=== PATIENT | female | born 1935 | race Caucasian/White ===

== ENCOUNTER → 2018-07-21 | Day surgery (SDC) | payer MEDICARE ==
[2018-07-17 15:18] LABS: BASOPHILS % 0.4 % (0.0-1.0); EOSINOPHILS # (AUTO) 0.1 (0.0-0.4); EOSINOPHILS % 1.6 % (0.0-6.0); HEMATOCRIT 30.3 % (34.2-44.1); HEMOGLOBIN 9.1 g/dL (12.0-16.0); LYMPHOCYTES # (AUTO) 2.5 (1.0-3.2); LYMPHOCYTES % 30.9 % (18.0-39.1); MEAN CORPUSCULAR HEMOGLOBIN 26.8 pg (28-32); MEAN CORPUSCULAR VOLUME 89.1 fL (81-99); MONOCYTES # (AUTO) 0.8 (0.2-0.8); MONOCYTES % 9.3 % (4.4-11.3); NEUTROPHILS # (AUTO) 4.6 (2.1-6.9); NEUTROPHILS % 57.3 % (38.7-80.0); PLATELET COUNT 260 x10e3/uL (140-360); RED CELL DISTRIBUTION WIDTH 16.9 % (11.7-14.4)
[~2018-07-21] MED LIST: ADVAIR 250-501 EACH INH; ADVAIR 500/501 EA INH; ASPIR 8181 MG PO; ATORVASTATIN CA20 MG PO; AVAPRO150 MG PO; BUMETANIDE1 MG PO; CO Q-10200 MG PO; DILTIAZEM ER360 MG PO; EVISTA60 MG PO; FENTANYL CITRATE/PF 100MCG/2 ML INJ ONE; FUROSEMIDE40 MG PO; GABAPENTIN300 MG PO; HYDRALAZINE HCL25 MG PO; KETAMINE HCL INJ 50 MG/ML 10 ML VIAL ONE; METFORMIN HCL500 MG PO; MIDAZOLAM HCL 2 MG/2 ML VIAL ONE; MONTELUKAST SOD10 MG PO; MUCINEX PO; MULTIVITAMINS1 EAC8 PO; NOVOLOG100 UNIT/1 SQ; OMEPRAZOLE PO; OMEPRAZOLE40 MG PO; ONDANSETRON HCL INJ 2 MG/ML VIAL ONE; PRAVASTATIN SOD20 MG PO; PROPOFOL IV EMULSION 10 MG/ML 20 ML VIAL ONE; PROVENTIL HFA6.7 GM INH; SPIRIVA18 MCG PO; SPIRONOLACTONE25 MG PO; VITAMIN C500 M1 PO; VITAMIN D1000 UNI1 PO; ZYRTEC10 MG PO
[2018-07-21 08:50] VITALS: BP 157/77
--- NOTE | 2018-07-21 09:20 | Operative Report ---
DATE OF PROCEDURE: July 21, 2018 NAME OF PROCEDURES 1. Esophagogastroduodenoscopy. 2. Colonoscopy. PREPROCEDURE DIAGNOSIS: Patient with history of abdominal pain, iron deficiency anemia, rule out peptic ulcer disease, gastroesophagitis, upper GI neoplasm, lower GI neoplasm. DESCRIPTION OF PROCEDURE: After informed written consent and premedication with monitored anesthesia care, a standard video gastroscope was introduced into the mouth, esophagus, stomach, and to the 2nd portion of the duodenum. The 1st and 2nd portions of the duodenum appeared to be normal. Biopsies were done to rule out any possibility of malabsorption. The antrum and body were unremarkable. The fundus showed diminutive polyps and biopsies were done to rule out any adenoma changes. Retroflexion revealed a moderately-sized sliding hiatal hernia. Rest of the esophagus was normal. The standard video Olympus colonoscope was introduced into the rectum and all the way into the terminal ileum with some difficulty especially in the distal colon due to looping. The cecum and appendiceal orifice appeared to be normal. The ascending colon showed mild diverticulosis. The descending sigmoid showed extensive diverticulosis. There was a diminutive polyp in the hepatic flexure, removed by cold biopsy forceps. In the distal descending colon around 40 cm from the anal verge, there appeared to be 3 to 3.5 cm sessile polyp going across the fold. This polyp was fairly large. Biopsies were done to rule out any possibility of malignancy and Josseline ink marking for tattooing purposes was done. The polyp was not removed. IMPRESSION 1. Large colon polyp, biopsied and marked in the distal descending colon around 40 cm from the anal verge. 2. Diverticulosis. 3. Polyp in splenic flexure. 4. Hiatal hernia. 5. Gastric polyp. RECOMMENDATIONS: Will keep the patient on PPI. Take the biopsy of the large polyp. If it shows malignancy or high-grade dysplasia, she will need surgery. If not, surgery versus endoscopic mucosal resection can be offered, although high risk. This will be explained to the patient on an outpatient basis and then we will accordingly follow. Further recommendations will be based on the patient's clinical course. Job#: [id number]
--- OUTSIDE RECORDS SUMMARY | 2018-07-28 12:13 | XMS REPORT | Summary of Care ---
Author Author [facility] Organization [facility] Address Unknown Phone Unavailable Encounter ADRIAN Lerner(LINDSAY) [id number] Date(s): 02/12/16 - 02/12/16 [facility] [address] [place] [address]- Discharge Diagnosis: Acute pain of left knee Discharge Diagnosis: COPD exacerbation Discharge Diagnosis: Accidental fall Discharge Disposition: Home Attending Physician: Terence Hopper MD Vital Signs 1 2 3 Most recent to oldest [Reference Range]: 172.72 cm (02/12/16 5:33 PM) Height 98 DegF (02/12/16 9:51 PM) 98.2 DegF (02/12/16 5:33 PM) Temperature Oral [96.4-99.1 DegF] 145/80 mmHg *HI* (02/12/16 9:51 PM) 149/56 mmHg *HI* (02/12/16 7:45 PM) 170/61 mmHg *HI* (02/12/16 6:06 PM) Blood Pressure [90-140/60-90 mmHg] 18 BRMIN (02/12/16 9:51 PM) 16 BRMIN (02/12/16 7:45 PM) 16 BRMIN (02/12/16 6:29 PM) Respiratory Rate [14-20 BRMIN] 88 bpm (02/12/16 9:51 PM) 83 bpm (02/12/16 6:06 PM) 90 bpm (02/12/16 5:33 PM) Peripheral Pulse Rate [60-100 bpm] 86.364 kg (02/12/16 5:33 PM) Weight 28.95 m2 (02/12/16 5:33 PM) Body Mass Index Problem List Condition Effective Dates Status Health Status Informant Asthma1 Active COPD(Confirmed) Resolved Diabetes(Confirmed) Resolved Hypercholesterolemia Active 2 Hypertension(Confirm Active ed) Infection of skin3 01/08/12 Active Migraine4 Active Neuropathy(Confirmed Active ) 1Data migrated from [employer] on 03/11/15. 2Data migrated from [employer] on 03/11/15. 3Data migrated from [employer] on 03/11/15. 4Data migrated from [employer] on 03/11/15. Allergies, Adverse Reactions, Alerts Substance Reaction Severity Status nka Active Medications azithromycin 250 mg oral tablet See Instructions, Take 2 tablets by mouth the first day then 1 tablet by mouth d aily on days 2-5., X 5 day, # 6 tab, 0 Refill(s) Start Date: 02/12/16 Stop Date: 02/17/16 Status: Ordered DuoNeb inhalation solution 3 ml, Route: NEB, Drug Form: SOLN, Dosing Weight 86.364, kg, PRN, PRN Respirator y Protocol, Start date: 02/12/16 18:20:00 CDT, Duration: 30 day, Stop date: 10/28 18:19:00 CDT Notes: (Same as: Duoneb) Start Date: 02/12/16 Stop Date: 02/13/16 Status: Discontinued morphine Sulfate 2 mg, 1 mL, Route: IVP, Drug form: INJ, ONCE, Dosing Weight 86.364, kg, Priority : STAT, Start date: 02/12/16 18:16:00 CDT, Stop date: 02/12/16 18:16:00 CDT Notes: (Same as:MORPhine Sulfate) Start Date: 02/12/16 Stop Date: 02/12/16 Status: Completed Firestone 5/325 oral tablet 1 tab, Route: PO, Drug Form: TAB, Dosing Weight 86.364, kg, ONCE, STAT, Start da te: 02/12/16 20:49:00 CDT, Stop date: 02/12/16 20:49:00 CDT Notes: (Same as: Firestone 325/5) Do not exceed 4gm/day of acetaminophen. Start Date: 02/12/16 Stop Date: 02/12/16 Status: Completed ondansetron 4 mg, 2 mL, Route: IVP, Drug form: INJ, ONCE, Dosing Weight 86.364, kg, Priority : STAT, Start date: 02/12/16 18:16:00 CDT, Stop date: 02/12/16 18:16:00 CDT Notes: (Same as: Zoan) MEDICATION WASTE Product Size: 4 mgProduct Was zulema: ___ mg Start Date: 02/12/16 Stop Date: 02/12/16 Status: Completed predniSONE 50 mg oral tablet 50 mg=1 tab, PO, Daily, X 5 day, # 5 tab, 0 Refill(s) Start Date: 02/12/16 Stop Date: 02/17/16 Status: Ordered Saline Flush 0.9% 10 mL, Route: IVP, Drug Form: INJ, Dosing Weight 86.364, kg, PRN, PRN Line Flush , Start date: 02/12/16 18:19:00 CDT, Duration: 30 day, Stop date: 03/13/16 18:18 :00 CDT Notes: (Same as: BD Posiflush) Start Date: 02/12/16 Stop Date: 02/13/16 Status: Discontinued Ultram 50 mg oral tablet 50 mg=1 tab, PO, Q6H, PRN pain, X 3 day, # 12 tab, 0 Refill(s) Start Date: 02/12/16 Stop Date: 02/15/16 Status: Ordered Results No data available for this section Immunizations No data available for this section Procedures Procedure Date Related Diagnosis Body Site Cholecystectomy Social History Social History Type Response Smoking Status Former smoker; Type: Cigarettes; Exposure to Tobacco Smoke None; Cigarette Smoking Last 365 Days No; Reg Smoking Cessation Counseling No Assessment and Plan No data available for this section
--- OUTSIDE RECORDS SUMMARY | 2018-07-28 12:13 | XMS REPORT | Summary of Care ---
Author Author [facility] Organization [facility] Address Unknown Phone Unavailable Encounter ADRIAN Lerner(LINDSAY) [id number] Date(s): 02/12/17 - 02/12/17 [facility] [address] [address]- [phone] Discharge Disposition: Home or Self Care Attending Physician: Maximino Malhotra MD Referring Physician: Maximino Malhotra MD Vital Signs 1 2 3 Most recent to oldest [Reference Range]: 172.72 cm (02/07/17 6:05 PM) Height 169/70 mmHg *HI* (02/12/17 11:00 AM) 169/77 mmHg *HI* (02/12/17 10:45 AM) 151/67 mmHg *HI* (02/12/17 10:30 AM) Blood Pressure [90-140/60-90 mmHg] 30 BRMIN *HI* (02/12/17 11:00 AM) 17 BRMIN (02/12/17 10:45 AM) 18 BRMIN (02/12/17 10:30 AM) Respiratory Rate [14-20 BRMIN] 87.273 kg (02/07/17 6:05 PM) Weight 29.25 m2 (02/07/17 6:05 PM) Body Mass Index Problem List Condition Effective Dates Status Health Status Informant Asthma1 Active COPD(Confirmed) Resolved Diabetes(Confirmed) Resolved Hx of Resolved osteoporosis(Confirm ed) Hypercholesterolemia Active 2 Hypertension(Confirm Active ed) Infection of skin3 01/08/12 Active Migraine4 Active Neuropathy(Confirmed Active ) Trigeminal Resolved neuralgia(Confirmed) 1Data migrated from [employer] on 03/11/15. 2Data migrated from [employer] on 03/11/15. 3Data migrated from [employer] on 03/11/15. 4Data migrated from [employer] on 03/11/15. Allergies, Adverse Reactions, Alerts Substance Reaction Severity Status nka Active Medications acetaminophen 325 mg, Route: PO, Drug form: TAB, Q4H, Dosing Weight 87.273, kg, PRN Pain Score 1-3, Start date: 02/12/17 10:51:00 CDT, Duration: 30 day, Stop date: 03/14/17 1 0:50:00 CDT Start Date: 02/12/17 Stop Date: 02/12/17 Status: Discontinued acetaminophen-hydrocodone 325 mg-5 mg oral tablet 1 tab, Route: PO, Drug Form: TAB, Dosing Weight 87.273, kg, Q4H, PRN Pain Score 4-6, Start date: 02/12/17 10:51:00 CDT, Duration: 30 day, Stop date: 03/14/17 10 :50:00 CDT Start Date: 02/12/17 Stop Date: 02/12/17 Status: Discontinued acetaminophen-hydrocodone 325 mg-5 mg oral tablet 2 tab, Route: PO, Drug Form: TAB, Dosing Weight 87.273, kg, Q4H, PRN Pain Score 7-10, Start date: 02/12/17 10:51:00 CDT, Duration: 30 day, Stop date: 03/14/17 1 0:50:00 CDT Start Date: 02/12/17 Stop Date: 02/12/17 Status: Discontinued bupivacaine 0.25%-epinephrine 1:200,000 injectable solution 30 mL, Route: MISC, Dosing Weight 87.273, kg, ONCALL, Start date: 02/12/17 6:00: 00 CDT, Duration: 30 day, Stop date: 03/14/17 5:59:00 CDT Start Date: 02/12/17 Stop Date: 02/12/17 Status: Completed dexamethasone 6 mg, Route: IVP, Drug form: INJ, ONCE, Dosing Weight 87.273, kg, Start date: 5:53:00 CDT, Stop date: 02/12/17 5:53:00 CDT Start Date: 02/12/17 Stop Date: 02/12/17 Status: Completed famotidine 20 mg, Route: IVP, Drug form: INJ, ONCE, Dosing Weight 87.273, kg, Start date: 0 02/12/17 5:53:00 CDT, Stop date: 02/12/17 5:53:00 CDT Start Date: 02/12/17 Stop Date: 02/12/17 Status: Completed fentaNYL 50 microgram, Route: IVP, ONCALL, Dosing Weight 87.273, kg, Priority: Routine, S tart date: 02/12/17 6:00:00 CDT, Duration: 1 doses or times Start Date: 02/12/17 Stop Date: 02/12/17 Status: Completed fentaNYL 25 microgram, Route: IVP, Q1H, Dosing Weight 87.273, kg, PRN Pain Score 6-10, Pr iority: Routine, Start date: 02/12/17 5:53:00 CDT, Duration: 1 doses or times, S top date: Limited # of times Start Date: 02/12/17 Stop Date: 02/12/17 Status: Discontinued ondansetron 4 mg, Route: IVP, Drug form: INJ, Q6H, Dosing Weight 87.273, kg, PRN Nausea & Vomiting, Start date: 02/12/17 5:53:00 CDT, Duration: 30 day, Stop date: 5:52:00 CDT Start Date: 02/12/17 Stop Date: 02/12/17 Status: Discontinued Polysporin topical ointment 1 appl, Route: TOP, ONCALL, Drug form: OINT, Priority: Routine, Start date: 12/27 6:00:00 CDT, Duration: 1 doses or times Start Date: 02/12/17 Stop Date: 02/12/17 Status: Completed promethazine 25 mg, Route: IVPB, Q6H, Dosing Weight 87.273, kg, PRN Nausea & Vomiting, Start date: 02/12/17 5:53:00 CDT, Duration: 30 day, Stop date: 03/14/17 5:52:00 CDT Start Date: 02/12/17 Stop Date: 02/12/17 Status: Discontinued Sodium Chloride 0.9% IV 1000 mL 1,000 mL, Rate: 50 ml/hr, Infuse over: 20 hr, Route: IV, Dosing Weight 87.273 kg , Total Volume: 1,000, Priority: Routine, Start date: 02/12/17 10:51:00 CDT, Dur ation: 30 day, Stop date: 03/14/17 10:50:00 CDT Start Date: 02/12/17 Stop Date: 02/12/17 Status: Discontinued Sodium Chloride 0.9% IV 1000 mL 1,000 mL, Rate: 50 ml/hr, Infuse over: 20 hr, Route: IV, Dosing Weight 87.273 kg , Total Volume: 1,000, Priority: Routine, Start date: 02/12/17 5:53:00 CDT, Dura tion: 30 day, Stop date: 03/14/17 5:52:00 CDT Start Date: 02/12/17 Stop Date: 02/12/17 Status: Discontinued Results CHEM PANEL Most recent to 1 oldest [Reference Range]: eGFR 39 mL/min/1.73m2 1 *NA* (02/12/17 5:52 AM) POC Creatinine 1.3 mg/dL [0.5-1.4 mg/dL] (02/12/17 5:52 AM) 1Result Comment: The eGFR is calculated using the CKD-EPI formula. In most young, healthy individuals the eGFR will be >90 mL/min/1.73m2. The eGFR declines with age. An eGFR of 60-89 may be normal in some populations, particularly the elderly, for whom the CKD-EPI formula has not been extensively validated. Use of the eGFR is not recommended in the following populations: Individuals with unstable creatinine concentrations, including patients and those with serious co-morbid conditions. Patients with extremes in muscle mass or diet. The data above are obtained from the National Kidney Disease Education Program ( NKDEP) which additionally recommends that when the eGFR is used in patients with extremes of body mass index for purposes of drug dosing, the eGFR should be mul tiplied by the estimated BMI. Immunizations No data available for this section Procedures Procedure Date Related Diagnosis Body Site Appendectomy Cholecystectomy Social History Social History Type Response Substance Abuse Use: None. Alcohol Never Smoking Status Former smoker; Type: Cigarettes; Previous treatment: None; Ready to change: No; Concerns about tobacco use in household: No; Exposure to Tobacco Smoke None; Cigarette Smoking Last 365 Days No; Reg Smoking Cessation Counseling No Assessment and Plan No data available for this section
--- OUTSIDE RECORDS SUMMARY | 2018-07-28 12:13 | XMS REPORT | Summary of Care ---
Author Author [facility] Organization [facility] Address Unknown Phone Unavailable Encounter HQ Yann(LINDSAY) [id number] Date(s): 07/17/15 - 07/17/15 [facility] [address] [place] [address]- Discharge Disposition: Home Attending Physician: Reid Clark MD Vital Signs No data available for this section Problem List Condition Effective Dates Status Health Status Informant Asthma1 Active Hypercholesterolemia Active 2 Infection of skin3 01/08/12 Active Migraine4 Active 1Data migrated from [employer] on 03/11/15. 2Data migrated from [employer] on 03/11/15. 3Data migrated from [employer] on 03/11/15. 4Data migrated from [employer] on 03/11/15. Allergies, Adverse Reactions, Alerts Substance Reaction Severity Status nka Active Medications No data available for this section Results No data available for this section Immunizations No data available for this section Procedures No data available for this section Social History No data available for this section Assessment and Plan No data available for this section
--- OUTSIDE RECORDS SUMMARY | 2018-07-28 12:13 | XMS REPORT | Continuity of Care Document ---
Author Author [facility] Interface Address Unknown Phone Unavailable Problems Problem Status Onset Date Classification Date Reported Comments Source Acute kidney failure, unspecified 11/21/2017 02/20/2018 [facility] Bronchiectasis with acute lower respiratory infection 11/09/2017 02/04/2018 [facility] SOB Active 11/07/2017 [facility] COPD WITH ACUTE EXACERBATION, ACUTE ON C Active 11/07/2017 [facility] ACUTE BRONCHITIS WITH COPD, CLOSED FRACT Active 10/23/2017 [facility] WEAKNESS / FALL Active 10/23/2017 [facility] [place] G50.0 Active 10/16/2017 [facility] CHF Active 06/24/2017 [facility] HEART FAILURE Active 06/24/2017 [facility] L TRIGEMINAL NEURALGIA G50.0 Active 01/22/2017 [facility] CHEST PAIN, DR SENT Active 09/17/2016 [facility] CHEST PAIN Active 09/17/2016 [facility] S80.02 / M25.062 /M25.462 Active 02/20/2016 [facility] Discharge Diagnosis: Rib fracture 02/14/2016 02/17/2016 [facility] BACK PAIN Active 02/14/2016 [facility] Discharge Diagnosis: Acute pain of left knee 02/12/2016 02/15/2016 [facility] Discharge Diagnosis: COPD exacerbation 02/12/2016 02/15/2016 [facility] Discharge Diagnosis: Accidental fall 02/12/2016 02/15/2016 [facility] FALL Active 02/12/2016 [facility] ACUTE HEADACHE Active 12/31/2015 [facility] MIGRAINE Active 12/31/2015 [facility] Infection of skin<sup>3</sup> Active 01/08/2012 Problem 02/20/2018 Data migrated from [employer] on 03/11/15. [facility]sup[facility] Active Problem 02/20/2018 Data migrated from [employer] on 03/11/15. [facility] 02/20/2018 [facility] Hx of osteoporosis Resolved Problem 02/20/2018 [facility] Hypercholesterolemia<sup>2</sup> Active Problem 02/20/2018 [facility] migrated from [facility] on 03/11/15. [facility] Hypertension Active Problem 02/20/2018 [facility] Migraine<sup>4</sup> Active Problem 02/20/2018 [facility] on 03/11/15. [facility] Neuropathy Active Problem 02/20/2018 [facility] Simple obesity Active Problem 02/20/2018 [facility] Trigeminal neuralgia Resolved Problem 02/20/2018 [facility] Final: Acute on chronic diastolic heart failure 06/30/2017 [facility] Congestive heart failure Resolved Problem 02/20/2018 [facility] Gamma knife radiosurgery<sup>5</sup> Resolved Problem 02/20/[address] [facility] Chronic kidney disease, stage 4 02/04/2018 [facility] Pneumonia, unspecified organism 02/04/2018 [facility] Type 2 diabetes mellitus with diabetic chronic kidney disease 02/20/2018 [facility] Anemia, unspecified 02/20/2018 [facility] Dehydration 02/20/2018 [facility] Fracture of one rib, unspecified side, initial encounter for closed fracture 02/04/2018 [facility] Hypertensive chronic kidney disease with stage 1 through stage 4 chronic kidney disease, or unspecified chronic kidney disease 02/04/2018 [facility] Hyperlipidemia, unspecified 02/04/2018 [facility] Acute bronchitis, unspecified 02/04/2018 [facility] Encounter for immunization 02/04/2018 [facility] Hypertensive heart and chronic kidney disease with heart failure and stage 1 through stage 4 chronic kidney disease, or unspecified chronic kidney disease 02/20/2018 [facility] Type 2 diabetes mellitus with diabetic polyneuropathy 02/20/2018 [facility] Type 2 diabetes mellitus with foot ulcer 02/20/2018 [facility] Contusion of left foot, initial encounter 02/20/2018 [facility] Hypo-osmolality and hyponatremia 02/20/2018 [facility] Chronic obstructive pulmonary disease with exacerbation 02/20/2018 [facility] Unspecified fall, initial encounter 02/20/2018 [facility] Hyperkalemia 02/20/2018 [facility] Age-related osteoporosis without current pathological fracture 02/20/2018 [facility] Trigeminal neuralgia 02/20/2018 [facility] Heart failure, unspecified 02/20/2018 [facility] Chronic kidney disease, stage 3 02/20/2018 [facility] Elevated white blood cell count, unspecified 02/20/2018 [facility] Non-pressure chronic ulcer of other part of left foot with unspecified severity 02/20/2018 [facility] manager terminal use of oral hypoglycemic drugs 02/20/2018 [facility] Personal history of nicotine dependence 02/20/2018 [facility] J18.8 Active [facility] HEADACHE Active [facility] J06.9 Active [facility] ACUTE UPPER RESPIRATORY INFECTION, UNSPE Active [facility] ACUTE ON CHRONIC DIASTOLIC (CONGESTIVE) Active [facility] CHRONIC OBSTRUCTIVE PULMON DISEASE W ACU Active [facility] CHRONIC OBSTRUCTIVE PULMONARY DISEASE W Active [facility] Medications Medication Details Route Status Patient Instructions Ordering Provider Order Date Source Albuterol 0.83 MG/ML Inhalant Solution NEB, PRN, PRN Respiratory Protocol, 0 Refill(s) Active 11/14/2017 [facility] Acetaminophen 325 MG / Hydrocodone Bitartrate 5 MG Oral Tablet [Clayton 5/325] 1 tab, PO, Q4H, PRN Pain Score 1-3 | Pain Score 3-10, 0 Refill(s) Active 11/14/2017 [facility] Aspirin 81 MG Enteric Coated Tablet 81 mg=1 tab, PO, Bedtime, 0 Refill(s) Active 11/14/2017 [facility] irbesartan 150 MG Oral Tablet [Avapro] 150 mg=1 tab, PO, Daily, # 30 tab, 0 Refill(s) No Longer Active 11/13/2017 [facility] Docusate Sodium 50 MG Oral Capsule [Colace] 50 mg, 5 mL, Route: PO, Drug form: LIQ, BID, Dosing Weight 84.545, kg, PRN as needed for constipation, Start date: 11/13/17 9:40:00 [employer]ER [employer], Duration: 30 day, Stop date: 12/13/17 9:39:00 CSTNotes: (Same as: Colace) No Longer Active 11/13/2017 [facility] Zofran 4 mg, 2 mL, Route: IV, Drug form: INJ, Q4H, Dosing Weight 84.545, kg, PRN as needed for nausea/vomiting, Start date: 11/12/17 9:42:00 TRA[employer]ER SECTIONS [employer]SEM[employer]ER, Duration: 30 day, Stop date: 12/12/17 9:41:00 CSTNotes: (Same as: Zofran) MEDICATION WASTE Product Size: 4 mg Product Wasted: ___ mg No Longer Active 11/12/2017 [facility] Zofran 4 mg, Route: PO, Drug form: TAB, Q8H, Dosing Weight 84.545, kg, PRN Nausea, Start date: 11/12/17 8:31:00 TRAILER SECTIONS ASSEMBLER, Duration: 30 day, Stop date: 12/12/17 8:30:00 TRAILER SECTIONS ASSEMBLER Inactive 11/12/2017 [facility] Acetaminophen 325 MG / Hydrocodone Bitartrate 5 MG Oral Tablet [Clayton 5/325] 1 tab, Route: PO, Drug Form: TAB, Dosing Weight 84.545, kg, Q4H, PRN Pain Score 1-3, Start date: 11/12/17 8:29:00 TRAILER SECTIONS ASSEMBLER, Stop date: 12/12/17 8:28:00 TRAILER SECTIONS ASSEMBLER, Pain Score 3-10Notes: (Same as: Clayton 325/5) Do not exceed 4gm/day of acetaminophen. No Longer Active 11/12/2017 [facility] remove patch 1 patch, Route: TOP, Bedtime, Drug form: ERFILM, Start date: 11/11/17 21:00:00 TRA[employer]ER [employer]SEM[employer]ER, Duration: 30 day, Stop date: 12/10/17 21:00:00 CSTNotes: Remove patch 12 hours after application each day. No Longer Active 11/12/2017 [facility] Acetaminophen 325 MG / Hydrocodone Bitartrate 10 MG Oral Tablet [Clayton 10/325] 1 tab, Route: PO, Drug Form: TAB, Dosing Weight 84.545, kg, Q4H, PRN Pain Score 6-10, Start date: 11/11/17 10:38:00 TRAILER SECTIONS ASSEMBLER, Duration: 30 day, Stop date: 12/11/17 10:37:00 CSTNotes: Do not exceed 4gm/day of acetaminophen. (Same as: Clayton 325/10) No Longer Active 11/11/2017 [facility] Lidocaine Hydrochloride 0.05 MG/MG Transdermal Patch [Lidoderm] 1 patch, Route: TOP, Daily, Drug form: FILM, Start date: 11/11/17 9:00:00 TRA[employer]ER [employer]SEM[employer]ER, Duration: 30 day, Stop date: 12/10/17 9:00:00 TRA[employer]ER SE[employer] ASSEMBLER, Remove after 12 hoursNotes: Apply only once for up to 12 hours in a 24-hour period (12 hours on and 12 hours off). (Same as: Lidoderm) "Remove old patch before application of new patch" No Longer Active 11/11/2017 [facility] gabapentin 300 MG Oral Capsule 200 mg, 2 cap, Route: PO, Drug form: CAP, Q12H, Dosing Weight 84.545, kg, Start date: 11/11/17 9:00:00 TRAILER SECTIONS ASSEMBLER, Stop date: 12/10/17 9:00:00 CSTNotes: (Same as: Neurontin) No Longer Active 11/11/2017 [facility] Zofran 4 mg, 2 mL, Route: IVP, Drug form: INJ, Q8H, Dosing Weight 84.545, kg, PRN Nausea, Start date: 11/11/17 8:27:00 TRA[employer]ER SECTIONS ASSEM[employer]ER, Duration: 30 day, Stop date: 12/11/17 8:26:00 CSTNotes: (Same as: Zofran) MEDICATION WASTE Product Size: 4 mg Product Wasted: ___ mg No Longer Active 11/11/2017 [facility] Azithromycin 500 mg, Route: IVPB, [id number], Dosing Weight 84.545, kg, Start date: 11/10/17 23:00:00 TRA[employer]ER [employer]SEM[employer]ER, Duration: 30 day, Stop date: 12/09/17 23:00:00 TRAILER SECTIONS ASSEMBLER, ABX Indication: Non-PNA Respiratory Tract InfectionNotes: (Same As: Zithromax IV) No Longer Active 11/11/2017 [facility] Ceftriaxone 1 gm, Route: IVPB, [id number], Dosing Weight 84.545, kg, Start date: 11/10/17 23:00:00 TRAILER SECTIONS [employer]SEM[employer]ER, Duration: 30 day, Stop date: 12/09/17 23:00:00 TRAILER SECTIONS ASSEMBLER, ABX Indication: Non-PNA Respiratory Tract InfectionNotes: (Same As: Rocephin). Use with 100 mL NS and infuse over 30 min MEDICATION WASTE Product Size: 1000 mg Product Wasted: ___ mg No Longer Active 11/11/2017 [facility] Acetaminophen 325 MG / Hydrocodone Bitartrate 5 MG Oral Tablet [Clayton 5/325] 1 tab, Route: PO, Drug Form: TAB, Dosing Weight 84.545, kg, Q4H, PRN Pain Score 1-3, Start date: 11/10/17 16:39:00 TRAILER [employer]CTIONS ASSEMBLER, Duration: 30 day, Stop date: 12/10/17 16:38:00 CSTNotes: (Same as: Clayton 325/5) Do not exceed 4gm/day of acetaminophen. No Longer Active 11/10/2017 [facility] Omeprazole 40 mg, Route: PO, Drug form: DRC, Daily, Dosing Weight 84.545, kg, Start date: 11/09/17 9:00:00 TRA[employer]ER [employer]CTIONS [employer]SEM[employer]ER, Duration: 30 day, Stop date: 12/08/17 9:00:00 TRAILER SECTIONS ASSEMBLER No Longer Active 11/09/2017 [facility] insulin glargine 10 unit, 0.1 mL, Route: SUB-Q, Drug form: SOLN, Bedtime, Start date: 11/08/17 21:00:00 TRA[employer]ER [employer] ASSEM[employer]ER, Duration: 30 day, Stop date: 12/07/17 21:00:00 CSTNotes: (Same as: Lantus) Do not hold insulin without cont acting prescriber WASTE: F/P - Black; E - Municipal Trash Bin "single patient use only" No Longer Active 11/09/2017 [facility] Levemir 10 unit, Route: SUB-Q, Bedtime, Dosing Weight 84.545, kg, Start date: 11/08/17 21:00:00 TRA[employer]ER SECTIONS ASSEM[employer]ER, Duration: 30 day, Stop date: 12/07/17 21:00:00 TRA[employer]ER [employer] ASSEMBLER Inactive 11/09/2017 [facility] Diltiazem 360 mg, 1 tab, Route: PO, Drug form: ERTAB, Bedtime, Dosing Weight 84.545, kg, Start date: 11/08/17 21:00:00 TRAILER SECTIONS ASSEMBLER, Duration: 30 day, Stop date: 12/07/17 21:00:00 CSTNotes: Same as Cardizem LA (Do Not Crush) No Longer Active 11/09/2017 [facility] atorvastatin 40 mg, 1 tab, Route: PO, Drug form: TAB, Bedtime, Dosing Weight 84.545, kg, Start date: 11/08/17 21:00:00 TRA[employer]ER SECTIONS ASSEMBLER, Duration: 30 day, Stop date: 12/07/17 21:00:00 CSTNotes: (Same as: Lipitor) No Longer Active 11/09/2017 [facility] Aspirin Enteric Coated 81 mg, 1 tab, Route: PO, Drug form: ECTAB, Bedtime, Dosing Weight 84.545, kg, Start date: 11/08/17 21:00:00 TRAILER SECTIONS ASSEMBLER, Duration: 30 day, Stop date: 12/07/17 21:00:00 CSTNotes: Do not crush or chew. (Same As: Ecotrin) No Longer Active 11/09/2017 [facility] Advair Diskus 250 mcg-50 mcg inhalation powder 1 puff, Route: INHALATION, Drug Form: AERO, Dosing Weight 84.545, kg, BID, Start date: 11/08/17 17:00:00 TRA[employer]ER SECTIONS ASSEMBLER, Duration: 30 day, Stop date: 12/08/17 9:00:00 TRAILER SECTIONS ASSEMBLER Inactive 11/08/2017 [facility] Protonix 40 mg, 1 tab, Route: PO, Drug form: ECTAB, Before Dinner, Start date: 11/08/17 16:30:00 TRAILER SECTIONS ASSEMBLER, Duration: 30 day, Stop date: 12/07/17 16:30:00 CSTNotes: Tablet should not be chewed or crushed. (Same as: Protonix) No Longer Active 11/08/2017 [facility] gabapentin 300 MG Oral Capsule 300 mg, 1 cap, Route: PO, Drug form: CAP, Daily, Dosing Weight 84.545, kg, Start date: 11/08/17 11:00:00 TRAILER SECTIONS ASSEMBLER, Duration: 30 day, Stop date: 12/08/17 9:00:00 CSTNotes: (Same as: Neurontin) No Longer Active 11/08/2017 [facility] Zyrtec 10 mg, 2 tab, Route: PO, Drug form: TAB, Daily, Dosing Weight 84.545, kg, Start date: 11/08/17 11:00:00 TRAILER SECTIONS ASSEMBLER, Duration: 30 day, Stop date: 12/08/17 9:00:00 CSTNotes: (Same As: Zyrtec) No Longer Active 11/08/2017 [facility] budesonide-formoterol 2 puff, Route: INHALER, Drug Form: AERO/A, RBID, Start date: 11/08/17 10:37:00 TRAILER SECTIONS ASSEMBLER, Duration: 30 day, Stop date: 12/08/17 8:00:00 CSTNotes: (Same as: Symbicort) WASTE: Aerosol - Return to Pharmacy No Longer Active 11/08/2017 [facility] Lovenox 30 mg, 0.3 mL, Route: SUB-Q, Drug form: INJ, [id number], Dosing Weight 84.545, kg, For CrCl Notes: (Same as: Lovenox) No Longer Active 11/08/2017 [facility] Guaifenesin 600 mg, 1 tab, Route: PO, Drug form: ERTAB, Q12H, Dosing Weight 84.545, kg, PRN Congestion, Start date: 11/08/17 9:46:00 TRAILER SECTIONS ASSEMBLER, Duration: 30 day, Stop date: 12/08/17 9:45:00 CSTNotes: (Same as: Guaifen esin LA, Humibid LA, Mucinex) "Do Not Crush" Take medication with plenty of water. No Longer Active 11/08/2017 [facility] benzonatate 100 mg, 1 cap, Route: PO, Drug form: CAP, TID, Dosing Weight 84.545, kg, PRN Cough, Start date: 11/08/17 9:46:00 TRAILER SECTIONS ASSEMBLER, Duration: 30 day, Stop date: 12/08/17 9:45:00 CSTNotes: (Same As: Sameer Machado) "Do Not Crush" No Longer Active 11/08/2017 [facility] Insulin Lispro 2 unit, 0.02 mL, Route: SUB-Q, Drug form: SOLN, Bedtime, Dosing Weight 84.545, kg, PRN Blood Glucose Results, Start date: 11/08/17 0:47:00 TRAILER SECTIONS ASSEMBLER, Duration: 30 day, Stop date: 12/08/17 0:46:00 CSTNotes: Ro ll in palms of hands gently; Do not shake `vigorously. (Same as: Humalog ) "Single Patient Use Only " WASTE: F/P - Black; E - Municipal Trash Bin Stable for 28 days at room temperature. Expires in days from Date No Longer Active 11/08/2017 [facility] Dextrose 50% Syringe 25 gm, 50 mL, Route: IVP, Drug Form: INJ, Dosing Weight 84.545, kg, PRN, PRN Blood Glucose Results, Start date: 11/08/17 0:47:00 TRAILER SECTIONS ASSEMBLER, Duration: 30 day, Stop date: 12/08/17 0:46:00 TRAILER SECTIONS ASSEMBLER No Longer Active 11/08/2017 [facility] Glucagon 1 mg, Route: IM, Drug form: PDR/INJ, PRN, Dosing Weight 84.545, kg, PRN Blood Glucose Results, Start date: 11/08/17 0:47:00 TRAILER SECTIONS ASSEMBLER, Duration: 30 day, Stop date: 12/08/17 0:46:00 TRAILER SECTIONS ASSEMBLER No Longer Active 11/08/2017 [facility] Insulin Lispro 4 unit, 0.04 mL, Route: SUB-Q, Drug form: SOLN, TID-Before Meals, Dosing Weight 81.818, kg, PRN Blood Glucose Results, Start date: 11/07/17 22:28:00 TRAILER SECTIONS ASSEMBLER, Duration: 30 day, Stop date: 12/07/17 22:27:0 0 CSTNotes: Roll in palms of hands gently; Do not shake `vigorously. (Same as: Humalog ) "Single Patient Use Only " WASTE: F/P - Black; E - Municipal Trash Bin Stable for 28 days at room temperature. Expires in days from Date No Longer Active 11/08/2017 [facility] Dextrose 50% Syringe 12.5 gm, 25 mL, Route: IVP, Drug Form: INJ, Dosing Weight 81.818, kg, PRN, PRN Blood Glucose Results, Start date: 11/07/17 22:28:00 TRAILER SECTIONS ASSEMBLER, Duration: 30 day, Stop date: 12/07/17 22:27:00 TRAILER SECTIONS ASSEMBLER No Longer Active 11/08/2017 [facility] Glucagon 1 mg, Route: IM, Drug form: PDR/INJ, PRN, Dosing Weight 81.818, kg, PRN Blood Glucose Results, Start date: 11/07/17 22:28:00 TRAILER SECTIONS ASSEMBLER, Duration: 30 day, Stop date: 12/07/17 22:27:00 TRAILER SECTIONS ASSEMBLER No Longer Active 11/08/2017 [facility] Albuterol 0.833 MG/ML / Ipratropium [place] 0.167 MG/ML Inhalant Solution [DuoNeb] 3 ml, Route: NEB, Drug Form: SOLN, Dosing Weight 81.818, kg, RQ4H, PRN Respiratory Protocol, Start date: 11/07/17 22:23:00 TRAILER SECTIONS ASSEMBLER, Duration: 30 day, Stop date: 12/07/17 22:22:00 CSTNotes: (Same as: Duoneb) No Longer Active 11/08/2017 [facility] Albuterol 0.83 MG/ML Inhalant Solution 2.49 mg, 3 mL, Route: NEB, Drug form: SOLN, PRN, Dosing Weight 81.818, kg, PRN Respiratory Protocol, Start date: 11/07/17 19:36:00 TRAILER SECTIONS ASSEMBLER, Duration: 30 day, Stop date: 12/07/17 19:35:00 CSTNotes: SEE RT DOCUMENTATION (Same as: Proventil) No Longer Active 11/08/2017 [facility] Albuterol 0.833 MG/ML / Ipratropium [place] 0.167 MG/ML Inhalant Solution [DuoNeb] 3 ml, Route: NEB, Drug Form: SOLN, Dosing Weight 81.818, kg, PRN, PRN Respiratory Protocol, Start date: 11/07/17 19:35:00 TRAILER SECTIONS ASSEMBLER, Duration: 30 day, Stop date: 12/07/17 19:34:00 TRAILER SECTIONS ASSEMBLER Inactive 11/08/2017 [facility] normal saline 0.9% IV 1,000 mL 1,000 mL, Rate: 50 ml/hr, Infuse over: 20 hr, Route: IV, Dosing Weight 84.545 kg, Total Volume: 1,000, Start date: 11/07/17 19:23:00 TRAILER SECTIONS ASSEMBLER, Stop date: 12/07/17 19:22:00 TRAILER SECTIONS ASSEMBLER, 2.03, m2 No Longer Active 11/08/2017 [facility] Calcium Chloride 1,000 mg, 10 mL, Route: IVPB, Drug form: INJ, ONCE, Dosing Weight 81.818, kg, Priority: STAT, Start date: 11/07/17 18:09:00 TRAILER SECTIONS ASSEMBLER, Stop date: 11/07/17 18:09:00 CSTNotes: WASTE: F/P - Sink; E - Municipal Trash Bin Inactive 11/08/2017 [facility] d50 syringe 25 gm, 50 mL, Route: IVP, Drug Form: INJ, Dosing Weight 81.818, kg, ONCE, STAT, Start date: 11/07/17 18:09:00 TRAILER SECTIONS ASSEMBLER, Stop date: 11/07/17 18:09:00 TRAILER SECTIONS ASSEMBLER, 25 ml=12.5 gm Inactive 11/08/2017 [facility] Insulin regular 4 unit, 0.04 mL, Route: IVP, Drug form: INJ, ONCE, Dosing Weight 81.818, kg, Priority: STAT, Start date: 11/07/17 18:09:00 TRAILER SECTIONS ASSEMBLER, Stop date: 11/07/17 18:09:00 CSTNotes: (Same as: Humulin R and NovoLIN R) WASTE: F/P - Black; E - Municipal Trash Bin (Do not shake) Inactive 11/08/2017 [facility] Kayexalate 60 gm, 240 mL, Route: PO, Drug form: SUSP, ONCE, Dosing Weight 81.818, kg, Priority: STAT, Start date: 11/07/17 18:09:00 TRAILER SECTIONS ASSEMBLER, Stop date: 11/07/17 18:09:00 CSTNotes: (sodium polystyrene sulfonate 15 gm/60 ml STEPHANIE) Shake well before use. (Same as: Kayexalate, SPS) Inactive 11/08/2017 [facility] Sodium Bicarbonate 50 mEq, 50 mL, Route: INJ, Drug form: INJ, ONCE, Dosing Weight 81.818, kg, Priority: STAT, Start date: 11/07/17 18:09:00 TRAILER SECTIONS ASSEMBLER, Stop date: 11/07/17 18:09:00 CSTNotes: (sodium bicarb 8.4% (1 mEq/ml) 50 ml syringe) Inactive 11/08/2017 [facility] Zofran 4 mg, 2 mL, Route: IVP, Drug form: INJ, ONCE, Dosing Weight 81.818, kg, Priority: STAT, Start date: 11/07/17 17:55:00 TRAILER SECTIONS ASSEMBLER, Stop date: 11/07/17 17:55:00 CSTNotes: (Same as: Zofran) MEDICATION WASTE Product Size: 4 mg Product Wasted: ___ mg Inactive 11/07/2017 [facility] methylPREDNISolone SODium SUCCinate 125 mg, 2 mL, Route: IVP, Drug form: INJ, ONCE, Dosing Weight 81.818, kg, Priority: STAT, Start date: 11/07/17 16:28:00 TRAILER SECTIONS ASSEMBLER, Stop date: 11/07/17 16:28:00 CSTNotes: (Same as:Solu-MEDROL, A-Methapred) Inactive 11/07/2017 [facility] Albuterol 0.833 MG/ML / Ipratropium [place] 0.167 MG/ML Inhalant Solution [DuoNeb] 3 ml, Route: NEB, Drug Form: SOLN, Dosing Weight 81.818, kg, PRN, PRN Respiratory Protocol, Start date: 11/07/17 16:28:00 TRAILER SECTIONS ASSEMBLER, Duration: 30 day, Stop date: 12/07/17 16:27:00 CSTNotes: (Same as: Duoneb) Inactive 11/07/2017 [facility] Saline Flush 0.9% 10 mL, Route: IVP, Drug Form: INJ, Dosing Weight 81.818, kg, PRN, PRN Line Flush, Start date: 11/07/17 14:37:00 TRAILER SECTIONS ASSEMBLER, Duration: 30 day, Stop date: 12/07/17 14:36:00 CSTNotes: (Same as: BD Posiflush) No Longer Active 11/07/2017 [facility] gabapentin 600 MG Oral Tablet 600 mg, 2 cap, Route: PO, Drug form: CAP, ONCE, Dosing Weight 89.545, kg, Start date: 10/29/17 13:29:00 TRAILER SECTIONS ASSEMBLER, Stop date: 10/29/17 13:29:00 CSTNotes: (Same as: Neurontin) Inactive 10/29/2017 [facility] benzonatate 100 mg oral capsule 100 mg=1 cap, PO, TID, PRN Cough, # 30 cap, 0 Refill(s) Active 10/29/2017 [facility] guaiFENesin 600 mg oral tablet, extended release 600 mg=1 tab, PO, Q12H, PRN Congestion, # 20 tab, 0 Refill(s), Pharmacy: [id number] Active 10/29/2017 [facility] Levofloxacin 500 MG Oral Tablet [Levaquin] 500 mg=1 tab, PO, Q24H, X 10 day, # 10 tab, 0 Refill(s) No Longer Active 10/29/2017 [facility] predniSONE 10 mg oral tablet See Special Instructions, PO, Daily, 12 day Days 1-4 - 20 mg 2 tab day Days 5-8 - 10 mg 1 tab day Days 9-12 - 5 mg 1/2 tab day, X 12 day, # 14 tab, 0 Refill(s) No Longer Active 10/29/2017 [facility] Lasix 40 mg, 4 mL, Route: IVP, Drug form: INJ, ONCE, Dosing Weight 89.545, kg, Start date: 10/29/17 13:16:00 TRAILER SECTIONS ASSEMBLER, Stop date: 10/29/17 13:16:00 CSTNotes: (Same as: Lasix) MEDICATION WASTE Product Size: 40 mg Product Wasted: ___ mg Inactive 10/29/2017 [facility] Lactulose 667 MG/ML Oral Solution 30 gm, 45 ml, Route: PO, Drug form: SYRP, ONCE, Dosing Weight 89.545, kg, Start date: 10/29/17 13:16:00 TRAILER SECTIONS ASSEMBLER, Stop date: 10/29/17 13:16:00 CSTNotes: (Same as:Chronulac) Inactive 10/29/2017 [facility] gabapentin 300 MG Oral Capsule 300 mg, 1 cap, Route: PO, Drug form: CAP, Daily, Dosing Weight 89.545, kg, (CrCl Notes: (Same as: Neurontin) Inactive 10/29/2017 [facility] Hydralazine Hydrochloride 100 MG Oral Tablet 100 mg, 2 tab, Route: PO, Drug form: TAB, Q12H, Dosing Weight 89.545, kg, Start date: 10/28/17 21:00:00 TRAILER SECTIONS ASSEMBLER, Duration: 30 day, Stop date: 11/27/17 9:00:00 CSTNotes: (Same as: Apresoline) May interfere w/enteral feedings Take With Food No Longer Active 10/29/2017 [facility] [facility] Pneumovax 23 0.5 mL, Route: IM, Drug Form: INJ, Daily, Start date: 10/27/17 11:30:00 TRAILER [employer]CTIONS [employer]SEM[employer]ER, Duration: 1 doses or times, Stop date: 10/27/17 11:30:00 CSTNotes: (Same as: Pneumovax 23) Refrigerate Inactive 10/27/2017 [facility] pneumococcal capsular polysaccharide type 1 vaccine / pneumococcal capsular polysaccharide type 10A vaccine / pneumococcal capsular polysaccharide type 11A vaccine / pneumococcal capsular polysaccharide type 12F vaccine / pneumococcal capsular polysacchar 0.5 mL, Route: IM, Drug Form: INJ, Daily, Start date: 10/27/17 9:00:00 TRAILER SECTIONS ASSEMBLER, Duration: 1 doses or times, Stop date: 10/27/17 9:00:00 CSTNotes: (Same as: Pneumovax 23) Refrigerate Inactive 10/27/2017 [facility] gabapentin 300 MG Oral Capsule 300 mg, 1 cap, Route: PO, Drug form: CAP, BID, Dosing Weight 89.545, kg, Start date: 10/26/17 17:00:00 TRA[employer]ER SECTIONS [employer]SEM[employer]ER, Duration: 30 day, Stop date: 11/25/17 9:00:00 CSTNotes: (Same as: Neurontin) No Longer Active 10/26/2017 [facility] Mucinex DM Max Strength 1 tab, Route: PO, Drug Form: ERTAB, Dosing Weight 89.545, kg, BID, NOW, Start date: 10/26/17 12:21:00 TRAILER SECTIONS ASSEMBLER, Duration: 30 day, Stop date: 11/24/17 21:00:00 CSTNotes: (Same as: Guaifenex DM) "Do Not Crush" No Longer Active 10/26/2017 [facility] Streptococcus pneumoniae serotype 1 capsular antigen diphtheria [id number] protein conjugate vaccine / Streptococcus pneumoniae serotype 14 capsular antigen diphtheria [id number] protein conjugate vaccine / Streptococcus pneumoniae serotype 18C capsular antigen d 0.5 mL, Route: IM, Drug Form: INJ, Daily, Start date: 10/26/17 9:00:00 TRAILER SECTIONS ASSEMBLER, Duration: 1 doses or times, Stop date: 10/26/17 9:00:00 CSTNotes: Shake well prior to use (Same as: Prevnar 13) Inactive 10/26/2017 [facility] Mucinex 600 mg, 1 tab, Route: PO, Drug form: ERTAB, Q12H, Dosing Weight 89.545, kg, PRN Congestion, Start date: 10/25/17 13:30:00 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, Duration: 30 day, Stop date: 11/24/17 13:29:00 CSTNotes: (dextromethorphan-guaifenesin 10-100mg/5ml 10 ml oral SOLN ud) (Same as: Robitussin DM) No Longer Active 10/25/2017 [facility] Solu-Medrol 40 mg, 1 mL, Route: IVP, Drug form: INJ, Q12H, Dosing Weight 89.545, kg, Start date: 10/24/17 21:00:00 TRA[employer]ER SECTIONS ASSEMBLER, Duration: 30 day, Stop date: 11/23/17 9:00:00 CSTNotes: (Same as:Solu-MEDROL, A-Methapred) No Longer Active 10/25/2017 [facility] cefepime 1 gm, Route: IVPB, [id number], Dosing Weight 89.545, kg, (CrCl 30 - 49 ml/min), Start date: 10/24/17 16:00:00 TRAILER SECTIONS ASSEMBLER, Stop date: 11/02/17 16:00:00 TRAILER SECTIONS ASSEMBLER, ABX Indication: PneumoniaNotes: (Same As: Maxipime) MEDICATION WASTE Product Size: 1000 mg Product Wasted: ___ mg No Longer Active 10/24/2017 [facility] Omeprazole 40 mg, Route: PO, Drug form: DRC, Daily, Dosing Weight 89.545, kg, Start date: 10/24/17 9:00:00 TRA[employer]ER [employer] ASSEM[employer]ER, Duration: 30 day, Stop date: 11/22/17 9:00:00 TRAILER SECTIONS ASSEMBLER No Longer Active 10/24/2017 [facility] Avapro 150 mg, 1 tab, Route: PO, Drug form: TAB, Daily, Dosing Weight 89.545, kg, Start date: 10/24/17 9:00:00 TRAILER SECTIONS ASSEMBLER, Duration: 30 day, Stop date: 11/22/17 9:00:00 CSTNotes: (Same as:Avapro) No Longer Active 10/24/2017 [facility] gabapentin 300 MG Oral Capsule 300 mg, 1 cap, Route: PO, Drug form: CAP, Daily, Dosing Weight 89.545, kg, Start date: 10/24/17 9:00:00 TRA[employer]ER SECTIONS ASSEM[employer]ER, Duration: 30 day, Stop date: 11/22/17 9:00:00 CSTNotes: (Same as: Neurontin) No Longer Active 10/24/2017 [facility] Advair Diskus 250 mcg-50 mcg inhalation powder 1 puff, Route: INHALATION, Drug Form: AERO, Dosing Weight 89.545, kg, BID, Start date: 10/24/17 9:00:00 TRAILER SECTIONS ASSEMBLER, Duration: 30 day, Stop date: 11/22/17 17:00:00 TRAILER SECTIONS ASSEMBLER No Longer Active 10/24/2017 [facility] Zyrtec 10 mg, 2 tab, Route: PO, Drug form: TAB, Daily, Dosing Weight 89.545, kg, Start date: 10/24/17 9:00:00 TRA[employer]ER [employer]CTIONS ASSEMBLER, Duration: 30 day, Stop date: 11/22/17 9:00:00 CSTNotes: (Same As: Zyrtec) No Longer Active 10/24/2017 [facility] Protonix 40 mg, 1 tab, Route: PO, Drug form: ECTAB, Before Breakfast, Start date: 10/24/17 7:30:00 TRAILER SECTIONS ASSEM[employer]ER, Duration: 30 day, Stop date: 11/22/17 7:30:00 CSTNotes: Tablet should not be chewed or crushed. (Same as: Protonix) No Longer Active 10/24/2017 [facility] Solu-Medrol 40 mg, 1 mL, Route: IVP, Drug form: INJ, Q8H, Dosing Weight 89.545, kg, Start date: 10/24/17 0:00:00 TRA[employer]ER [employer]CTIONS ASSEM[employer]ER, Duration: 30 day, Stop date: 11/22/17 16:00:00 CSTNotes: (Same as:Solu-MEDROL, A-Methapred) Inactive 10/24/2017 [facility] Insulin Lispro 3 unit, 0.03 mL, Route: SUB-Q, Drug form: SOLN, Bedtime, Dosing Weight 89.545, kg, PRN Blood Glucose Results, Start date: 10/23/17 21:22:00 TRA[employer]ER [employer]CTIONS ASSEMBLER, Duration: 30 day, Stop date: 11/22/17 21:21:00 CSTNotes: Roll in palms of hands gently; Do not shake `vigorously. (Same as: Humalog ) "Single Patient Use Only " WASTE: F/P - Black; E - Municipal Trash Bin Stable for 28 days at room temperature. Expires in days from Date No Longer Active 10/24/2017 [facility] Dextrose 50% Syringe 25 gm, 50 mL, Route: IVP, Drug Form: INJ, Dosing Weight 89.545, kg, PRN, PRN Blood Glucose Results, Start date: 10/23/17 21:22:00 TRAILER SECTIONS ASSEMBLER, Duration: 30 day, Stop date: 11/22/17 21:21:00 TRAILER SECTIONS ASSEMBLER No Longer Active 10/24/2017 [facility] Glucagon 1 mg, Route: IM, Drug form: PDR/INJ, PRN, Dosing Weight 89.545, kg, PRN Blood Glucose Results, Start date: 10/23/17 21:22:00 TRAILER SECTIONS ASSEMBLER, Duration: 30 day, Stop date: 11/22/17 21:21:00 TRAILER SECTIONS ASSEMBLER No Longer Active 10/24/2017 [facility] montelukast 10 mg, 1 tab, Route: PO, Drug form: TAB, Bedtime, Dosing Weight 89.545, kg, Start date: 10/23/17 21:00:00 TRAILER SECTIONS ASSEMBLER, Duration: 30 day, Stop date: 11/21/17 21:00:00 CSTNotes: (Same as:Singulair) No Longer Active 10/24/2017 [facility] Diltiazem 360 mg, 2 cap, Route: PO, Drug form: ERCAP, Bedtime, Dosing Weight 89.545, kg, Start date: 10/23/17 21:00:00 TRA[employer]ER SECTIONS ASSEMBLER, Duration: 30 day, Stop date: 11/21/17 21:00:00 CSTNotes: (Same as:Cardizem CD) Before meals. DO NOT CRUSH. No Longer Active 10/24/2017 [facility] Aspirin Enteric Coated 81 mg, 1 tab, Route: PO, Drug form: ECTAB, Bedtime, Dosing Weight 89.545, kg, Start date: 10/23/17 21:00:00 TRAILER SECTIONS ASSEMBLER, Duration: 30 day, Stop date: 11/21/17 21:00:00 CSTNotes: Do not crush or chew. (Same As: Ecotrin) No Longer Active 10/24/2017 [facility] atorvastatin 40 mg, 1 tab, Route: PO, Drug form: TAB, Bedtime, Dosing Weight 89.545, kg, Start date: 10/23/17 21:00:00 TRAILER SECTIONS ASSEMBLER, Duration: 30 day, Stop date: 11/21/17 21:00:00 CSTNotes: (Same as: Lipitor) No Longer Active 10/24/2017 [facility] Lovenox 40 mg, 0.4 mL, Route: SUB-Q, Drug form: INJ, [id number], Dosing Weight 89.545, kg, Start date: 10/23/17 20:03:00 TRAILER SECTIONS ASSEMBLER, Stop date: 11/22/17 21:00:00 CSTNotes: (Same as: Lovenox) No Longer Active 10/24/2017 [facility] budesonide-formoterol 160 mcg-4.5 mcg/inh inhalation aerosol with adapter 2 inhalation, Route: INHALATION, Drug Form: AERO/A, RBID, Start date: 10/23/17 20:00:00 TRAILER SECTIONS ASSEMBLER, Duration: 30 day, Stop date: 11/22/17 8:00:00 CSTNotes: (Same as: Symbicort) WASTE: Aerosol - Return to Pharmacy No Longer Active 10/24/2017 [facility] Hydralazine 10 mg, 0.5 mL, Route: IVP, Drug form: INJ, Q4H, Dosing Weight 89.545, kg, PRN Hypertension, Start date: 10/23/17 19:31:00 TRA[employer]ER SECTIONS ASSEMBLER, Duration: 30 day, Stop date: 11/22/17 19:30:00 CSTNotes: (Same as: Apres oline) Push over 5 minutes No Longer Active 10/24/2017 [facility] Melatonin 3 mg, 1 tab, Route: PO, Drug form: TAB, Bedtime, Dosing Weight 89.545, kg, PRN Sleep, Start date: 10/23/17 19:27:00 TRAILER SECTIONS ASSEMBLER, Duration: 30 day, Stop date: 11/22/17 19:26:00 CSTNotes: (Same as: Melatonin) No Longer Active 10/24/2017 [facility] Mucinex 600 mg, 1 tab, Route: PO, Drug form: ERTAB, Q12H, Dosing Weight 89.545, kg, PRN Congestion, Start date: 10/23/17 19:27:00 TRAILER SECTIONS ASSEMBLER, Duration: 30 day, Stop date: 11/22/17 19:26:00 CSTNotes: (Same as: Guaifenesin LA, Humibid LA, Mucinex) "Do Not Crush" Take medication with plenty of water. No Longer Active 10/24/2017 [facility] Tessalon Perles 100 mg, 1 cap, Route: PO, Drug form: CAP, TID, Dosing Weight 89.545, kg, PRN Cough, Start date: 10/23/17 19:27:00 TRAILER SECTIONS ASSEMBLER, Duration: 30 day, Stop date: 11/22/17 19:26:00 CSTNotes: (Same As: Tessalon Shaniqua es) "Do Not Crush" No Longer Active 10/24/2017 [facility] Robitussin-AC oral syrup 10 ml, Route: PO, Drug Form: LIQ, Dosing Weight 89.545, kg, Q6H, PRN Cough/Congestion, Start date: 10/23/17 19:27:00 TRAILER SECTIONS ASSEMBLER, Duration: 30 day, Stop date: 11/22/17 19:26:00 CSTNotes: (Same As: Robitussin AC) No Longer Active 10/24/2017 [facility] NS 1,000 mL 1,000 mL, Rate: 75 ml/hr, Infuse over: 13.3 hr, Route: IV, Dosing Weight 89.545 kg, Total Volume: 1,000, Start date: 10/23/17 19:27:00 TRAILER SECTIONS ASSEMBLER, Duration: 30 day, Stop date: 11/22/17 19:26:00 TRAILER SECTIONS ASSEMBLER, 2.09, m2 No Longer Active 10/24/2017 [facility] Albuterol 0.833 MG/ML / Ipratropium [place] 0.167 MG/ML Inhalant Solution [DuoNeb] 3 ml, Route: NEB, Drug Form: SOLN, Dosing Weight 89.545, kg, PRN, PRN Respiratory Protocol, Start date: 10/23/17 19:27:00 TRAILER SECTIONS ASSEMBLER, Duration: 30 day, Stop date: 11/22/17 19:26:00 CSTNotes: (Same as: Duoneb) No Longer Active 10/24/2017 [facility] Acetaminophen 650 mg, 2 tab, Route: PO, Drug form: TAB, Q6H, Dosing Weight 89.545, kg, PRN Pain 1-3/Temp > 100.4 F, Start date: 10/23/17 16:22:00 TRAILER SECTIONS ASSEMBLER, Duration: 30 day, Stop date: 11/22/17 16:21:00 CSTNotes: Do not exceed 4 gm/day. (Same as: Tylenol) No Longer Active 10/23/2017 [facility] Acetaminophen 325 MG / Hydrocodone Bitartrate 5 MG Oral Tablet 1 tab, Route: PO, Drug Form: TAB, Dosing Weight 89.545, kg, Q6H, PRN Pain Score 4-6, Start date: 10/23/17 16:22:00 TRAILER SECTIONS ASSEMBLER, Duration: 30 day, Stop date: 11/22/17 16:21:00 CSTNotes: (Same as: Clayton 325/5) Do not exceed 4gm/day of acetaminophen. No Longer Active 10/23/2017 [facility] Docusate 100 mg, 1 cap, Route: PO, Drug form: CAP, BID, Dosing Weight 89.545, kg, PRN as needed for constipation, Start date: 10/23/17 16:22:00 TRAILER SECTIONS ASSEMBLER, Duration: 30 day, Stop date: 11/22/17 16:21:00 CSTNotes: (Same as: Colace) (Do Not Crush) No Longer Active 10/23/2017 [facility] Morphine 2 mg, 1 mL, Route: IVP, Drug form: SOLN, Q4H, Dosing Weight 89.545, kg, PRN Pain Score 7-10, Start date: 10/23/17 16:22:00 TRAILER SECTIONS ASSEMBLER, Duration: 30 day, Stop date: 11/22/17 16:21:00 TRAILER SECTIONS ASSEMBLER No Longer Active 10/23/2017 [facility] Ondansetron 4 mg, 2 mL, Route: IVP, Drug form: INJ, Q6H, Dosing Weight 89.545, kg, PRN Nausea & Vomiting, Start date: 10/23/17 16:22:00 TRAILER SECTIONS ASSEMBLER, Duration: 30 day, Stop date: 11/22/17 16:21:00 CSTNotes: (Same as: Zofran) MEDICATION WASTE Product Size: 4 mg Product Wasted: ___ mg No Longer Active 10/23/2017 [facility] NS 1,000 mL 1,000 mL, Rate: 75 ml/hr, Infuse over: 13.3 hr, Route: IV, Dosing Weight 89.545 kg, Total Volume: 1,000, Start date: 10/23/17 15:02:00 TRAILER SECTIONS ASSEMBLER, Duration: 30 day, Stop date: 11/22/17 15:01:00 TRAILER SECTIONS ASSEMBLER, 2.09, m2 No Longer Active 10/23/2017 [facility] Zofran 4 mg, 2 mL, Route: IVP, Drug form: INJ, ONCE, Dosing Weight 89.545, kg, Priority: STAT, Start date: 10/23/17 15:01:00 TRAILER SECTIONS ASSEMBLER, Stop date: 10/23/17 15:01:00 CSTNotes: (Same as: Zofran) MEDICATION WASTE Product Size: 4 mg Product Wasted: ___ mg Inactive 10/23/2017 [facility] methylPREDNISolone SODium SUCCinate 125 mg, 2 mL, Route: IVP, Drug form: INJ, ONCE, Dosing Weight 89.545, kg, Priority: STAT, Start date: 10/23/17 15:01:00 TRAILER SECTIONS ASSEMBLER, Stop date: 10/23/17 15:01:00 CSTNotes: (Same as:Solu-MEDROL, A-Methapred) Inactive 10/23/2017 [facility] Acetaminophen 325 MG / Hydrocodone Bitartrate 5 MG Oral Tablet [Clayton 5/325] 1 tab, Route: PO, Drug Form: TAB, Dosing Weight 89.545, kg, ONCE, STAT, Start date: 10/23/17 15:01:00 TRAILER SECTIONS ASSEMBLER, Stop date: 10/23/17 15:01:00 CSTNotes: (Same as: Clayton 325/5) Do not exceed 4gm/day of acetaminophen. Inactive 10/23/2017 [facility] cefepime 1 gm, Route: IVP, ONCE, Dosing Weight 89.545, kg, Priority: STAT, Start date: 10/23/17 15:00:00 TRAILER SECTIONS ASSEMBLER, Stop date: 10/23/17 15:00:00 TRAILER SECTIONS ASSEMBLER, ABX Indication: PneumoniaNotes: (Same As: Maxipime) MEDICA TION WASTE Product Size: 1000 mg Product Wasted: ___ mg Inactive 10/23/2017 [facility] Albuterol 0.833 MG/ML / Ipratropium [place] 0.167 MG/ML Inhalant Solution [DuoNeb] 3 ml, Route: NEB, Drug Form: SOLN, Dosing Weight 89.545, kg, PRN, PRN Respiratory Protocol, STAT, Start date: 10/23/17 13:02:00 TRAILER SECTIONS ASSEMBLER, Duration: 30 day, Stop date: 11/22/17 13:01:00 CSTNotes: (Same as: Duoneb) Inactive 10/23/2017 [facility] Saline Flush 0.9% 10 mL, Route: IVP, Drug Form: INJ, Dosing Weight 89.545, kg, PRN, PRN Line Flush, Start date: 10/23/17 12:59:00 TRAILER SECTIONS ASSEMBLER, Duration: 30 day, Stop date: 11/22/17 12:58:00 CSTNotes: (Same as: BD Posiflush) No Longer Active 10/23/2017 [facility] Ondansetron 4 MG Oral Tablet [Zofran] 4 mg=1 tab, PO, PRN, 0 Refill(s) Active 10/23/2017 [facility] Acetaminophen 325 MG / Hydrocodone Bitartrate 7.5 MG Oral Tablet [Clayton 7.5/325] 1 tab, PO, PRN, 0 Refill(s) No Longer Active 10/23/2017 [facility] Prednisone 50 MG Oral Tablet 50 mg=1 tab, PO, Daily, 0 Refill(s) No Longer Active 10/23/2017 [facility] Azithromycin 250 mg, PO, Daily, 0 Refill(s) No Longer Active 10/23/2017 [facility] Tramadol 50 mg, PO, Q4-6H, PRN Pain, # 20 tab, 0 Refill(s) No Longer Active 10/23/2017 [facility] Acetaminophen 325 MG / Hydrocodone Bitartrate 5 MG Oral Tablet 1 tab, Route: PO, Drug Form: TAB, Dosing Weight 89.545, kg, Q4H, PRN Pain Score 4-6, Start date: 10/22/17 11:46:00 TRAILER SECTIONS ASSEMBLER, Duration: 30 day, Stop date: 11/21/17 11:45:00 TRAILER SECTIONS ASSEMBLER Inactive 10/22/2017 [facility] Acetaminophen 325 mg, Route: PO, Drug form: TAB, Q4H, Dosing Weight 89.545, kg, PRN Pain Score 1-3, Start date: 10/22/17 11:46:00 TRAILER SECTIONS ASSEMBLER, Duration: 30 day, Stop date: 11/21/17 11:45:00 TRAILER SECTIONS ASSEMBLER Inactive 10/22/2017 [facility] Sodium Chloride 0.9% IV 1000 mL 1,000 mL, Rate: 50 ml/hr, Infuse over: 20 hr, Route: IV, Dosing Weight 89.545 kg, Total Volume: 1,000, Priority: Routine, Start date: 10/22/17 11:46:00 TRAILER SECTIONS ASSEMBLER, Duration: 30 day, Stop date: 11/21/17 11:45:00 TRAILER SECTIONS ASSEMBLER, 2.09, m2 Inactive 10/22/2017 [facility] Bacitracin 0.5 UNT/MG / Polymyxin B 10 UNT/MG Topical Ointment [Polysporin] 1 appl, Route: TOP, ONCALL, Drug form: OINT, Priority: Routine, Start date: 10/22/17 6:00:00 TRAILER SECTIONS ASSEMBLER, Duration: 1 doses or times Inactive 10/22/2017 [facility] Bupivacaine Hydrochloride 2.5 MG/ML / Epinephrine 0.005 MG/ML Injectable Solution 30 mL, Route: MISC, Dosing Weight 89.545, kg, ONCALL, Start date: 10/22/17 6:00:00 TRAILER SECTIONS ASSEMBLER, Duration: 30 day, Stop date: 11/21/17 5:59:00 TRAILER SECTIONS ASSEMBLER Inactive 10/22/2017 [facility] Fentanyl 50 microgram, Route: IVP, ONCALL, Dosing Weight 89.545, kg, Priority: Routine, Start date: 10/22/17 6:00:00 TRAILER SECTIONS ASSEMBLER, Duration: 1 doses or times Inactive 10/22/2017 [facility] Dexamethasone 6 mg, Route: IVP, Drug form: INJ, ONCE, Dosing Weight 89.545, kg, Start date: 10/22/17 5:55:00 TRAILER SECTIONS ASSEMBLER, Stop date: 10/22/17 5:55:00 TRAILER SECTIONS ASSEMBLER Inactive 10/22/2017 [facility] Famotidine 20 mg, Route: IVP, Drug form: INJ, ONCE, Dosing Weight 89.545, kg, Start date: 10/22/17 5:55:00 TRAILER SECTIONS ASSEMBLER, Stop date: 10/22/17 5:55:00 TRAILER SECTIONS ASSEMBLER Inactive 10/22/2017 [facility] Sodium Chloride 0.9% IV 1000 mL 1,000 mL, Rate: 50 ml/hr, Infuse over: 20 hr, Route: IV, Dosing Weight 89.545 kg, Total Volume: 1,000, Priority: Routine, Start date: 10/22/17 5:55:00 TRAILER SECTIONS ASSEMBLER, Duration: 30 day, Stop date: 11/21/17 5:54:00 TRAILER SECTIONS ASSEMBLER, 2.09, m2 Inactive 10/22/2017 [facility] Fentanyl 25 microgram, Route: IVP, Q1H, Dosing Weight 89.545, kg, PRN Pain Score 6-10, Priority: Routine, Start date: 10/22/17 5:55:00 TRAILER SECTIONS ASSEMBLER, Duration: 1 doses or times, Stop date: Limited # of times Inactive 10/22/2017 [facility] Ondansetron 4 mg, Route: IVP, Drug form: INJ, Q6H, Dosing Weight 89.545, kg, PRN Nausea & Vomiting, Start date: 10/22/17 5:55:00 TRAILER SECTIONS ASSEMBLER, Duration: 30 day, Stop date: 11/21/17 5:54:00 TRAILER SECTIONS ASSEMBLER Inactive 10/22/2017 [facility] Promethazine 25 mg, Route: IVPB, Q6H, Dosing Weight 89.545, kg, PRN Nausea & Vomiting, Start date: 10/22/17 5:55:00 TRAILER SECTIONS ASSEMBLER, Duration: 30 day, Stop date: 11/21/17 5:54:00 TRAILER SECTIONS ASSEMBLER Inactive 10/22/2017 [facility] predniSONE 20 mg oral tablet 20 mg=1 tab, PO, Daily, X 7 day, # 7 tab, 0 Refill(s), Pharmacy: [id number] Active 06/27/2017 [facility] predniSONE 10 mg oral tablet 10 mg=1 tab, PO, Daily, X 7 day, # 7 tab, 0 Refill(s), Pharmacy: [id number] Active 06/27/2017 [facility] bumetanide 1 mg oral tablet 1 mg=1 tab, PO, TID, # 90 tab, 3 Refill(s), Pharmacy: [id number] Active 06/27/2017 [facility] Potassium Chloride 1.33 MEQ/ML Oral Solution 40 mEq, 2 tab, Route: PO, Drug form: ERTAB, ONCE, Dosing Weight 88.693, kg, Priority: NOW, Start date: 06/27/17 11:43:00 CDT, Stop date: 06/27/17 11:43:00 CDTNotes: (Same as: K-Dur 20) "Do Not Crush" With food and full glass of water Inactive 06/27/2017 [facility] potassium chloride 20 mEq oral tablet, extended release 40 mEq=2 tab, PO, BID, # 60 tab, 3 Refill(s), Pharmacy: [id number] Active 06/27/2017 [facility] predniSONE 20 mg oral tablet 40 mg=2 tab, PO, Daily, 0 Refill(s) Inactive 06/27/2017 [facility] gabapentin 300 MG Oral Capsule 300 mg=1 cap, PO, Daily, # 30 cap, 3 Refill(s), Pharmacy: [id number] Active 06/27/2017 [facility] bumetanide 1 mg oral tablet 1 mg=1 tab, PO, BID, # 60 tab, 3 Refill(s), Pharmacy: [id number] Inactive 06/27/2017 [facility] Bumex 1 mg, 1 tab, Route: PO, Drug form: TAB, BID, Dosing Weight 88.693, kg, Start date: 06/26/17 17:00:00 CDT, Duration: 30 day, Stop date: 07/26/17 9:00:00 CDTNotes: (Same As: Bumex) No Longer Active 06/26/2017 [facility] Prednisone 40 mg, 2 tab, Route: PO, Drug form: TAB, Daily, Dosing Weight 88.693, kg, Start date: 06/25/17 15:41:00 CDT, Duration: 30 day, Stop date: 07/25/17 9:00:00 CDTNotes: Take with food. No Longer Active 06/25/2017 [facility] Albuterol 0.833 MG/ML / Ipratropium [place] 0.167 MG/ML Inhalant Solution [DuoNeb] 3 mL, Route: NEB, Drug Form: SOLN, Dosing Weight 88.693, kg, RQ4H, Start date: 06/25/17 15:41:00 CDT, Duration: 30 day, Stop date: 07/25/17 15:00:00 CDTNotes: (Same as: Duoneb) No Longer Active 06/25/2017 [facility] Enoxaparin 40 mg, 0.4 mL, Route: SUB-Q, Drug form: INJ, [id number], Dosing Weight 88.693, kg, Start date: 06/25/17 13:00:00 CDT, Duration: 30 day, Stop date: 07/24/17 13:00:00 CDTNotes: (Same as: Lovenox) No Longer Active 06/25/2017 [facility] metFORMIN 500 mg oral tablet, extended release 500 mg, 1 tab, Route: PO, Drug form: ERTAB, TID, Dosing Weight 87.273, kg, Start date: 06/25/17 9:00:00 CDT, Duration: 30 day, Stop date: 07/24/17 17:00:00 CDTNotes: (Same as: Glucophage XR) "Do Not Crush" No Longer Active 06/25/2017 [facility] Avapro 150 mg, 1 tab, Route: PO, Drug form: TAB, Daily, Dosing Weight 87.273, kg, Start date: 06/25/17 9:00:00 CDT, Duration: 30 day, Stop date: 07/24/17 9:00:00 CDTNotes: (Same as:Avapro) No Longer Active 06/25/2017 [facility] Advair Diskus 250 mcg-50 mcg inhalation powder 1 puff, Route: INHALATION, Drug Form: AERO, Dosing Weight 87.273, kg, BID, Start date: 06/25/17 9:00:00 CDT, Duration: 30 day, Stop date: 07/24/17 17:00:00 CDT No Longer Active 06/25/2017 [facility] Evista 60 mg, 1 tab, Route: PO, Drug form: TAB, Daily, Dosing Weight 87.273, kg, Start date: 06/25/17 9:00:00 CDT, Duration: 30 day, Stop date: 07/24/17 9:00:00 CDTNotes: (Same as:Evista) "Do Not Crush" No Longer Active 06/25/2017 [facility] gabapentin 300 MG Oral Capsule 300 mg, 1 cap, Route: PO, Drug form: CAP, Daily, Dosing Weight 87.273, kg, (CrCl Notes: (Same as: Neurontin) No Longer Active 06/25/2017 [facility] Omeprazole 40 mg, Route: PO, Drug form: DRC, Daily, Dosing Weight 87.273, kg, Start date: 06/25/17 9:00:00 CDT, Duration: 30 day, Stop date: 07/24/17 9:00:00 CDT No Longer Active 06/25/2017 [facility] budesonide-formoterol 160 mcg-4.5 mcg/inh inhalation aerosol with adapter 2 inhalation, Route: INHALATION, Drug Form: AERO/A, RBID, Start date: 06/25/17 8:00:00 CDT, Duration: 30 day, Stop date: 07/24/17 20:00:00 CDTNotes: (Same as: Symbicort) WASTE: Aerosol - Return to Pharmacy No Longer Active 06/25/2017 [facility] Protonix 40 mg, 1 tab, Route: PO, Drug form: ECTAB, Before Breakfast, Start date: 06/25/17 7:30:00 CDT, Duration: 30 day, Stop date: 07/24/17 7:30:00 CDTNotes: Tablet should not be chewed or crushed. (Same as: Protonix) No Longer Active 06/25/2017 [facility] 200 ACTUAT Albuterol 0.09 MG/ACTUAT Metered Dose Inhaler [Proventil] 2 puff, Route: INHALATION, Drug Form: AERO/A, Dosing Weight 87.273, kg, RQID, Start date: 06/24/17 22:19:00 CDT, Duration: 30 day, Stop date: 07/24/17 19:00:00 CDTNotes: Same as: Ventolin HFA WASTE: Aerosol - Return to Pharmacy No Longer Active 06/25/2017 [facility] aspirin 81 mg tablet, enteric coated 81 mg, 1 tab, Route: PO, Drug form: ECTAB, Daily, Dosing Weight 87.273, kg, Start date: 06/24/17 22:18:00 CDT, Duration: 30 day, Stop date: 07/24/17 9:00:00 CDTNotes: Do not crush or chew. (Same As: Ecotrin) No Longer Active 06/25/2017 [facility] Diltiazem 360 mg, 2 cap, Route: PO, Drug form: ERCAP, Bedtime, Dosing Weight 87.273, kg, Start date: 06/24/17 21:00:00 CDT, Duration: 30 day, Stop date: 07/23/17 21:00:00 CDTNotes: (Same as:Cardizem CD) Before meals. DO NOT CRUSH. No Longer Active 06/25/2017 [facility] Saline Flush 0.9% 10 ml, Route: IVP, Drug Form: INJ, Dosing Weight 87.273, kg, Q12H, Start date: 06/24/17 21:00:00 CDT, Duration: 30 day, Stop date: 07/24/17 9:00:00 CDTNotes: (Same as: BD Posiflush) No Longer Active 06/25/2017 [facility] atorvastatin 40 mg, 1 tab, Route: PO, Drug form: TAB, Bedtime, Dosing Weight 87.273, kg, Start date: 06/24/17 21:00:00 CDT, Duration: 30 day, Stop date: 07/23/17 21:00:00 CDTNotes: (Same as: Lipitor) No Longer Active 06/25/2017 [facility] *Rn pls update HWA in [facility]* *Rn pls update HWA in [facility]*, Reminder, Drug form: MISC, Route: MISC, Q30Min, 06/24/17 21:00:00 CDT, Stop date: 06/24/17 23:59:00 CDT Inactive 06/25/2017 [facility] bumetanide 10 mg + sodium chloride 0.9% INJ 60 mL 60 mL, Rate: Infuse as directed, Dosing Weight 87.273, kg, Route: IV, Total Volume: 100 mL, Start Date: 06/24/17 14:14:00 CDT, Duration: 30 day, Stop date: 07/24/17 14:13:00 CDT, Replace Every: 20 hrNotes: (Same As: Bumex) No Longer Active 06/24/2017 [facility] Saline Flush 0.9% 10 ml, Route: IVP, Drug Form: INJ, Dosing Weight 87.273, kg, PRN, PRN Line Flush, Start date: 06/24/17 14:13:00 CDT, Duration: 30 day, Stop date: 07/24/17 14:12:00 CDTNotes: (Same as: BD Posiflush) No Longer Active 06/24/2017 [facility] Nitroglycerin 0.4 mg, 1 tab, Route: SL, Drug form: TAB, Q5Min, Dosing Weight 87.273, kg, PRN Chest Pain, Start date: 06/24/17 14:13:00 CDT, Duration: 3 doses or times, Stop date: Limited # of timesNotes: (Same as: Nitroquick, Nitrostat) "Do Not Crush" Sublingual tablet No Longer Active 06/24/2017 [facility] Acetaminophen 325 mg, Route: PO, Drug form: TAB, Q4H, Dosing Weight 87.273, kg, PRN Pain Score 1-3, Start date: 02/12/17 10:51:00 CDT, Duration: 30 day, Stop date: 03/14/17 10:50:00 CDT Inactive 02/12/2017 [facility] Acetaminophen 325 MG / Hydrocodone Bitartrate 5 MG Oral Tablet 1 tab, Route: PO, Drug Form: TAB, Dosing Weight 87.273, kg, Q4H, PRN Pain Score 4-6, Start date: 02/12/17 10:51:00 CDT, Duration: 30 day, Stop date: 03/14/17 10:50:00 CDT Inactive 02/12/2017 [facility] Sodium Chloride 0.154 MEQ/ML Injectable Solution 1,000 mL, Rate: 50 ml/hr, Infuse over: 20 hr, Route: IV, Dosing Weight 87.273 kg, Total Volume: 1,000, Priority: Routine, Start date: 02/12/17 10:51:00 CDT, Duration: 30 day, Stop date: 03/14/17 10:50:00 CDT Inactive 02/12/2017 [facility] Bacitracin 0.5 UNT/MG / Polymyxin B 10 UNT/MG Topical Ointment [Polysporin] 1 appl, Route: TOP, ONCALL, Drug form: OINT, Priority: Routine, Start date: 02/12/17 6:00:00 CDT, Duration: 1 doses or times Inactive 02/12/2017 [facility] Fentanyl 50 microgram, Route: IVP, ONCALL, Dosing Weight 87.273, kg, Priority: Routine, Start date: 02/12/17 6:00:00 CDT, Duration: 1 doses or times Inactive 02/12/2017 [facility] Bupivacaine Hydrochloride 2.5 MG/ML / Epinephrine 0.005 MG/ML Injectable Solution 30 mL, Route: MISC, Dosing Weight 87.273, kg, ONCALL, Start date: 02/12/17 6:00:00 CDT, Duration: 30 day, Stop date: 03/14/17 5:59:00 CDT Inactive 02/12/2017 [facility] Dexamethasone 6 mg, Route: IVP, Drug form: INJ, ONCE, Dosing Weight 87.273, kg, Start date: 02/12/17 5:53:00 CDT, Stop date: 02/12/17 5:53:00 CDT Inactive 02/12/2017 [facility] Sodium Chloride 0.154 MEQ/ML Injectable Solution 1,000 mL, Rate: 50 ml/hr, Infuse over: 20 hr, Route: IV, Dosing Weight 87.273 kg, Total Volume: 1,000, Priority: Routine, Start date: 02/12/17 5:53:00 CDT, Duration: 30 day, Stop date: 03/14/17 5:52:00 CDT Inactive 02/12/2017 [facility] Fentanyl 25 microgram, Route: IVP, Q1H, Dosing Weight 87.273, kg, PRN Pain Score 6-10, Priority: Routine, Start date: 02/12/17 5:53:00 CDT, Duration: 1 doses or times, Stop date: Limited # of times Inactive 02/12/2017 [facility] Promethazine 25 mg, Route: IVPB, Q6H, Dosing Weight 87.273, kg, PRN Nausea & Vomiting, Start date: 02/12/17 5:53:00 CDT, Duration: 30 day, Stop date: 03/14/17 5:52:00 CDT Inactive 02/12/2017 [facility] Famotidine 20 mg, Route: IVP, Drug form: INJ, ONCE, Dosing Weight 87.273, kg, Start date: 02/12/17 5:53:00 CDT, Stop date: 02/12/17 5:53:00 CDT Inactive 02/12/2017 [facility] Ondansetron 4 mg, Route: IVP, Drug form: INJ, Q6H, Dosing Weight 87.273, kg, PRN Nausea & Vomiting, Start date: 02/12/17 5:53:00 CDT, Duration: 30 day, Stop date: 03/14/17 5:52:00 CDT Inactive 02/12/2017 [facility] atorvastatin 40 mg oral tablet 40 mg=1 tab, PO, Bedtime, # 30 tab, 0 Refill(s), Pharmacy: [id number] Active 01/03/2017 [facility] predniSONE 10 mg oral tablet 10 mg=1 tab, PO, Daily, X 14 day, # 14 tab, 0 Refill(s), Pharmacy: [id number] Active 01/03/2017 [facility] predniSONE 20 mg oral tablet 20 mg=1 tab, PO, Daily, X 14 day, # 14 tab, 0 Refill(s), Pharmacy: [id number] Active 01/03/2017 [facility] pregabalin 75 mg oral capsule 75 mg=1 cap, PO, Q12H, # 60 cap, 0 Refill(s) Active 01/03/2017 [facility] carBAMazepine 200 mg oral tablet, extended release 200 mg=1 tab, PO, BID, # 60 tab, 0 Refill(s), Pharmacy: [id number] Active 01/03/2017 [facility] Nystatin 500,000 unit, 5 mL, Route: S&SWALLOW, Drug form: SUSP, TID, Dosing Weight 88.636, kg, Start date: 01/03/17 17:00:00 CDT, Duration: 30 day, Stop date: 02/02/17 13:00:00 CDTNotes: (Same as:Mycostatin) Shake well. Inactive 01/03/2017 [facility] Furosemide 40 MG Oral Tablet [Lasix] 40 mg, 1 tab, Route: PO, Drug form: TAB, Daily, Dosing Weight 88.636, kg, Priority: Routine, Start date: 01/03/17 9:00:00 CDT, Duration: 30 day, Stop date: 02/01/17 9:00:00 CDTNotes: (Same as: Lasix) May cause GI upset. Give with food or milk. Inactive 01/03/2017 [facility] Carbamazepine 200 mg, 1 tab, Route: PO, Drug form: ERTAB, BID, Dosing Weight 88.636, kg, Start date: 01/01/17 21:00:00 CDT, Duration: 30 day, Stop date: 01/31/17 9:00:00 CDTNotes: Do not crush or chew. (Same As: T egretol XR) No Longer Active 01/02/2017 [facility] Solu-Medrol 40 mg, 1 mL, Route: IVP, Drug form: INJ, Daily, Dosing Weight 88.636, kg, Priority: NOW, Start date: 01/01/17 15:56:00 CDT, Duration: 30 day, Stop date: 01/31/17 9:00:00 CDTNotes: (Same as:Solu-MEDROL, A- Methapred) No Longer Active 01/01/2017 [facility] Prednisone 20 mg, 1 tab, Route: PO, Drug form: TAB, Daily, Dosing Weight 88.636, kg, Start date: 01/01/17 9:00:00 CDT, Duration: 30 day, Stop date: 01/30/17 9:00:00 CDTNotes: Take with food. No Longer Active 01/01/2017 [facility] Lyrica 75 mg, 1 cap, Route: PO, Drug form: CAP, Q12H, Dosing Weight 88.636, kg, Start date: 12/31/16 21:00:00 CDT, Duration: 30 day, Stop date: 01/30/17 9:00:00 CDTNotes: (Same as: Lyrica) No Longer Active 01/01/2017 [facility] Pravastatin 20 mg, 1 tab, Route: PO, Drug form: TAB, Bedtime, Dosing Weight 88.636, kg, Start date: 12/31/16 21:00:00 CDT, Duration: 30 day, Stop date: 01/29/17 21:00:00 CDTNotes: (Same as: Pravachol) No Longer Active 01/01/2017 [facility] atorvastatin 40 mg, Route: PO, Drug form: TAB, Bedtime, Dosing Weight 88.636, kg, Start date: 12/31/16 21:00:00 CDT, Duration: 30 day, Stop date: 01/29/17 21:00:00 CDT Inactive 01/01/2017 [facility] Protonix 40 mg, 1 tab, Route: PO, Drug form: ECTAB, Before Dinner, Start date: 12/31/16 16:30:00 CDT, Duration: 30 day, Stop date: 01/29/17 16:30:00 CDTNotes: Tablet should not be chewed or crushed. (Same as: Protonix) No Longer Active 12/31/2016 [facility] Lasix 40 mg, 4 mL, Route: IVP, Drug form: INJ, BID Diuretic, Dosing Weight 88.636, kg, Start date: 12/31/16 16:00:00 CDT, Duration: 30 day, Stop date: 01/30/17 8:00:00 CDTNotes: (Same as: Lasix) MEDICATION WASTE Product Size: 40 mg Product Wasted: ___ mg No Longer Active 12/31/2016 [facility] Solu-Medrol 40 mg, 1 mL, Route: IV, Drug form: INJ, Q8H, Dosing Weight 88.636, kg, Start date: 12/31/16 16:00:00 CDT, Duration: 2 doses or times, Stop date: 01/01/17 0:00:00 CDTNotes: (Same as:Solu-MEDROL, A- hapwestley) No Longer Active 12/31/2016 [facility] Acetaminophen 325 MG / Hydrocodone Bitartrate 5 MG Oral Tablet 1 tab, Route: PO, Drug Form: TAB, Dosing Weight 88.636, kg, Q4H, PRN Pain Score 4-6, Start date: 12/31/16 10:04:00 CDT, Stop date: 01/30/17 10:03:00 CDTNotes: (Same as: Clayton 325/5) Do not exceed 4gm/day of acetaminophen. No Longer Active 12/31/2016 [facility] Evista 60 mg, 1 tab, Route: PO, Drug form: TAB, Daily, Dosing Weight 88.636, kg, Start date: 12/31/16 9:00:00 CDT, Duration: 30 day, Stop date: 01/29/17 9:00:00 CDTNotes: (Same as:Evista) "Do Not Crush" No Longer Active 12/31/2016 [facility] Omeprazole 40 mg, Route: PO, Drug form: DRC, Daily, Dosing Weight 88.636, kg, Start date: 12/31/16 9:00:00 CDT, Duration: 30 day, Stop date: 01/29/17 9:00:00 CDT No Longer Active 12/31/2016 [facility] Avapro 150 mg, 1 tab, Route: PO, Drug form: TAB, Daily, Dosing Weight 88.636, kg, Start date: 12/31/16 9:00:00 CDT, Duration: 30 day, Stop date: 01/29/17 9:00:00 CDTNotes: (Same as:Avapro) No Longer Active 12/31/2016 [facility] Advair Diskus 250 mcg-50 mcg inhalation powder 1 puff, Route: INHALATION, Drug Form: AERO, Dosing Weight 88.636, kg, BID, Start date: 12/31/16 9:00:00 CDT, Duration: 30 day, Stop date: 01/29/17 17:00:00 CDT No Longer Active 12/31/2016 [facility] Zyrtec 10 mg, 2 tab, Route: PO, Drug form: TAB, Daily, Dosing Weight 88.636, kg, Start date: 12/31/16 9:00:00 CDT, Stop date: 01/29/17 9:00:00 CDTNotes: (Same As: Zyrtec) No Longer Active 12/31/2016 [facility] budesonide-formoterol 160 mcg-4.5 mcg/inh inhalation aerosol with adapter 2 inhalation, Route: INHALATION, Drug Form: AERO/A, BID, Start date: 12/31/16 9:00:00 CDT, Duration: 30 day, Stop date: 01/29/17 17:00:00 CDTNotes: (Same as: Symbicort) WASTE: Aerosol - Return to Pharmacy No Longer Active 12/31/2016 [facility] 24 HR Metformin hydrochloride 500 MG Extended Release Tablet 500 mg, 1 tab, Route: PO, Drug form: ERTAB, TID-Meals, Dosing Weight 88.636, kg, Start date: 12/31/16 8:00:00 CDT, Duration: 30 day, Stop date: 01/29/17 17:00:00 CDTNotes: (Same as: Glucophage XR) "Do Not Crush" No Longer Active 12/31/2016 [facility] Furosemide 40 mg, 1 tab, Route: PO, Drug form: TAB, BID Diuretic, Dosing Weight 88.636, kg, Start date: 12/31/16 8:00:00 CDT, Duration: 30 day, Stop date: 01/29/17 16:00:00 CDTNotes: (Same as: Lasix) May cause GI upset. Give with food or milk. Inactive 12/31/2016 [facility] Zofran 4 mg, 1 tab, Route: PO, Drug form: TAB, Q4H, Dosing Weight 88.636, kg, PRN Nausea & Vomiting, Start date: 12/30/16 22:57:00 CDT, Duration: 30 day, Stop date: 01/29/17 22:56:00 CDT, nausea and vomitingNotes: (Same as: Zofran) No Longer Active 12/31/2016 [facility] Hydralazine 10 mg, 0.5 mL, Route: IVP, Drug form: INJ, Q4H, Dosing Weight 88.636, kg, PRN Elevated BP, Priority: NOW, Start date: 12/30/16 22:55:00 CDT, Duration: 30 day, Stop date: 01/29/17 22:54:00 CDT, systolic>170 dyastolic>100Notes: (Same as: Apresoline) Push over 5 minutes No Longer Active 12/31/2016 [facility] Terazosin 2 mg, 1 cap, Route: PO, Drug form: CAP, BID, Dosing Weight 88.636, kg, Start date: 12/30/16 22:00:00 CDT, Duration: 30 day, Stop date: 01/29/17 17:00:00 CDTNotes: (Same As: Hytrin) No Longer Active 12/31/2016 [facility] montelukast 10 mg, 1 tab, Route: PO, Drug form: TAB, Bedtime, Dosing Weight 88.636, kg, Start date: 12/30/16 22:00:00 CDT, Duration: 30 day, Stop date: 01/29/17 21:00:00 CDTNotes: (Same as:Singulair) No Longer Active 12/31/2016 [facility] gabapentin 100 mg, 1 cap, Route: PO, Drug form: CAP, BID, Dosing Weight 88.636, kg, Start date: 12/30/16 22:00:00 CDT, Duration: 30 day, Stop date: 01/29/17 17:00:00 CDTNotes: (Same as: Neurontin) No Longer Active 12/31/2016 [facility] Diltiazem 360 mg, 2 cap, Route: PO, Drug form: ERCAP, Bedtime, Dosing Weight 88.636, kg, Start date: 12/30/16 22:00:00 CDT, Duration: 30 day, Stop date: 01/29/17 21:00:00 CDTNotes: (Same as:Cardizem CD) Before meals. DO NOT CRUSH. No Longer Active 12/31/2016 [facility] Aspirin Enteric Coated 81 mg, 1 tab, Route: PO, Drug form: ECTAB, Bedtime, Dosing Weight 88.636, kg, Start date: 12/30/16 22:00:00 CDT, Duration: 30 day, Stop date: 01/29/17 21:00:00 CDTNotes: Do not crush or chew. (Same As: Ecotrin) No Longer Active 12/31/2016 [facility] Enoxaparin 40 mg, 0.4 mL, Route: SUB-Q, Drug form: INJ, [id number], Dosing Weight 88.636, kg, Start date: 12/30/16 22:00:00 CDT, Duration: 30 day, Stop date: 01/28/17 22:00:00 CDTNotes: (Same as: Lovenox) No Longer Active 12/31/2016 [facility] Acetaminophen 650 mg, 2 tab, Route: PO, Drug form: TAB, Q4H, Dosing Weight 88.636, kg, PRN Pain 1-3/Temp > 100.4 F, Start date: 12/30/16 21:46:00 CDT, Duration: 30 day, Stop date: 01/29/17 21:45:00 CDTNotes: Do not exceed 4 gm/day. (Same as: Tylenol) No Longer Active 12/31/2016 [facility] Docusate 100 mg, 1 cap, Route: PO, Drug form: CAP, BID, Dosing Weight 88.636, kg, PRN Constipation, Start date: 12/30/16 21:46:00 CDT, Duration: 30 day, Stop date: 01/29/17 21:45:00 CDTNotes: (Same as: Colace) (Do Not Crush) No Longer Active 12/31/2016 [facility] Terazosin 2 mg, PO, BID, 0 Refill(s) Active 12/31/2016 [facility] pravastatin 20 mg oral tablet 20 mg=1 tab, PO, Bedtime, # 30 tab, 0 Refill(s) No Longer Active 12/31/2016 [facility] Furosemide 40 mg, PO, BID, 0 Refill(s) Active 12/31/2016 [facility] Acetaminophen 325 MG / Hydrocodone Bitartrate 5 MG Oral Tablet [Clayton 5/325] 1 tab, Route: PO, Dosing Weight 84.091, kg, ONCE, Start date: 12/30/16 19:33:00 CDT, Stop date: 12/30/16 19:33:00 CDT Inactive 12/31/2016 [facility] Azithromycin 500 mg, Route: IVPB, ONCE, Dosing Weight 84.091, kg, Priority: STAT, Start date: 12/30/16 19:21:00 CDT, Stop date: 12/30/16 19:21:00 CDTNotes: (Same As: Zithromax IV) Inactive 12/31/2016 [facility] Ceftriaxone 1 gm, Route: IVPB, ONCE, Dosing Weight 84.091, kg, Priority: STAT, Start date: 12/30/16 19:21:00 CDT, Stop date: 12/30/16 19:21:00 CDTNotes: (Same As: Rocephin). Use with 100 mL NS and infuse over 30 m in MEDICATION WASTE Product Size: 1000 mg Product Wasted: ___ mg Inactive 12/31/2016 [facility] Albuterol 0.833 MG/ML / Ipratropium [place] 0.167 MG/ML Inhalant Solution [DuoNeb] 3 mL, Route: NEB, Drug Form: SOLN, Dosing Weight 84.091, kg, RQ4H, Start date: 12/30/16 19:00:00 CDT, Duration: 30 day, Stop date: 01/29/17 15:00:00 CDTNotes: (Same as: Duoneb) No Longer Active 12/31/2016 [facility] Albuterol 0.833 MG/ML / Ipratropium [place] 0.167 MG/ML Inhalant Solution [DuoNeb] 3 ml, Route: NEB, Drug Form: SOLN, Dosing Weight 84.091, kg, Q4H, PRN Respiratory Protocol, Start date: 12/30/16 18:40:00 CDT, Duration: 30 day, Stop date: 01/29/17 18:39:00 CDTNotes: (Same as: Duoneb) Inactive 12/30/2016 [facility] methylPREDNISolone SODium SUCCinate 100 mg, 1.6 mL, Route: IVP, Drug form: INJ, ONCE, Dosing Weight 84.091, kg, Priority: STAT, Start date: 12/30/16 17:59:00 CDT, Stop date: 12/30/16 17:59:00 CDTNotes: (Same as:Solu-MEDROL, A-Methapred) Inactive 12/30/2016 [facility] Zofran ODT 4 mg, 1 tab, Route: PO, Drug form: TABDIS, ONCE, Dosing Weight 84.091, kg, Priority: STAT, Start date: 12/30/16 15:06:00 CDT, Stop date: 12/30/16 15:06:00 CDTNotes: (Same as: Zofran ODT) Inactive 12/30/2016 [facility] Acetaminophen 325 MG / Hydrocodone Bitartrate 5 MG Oral Tablet [Clayton 5/325] 1 tab, Route: PO, Drug Form: TAB, Dosing Weight 84.091, kg, ONCE, STAT, Start date: 12/30/16 15:06:00 CDT, Stop date: 12/30/16 15:06:00 CDTNotes: (Same as: Clayton 325/5) Do not exceed 4gm/day of acetaminophen. Inactive 12/30/2016 [facility] Albuterol 0.833 MG/ML / Ipratropium [place] 0.167 MG/ML Inhalant Solution 6 mL, Route: NEB, Drug Form: SOLN, Dosing Weight 84.091, kg, ONCE, Start date: 12/30/16 14:56:00 CDT, Stop date: 12/30/16 14:56:00 CDTNotes: (Same as: Duoneb) Inactive 12/30/2016 [facility] Albuterol 0.833 MG/ML / Ipratropium [place] 0.167 MG/ML Inhalant Solution 9 mL, Route: NEB, Drug Form: SOLN, Dosing Weight 84.091, kg, QID, STAT, Start date: 12/30/16 14:55:00 CDT, Duration: 30 day, Stop date: 01/29/17 13:00:00 CDT Inactive 12/30/2016 [facility] Evista 60 mg, 1 tab, Route: PO, Drug form: TAB, Daily, Dosing Weight 81.818, kg, Start date: 09/19/16 9:00:00 [employer]ER [employer]CTIONS [employer]SEM[employer]ER, Duration: 30 day, Stop date: 10/18/16 9:00:00 CSTNotes: (Same as:Evista) "Do Not Crush" No Longer Active 09/19/2016 [facility] Omeprazole 40 mg, Route: PO, Drug form: DRC, Daily, Dosing Weight 81.818, kg, Start date: 09/19/16 9:00:00 TRA[employer]ER [employer]SEM[employer]ER, Duration: 30 day, Stop date: 10/18/16 9:00:00 TRA[employer]ER [employer]SEM[employer]ER No Longer Active 09/19/2016 [facility] 24 HR Metformin hydrochloride 500 MG Extended Release Tablet 1,000 mg, 2 tab, Route: PO, Drug form: ERTAB, Daily, Dosing Weight 81.818, kg, Start date: 09/19/16 9:00:00 TRA[employer]ER, Duration: 30 day, Stop date: 10/18/16 9:00:00 CSTNotes: (Same as: Glucophage XR) "Do Not Crush" No Longer Active 09/19/2016 [facility] Avapro 150 mg, 1 tab, Route: PO, Drug form: TAB, Daily, Dosing Weight 81.818, kg, Start date: 09/19/16 9:00:00 TRA[employer]ER [employer]SEM[employer]ER, Duration: 30 day, Stop date: 10/18/16 9:00:00 CSTNotes: (Same as:Avapro) No Longer Active 09/19/2016 [facility] Zyrtec 10 mg, 2 tab, Route: PO, Drug form: TAB, Daily, Dosing Weight 81.818, kg, Start date: 09/19/16 9:00:00 TRA[employer]ER [employer]SEM[employer]ER, Duration: 30 day, Stop date: 10/18/16 9:00:00 CSTNotes: (Same As: Zyrtec) No Longer Active 09/19/2016 [facility] Pravastatin 20 mg, 1 tab, Route: PO, Drug form: TAB, Bedtime, Dosing Weight 81.818, kg, Start date: 09/18/16 21:00:00 TRA[employer]ER [employer]CTIONS ASSEMBLER, Duration: 30 day, Stop date: 10/17/16 21:00:00 CSTNotes: (Same as: Pravachol) Inactive 09/19/2016 [facility] montelukast 10 mg, 1 tab, Route: PO, Drug form: TAB, Bedtime, Dosing Weight 81.818, kg, Start date: 09/18/16 21:00:00 TRAILER [employer]CTIONS ASSEMBLER, Duration: 30 day, Stop date: 10/17/16 21:00:00 CSTNotes: (Same as:Singulair) Inactive 09/19/2016 [facility] budesonide-formoterol 160 mcg-4.5 mcg/inh inhalation aerosol with adapter 2 inhalation, Route: INHALATION, Drug Form: AERO/A, BID, Start date: 09/18/16 21:00:00 TRA[employer]ER [employer]SEM[employer]ER, Duration: 30 day, Stop date: 10/18/16 9:00:00 CSTNotes: (Same as: Symbicort) WASTE: Aerosol - Return to Pharmacy Inactive 09/19/2016 [facility] gabapentin 100 mg, 1 cap, Route: PO, Drug form: CAP, BID, Dosing Weight 81.818, kg, Start date: 09/18/16 21:00:00 TRA[employer]ER [employer]SEM[employer]ER, Duration: 30 day, Stop date: 10/18/16 9:00:00 CSTNotes: (Same as: Neurontin) Inactive 09/19/2016 [facility] Diltiazem 360 mg, 2 cap, Route: PO, Drug form: ERCAP, Bedtime, Dosing Weight 81.818, kg, Start date: 09/18/16 21:00:00 TRA[employer]ER [employer]SEM[employer]ER, Duration: 30 day, Stop date: 10/17/16 21:00:00 CSTNotes: (Same as:Cardizem CD) Before meals. DO NOT CRUSH. Inactive 09/19/2016 [facility] Advair Diskus 250 mcg-50 mcg inhalation powder 1 puff, Route: INHALATION, Drug Form: AERO, Dosing Weight 81.818, kg, BID, Start date: 09/18/16 17:00:00 TRA[employer]ER [employer]CTIONS ASSEMBLER, Duration: 30 day, Stop date: 10/18/16 9:00:00 TRA[employer]ER [employer] ASSEMBLER Inactive 09/18/2016 [facility] Aspirin Enteric Coated 81 mg, 1 tab, Route: PO, Drug form: ECTAB, Bedtime, Dosing Weight 81.818, kg, Start date: 09/18/16 17:00:00 TRA[employer]ER [employer]SEM[employer]ER, Duration: 30 day, Stop date: 10/17/16 21:00:00 CSTNotes: Do not crush or chew. (Same As: Ecotrin) Inactive 09/18/2016 [facility] Protonix 40 mg, 1 tab, Route: PO, Drug form: ECTAB, Before Dinner, Start date: 09/18/16 16:30:00 TRA[employer]ER [employer]SEM[employer]ER, Duration: 30 day, Stop date: 10/17/16 16:30:00 CSTNotes: Tablet should not be chewed or crushed. (Same as: Protonix) Inactive 09/18/2016 [facility] atorvastatin 40 mg oral tablet 40 mg=1 tab, PO, Bedtime, # 30 tab, 0 Refill(s), Pharmacy: [id number] Active 09/18/2016 [facility] Levofloxacin 750 MG Oral Tablet [Levaquin] 750 mg=1 tab, PO, Q24H, X 7 day, # 7 tab, 0 Refill(s), Pharmacy: [id number] Active 09/18/2016 [facility] Enoxaparin 40 mg, 0.4 mL, Route: SUB-Q, Drug form: INJ, [id number], Dosing Weight 81.818, kg, Start date: 09/18/16 11:00:00 TRA[employer]ER [employer]SEMBLER, Duration: 30 day, Stop date: 10/17/16 11:00:00 CSTNotes: (Same as: Lovenox) Inactive 09/18/2016 [facility] Levofloxacin 750 MG Oral Tablet [Levaquin] 750 mg=1 tab, PO, Q24H, X 7 day, # 7 tab, 0 Refill(s), Pharmacy: [id number] Inactive 09/18/2016 [facility] atorvastatin 40 mg oral tablet 40 mg=1 tab, PO, Bedtime, # 30 tab, 0 Refill(s), Pharmacy: [id number] Inactive 09/18/2016 [facility] Insulin, Aspart, Human 4 unit, 0.04 mL, Route: SUB-Q, Drug form: SOLN, TID-Before Meals, Dosing Weight 81.818, kg, PRN Blood Glucose Results, Start date: 09/17/16 21:42:00 TRA[employer]ER [employer]SEMBLER, Duration: 30 day, Stop date: 10/17/16 21:41:00 CSTNotes: Roll in palms of hands gently; Do not shake vigorously. (Same as: NovoLOG) "single patient use only" WASTE: F/P - Black; E - Municipal Trash Bin Stable for 28 days at room temperature. Expires in days from Date No Longer Active 09/18/2016 [facility] Dextrose 50% Syringe 12.5 gm, 25 mL, Route: IVP, Drug Form: INJ, Dosing Weight 81.818, kg, PRN, PRN Blood Glucose Results, Start date: 09/17/16 21:42:00 TRA[employer]ER [employer]SEM[employer]ER, Duration: 30 day, Stop date: 10/17/16 21:41:00 TRAILER [employer] ASSEMBLER No Longer Active 09/18/2016 [facility] Glucagon 1 mg, Route: IM, Drug form: PDR/INJ, PRN, Dosing Weight 81.818, kg, PRN Blood Glucose Results, Start date: 09/17/16 21:42:00 [employer], Duration: 30 day, Stop date: 10/17/16 21:41:00 [employer] No Longer Active 09/18/2016 [facility] Acetaminophen 325 mg, 1 tab, Route: PO, Drug form: TAB, Q4H, Dosing Weight 81.818, kg, PRN Pain Score 4-6, Start date: 09/17/16 21:41:00 [employer], Duration: 30 day, Stop date: 10/17/16 21:40:00 CSTNotes: Do not exceed 4 gm/day. (Same as: Tylenol) No Longer Active 09/18/2016 [facility] Morphine 2 mg, 1 mL, Route: IVP, Drug form: INJ, Q4H, Dosing Weight 81.818, kg, PRN Pain Score 7-10, Start date: 09/17/16 21:41:00 [employer], Duration: 30 day, Stop date: 10/17/16 21:40:00 CSTNotes: (Same as:MORPhine Sulfate) No Longer Active 09/18/2016 [facility] Ondansetron 4 mg, 2 mL, Route: IVP, Drug form: INJ, Q6H, Dosing Weight 81.818, kg, PRN Nausea & Vomiting, Start date: 09/17/16 21:41:00 [employer], Duration: 30 day, Stop date: 10/17/16 21:40:00 CSTNotes: (Same as: Darcy) MEDICATION WASTE Product Size: 4 mg Product Wasted: ___ mg No Longer Active 09/18/2016 [facility] Docusate 100 mg, 1 cap, Route: PO, Drug form: CAP, BID, Dosing Weight 81.818, kg, PRN Constipation, Start date: 09/17/16 21:41:00 TRAILER SECTIONS ASSEMBLER, Duration: 30 day, Stop date: 10/17/16 21:40:00 CSTNotes: (Same as: Colace) (Do Not Crush) No Longer Active 09/18/2016 [facility] potassium chloride 40 mEq, 2 tab, Route: PO, Drug form: ERTAB, ONCE, Dosing Weight 81.818, kg, Priority: STAT, Start date: 09/17/16 21:25:00 TRAILER SECTIONS ASSEMBLER, Stop date: 09/17/16 21:25:00 CSTNotes: (Same as: K-Dur 20) "Do Not Crush" With food and full glass of water Inactive 09/18/2016 [facility] montelukast 10 mg oral tablet 10 mg=1 tab, PO, Bedtime, 0 Refill(s) Active 09/18/2016 [facility] Aspirin Enteric Coated 81 mg oral delayed release tablet 81 mg=1 tab, PO, Bedtime, 0 Refill(s) Active 09/18/2016 [facility] cetirizine hydrochloride 10 MG Oral Tablet [Zyrtec] 10 mg=1 tab, PO, Daily, 0 Refill(s) Active 09/18/2016 [facility] Advair Diskus 250 mcg-50 mcg inhalation powder 1 puff, INHALATION, BID, 0 Refill(s) Active 09/18/2016 [facility] gabapentin 100 mg, PO, BID, 0 Refill(s) Active 09/18/2016 [facility] omeprazole 40 mg oral delayed release capsule 40 mg=1 cap, PO, Daily, 0 Refill(s) Active 09/18/2016 [facility] 24 HR Metformin hydrochloride 500 MG Extended Release Tablet 500 mg=1 tab, PO, Bedtime, 0 Refill(s) No Longer Active 09/18/2016 [facility] pravastatin 20 mg oral tablet 20 mg=1 tab, PO, Bedtime, 0 Refill(s) No Longer Active 09/18/2016 [facility] Raloxifene Hydrochloride 60 MG Oral Tablet [Evista] 60 mg=1 tab, PO, Daily, 0 Refill(s) Active 09/18/2016 [facility] Furosemide 40 MG Oral Tablet 40 mg=1 tab, PO, Daily, 0 Refill(s) No Longer Active 09/18/2016 [facility] irbesartan 150 MG Oral Tablet [Avapro] 150 mg=1 tab, PO, Daily, 0 Refill(s) Active 09/18/2016 [facility] diltiazem 360 mg/24 hours oral capsule, extended release 360 mg=1 cap, PO, Bedtime, 0 Refill(s) Active 09/18/2016 [facility] Nitroglycerin 0.4 MG Sublingual Tablet [Nitrostat] 0.4 mg, 1 tab, Route: SL, Drug form: TAB, Q5Min, Dosing Weight 81.818, kg, PRN Chest Pain, Priority: STAT, Start date: 09/17/16 20:13:00 TRAILER SECTIONS ASSEMBLER, Duration: 3 doses or times, Stop date: Limited # of timesNotes: (Same as:Nitroquick, Nitrostat) "Do Not Crush" Sublingual tablet No Longer Active 09/18/2016 [facility] Saline Flush 0.9% 10 mL, Route: IVP, Drug Form: INJ, Dosing Weight 81.818, kg, PRN, PRN Line Flush, Start date: 09/17/16 17:34:00 TRAILER SECTIONS ASSEMBLER, Duration: 30 day, Stop date: 10/17/16 17:33:00 CSTNotes: (Same as: BD Posiflush) Inactive 09/17/2016 [facility] Aspirin 324 mg, Route: PO, ONCE, Dosing Weight 81.818, kg, Priority: STAT, Start date: 09/17/16 17:34:00 TRAILER SECTIONS ASSEMBLER, Stop date: 09/17/16 17:34:00 TRAILER SECTIONS ASSEMBLER Inactive 09/17/2016 [facility] Ondansetron 4 MG Disintegrating Tablet [Zofran] 4 mg=1 tab, PO, Q8H, PRN Nausea and Vomiting, Dissolve tab under tongue, # 10 tab, 0 Refill(s) Active 02/14/2016 [facility] Acetaminophen 325 MG / Hydrocodone Bitartrate 7.5 MG Oral Tablet [Clayton 7.5/325] 1 tab, PO, Q6H, PRN Pain, X 15 day, # 24 tab, 0 Refill(s) Active 02/14/2016 [facility] Acetaminophen 325 MG / Hydrocodone Bitartrate 10 MG Oral Tablet 1 tab, Route: PO, Drug Form: TAB, Dosing Weight 86.364, kg, ONCE, STAT, Start date: 02/14/16 12:01:00 CDT, Stop date: 02/14/16 12:01:00 CDTNotes: Do not exceed 4gm/day of acetaminophen. (Same as: Clayton 325/10) Inactive 02/14/2016 [facility] Ondansetron 4 mg, 1 tab, Route: PO, Drug form: TABDIS, ONCE, Dosing Weight 86.364, kg, Priority: STAT, Start date: 02/14/16 12:01:00 CDT, Stop date: 02/14/16 12:01:00 CDTNotes: (Same as: Zofran ODT) Inactive 02/14/2016 [facility] azithromycin 250 mg oral tablet See Instructions, Take 2 tablets by mouth the first day then 1 tablet by mouth daily on days 2-5., X 5 day, # 6 tab, 0 Refill(s) Active 02/13/2016 [facility] predniSONE 50 mg oral tablet 50 mg=1 tab, PO, Daily, X 5 day, # 5 tab, 0 Refill(s) Active 02/13/2016 [facility] tramadol hydrochloride 50 MG Oral Tablet [Ultram] 50 mg=1 tab, PO, Q6H, PRN pain, X 3 day, # 12 tab, 0 Refill(s) Active 02/13/2016 [facility] Acetaminophen 325 MG / Hydrocodone Bitartrate 5 MG Oral Tablet [Clayton 5/325] 1 tab, Route: PO, Drug Form: TAB, Dosing Weight 86.364, kg, ONCE, STAT, Start date: 02/12/16 20:49:00 CDT, Stop date: 02/12/16 20:49:00 CDTNotes: (Same as: Clayton 325/5) Do not exceed 4gm/day of acetaminophen. Inactive 02/13/2016 [facility] Albuterol 0.833 MG/ML / Ipratropium [place] 0.167 MG/ML Inhalant Solution [DuoNeb] 3 ml, Route: NEB, Drug Form: SOLN, Dosing Weight 86.364, kg, PRN, PRN Respiratory Protocol, Start date: 02/12/16 18:20:00 CDT, Duration: 30 day, Stop date: 03/13/16 18:19:00 CDTNotes: (Same as: Duoneb) No Longer Active 02/12/2016 [facility] Saline Flush 0.9% 10 mL, Route: IVP, Drug Form: INJ, Dosing Weight 86.364, kg, PRN, PRN Line Flush, Start date: 02/12/16 18:19:00 CDT, Duration: 30 day, Stop date: 03/13/16 18:18:00 CDTNotes: (Same as: BD Posiflush) No Longer Active 02/12/2016 [facility] Ondansetron 4 mg, 2 mL, Route: IVP, Drug form: INJ, ONCE, Dosing Weight 86.364, kg, Priority: STAT, Start date: 02/12/16 18:16:00 CDT, Stop date: 02/12/16 18:16:00 CDTNotes: (Same as: Zofran) MEDICATION WASTE Product Size: 4 mg Product Wasted: ___ mg Inactive 02/12/2016 [facility] Morphine 2 mg, 1 mL, Route: IVP, Drug form: INJ, ONCE, Dosing Weight 86.364, kg, Priority: STAT, Start date: 02/12/16 18:16:00 CDT, Stop date: 02/12/16 18:16:00 CDTNotes: (Same as:MORPhine Sulfate) Inactive 02/12/2016 [facility] Allergies, Adverse Reactions, Alerts Substance Category Reaction Severity Reaction type Status Date Reported Comments Source nka Assertion Drug allergy Active [facility] codeine Assertion Drug allergy Active [facility] Levaquin Assertion Levaquin Drug allergy [place] [facility] [place] Immunizations Immunization Date Given Site Status Last Updated Comments Source pneumococcal 23-valent vaccine 10/27/2017 Left Deltoid completed [facility] pneumococcal 13-valent vaccine 10/26/2017 Not Given [facility] Results Order Name Results Value Reference Range Date Interpretation Comments Source Chest 1view DX Chest 1view DX Clinical Indication: - evaluation for pneumonia; Comparison: 11/10/2017 FINDINGS: AP chest radiographs shows normal lung volumes with retrocardiac airspace disease. There is no effusion or pneumothorax. There are mild increased interstitial markings which are unchanged. The heart size and pulmonary vasculature are normal. The trachea is midline. There are no clinically significant osseous abnormalities noted. IMPRESSION: 1. Mild left retrocardiac infiltrate. . SL: [id number] 11/14/2017 - - Read by: Rene Boucher MD Dictated Date/time: 11/14/17 09:09 Electronically Signed by: Rene Boucher MD 11/14/17 09:11 FINAL REPORT [facility] ELECTROLYTES Chloride Lvl 108 meq/L 95 - 109 11/12/2017 [facility] ELECTROLYTES Creatinine Lvl 1.42 mg/dL 0.50 - 1.40 11/12/2017 [facility] ELECTROLYTES Sodium Lvl 142 meq/L 135 - 145 11/12/2017 [facility] ELECTROLYTES AGAP 8.5 meq/L 10.0 - 20.0 11/12/2017 [facility] ELECTROLYTES eGFR 35 mL/min/1.73m2 11/12/2017 Result Comment: The eGFR is calculated using the [...] from the National Kidney Disease Education Program (NKDEP) which additionally recommends that when the eGFR is used in patients with extremes of body mass index for purposes of drug dosing, the eGFR should be multiplied by the estimated BMI. [facility] ELECTROLYTES Calcium Lvl 9.0 mg/dL 8.5 - 10.5 11/12/2017 [facility] ELECTROLYTES CO2 30 meq/L 24 - 32 11/12/2017 [facility] ELECTROLYTES Potassium Lvl 4.5 meq/L 3.5 - 5.1 11/12/2017 [facility] ELECTROLYTES Glucose Lvl 95 mg/dL 70 - 99 11/12/2017 [facility] ELECTROLYTES BUN 22 mg/dL 7 - 22 11/12/2017 [facility] Foot wo contrast CT Foot wo contrast CT CT LEFT FOOT WITHOUT CONTRAST WITH SAGITTAL AND CORONAL REFORMATTED IMAGES HISTORY: left foot pain after a fall; CT DLP 156.41 COMPARISON: Left foot radiography dated 11/10/2017 FINDINGS: No fracture, dislocation, or subluxation within the left foot. Moderate diffuse superficial soft tissue edema throughout the foot, greatest within the dorsal forefoot. There are at least 2 dorsal forefoot skin ulcerations which measure 2.4 x 1.6 cm and 0.9 x 1.3 cm respectively. No drainable superficial or deep soft tissue fluid collection to suggest abscess. No soft tissue gas. No aggressive osseous erosion to suggest CT evidence of osteomyelitis. IMPRESSION: 1. No fracture, dislocation, or subluxation. 2. Moderate superficial soft tissue edema/inflammation with at least 2 dorsal forefoot skin ulcers. 3. No abscess, soft tissue gas, or CT evidence of osteomyelitis. SL: [id number] 11/11/2017 - - Read by: Lupillo Irizarry MD Dictated Date/time: 11/11/17 15:25 Electronically Signed by: Lupillo Irizarry MD 11/11/17 15:35 FINAL REPORT [facility] CHEM PANEL eGFR 30 mL/min/1.73m2 11/11/2017 Result Comment: The eGFR is calculated using the [...] from the National Kidney Disease Education Program (NKDEP) which additionally recommends that when the eGFR is used in patients with extremes of body mass index for purposes of drug dosing, the eGFR should be multiplied by the estimated BMI. [facility] CHEM PANEL Calcium Lvl 8.2 mg/dL 8.5 - 10.5 11/11/2017 [facility] CHEM PANEL AGAP 9.9 meq/L 10.0 - 20.0 11/11/2017 [facility] CHEM PANEL Potassium Lvl 3.9 meq/L 3.5 - 5.1 11/11/2017 [facility] CHEM PANEL Glucose Lvl 75 mg/dL 70 - 99 11/11/2017 [facility] CHEM PANEL CO2 29 meq/L 24 - 32 11/11/2017 [facility] CHEM PANEL Sodium Lvl 143 meq/L 135 - 145 11/11/2017 [facility] CHEM PANEL Chloride Lvl 108 meq/L 95 - 109 11/11/2017 [facility] CHEM PANEL Creatinine Lvl 1.62 mg/dL 0.50 - 1.40 11/11/2017 [facility] CHEM PANEL BUN 31 mg/dL 7 - 22 11/11/2017 [facility] Lymphocytes # 1.8 K/CMM 1.0 - 5.5 11/11/2017 [facility] HEMATOLOGY Monocytes 5.8 % 2.0 - 12.0 11/11/2017 [facility] HEMATOLOGY Eosinophils 0.7 % 0.0 - 4.0 11/11/2017 [facility] Basophils 0.2 % 0.0 - 1.0 11/11/2017 [facility] Segs-Bands # 8.6 K/CMM 1.5 - 8.1 11/11/2017 [facility] Lymphocytes 16.3 % 20.0 - 40.0 11/11/2017 [facility] HEMATOLOGY Segs 77.0 % 45.0 - 75.0 11/11/2017 [facility] HEMATOLOGY Monocytes # 0.6 K/CMM 0.0 - 0.8 11/11/2017 [facility] Eosinophils # 0.1 K/CMM 0.0 - 0.5 11/11/2017 [facility] Platelet 177 K/CMM 133 - 450 11/11/2017 [facility] MPV 8.1 fL 7.4 - 10.4 11/11/2017 [facility] RDW 17.7 % 11.5 - 14.5 11/11/2017 [facility] MCH 28.8 pg 27.0 - 31.0 11/11/2017 [facility] MCHC 32.4 g/dL 32.0 - 36.0 11/11/2017 [facility] MCV 89.0 fL 80.0 - 98.0 11/11/2017 [facility] RBC 2.62 M/CMM 4.20 - 5.40 11/11/2017 [facility] Hgb 7.6 g/dL 12.0 - 16.0 11/11/2017 [facility] Hct 23.3 % 36.0 - 48.0 11/11/2017 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 IMPRESSION: Stable cardiac silhouette and mediastinum. Atherosclerotic thoracic aorta. The lungs are mildly hyperexpanded. Nonspecific scattered and retrocardiac patchy infiltrates are present with probably mild interval improvement in the lingula segment. No significant pleural effusion or pneumothorax. SL: [id number] 11/10/2017 - - Read by: Rudy Farrell MD Dictated Date/time: 11/10/17 14:35 Electronically Signed by: Rudy Farrell MD 11/10/17 14:37 FINAL REPORT [facility] Foot 2 views DX Foot 2 views DX LEFT FOOT Clinical Indication: - pain to l. foot Comparison: None FINDINGS: AP, lateral, and oblique views of the left foot show normal alignment without fractures or dislocations. The toe interphalangeal joints, tarsometatarsal joints, metatarsophalangeal joints and subtalar joint are unremarkable. The talar dome is normal. There is no soft tissue swelling or radiopaque foreign bodies. There is no soft tissue gas or osseous erosive changes noted. If there is further concern, recommend follow-up radiographs or bone scan for complete assessment. IMPRESSION: 1. No fractures or dislocation of the foot. SL: [id number] 11/10/2017 - - Read by: Isaura Hector MD Dictated Date/time: 11/10/17 16:10 Electronically Signed by: Isaura Hector MD 11/10/17 16:21 FINAL REPORT [facility] CHEM PANEL eGFR 16 mL/min/1.73m2 11/10/2017 Result Comment: The eGFR is calculated using the [...] from the National Kidney Disease Education Program (NKDEP) which additionally recommends that when the eGFR is used in patients with extremes of body mass index for purposes of drug dosing, the eGFR should be multiplied by the estimated BMI. [facility] CHEM PANEL AGAP 10.1 meq/L 10.0 - 20.0 11/10/2017 [facility] CHEM PANEL CO2 32 meq/L 24 - 32 11/10/2017 [facility] CHEM PANEL Chloride Lvl 106 meq/L 95 - 109 11/10/2017 [facility] CHEM PANEL Potassium Lvl 4.1 meq/L 3.5 - 5.1 11/10/2017 [facility] CHEM PANEL Sodium Lvl 144 meq/L 135 - 145 11/10/2017 [facility] CHEM PANEL Calcium Lvl 8.7 mg/dL 8.5 - 10.5 11/10/2017 [facility] CHEM PANEL Creatinine Lvl 2.72 mg/dL 0.50 - 1.40 11/10/2017 [facility] CHEM PANEL BUN 58 mg/dL 7 - 22 11/10/2017 [facility] CHEM PANEL Glucose Lvl 86 mg/dL 70 - 99 11/10/2017 [facility] HEMATOLOGY MPV 8.2 fL 7.4 - 10.4 11/10/2017 [facility] MCH 29.1 pg 27.0 - 31.0 11/10/2017 [facility] MCHC 32.7 g/dL 32.0 - 36.0 11/10/2017 [facility] RDW 17.9 % 11.5 - 14.5 11/10/2017 [facility] Platelet 192 K/CMM 133 - 450 11/10/2017 [facility] HEMATOLOGY WBC 11.5 K/CMM 3.7 - 10.4 11/10/2017 [facility] HEMATOLOGY RBC 2.63 M/CMM 4.20 - 5.40 11/10/2017 [facility] HEMATOLOGY Hgb 7.7 g/dL 12.0 - 16.0 11/10/2017 [facility] HEMATOLOGY Hct 23.4 % 36.0 - 48.0 11/10/2017 [facility] HEMATOLOGY MCV 89.0 fL 80.0 - 98.0 11/10/2017 [facility] HEMATOLOGY Segs-Bands # 8.6 K/CMM 1.5 - 8.1 11/10/2017 [facility] HEMATOLOGY Lymphocytes # 1.9 K/CMM 1.0 - 5.5 11/10/2017 [facility] HEMATOLOGY Monocytes # 0.8 K/CMM 0.0 - 0.8 11/10/2017 [facility] Lymphocytes 17.0 % 20.0 - 40.0 11/10/2017 [facility] HEMATOLOGY Monocytes 7.3 % 2.0 - 12.0 11/10/2017 [facility] HEMATOLOGY Eosinophils 0.3 % 0.0 - 4.0 11/10/2017 [facility] HEMATOLOGY Basophils 0.4 % 0.0 - 1.0 11/10/2017 [facility] HEMATOLOGY Segs 75.0 % 45.0 - 75.0 11/10/2017 [facility] CHEM PANEL Phosphorus 5.2 mg/dL 2.5 - 4.5 11/09/2017 [facility] CHEM PANEL Magnesium Lvl 2.1 mg/dL 1.8 - 2.4 11/09/2017 [facility] HEMATOLOGY Segs 83.7 % 45.0 - 75.0 11/09/2017 [facility] HEMATOLOGY Basophils 0.2 % 0.0 - 1.0 11/09/2017 [facility] HEMATOLOGY Monocytes 7.4 % 2.0 - 12.0 11/09/2017 [facility] HEMATOLOGY Lymphocytes 8.7 % 20.0 - 40.0 11/09/2017 [facility] HEMATOLOGY Lymphocytes # 1.1 K/CMM 1.0 - 5.5 11/09/2017 [facility] HEMATOLOGY Segs-Bands # 10.4 K/CMM 1.5 - 8.1 11/09/2017 [facility] HEMATOLOGY Monocytes # 0.9 K/CMM 0.0 - 0.8 11/09/2017 [facility] HEMATOLOGY MCHC 32.3 g/dL 32.0 - 36.0 11/09/2017 [facility] HEMATOLOGY RDW 17.8 % 11.5 - 14.5 11/09/2017 [facility] HEMATOLOGY MPV 8.6 fL 7.4 - 10.4 11/09/2017 [facility] HEMATOLOGY Platelet 194 K/CMM 133 - 450 11/09/2017 [facility] HEMATOLOGY WBC 12.5 K/CMM 3.7 - 10.4 11/09/2017 [facility] HEMATOLOGY RBC 2.73 M/CMM 4.20 - 5.40 11/09/2017 [facility] HEMATOLOGY MCH 28.9 pg 27.0 - 31.0 11/09/2017 [facility] HEMATOLOGY MCV 89.2 fL 80.0 - 98.0 11/09/2017 [facility] HEMATOLOGY Hct 24.4 % 36.0 - 48.0 11/09/2017 [facility] HEMATOLOGY Hgb 7.9 g/dL 12.0 - 16.0 11/09/2017 [facility] URINE AND STOOL UA Hyal Cast 3 /LPF 0 - 2 11/08/2017 [facility] URINE AND STOOL UA Color Ltyellow 11/08/2017 [facility] URINE AND STOOL UA Sq Epi None Seen 11/08/2017 [facility] URINE AND STOOL UA Urobilinogen <=1.0 mg/dL 0.1 - 1.0 11/08/2017 [facility] URINE AND STOOL UA Glucose 50 mg/dL Negative mg/dL 11/08/2017 [facility] URINE AND STOOL UA pH 5.0 5.0 - 8.0 11/08/2017 [facility] URINE AND STOOL UA Ketones Negative mg/dL Negative mg/dL 11/08/2017 [facility] URINE AND STOOL UA Bili Negative *NA* (11/08/17 4:50 PM) Negative 11/08/2017 [facility] URINE AND STOOL UA Blood Small *ABN* (11/08/17 4:50 PM) Negative 11/08/2017 [facility] URINE AND STOOL UA Turbidity Clear (11/08/17 4:50 PM) Clear 11/08/2017 [facility] URINE AND STOOL UA Spec Grav 1.014 <=1.030 11/08/2017 [facility] URINE AND STOOL UA Protein 30 mg/dL Negative mg/dL 11/08/2017 [facility] URINE AND STOOL UA Mucus Few /LPF None Seen /LPF 11/08/2017 [facility] URINE AND STOOL UA Leuk Est Negative (11/08/17 4:50 PM) Negative 11/08/2017 [facility] URINE AND STOOL UA Nitrite Negative (11/08/17 4:50 PM) Negative 11/08/2017 [facility] URINE AND STOOL UA RBC 3 /HPF 0 - 2 11/08/2017 [facility] URINE AND STOOL UA Bacteria Occasional /HPF None Seen /HPF 11/08/2017 [facility] URINE AND STOOL UA WBC 2 /HPF 0 - 5 11/08/2017 [facility] URINE CHEM U Sodium 25 meq/L 11/08/2017 [facility] URINE CHEM U Eos None Seen (11/08/17 4:50 PM) None Seen 11/08/2017 [facility] URINE CHEM U Creatinine 88.60 mg/dL 11/08/2017 [facility] Retroperitoneal Complete US Retroperitoneal Complete US Patient Name: NIYA HOFFMAN : 1935; Age: 82 years Female MR: [id number] Study: Retroperitoneal Complete US 11/08/2017 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 . COMPARISON: None TECHNIQUE: Multiple longitudinal and transverse real time sonographic images of the kidneys and urinary bladder are obtained. FINDINGS: KIDNEY: The right kidney measures 10.5 x 5.0 x 5.6 cm. The renal cortical thickness measures 1.0 cm. The left kidney measures 11.4 x 5.1 x 7.4 cm. The renal cortical thickness measures 1.7 cm. The kidneys are normal in size, shape, contour, and position. The corticomedullary differentiation is maintained. There is no hydronephrosis. There is no nephrolithiasis. There are no abnormal perinephric collections. BLADDER: A Cameron catheter decompresses the bladder. ASCITES: No ascites noted. IMPRESSION: Normal renal ultrasound. SL: BRANDY 11/08/2017 - - Read by: Fei Momin MD Dictated Date/time: 11/08/17 14:50 Electronically Signed by: Fei Momin MD 11/08/17 14:53 FINAL REPORT [facility] CARDIAC ENZYMES CK MB Index null 0.0 - 2.5 11/07/2017 [facility] CARDIAC ENZYMES BNP 34 pg/mL <=100 pg/mL 11/07/2017 [facility] CARDIAC ENZYMES CK MB null 0.5 - 3.6 11/07/2017 [facility] CARDIAC ENZYMES Troponin-I null 0.00 - 0.40 11/07/2017 [facility] CARDIAC ENZYMES Total CK 76 unit/L 12 - 191 11/07/2017 [facility] CHEM PANEL Bili Total 0.1 mg/dL 0.2 - 1.3 11/07/2017 [facility] CHEM PANEL AST 20 unit/L 0 - 37 11/07/2017 [facility] CHEM PANEL B/C Ratio 16 6 - 25 11/07/2017 [facility] CHEM PANEL A/G Ratio 0.4 0.7 - 1.6 11/07/2017 [facility] CHEM PANEL Globulin 5.3 g/dL 2.7 - 4.2 11/07/2017 [facility] CHEM PANEL Alk Phos 65 unit/L 39 - 136 11/07/2017 [facility] CHEM PANEL Total Protein 7.5 g/dL 6.4 - 8.4 11/07/2017 [facility] CHEM PANEL Albumin Lvl 2.2 g/dL 3.5 - 5.0 11/07/2017 [facility] CHEM PANEL ALT 23 unit/L 0 - 65 11/07/2017 [facility] HEMATOLOGY Hypochrom 1+ (11/07/17 3:28 PM) None Seen 11/07/2017 [facility] HEMATOLOGY Basophils # 0.1 K/CMM 0.0 - 0.2 11/07/2017 [facility] HEMATOLOGY Eosinophils 0.1 % 0.0 - 4.0 11/07/2017 [facility] HEMATOLOGY RBC Morph See Note (11/07/17 3:28 PM) 11/07/2017 [facility] HEMATOLOGY Plt Morph Normal (11/07/17 3:28 PM) 11/07/2017 [facility] HEMATOLOGY PTT 30.6 s 22.9 - 35.8 11/07/2017 [facility] HEMATOLOGY INR 1.11 0.85 - 1.17 11/07/2017 [facility] HEMATOLOGY PT 14.3 s 12.0 - 14.7 11/07/2017 [facility] VIRAL - SEROLOGY Influ B Negative (11/07/17 3:28 PM) Negative 11/07/2017 [facility] VIRAL - SEROLOGY Influ A Negative (11/07/17 3:28 PM) Negative 11/07/2017 [facility] Chest 1view DX Chest 1view DX 1 VIEW CXR. PORTABLE EXAM 2:43 PM HISTORY: Cough and congestion. COMPARISON: 06/25/2017 chest x-ray. The lungs are clear. No pleural abnormality. Pulmonary vessels normal. The cardiomediastinal silhouette and bony thorax are normal. IMPRESSION: Normal exam. END OF IMPRESSION SL: [id number] 11/07/2017 - - Read by: Kelby Wilkes MD Dictated Date/time: 11/07/17 15:01 Electronically Signed by: Kelby Wilkes MD 11/07/17 15:03 FINAL REPORT [facility] ELECTROLYTES Potassium Lvl 4.4 meq/L 3.5 - 5.1 10/29/2017 [facility] URINE CHEM U Eos None Seen (10/29/17 6:31 AM) None Seen 10/29/2017 [facility] CHEM PANEL eGFR 36 mL/min/1.73m2 10/29/2017 Result Comment: The eGFR is calculated using the [...] from the National Kidney Disease Education Program (NKDEP) which additionally recommends that when the eGFR is used in patients with extremes of body mass index for purposes of drug dosing, the eGFR should be multiplied by the estimated BMI. [facility] CHEM PANEL Calcium Lvl 9.2 mg/dL 8.5 - 10.5 10/29/2017 [facility] CHEM PANEL Potassium Lvl 5.2 meq/L 3.5 - 5.1 10/29/2017 [facility] CHEM PANEL CO2 28 meq/L 24 - 32 10/29/2017 [facility] CHEM PANEL Sodium Lvl 142 meq/L 135 - 145 10/29/2017 [facility] CHEM PANEL AGAP 10.2 meq/L 10.0 - 20.0 10/29/2017 [facility] CHEM PANEL Chloride Lvl 109 meq/L 95 - 109 10/29/2017 [facility] CHEM PANEL Glucose Lvl 187 mg/dL 70 - 99 10/29/2017 [facility] CHEM PANEL Creatinine Lvl 1.38 mg/dL 0.50 - 1.40 10/29/2017 [facility] CHEM PANEL BUN 35 mg/dL 7 - 22 10/29/2017 [facility] MPV 7.6 fL 7.4 - 10.4 10/29/2017 [facility] Hct 26.5 % 36.0 - 48.0 10/29/2017 [facility] Hgb 8.4 g/dL 12.0 - 16.0 10/29/2017 [facility] RBC 2.99 M/CMM 4.20 - 5.40 10/29/2017 [facility] WBC 12.4 K/CMM 3.7 - 10.4 10/29/2017 [facility] MCH 28.1 pg 27.0 - 31.0 10/29/2017 [facility] Platelet 261 K/CMM 133 - 450 10/29/2017 [facility] MCHC 31.8 g/dL 32.0 - 36.0 10/29/2017 [facility] RDW 18.5 % 11.5 - 14.5 10/29/2017 [facility] MCV 88.6 fL 80.0 - 98.0 10/29/2017 [facility] Segs-Bands # 10.7 K/CMM 1.5 - 8.1 10/29/2017 [facility] Monocytes 5.4 % 2.0 - 12.0 10/29/2017 [facility] Basophils 0.1 % 0.0 - 1.0 10/29/2017 [facility] Segs 86.2 % 45.0 - 75.0 10/29/2017 [facility] Lymphocytes 8.3 % 20.0 - 40.0 10/29/2017 [facility] Lymphocytes # 1.0 K/CMM 1.0 - 5.5 10/29/2017 [facility] Monocytes # 0.7 K/CMM 0.0 - 0.8 10/29/2017 [facility] CHEM PANEL eGFR 8 mL/min/1.73m2 10/28/2017 Result Comment: The eGFR is calculated using the [...] from the National Kidney Disease Education Program (NKDEP) which additionally recommends that when the eGFR is used in patients with extremes of body mass index for purposes of drug dosing, the eGFR should be multiplied by the estimated BMI. [facility] CHEM PANEL Calcium Lvl 9.1 mg/dL 8.5 - 10.5 10/28/2017 [facility] CHEM PANEL AGAP 19.3 meq/L 10.0 - 20.0 10/28/2017 [facility] CHEM PANEL Chloride Lvl 97 meq/L 95 - 109 10/28/2017 [facility] CHEM PANEL CO2 27 meq/L 24 - 32 10/28/2017 [facility] CHEM PANEL BUN 31 mg/dL 7 - 22 10/28/2017 [facility] CHEM PANEL Creatinine Lvl 4.86 mg/dL 0.50 - 1.40 10/28/2017 [facility] CHEM PANEL Sodium Lvl 139 meq/L 135 - 145 10/28/2017 [facility] CHEM PANEL Potassium Lvl 4.3 meq/L 3.5 - 5.1 10/28/2017 [facility] CHEM PANEL Glucose Lvl 80 mg/dL 70 - 99 10/28/2017 [facility] ELECTROLYTES AGAP 11.3 meq/L 10.0 - 20.0 10/27/2017 [facility] ELECTROLYTES eGFR 28 mL/min/1.73m2 10/27/2017 Result Comment: The eGFR is calculated using the [...] from the National Kidney Disease Education Program (NKDEP) which additionally recommends that when the eGFR is used in patients with extremes of body mass index for purposes of drug dosing, the eGFR should be multiplied by the estimated BMI. [facility] ELECTROLYTES Calcium Lvl 8.6 mg/dL 8.5 - 10.5 10/27/2017 [facility] ELECTROLYTES Glucose Lvl 155 mg/dL 70 - 99 10/27/2017 [facility] ELECTROLYTES Creatinine Lvl 1.68 mg/dL 0.50 - 1.40 10/27/2017 [facility] ELECTROLYTES BUN 41 mg/dL 7 - 22 10/27/2017 [facility] ELECTROLYTES CO2 27 meq/L 24 - 32 10/27/2017 [facility] ELECTROLYTES Chloride Lvl 109 meq/L 95 - 109 10/27/2017 [facility] ELECTROLYTES Sodium Lvl 142 meq/L 135 - 145 10/27/2017 [facility] HEMATOLOGY MCV 89.6 fL 80.0 - 98.0 10/27/2017 [facility] HEMATOLOGY MCH 28.3 pg 27.0 - 31.0 10/27/2017 [facility] HEMATOLOGY Hgb 8.2 g/dL 12.0 - 16.0 10/27/2017 [facility] HEMATOLOGY Hct 26.1 % 36.0 - 48.0 10/27/2017 [facility] HEMATOLOGY WBC 10.8 K/CMM 3.7 - 10.4 10/27/2017 [facility] HEMATOLOGY RBC 2.91 M/CMM 4.20 - 5.40 10/27/2017 [facility] HEMATOLOGY MPV 8.4 fL 7.4 - 10.4 10/27/2017 [facility] HEMATOLOGY RDW 18.9 % 11.5 - 14.5 10/27/2017 [facility] HEMATOLOGY Platelet 256 K/CMM 133 - 450 10/27/2017 [facility] HEMATOLOGY MCHC 31.6 g/dL 32.0 - 36.0 10/27/2017 [facility] CHEM PANEL Globulin 4.6 g/dL 2.7 - 4.2 10/26/2017 [facility] CHEM PANEL A/G Ratio 0.6 0.7 - 1.6 10/26/2017 [facility] CHEM PANEL B/C Ratio 23 6 - 25 10/26/2017 [facility] CHEM PANEL ALT 18 unit/L 0 - 65 10/26/2017 [facility] CHEM PANEL Total Protein 7.3 g/dL 6.4 - 8.4 10/26/2017 [facility] CHEM PANEL Albumin Lvl 2.7 g/dL 3.5 - 5.0 10/26/2017 [facility] CHEM PANEL Alk Phos 60 unit/L 39 - 136 10/26/2017 [facility] CHEM PANEL Bili Total 0.6 mg/dL 0.2 - 1.3 10/26/2017 [facility] CHEM PANEL AST 32 unit/L 0 - 37 10/26/2017 [facility] HEMATOLOGY Platelet 251 K/CMM 133 - 450 10/26/2017 [facility] MPV 7.9 fL 7.4 - 10.4 10/26/2017 [facility] Hgb 8.3 g/dL 12.0 - 16.0 10/26/2017 [facility] RBC 2.90 M/CMM 4.20 - 5.40 10/26/2017 [facility] WBC 12.1 K/CMM 3.7 - 10.4 10/26/2017 [facility] MCHC 32.0 g/dL 32.0 - 36.0 10/26/2017 [facility] MCH 28.6 pg 27.0 - 31.0 10/26/2017 [facility] MCV 89.2 fL 80.0 - 98.0 10/26/2017 [facility] Hct 25.8 % 36.0 - 48.0 10/26/2017 [facility] RDW 18.2 % 11.5 - 14.5 10/26/2017 [facility] Myelocytes 1.0 % <=0.0 % 10/26/2017 [facility] Metamyelocytes 1.0 % 0.0 - 1.0 10/26/2017 [facility] Monocytes # 0.7 K/CMM 0.0 - 0.8 10/26/2017 [facility] Lymphocytes # 1.3 K/CMM 1.0 - 5.5 10/26/2017 [facility] Hypochrom 1+ (10/26/17 7:35 AM) None Seen 10/26/2017 [facility] RBC Morph See Note (10/26/17 7:35 AM) 10/26/2017 [facility] Monocytes 6.0 % 2.0 - 12.0 10/26/2017 [facility] Lymphocytes 11.0 % 20.0 - 40.0 10/26/2017 [facility] Segs-Bands # 9.8 K/CMM 1.5 - 8.1 10/26/2017 [facility] Bands 6.0 % 0.0 - 11.0 10/26/2017 [facility] Plt Morph Normal (10/26/17 7:35 AM) 10/26/2017 [facility] Segs 75.0 % 45.0 - 75.0 10/26/2017 [facility] Chest wo contrast CT Chest wo contrast CT CT CHEST WITHOUT CONTRAST HISTORY: Pneumonia. TECHNIQUE: Helical chest CT was performed from the thoracic inlet through the upper abdomen without IV contrast. Images reviewed in axial, coronal and sagittal planes. Images reviewed in 3 planes. DLP: 437 mGy-cm COMPARISON: Chest CT 08/29/2006. FINDINGS: LUNGS \\T\\ PLEURA: There is relatively diffuse subtle groundglass opacity within the juxta hilar regions on both sides involving parts of each upper lobe, the right middle lobe and each lower lobe. Bronchial wall thickening is suggested primarily within the left lower lobe. There is also suggestion of mild left basilar bronchiectasis with primarily peribronchial parenchymal opacity extending to the costophrenic sulcus. Endobronchial opacity is seen within several peripheral airways along the posteromedial aspect of the left base. There is also minimal localized subpleural opacity within the dependent aspect of the right lower lobe. Calcifications are demonstrated at the right lung apex. No pleural abnormality. MEDIASTINUM, RHONDA, AXILLAE: Mild atheromatous calcifications noted. No aneurysm. No mediastinal mass, adenopathy or pericardial disease. No significant axillary abnormality. Areas of dense jacob calcification within the precarinal space. ABDOMEN: Small hyperdense focus along the anterior superior contour of the left kidney measures about 4-5 mm diameter with an attenuation coefficient of 75 Hounsfield units. Evidence of cholecystectomy. Hepatic and splenic calcifications noted. Small hiatal hernia. SKELETAL: No focal skeletal abnormality or acute skeletal process is apparent. The bones are demineralized. IMPRESSION: 1. Old granulomatous disease. 2. Bilateral groundglass infiltrate with mild left basilar bronchiectasis and peribronchiolar opacity. Correlate for evidence of an inflammatory or infectious process. 3. Mild atheromatous changes. 4. Left hemorrhagic or proteinaceous renal cyst. 5. Cholecystectomy. SL: [id number] 10/24/2017 - - Read by: Nathaniel David MD Dictated Date/time: 10/24/17 17:24 Electronically Signed by: Nathaniel David MD 10/24/17 17:34 FINAL REPORT [facility] CHEM PANEL Magnesium Lvl 2.3 mg/dL 1.8 - 2.4 10/24/2017 [facility] CHEM PANEL A/G Ratio 0.6 0.7 - 1.6 10/24/2017 [facility] CHEM PANEL AST 20 unit/L 0 - 37 10/24/2017 [facility] CHEM PANEL Alk Phos 65 unit/L 39 - 136 10/24/2017 [facility] CHEM PANEL ALT 16 unit/L 0 - 65 10/24/2017 [facility] CHEM PANEL B/C Ratio 18 6 - 25 10/24/2017 [facility] CHEM PANEL Total Protein 7.6 g/dL 6.4 - 8.4 10/24/2017 [facility] CHEM PANEL Albumin Lvl 2.8 g/dL 3.5 - 5.0 10/24/2017 [facility] CHEM PANEL Globulin 4.8 g/dL 2.7 - 4.2 10/24/2017 [facility] CHEM PANEL Bili Total 0.4 mg/dL 0.2 - 1.3 10/24/2017 [facility] HEMATOLOGY Monocytes # 0.2 K/CMM 0.0 - 0.8 10/24/2017 [facility] HEMATOLOGY Segs-Bands # 10.6 K/CMM 1.5 - 8.1 10/24/2017 [facility] HEMATOLOGY Basophils 0.1 % 0.0 - 1.0 10/24/2017 [facility] HEMATOLOGY Lymphocytes # 0.6 K/CMM 1.0 - 5.5 10/24/2017 [facility] HEMATOLOGY Lymphocytes 5.1 % 20.0 - 40.0 10/24/2017 [facility] HEMATOLOGY Monocytes 1.9 % 2.0 - 12.0 10/24/2017 [facility] HEMATOLOGY Segs 92.9 % 45.0 - 75.0 10/24/2017 [facility] SPECIAL CHEMISTRY Hgb A1C 6.7 % <=5.6 % 10/24/2017 [facility] CHEM PANEL Lactic Acid Lvl 1.0 mMol/L 0.5 - 2.2 10/23/2017 [facility] VIRAL - SEROLOGY Influ B Negative (10/23/17 3:33 PM) Negative 10/23/2017 [facility] VIRAL - SEROLOGY Influ A Negative (10/23/17 3:33 PM) Negative 10/23/2017 [facility] CARDIAC ENZYMES CK MB Index null 0.0 - 2.5 10/23/2017 [facility] CARDIAC ENZYMES Troponin-I null 0.00 - 0.40 10/23/2017 [facility] CARDIAC ENZYMES CK MB null 0.5 - 3.6 10/23/2017 [facility] CARDIAC ENZYMES Total CK 199 unit/L 12 - 191 10/23/2017 [facility] CHEM PANEL Alk Phos 74 unit/L 39 - 136 10/23/2017 [facility] CHEM PANEL Bili Total 0.1 mg/dL 0.2 - 1.3 10/23/2017 [facility] CHEM PANEL B/C Ratio 17 6 - 25 10/23/2017 [facility] CHEM PANEL Globulin 5.1 g/dL 2.7 - 4.2 10/23/2017 [facility] CHEM PANEL A/G Ratio 0.6 0.7 - 1.6 10/23/2017 [facility] CHEM PANEL Total Protein 8.3 g/dL 6.4 - 8.4 10/23/2017 [facility] CHEM PANEL Albumin Lvl 3.2 g/dL 3.5 - 5.0 10/23/2017 [facility] CHEM PANEL ALT 20 unit/L 0 - 65 10/23/2017 [facility] CHEM PANEL AST 22 unit/L 0 - 37 10/23/2017 [facility] HEMATOLOGY Basophils # 0.1 K/CMM 0.0 - 0.2 10/23/2017 [facility] HEMATOLOGY Eosinophils 0.3 % 0.0 - 4.0 10/23/2017 [facility] HEMATOLOGY Basophils 0.4 % 0.0 - 1.0 10/23/2017 [facility] URINE AND STOOL UA Urobilinogen <=1.0 mg/dL 0.1 - 1.0 10/23/2017 [facility] URINE AND STOOL UA Color Ltyellow 10/23/2017 [facility] URINE AND STOOL UA WBC 5 /HPF 0 - 5 10/23/2017 [facility] URINE AND STOOL UA Leuk Est Trace *ABN* (10/23/17 12:59 PM) Negative 10/23/2017 [facility] URINE AND STOOL UA Sq Epi Occasional /LPF Few /LPF 10/23/2017 [facility] URINE AND STOOL UA Bacteria Occasional /HPF None Seen /HPF 10/23/2017 [facility] URINE AND STOOL UA Protein Negative mg/dL Negative mg/dL 10/23/2017 [facility] URINE AND STOOL UA Blood Negative (10/23/17 12:59 PM) Negative 10/23/2017 [facility] URINE AND STOOL UA Glucose Negative mg/dL Negative mg/dL 10/23/2017 [facility] URINE AND STOOL UA Bili Negative *NA* (10/23/17 12:59 PM) Negative 10/23/2017 [facility] URINE AND STOOL UA Nitrite Negative (10/23/17 12:59 PM) Negative 10/23/2017 [facility] URINE AND STOOL UA Ketones Negative mg/dL Negative mg/dL 10/23/2017 [facility] URINE AND STOOL UA Spec Grav 1.009 <=1.030 10/23/2017 [facility] URINE AND STOOL UA pH 6.0 5.0 - 8.0 10/23/2017 [facility] URINE AND STOOL UA Turbidity Clear (10/23/17 12:59 PM) Clear 10/23/2017 [facility] Ribs unilateral 3 views w PA chest DX Ribs unilateral 3 views w PA chest DX Left rib series, 4 views HISTORY: Left chest wall pain after injury. COMPARISON: None. FINDINGS: PA chest radiograph obtained with frontal and oblique images of the left bony thorax. Anterolateral left 6th rib fracture is demonstrated. No pneumothorax or definite pleural fluid. Opacity noted within the medial left base which may represent atelectasis or infiltrate. IMPRESSION: 1. Left anterolateral 6th rib fracture with evidence of medial left basilar atelectasis or infiltrate. SL: [id number] 10/23/2017 - - Read by: Nathaniel David MD Dictated Date/time: 10/23/17 13:47 Electronically Signed by: Nathaniel David MD 10/23/17 13:48 FINAL REPORT [facility] Hip bilat w pelvis and both lat hips DX Hip bilat w pelvis and both lat hips DX Pelvis and hips, 5 views HISTORY: Pain after a fall. COMPARISON: None. FINDINGS: Frontal view the pelvis with AP and frog-leg views of each hip. No acute bone, joint or soft tissue abnormality. No focal bone lesion is demonstrated. Vascular calcifications noted within the aorta. IMPRESSION: No acute finding. SL: [id number] 10/23/2017 - - Read by: Nathaniel David MD Dictated Date/time: 10/23/17 13:43 Electronically Signed by: Nathaniel David MD 10/23/17 13:46 FINAL REPORT [facility] Brain wo contrast CT Brain wo contrast CT Patient Name: NIYA HOFFMAN : 1935; Age: 82 years Female MR: [id number] Study: Brain wo contrast CT 10/23/2017 12:59 PM [address] CT dose: dlp 981.54 - weakness-states yesterday am had gamma knife treatment, this am so weakn unable to stand, SOB, cough, congestion. COMPARISON: December 30, 2016. TECHNIQUE: CT images were obtained from the foramen magnum to the vertex without the use of intravenous contrast on a multidetector CT. Coronal and sagittal reconstructions were obtained. FINDINGS: BRAIN PARENCHYMA: There is generalized brain parenchymal atrophy related to the patient's age. Nonspecific periventricular white matter disease changes are noted. Atherosclerotic calcifications are present within the carotid siphons and distal vertebral arteries. There are no focal mass lesions on this noncontrast head CT. There is no mass effect, midline shift or edema. There are no intra-axial or extra-axial fluid collections. There is no intraventricular or intraparenchymal hemorrhage. There is no noncontrast CT evidence of a subacute stroke. The pineal, sellar, brainstem, cerebellum and skull base regions appear normal. VENTRICLES: The lateral ventricles, third and fourth ventricles appear normal. The basilar cisterns are normal. ORBITS, MASTOIDS AND PARANASAL SINUSES: The visualized orbits are normal. The visualized paranasal sinuses are normal. The mastoid air cells are clear. SKULL: There are no calvarial abnormalities seen. If there is further concern for intracranial pathology or acute stroke, MRI of the brain may be performed for complete assessment. IMPRESSION: Chronic age-related and small vessel ischemic changes without mass, hemorrhage or subacute stroke. SL: [id number] 10/23/2017 - - Read by: Fei Momin MD Dictated Date/time: 10/23/17 13:33 Electronically Signed by: Fei Momin MD 10/23/17 13:35 FINAL REPORT [facility] CHEM PANEL POC Creatinine 2.6 mg/dL 0.5 - 1.4 10/22/2017 [facility] CHEM PANEL eGFR 17 mL/min/1.73m2 10/22/2017 Result Comment: The eGFR is calculated using the [...] from the National Kidney Disease Education Program (NKDEP) which additionally recommends that when the eGFR is used in patients with extremes of body mass index for purposes of drug dosing, the eGFR should be multiplied by the estimated BMI. [facility] Brain wo contrast MRI Brain wo contrast MRI Examination: MRI brain without contrast DATE: 10/22/2017 INDICATION: Trigeminal neuralgia. FINDINGS: High-resolution T1 and T2-weighted images are performed with fiducial markers in place for the purposes of stereotactic localization. Cisternal segments of both trigeminal nerves are well visualized. The skull base is grossly unremarkable. IMPRESSION: Images adequate for visualization. 10/22/2017 - - Read by: Emmanuel Maguire MD Dictated Date/time: 10/22/17 09:50 Electronically Signed by: Emmanuel Maguire MD 10/22/17 09:56 FINAL REPORT [facility] CHEM PANEL eGFR 30 mL/min/1.73m2 06/27/2017 Result Comment: The eGFR is calculated using the [...] from the National Kidney Disease Education Program (NKDEP) which additionally recommends that when the eGFR is used in patients with extremes of body mass index for purposes of drug dosing, the eGFR should be multiplied by the estimated BMI. [facility] CHEM PANEL Calcium Lvl 9.2 mg/dL 8.5 - 10.5 06/27/2017 [facility] CHEM PANEL CO2 33 meq/L 24 - 32 06/27/2017 [facility] CHEM PANEL Creatinine Lvl 1.60 mg/dL 0.50 - 1.40 06/27/2017 [facility] CHEM PANEL BUN 37 mg/dL 7 - 22 06/27/2017 [facility] CHEM PANEL Glucose Lvl 130 mg/dL 70 - 99 06/27/2017 [facility] CHEM PANEL Potassium Lvl 3.3 meq/L 3.5 - 5.1 06/27/2017 [facility] CHEM PANEL Sodium Lvl 141 meq/L 135 - 145 06/27/2017 [facility] CHEM PANEL Chloride Lvl 100 meq/L 95 - 109 06/27/2017 [facility] CHEM PANEL AGAP 11.3 meq/L 10.0 - 20.0 06/27/2017 [facility] HEMATOLOGY Basophils 0.2 % 0.0 - 1.0 06/27/2017 [facility] Lymphocytes 19.9 % 20.0 - 40.0 06/27/2017 [facility] Monocytes 9.4 % 2.0 - 12.0 06/27/2017 [facility] Eosinophils 0.3 % 0.0 - 4.0 06/27/2017 [facility] Segs-Bands # 7.5 K/CMM 1.5 - 8.1 06/27/2017 [facility] Lymphocytes # 2.1 K/CMM 1.0 - 5.5 06/27/2017 [facility] Monocytes # 1.0 K/CMM 0.0 - 0.8 06/27/2017 [facility] Segs 70.2 % 45.0 - 75.0 06/27/2017 [facility] MCHC 32.0 g/dL 32.0 - 36.0 06/27/2017 [facility] MPV 8.7 fL 7.4 - 10.4 06/27/2017 [facility] RDW 18.0 % 11.5 - 14.5 06/27/2017 [facility] Platelet 279 K/CMM 133 - 450 06/27/2017 [facility] WBC 10.7 K/CMM 3.7 - 10.4 06/27/2017 [facility] MCH 27.3 pg 27.0 - 31.0 06/27/2017 [facility] MCV 85.4 fL 80.0 - 98.0 06/27/2017 [facility] Hct 28.2 % 36.0 - 48.0 06/27/2017 [facility] Hgb 9.0 g/dL 12.0 - 16.0 06/27/2017 [facility] RBC 3.30 M/CMM 4.20 - 5.40 06/27/2017 [facility] CHEM PANEL eGFR 28 mL/min/1.73m2 06/26/2017 Result Comment: The eGFR is calculated using the [...] from the National Kidney Disease Education Program (NKDEP) which additionally recommends that when the eGFR is used in patients with extremes of body mass index for purposes of drug dosing, the eGFR should be multiplied by the estimated BMI. [facility] CHEM PANEL Calcium Lvl 9.1 mg/dL 8.5 - 10.5 06/26/2017 [facility] CHEM PANEL CO2 33 meq/L 24 - 32 06/26/2017 [facility] CHEM PANEL BUN 34 mg/dL 7 - 22 06/26/2017 [facility] CHEM PANEL Glucose Lvl 175 mg/dL 70 - 99 06/26/2017 [facility] CHEM PANEL Chloride Lvl 99 meq/L 95 - 109 06/26/2017 [facility] CHEM PANEL Potassium Lvl 3.9 meq/L 3.5 - 5.1 06/26/2017 [facility] CHEM PANEL Creatinine Lvl 1.70 mg/dL 0.50 - 1.40 06/26/2017 [facility] CHEM PANEL Sodium Lvl 139 meq/L 135 - 145 06/26/2017 [facility] CHEM PANEL AGAP 10.9 meq/L 10.0 - 20.0 06/26/2017 [facility] Platelet 285 K/CMM 133 - 450 06/26/2017 [facility] MPV 8.9 fL 7.4 - 10.4 06/26/2017 [facility] Hgb 9.1 g/dL 12.0 - 16.0 06/26/2017 [facility] Hct 28.2 % 36.0 - 48.0 06/26/2017 [facility] RBC 3.29 M/CMM 4.20 - 5.40 06/26/2017 [facility] WBC 7.0 K/CMM 3.7 - 10.4 06/26/2017 [facility] RDW 17.5 % 11.5 - 14.5 06/26/2017 [facility] MCH 27.7 pg 27.0 - 31.0 06/26/2017 [facility] [facility] MCV 85.7 fL 80.0 - 98.0 06/26/2017 [facility] MCHC 32.3 g/dL 32.0 - 36.0 06/26/2017 [facility] Lymphocytes # 0.9 K/CMM 1.0 - 5.5 06/26/2017 [facility] Monocytes # 0.3 K/CMM 0.0 - 0.8 06/26/2017 [facility] HEMATOLOGY Lymphocytes 12.3 % 20.0 - 40.0 06/26/2017 [facility] Segs-Bands # 5.8 K/CMM 1.5 - 8.1 06/26/2017 [facility] Segs 83.5 % 45.0 - 75.0 06/26/2017 [facility] Monocytes 4.0 % 2.0 - 12.0 06/26/2017 [facility] Basophils 0.2 % 0.0 - 1.0 06/26/2017 [facility] Plt Morph Normal (06/26/17 7:21 AM) 06/26/2017 [facility] RBC Morph Normal (06/26/17 7:21 AM) 06/26/2017 [facility] Chest 1view DX Chest 1view DX Clinical Indication:82 years Female with - shortness of breath Comparison: Chest x-ray 12/30/2016 FINDINGS: Lines: None. The single frontal chest radiograph shows normal lung volumes. Mildly increased interstitial markings bilaterally. No pleural effusion. No pneumothorax. Cardiac silhouette is normal. Pulmonary vasculature is normal. The trachea is midline. There are no acute osseous abnormalities noted. If concern persists, follow-up chest x-ray or chest CT can be performed. IMPRESSION: No acute cardiopulmonary abnormality. Mild interstitial scarring. 06/25/2017 - - Read by: Kai Russ MD Dictated Date/time: 06/25/17 16:29 Electronically Signed by: Kai Russ MD 06/25/17 16:31 FINAL REPORT [facility] CHEM PANEL eGFR 36 mL/min/1.73m2 06/25/2017 Result Comment: The eGFR is calculated using the [...] from the National Kidney Disease Education Program (NKDEP) which additionally recommends that when the eGFR is used in patients with extremes of body mass index for purposes of drug dosing, the eGFR should be multiplied by the estimated BMI. [facility] CHEM PANEL Glucose Lvl 102 mg/dL 70 - 99 06/25/2017 [facility] CHEM PANEL BUN 27 mg/dL 7 - 22 06/25/2017 [facility] CHEM PANEL CO2 30 meq/L 24 - 32 06/25/2017 [facility] CHEM PANEL AGAP 15.1 meq/L 10.0 - 20.0 06/25/2017 [facility] CHEM PANEL Calcium Lvl 9.0 mg/dL 8.5 - 10.5 06/25/2017 [facility] CHEM PANEL Sodium Lvl 143 meq/L 135 - 145 06/25/2017 [facility] CHEM PANEL Creatinine Lvl 1.40 mg/dL 0.50 - 1.40 06/25/2017 [facility] CHEM PANEL Chloride Lvl 102 meq/L 95 - 109 06/25/2017 [facility] CHEM PANEL Potassium Lvl 4.1 meq/L 3.5 - 5.1 06/25/2017 [facility] HEMATOLOGY Eosinophils # 0.2 K/CMM 0.0 - 0.5 06/25/2017 [facility] HEMATOLOGY Monocytes # 1.0 K/CMM 0.0 - 0.8 06/25/2017 [facility] HEMATOLOGY Basophils 0.5 % 0.0 - 1.0 06/25/2017 [facility] HEMATOLOGY Lymphocytes # 3.0 K/CMM 1.0 - 5.5 06/25/2017 [facility] HEMATOLOGY Segs-Bands # 4.2 K/CMM 1.5 - 8.1 06/25/2017 [facility] HEMATOLOGY Eosinophils 2.9 % 0.0 - 4.0 06/25/2017 [facility] Lymphocytes 35.2 % 20.0 - 40.0 06/25/2017 [facility] HEMATOLOGY Monocytes 12.0 % 2.0 - 12.0 06/25/2017 [facility] HEMATOLOGY Segs 49.4 % 45.0 - 75.0 06/25/2017 [facility] MPV 8.7 fL 7.4 - 10.4 06/25/2017 [facility] RDW 17.5 % 11.5 - 14.5 06/25/2017 [facility] Platelet 290 K/CMM 133 - 450 06/25/2017 [facility] MCHC 31.8 g/dL 32.0 - 36.0 06/25/2017 [facility] MCV 86.5 fL 80.0 - 98.0 06/25/2017 [facility] MCH 27.5 pg 27.0 - 31.0 06/25/2017 [facility] Hct 29.0 % 36.0 - 48.0 06/25/2017 [facility] WBC 8.5 K/CMM 3.7 - 10.4 06/25/2017 [facility] RBC 3.36 M/CMM 4.20 - 5.40 06/25/2017 [facility] Hgb 9.2 g/dL 12.0 - 16.0 06/25/2017 [facility] LIPIDS VLDL 17 06/25/2017 [facility] LIPIDS Trig 86 mg/dL <=149 mg/dL 06/25/2017 [facility] LIPIDS LDL (Calculated) 50 mg/dL <=99 mg/dL 06/25/2017 [facility] CHD Risk 1.93 3.90 - 5.80 06/25/2017 [facility] LIPIDS HDL 72 mg/dL >=61 mg/dL 06/25/2017 [facility] LIPIDS Chol 139 mg/dL <=199 mg/dL 06/25/2017 [facility] CARDIAC ENZYMES Troponin-I null 0.00 - 0.40 06/25/2017 [facility] CARDIAC ENZYMES Total CK 64 unit/L 12 - 191 06/25/2017 [facility] CARDIAC ENZYMES BNP 21 pg/mL <=100 pg/mL 06/25/2017 [facility] CHEM PANEL Magnesium Lvl 1.9 mg/dL 1.8 - 2.4 06/25/2017 [facility] Eosinophils 1.9 % 0.0 - 4.0 06/25/2017 [facility] Eosinophils # 0.2 K/CMM 0.0 - 0.5 06/25/2017 [facility] Basophils # 0.1 K/CMM 0.0 - 0.2 06/25/2017 [facility] CHEM PANEL POC Creatinine 1.3 mg/dL 0.5 - 1.4 02/12/2017 [facility] CHEM PANEL eGFR 39 mL/min/1.73m2 02/12/2017 Result Comment: The eGFR is calculated using the [...] from the National Kidney Disease Education Program (NKDEP) which additionally recommends that when the eGFR is used in patients with extremes of body mass index for purposes of drug dosing, the eGFR should be multiplied by the estimated BMI. [facility] Brain w contrast MRI Brain w contrast MRI Exam: MRI brain with contrast. Next. INDICATION: Left trigeminal neuralgia. COMPARISON: CT December 30, 2016. TECHNIQUE: 3-D T2 and postcontrast T1 sequences of the brain are obtained. 15 cc MultiHance was administered. Discussion: No brainstem or cerebellopontine angle masses are identified. No abnormal enhancement of the trigeminal nerves or other cranial nerves is identified. Unremarkable enhancement the right facial nerve. Superior cerebellar artery flow voids traverse the cisternal segments of the trigeminal nerves bilaterally with questionable deformity of the left trigeminal nerve. IMPRESSION: Images are obtained for Gamma knife. Left superior cerebellar artery flow void traverses the cisternal segment of the left trigeminal nerve with questionable deformity of the nerve. 02/12/2017 - - Read by: Traci Walton MD Dictated Date/time: 02/12/17 08:43 Electronically Signed by: Traci Walton MD 02/12/17 08:47 FINAL REPORT [facility] HEMATOLOGY Sed Rate 62 mm/h 0 - 20 01/03/2017 [facility] CHEM PANEL Calcium Lvl 9.3 mg/dL 8.5 - 10.5 01/03/2017 [facility] CHEM PANEL eGFR 36 mL/min/1.73m2 01/03/2017 Result Comment: The eGFR is calculated using the [...] from the National Kidney Disease Education Program (NKDEP) which additionally recommends that when the eGFR is used in patients with extremes of body mass index for purposes of drug dosing, the eGFR should be multiplied by the estimated BMI. [facility] CHEM PANEL Glucose Lvl 134 mg/dL 70 - 99 01/03/2017 [facility] CHEM PANEL Creatinine Lvl 1.40 mg/dL 0.50 - 1.40 01/03/2017 [facility] CHEM PANEL Sodium Lvl 138 meq/L 135 - 145 01/03/2017 [facility] CHEM PANEL BUN 36 mg/dL 7 - 22 01/03/2017 [facility] CHEM PANEL AGAP 12.7 meq/L 10.0 - 20.0 01/03/2017 [facility] CHEM PANEL Potassium Lvl 4.7 meq/L 3.5 - 5.1 01/03/2017 [facility] CHEM PANEL CO2 33 meq/L 24 - 32 01/03/2017 [facility] CHEM PANEL Chloride Lvl 97 meq/L 95 - 109 01/03/2017 [facility] ELECTROLYTES Sodium Lvl 136 meq/L 135 - 145 01/02/2017 [facility] ELECTROLYTES AGAP 17.6 meq/L 10.0 - 20.0 01/02/2017 [facility] ELECTROLYTES Calcium Lvl 9.1 mg/dL 8.5 - 10.5 01/02/2017 [facility] ELECTROLYTES Chloride Lvl 93 meq/L 95 - 109 01/02/2017 [facility] ELECTROLYTES CO2 30 meq/L 24 - 32 01/02/2017 [facility] ELECTROLYTES Potassium Lvl 4.6 meq/L 3.5 - 5.1 01/02/2017 [facility] ELECTROLYTES BUN 44 mg/dL 7 - 01/02/2017 [facility] ELECTROLYTES Creatinine Lvl 1.80 mg/dL 0.50 - 1.40 01/02/2017 [facility] ELECTROLYTES eGFR 26 mL/min/1.73m2 01/02/2017 Result Comment: The eGFR is calculated using the [...] from the National Kidney Disease Education Program (NKDEP) which additionally recommends that when the eGFR is used in patients with extremes of body mass index for purposes of drug dosing, the eGFR should be multiplied by the estimated BMI. [facility] ELECTROLYTES Glucose Lvl 211 mg/dL 70 - 99 01/02/2017 [facility] CARDIAC ENZYMES BNP 117 pg/mL <=100 pg/mL 01/01/2017 [facility] IMMUNOLOGY DEVIN Titer 1:40 *ABN* (01/01/17 6:11 AM) Negative 01/01/2017 [facility] IMMUNOLOGY DEVIN Interp Pattern appears Mixed Speckled and Nucleolar 01/01/2017 [facility] IMMUNOLOGY IgE Lvl 420.0 [iU]/mL 10.0 - 100.0 01/01/2017 [facility] IMMUNOLOGY DEVIN Positive *ABN* (01/01/17 6:11 AM) Negative 01/01/2017 [facility] IMMUNOLOGY P-ANCA Negative (01/01/17 6:11 AM) Negative 01/01/2017 [facility] IMMUNOLOGY C-ANCA Negative (01/01/17 6:11 AM) Negative 01/01/2017 [facility] CHEM PANEL eGFR 48 mL/min/1.73m2 12/30/2016 Result Comment: The eGFR is calculated using the [...] from the National Kidney Disease Education Program (NKDEP) which additionally recommends that when the eGFR is used in patients with extremes of body mass index for purposes of drug dosing, the eGFR should be multiplied by the estimated BMI. [facility] CHEM PANEL Alk Phos 87 unit/L 39 - 136 12/30/2016 [facility] CHEM PANEL Bili Total 0.4 mg/dL 0.2 - 1.3 12/30/2016 [facility] CHEM PANEL CO2 34 meq/L 24 - 32 12/30/2016 [facility] CHEM PANEL Chloride Lvl 99 meq/L 95 - 109 12/30/2016 [facility] CHEM PANEL Total Protein 7.6 g/dL 6.4 - 8.4 12/30/2016 [facility] CHEM PANEL Calcium Lvl 9.2 mg/dL 8.5 - 10.5 12/30/2016 [facility] CHEM PANEL Albumin Lvl 2.8 g/dL 3.5 - 5.0 12/30/2016 [facility] CHEM PANEL ALT 13 unit/L 0 - 65 12/30/2016 [facility] CHEM PANEL AST 11 unit/L 0 - 37 12/30/2016 [facility] CHEM PANEL Creatinine Lvl 1.10 mg/dL 0.50 - 1.40 12/30/2016 [facility] CHEM PANEL Glucose Lvl 89 mg/dL 70 - 99 12/30/2016 [facility] CHEM PANEL BUN 19 mg/dL 7 - 22 12/30/2016 [facility] CHEM PANEL Potassium Lvl 3.7 meq/L 3.5 - 5.1 12/30/2016 [facility] CHEM PANEL Sodium Lvl 140 meq/L 135 - 145 12/30/2016 [facility] CHEM PANEL AGAP 10.7 meq/L 10.0 - 20.0 12/30/2016 [facility] CHEM PANEL B/C Ratio 17 6 - 25 12/30/2016 [facility] CHEM PANEL Globulin 4.8 g/dL 2.7 - 4.2 12/30/2016 [facility] CHEM PANEL A/G Ratio 0.6 0.7 - 1.6 12/30/2016 [facility] HEMATOLOGY Sed Rate >100 mm/hr 0 - 20 12/30/2016 [facility] HEMATOLOGY INR 0.97 0.85 - 1.17 12/30/2016 [facility] HEMATOLOGY PT 13.1 s 12.0 - 14.7 12/30/2016 [facility] HEMATOLOGY MPV 8.2 fL 7.4 - 10.4 12/30/2016 [facility] HEMATOLOGY Platelet 384 K/CMM 133 - 450 12/30/2016 [facility] HEMATOLOGY WBC 12.9 K/CMM 3.7 - 10.4 12/30/2016 [facility] HEMATOLOGY Hct 31.2 % 36.0 - 48.0 12/30/2016 [facility] HEMATOLOGY RBC 3.60 M/CMM 4.20 - 5.40 12/30/2016 [facility] HEMATOLOGY MCV 86.6 fL 80.0 - 98.0 12/30/2016 [facility] HEMATOLOGY RDW 19.3 % 11.5 - 14.5 12/30/2016 [facility] MCHC 31.3 g/dL 32.0 - 36.0 12/30/2016 [facility] HEMATOLOGY MCH 27.2 pg 27.0 - 31.0 12/30/2016 [facility] Hgb 9.8 g/dL 12.0 - 16.0 12/30/2016 [facility] HEMATOLOGY Eosinophils 0.9 % 0.0 - 4.0 12/30/2016 [facility] Basophils 0.3 % 0.0 - 1.0 12/30/2016 [facility] Monocytes 7.7 % 2.0 - 12.0 12/30/2016 [facility] Lymphocytes 29.5 % 20.0 - 40.0 12/30/2016 [facility] Segs 61.6 % 45.0 - 75.0 12/30/2016 [facility] Plt Morph Normal (12/30/16 3:19 PM) 12/30/2016 [facility] RBC Morph Normal (12/30/16 3:19 PM) 12/30/2016 [facility] Segs-Bands # 7.9 K/CMM 1.5 - 8.1 12/30/2016 [facility] Monocytes # 1.0 K/CMM 0.0 - 0.8 12/30/2016 [facility] Lymphocytes # 3.8 K/CMM 1.0 - 5.5 12/30/2016 [facility] Eosinophils # 0.1 K/CMM 0.0 - 0.5 12/30/2016 [facility] Chest 1view DX Chest 1view DX Portable chest: There is improving left retrocardiac opacity compared to 12/26/2016. The lungs and pleural spaces are otherwise clear. The cardiac silhouette and pulmonary vasculature are within normal limits. There is no other significant change. [id number] 12/30/2016 - - Read by: Kai Ayala MD Dictated Date/time: 12/30/16 15:17 Electronically Signed by: Kai Ayala MD 12/30/16 15:19 FINAL REPORT [facility] Brain wo contrast CT Brain wo contrast CT Patient Name: NIYA HOFFMAN : 1935; Age: 81 years y/o Female MR: [id number] Study: Brain wo contrast CT 12/30/2016 11:27 AM CDT Ordering Physician: Ruddy Soliman MD Comparison: None CT Radiation Dose DLP 981.84 mGy-cm Clinical Indication: Headache with Dizziness and Giddiness; Pt arrived a/o X3 and stated "I have a flare up of trigemital neualgia" X3days pt has pain to the left side of the head from the condition; FACIAL ALVAREZ - DLP: 981.84; ; cephalgia Multiple computerized axial tomograms of the head were obtained without contrast. 2-D coronal and sagittal reformatted images were obtained. Age- appropriate cortical and cerebellar volume loss is noted with compensatory enlargement of the ventricles and subarachnoid spaces. Vascular calcification is noted at the carotid siphons and/or vertebrobasilar arteries. There is no acute cortical infarction, hemorrhage or mass lesion noted. No mass effect or midline shift. Ventricles are otherwise normal in size, shape and position. The base of skull and bony calvarium are intact. Mild chronic microangiopathic change is noted at the periventricular white matter bilaterally. Mastoid air cells and paranasal sinuses are otherwise clear. IMPRESSION: 1. No acute intracranial abnormality. 2. Senescent and chronic ischemic changes are noted intracranially similar to the previous exam. : [id number] 12/30/2016 - - Read by: Desmond Almaguer MD Dictated Date/time: 12/30/16 13:14 Electronically Signed by: Desmond Almaguer MD 12/30/16 13:15 FINAL REPORT [facility] Chest 2 views DX Chest 2 views DX Chest 2 views DX CLINICAL HISTORY: J06.9 Acute upper respiratory infection, unspecified COMPARISON: 09/17/2016 FINDINGS: SUPPORT DEVICES: none LUNGS: There is mild generalized prominence of the interstitium. No consolidation or any significant effusion. No pneumothorax is evident. CARDIOVASCULAR: Cardiac silhouette size is normal. Pulmonary vasculature is within normal limits. MEDIASTINUM/RHONDA: Trachea is midline. No contour abnormality is noted. OSSEOUS STRUCTURES: No acute bony abnormality is noted. SOFT TISSUES: No significant soft tissue abnormality is noted. IMPRESSION: No acute abnormality is noted in the chest. : [id number] 12/26/2016 - - Read by: Davon Rubin MD Dictated Date/time: 12/26/16 15:29 Electronically Signed by: Davon Rubin MD 12/26/16 15:30 FINAL REPORT [facility] CHD Risk 2.11 3.90 - 5.80 09/18/2016 [facility] LIPIDS VLDL 16 09/18/2016 [facility] LDL (Calculated) 62 mg/dL <=99 mg/dL 09/18/2016 [facility] LIPIDS HDL 70 mg/dL >=61 mg/dL 09/18/2016 [facility] LIPIDS Trig 81 mg/dL <=149 mg/dL 09/18/2016 [facility] LIPIDS Chol 148 mg/dL <=199 mg/dL 09/18/2016 [facility] SPECIAL CHEMISTRY Hgb A1C 6.3 % <=5.6 % 09/18/2016 [facility] CARDIAC ENZYMES Troponin-I null 0.00 - 0.40 09/18/2016 [facility] CARDIAC ENZYMES Troponin-I null 0.00 - 0.40 09/18/2016 [facility] CARDIAC ENZYMES Troponin-I null 0.00 - 0.40 09/18/2016 [facility] URINE AND STOOL UA Urobilinogen <=1.0 mg/dL 0.1 - 1.0 09/18/2016 [facility] URINE AND STOOL UA Color Ltyellow 09/18/2016 [facility] URINE AND STOOL UA Blood Negative (09/17/16 6:02 PM) Negative 09/18/2016 [facility] URINE AND STOOL UA Bili Negative *NA* (09/17/16 6:02 PM) Negative 09/18/2016 [facility] URINE AND STOOL UA Ketones Negative mg/dL Negative mg/dL 09/18/2016 [facility] URINE AND STOOL UA RBC 2 /HPF 0 - 2 09/18/2016 [facility] URINE AND STOOL UA WBC 14 /HPF 0 - 5 09/18/2016 [facility] URINE AND STOOL UA Sq Epi Occasional /LPF Few /LPF 09/18/2016 [facility] URINE AND STOOL UA Nitrite Negative (09/17/16 6:02 PM) Negative 09/18/2016 [facility] URINE AND STOOL UA Leuk Est Small *ABN* (09/17/16 6:02 PM) Negative 09/18/2016 [facility] URINE AND STOOL UA pH 6.0 5.0 - 8.0 09/18/2016 [facility] URINE AND STOOL UA Glucose Negative mg/dL Negative mg/dL 09/18/2016 [facility] URINE AND STOOL UA Protein Negative mg/dL Negative mg/dL 09/18/2016 [facility] URINE AND STOOL UA Spec Grav 1.006 <=1.030 09/18/2016 [facility] URINE AND STOOL UA Turbidity Clear (09/17/16 6:02 PM) Clear 09/18/2016 [facility] CARDIAC ENZYMES CK MB Index 1.7 0.0 - 2.5 09/17/2016 [facility] CARDIAC ENZYMES CK MB 0.6 ng/mL 0.5 - 3.6 09/17/2016 [facility] CARDIAC ENZYMES Total CK 35 unit/L 12 - 191 09/17/2016 [facility] CARDIAC ENZYMES BNP 73 pg/mL <=100 pg/mL 09/17/2016 [facility] ELECTROLYTES Chloride Lvl 96 meq/L 95 - 109 09/17/2016 [facility] ELECTROLYTES CO2 30 meq/L 24 - 32 09/17/2016 [facility] ELECTROLYTES Potassium Lvl 3.3 meq/L 3.5 - 5.1 09/17/2016 [facility] ELECTROLYTES Calcium Lvl 9.3 mg/dL 8.5 - 10.5 09/17/2016 [facility] ELECTROLYTES Albumin Lvl 3.0 g/dL 3.5 - 5.0 09/17/2016 [facility] ELECTROLYTES ALT 14 unit/L 0 - 65 09/17/2016 [facility] Total Protein 7.9 g/dL 6.4 - 8.4 09/17/2016 [facility] ELECTROLYTES Alk Phos 74 unit/L 39 - 136 09/17/2016 [facility] ELECTROLYTES AST 12 unit/L 0 - 37 09/17/2016 [facility] eGFR 48 mL/min/1.73m2 09/17/2016 Result Comment: The eGFR is calculated using the [...] from the National Kidney Disease Education Program (NKDEP) which additionally recommends that when the eGFR is used in patients with extremes of body mass index for purposes of drug dosing, the eGFR should be multiplied by the estimated BMI. [facility] ELECTROLYTES Globulin 4.9 g/dL 2.7 - 4.2 09/17/2016 [facility] ELECTROLYTES A/G Ratio 0.6 0.7 - 1.6 09/17/2016 [facility] ELECTROLYTES AGAP 15.3 meq/L 10.0 - 20.0 09/17/2016 [facility] ELECTROLYTES B/C Ratio 18 6 - 25 09/17/2016 [facility] ELECTROLYTES Bili Total 0.2 mg/dL 0.2 - 1.3 09/17/2016 [facility] ELECTROLYTES Sodium Lvl 138 meq/L 135 - 145 09/17/2016 [facility] ELECTROLYTES Creatinine Lvl 1.10 mg/dL 0.50 - 1.40 09/17/2016 [facility] ELECTROLYTES Glucose Lvl 98 mg/dL 70 - 99 09/17/2016 [facility] ELECTROLYTES BUN 20 mg/dL 7 - 22 09/17/2016 [facility] HEMATOLOGY Lymphocytes 25.2 % 20.0 - 40.0 09/17/2016 [facility] HEMATOLOGY Monocytes 7.3 % 2.0 - 12.0 09/17/2016 [facility] HEMATOLOGY Basophils # 0.1 K/CMM 0.0 - 0.2 09/17/2016 [facility] HEMATOLOGY Eosinophils # 0.1 K/CMM 0.0 - 0.5 09/17/2016 [facility] HEMATOLOGY Monocytes # 0.9 K/CMM 0.0 - 0.8 09/17/2016 [facility] HEMATOLOGY Lymphocytes # 3.2 K/CMM 1.0 - 5.5 09/17/2016 [facility] HEMATOLOGY Segs-Bands # 8.2 K/CMM 1.5 - 8.1 09/17/2016 [facility] HEMATOLOGY Eosinophils 1.2 % 0.0 - 4.0 09/17/2016 [facility] HEMATOLOGY Basophils 0.6 % 0.0 - 1.0 09/17/2016 [facility] HEMATOLOGY Segs 65.7 % 45.0 - 75.0 09/17/2016 [facility] HEMATOLOGY MPV 8.4 fL 7.4 - 10.4 09/17/2016 [facility] HEMATOLOGY Platelet 358 K/CMM 133 - 450 09/17/2016 [facility] HEMATOLOGY RDW 17.9 % 11.5 - 14.5 09/17/2016 [facility] HEMATOLOGY MCHC 31.6 g/dL 32.0 - 36.0 09/17/2016 [facility] HEMATOLOGY RBC 3.98 M/CMM 4.20 - 5.40 09/17/2016 [facility] HEMATOLOGY WBC 12.5 K/CMM 3.7 - 10.4 09/17/2016 [facility] HEMATOLOGY Hct 33.9 % 36.0 - 48.0 09/17/2016 [facility] HEMATOLOGY MCH 26.9 pg 27.0 - 31.0 09/17/2016 [facility] HEMATOLOGY MCV 85.1 fL 80.0 - 98.0 09/17/2016 [facility] HEMATOLOGY Hgb 10.7 g/dL 12.0 - 16.0 09/17/2016 [facility] Chest 1view DX Chest 1view DX Chest 1view DX 81 years old Female Clinical Indication: Chest pain; Comparison: 02/14/2016 FINDINGS: Lordotic projection. Tubes and lines: None. LUNGS: The volume of the lungs is normal. There is no evidence of consolidation. No pleural effusion is noted. The pulmonary vasculature is within normal limits. Pulmonary vessels appear less congested than on the previous examination. MEDIASTINUM: Cardiac silhouette is within normal limits of size. The heart appears smaller than on the previous examination. Calcific atherosclerotic vascular disease is noted in the thoracic aorta. CHEST WALL: Unremarkable. SKELETON: The visualized osseous structures are unremarkable. IMPRESSION: 1. No radiographic evidence of acute cardiopulmonary disease. CYDNEY: SSCHRIS 09/17/2016 - - Read by: Yonatan Nix MD Dictated Date/time: 09/17/16 18:16 Electronically Signed by: Yonatan Nix MD 09/17/16 18:18 FINAL REPORT [facility] Chest 2 views DX Chest 2 views DX PA and lateral chest: There is a shallow inspiration accentuating the heart size. The cardiomediastinal silhouette, pulmonary vasculature and rhonda are otherwise within normal limits. The lungs and pleural spaces are clear. There are no significant osseous abnormalities. There is no significant change compared to 02/12/2016 considering technical differences. IMPRESSION: No acute radiographic abnormalities in the chest. [id number] 02/14/2016 - - Read by: Kai Ayala MD Dictated Date/time: 02/14/16 13:34 Electronically Signed by: Kai Ayala MD 02/14/16 13:35 FINAL REPORT [facility] Knee 3 views DX Knee 3 views DX Patient Name: NIYA HOFFMAN : 1935; Age: 80 years y/o Female MR: [id number] Study: 3 view examination of the left knee dated 02/12/2016. Clinical Indication: Left knee pain and swelling; Comparison: None Marked prepatellar soft tissue swelling seen. Mild degenerative changes about the medial joint compartment and patellofemoral joint. No fracture or dislocation. Minimal spurring at the quadriceps tendon insertion site on the patella. SL: [id number] 02/12/2016 - - Read by: Giovani Shell MD Dictated Date/time: 02/12/16 20:25 Electronically Signed by: Giovani Shell MD 02/12/16 20:26 FINAL REPORT [facility] Chest 1view DX Chest 1view DX Patient Name: NIYA HOFFMAN : 1935; Age: 80 years y/o Female MR: [id number] Study: Chest 1view DX dated 02/12/2016 Clinical Indication: Chest pain Post Trauma; Comparison: 07/17/2015 Cardiac and mediastinal structures are stable including aortic calcification. There is question of a small amount of patchy consolidation in the lateral right midlung that may just represent normal overlapping bony and vascular shadow but a small nonspecific infiltrate in this region cannot be excluded. No other focal infiltrate identified within the lungs, no edema and no pneumothorax. SL: [id number] 02/12/2016 - - Read by: Giovani Shell MD Dictated Date/time: 02/12/16 20:22 Electronically Signed by: Giovani Shell MD 02/12/16 20:23 FINAL REPORT [facility] Pelvis AP DX Pelvis AP DX Patient Name: NIYA HOFFMAN : 1935; Age: 80 years y/o Female MR: [id number] Study: Pelvis AP DX dated 02/12/2016 Clinical Indication: Left-sided pelvic pain Post Trauma; Comparison: 02/05/2008 Multiple calcifications in the pelvis overall similar to prior study likely phleboliths. No fracture or dislocation. SL: [id number] 02/12/2016 - - Read by: Giovani Shell MD Dictated Date/time: 02/12/16 20:23 Electronically Signed by: Giovani Shell MD 02/12/16 20:25 FINAL REPORT [facility] Humerus 2 views DX Humerus 2 views DX Patient Name: NIYA HOFFMAN : 1935; Age: 80 years y/o Female MR: [id number] Study: 3 view examination of the right humerus dated 02/12/2016. Clinical Indication: Right arm pain; Comparison: None Calcifications are noted in the right breast soft tissues. No fracture or dislocation. SL: [id number] 02/12/2016 - - Read by: Giovani Shell MD Dictated Date/time: 02/12/16 20:29 Electronically Signed by: Giovani Shell MD 02/12/16 20:30 FINAL REPORT [facility] Spine cervical wo contrast CT Spine cervical wo contrast CT Clinical Indication: Neck pain Post Trauma; Comparison: None CT cervical spine without contrast. Chronic degenerative spondylosis with disc space narrowing and osteophytes C5- C6. Also with moderate neural exit foraminal narrowing by osteophyte at this level. No other fracture, subluxation or lesion is evident. No pathologic soft tissue swelling. Incidental calcified granuloma right lung apex. IMPRESSION: Degenerative spondylosis. No acute finding. SL: [id number] 02/12/2016 - - Read by: Henrry Choi MD Dictated Date/time: 02/12/16 19:23 Electronically Signed by: Henrry Choi MD 02/12/16 19:25 FINAL REPORT [facility] Brain wo contrast CT Brain wo contrast CT Clinical Indication: Headache Post Trauma; Comparison: None CT head without contrast No acute intracranial lesion, hemorrhage, mass, infarct or pathologic extra- axial fluid. Symmetric bilateral periventricular white matter changes suggesting chronic microvascular ischemic process. Ventricular system normal. Visualized skull and paranasal sinuses normal. IMPRESSION: No acute finding. SL: [id number] 02/12/2016 - - Read by: Henrry Choi MD Dictated Date/time: 02/12/16 19:22 Electronically Signed by: Henrry Choi MD 02/12/16 19:23 FINAL REPORT [facility] Chest 2 views DX Chest 2 views DX PROCEDURE: Chest 2 views CLINICAL INFORMATION J18.8 Other pneumonia, unspecified organism/R05 Cough COMPARISON: May 2007. August 2006. Hyperinflated lungs. Increased left lower lobe atelectasis. No effusions or pneumothorax. Normal heart and pulmonary vasculature. Intact osseous structures. SL: 13 07/17/2015 - - Read by: Fei Momin MD Dictated Date/time: 07/18/15 07:24 Electronically Signed by: Fei Momin MD 07/18/15 07:25 FINAL REPORT [facility] Sinus paranasal series DX Sinus paranasal series DX PARANASAL SINUSES (4 views) HISTORY: Pneumonia, cough, sinusitis. COMMENT: Frontal (Davey), Lantigua', lateral, and submental-vertex views of the paranasal sinuses were obtained. FINDINGS: The paranasal sinuses are well developed and well-aerated. There is no evidence of mucoperiosteal thickening, mass, fluid, or bony destruction. CONCLUSION: 1. Negative paranasal sinuses. Coding: Sinus paranasal series CPT code: 70931 SL: 13 Ian Quigley M.D. 07/17/2015 - - Read by: Ian Quigley MD Dictated Date/time: 07/18/15 10:07 Electronically Signed by: Ian Quigley MD 07/18/15 10:08 FINAL REPORT [facility] Vital Signs Vital Sign Value Date Comments Source Temperature Oral (F) 98.6 F 11/14/2017 [facility] Respitory Rate 18 11/14/2017 [facility] Systolic (mm Hg) 161 11/14/2017 [facility] Diastolic (mm Hg) 72 11/14/2017 [facility] Heart Rate 75 11/14/2017 [facility] Systolic (mm Hg) 133 11/14/2017 [facility] Diastolic (mm Hg) 70 11/14/2017 [facility] Respitory Rate 18 11/14/2017 [facility] Heart Rate 67 11/14/2017 [facility] Temperature Oral (F) 98.0 F 11/14/2017 [facility] Heart Rate 77 11/14/2017 [facility] Systolic (mm Hg) 148 11/14/2017 [facility] Diastolic (mm Hg) 68 11/14/2017 [facility] Temperature Oral (F) 99.2 F 11/14/2017 [facility] Respitory Rate 18 11/14/2017 [facility] Weight 84.545 11/08/2017 [facility] Height 172.72 cm 11/07/2017 [facility] BMI Calculated 27.43 11/07/2017 [facility] Weight 81.818 11/07/2017 [facility] Systolic (mm Hg) 177 10/29/2017 [facility] Diastolic (mm Hg) 68 10/29/2017 [facility] Heart Rate 75 10/29/2017 [facility] Temperature Oral (F) 97.4 F 10/29/2017 [facility] Systolic (mm Hg) 152 10/29/2017 [facility] Diastolic (mm Hg) 66 10/29/2017 [facility] Heart Rate 75 10/29/2017 [facility] Temperature Oral (F) 97.6 F 10/29/2017 [facility] Respitory Rate 16 10/29/2017 [facility] Heart Rate 67 10/29/2017 [facility] Systolic (mm Hg) 167 10/29/2017 [facility] Diastolic (mm Hg) 67 10/29/2017 [facility] Temperature Oral (F) 97.7 F 10/29/2017 [facility] Respitory Rate 16 10/29/2017 [facility] Respitory Rate 18 10/29/2017 [facility] Weight 89.545 10/26/2017 [facility] Height 172.72 cm 10/23/2017 [facility] BMI Calculated 30.02 10/23/2017 [facility] Weight 89.545 10/23/2017 [facility] Respitory Rate 20 10/22/2017 [facility] Systolic (mm Hg) 137 10/22/2017 [facility] Diastolic (mm Hg) 63 10/22/2017 [facility] Respitory Rate 19 10/22/2017 [facility] Systolic (mm Hg) 134 10/22/2017 [facility] Diastolic (mm Hg) 58 10/22/2017 [facility] Systolic (mm Hg) 125 10/22/2017 [facility] Diastolic (mm Hg) 58 10/22/2017 [facility] Respitory Rate 18 10/22/2017 [facility] BMI Calculated 30.02 10/22/2017 [facility] Height 172.72 cm 10/22/2017 [facility] Weight 89.545 10/22/2017 [facility] Weight 89.545 10/16/2017 [facility] Height 160.02 cm 10/16/2017 [facility] BMI Calculated 34.97 10/16/2017 [facility] BMI Calculated 34.97 10/14/2017 [facility] Weight 89.545 10/14/2017 [facility] Height 160.02 cm 10/14/2017 [facility] Heart Rate 70 10/14/2017 [facility] Temperature Oral (F) 97 F 10/14/2017 [facility] Systolic (mm Hg) 140 10/14/2017 [facility] Diastolic (mm Hg) 61 10/14/2017 [facility] Temperature Oral (F) 98.1 F 06/27/2017 [facility] Rate 70 06/27/2017 [facility] Respitory Rate 24 06/27/2017 [facility] Systolic (mm Hg) 145 06/27/2017 [facility] Diastolic (mm Hg) 73 06/27/2017 [facility] Respitory Rate 24 06/27/2017 [facility] Heart Rate 63 06/27/2017 [facility] Respitory Rate 24 06/27/2017 [facility] Systolic (mm Hg) 137 06/27/2017 [facility] Diastolic (mm Hg) 63 06/27/2017 [facility] Temperature Oral (F) 97.4 F 06/27/2017 [facility] Systolic (mm Hg) 142 06/27/2017 [facility] Diastolic (mm Hg) 63 06/27/2017 [facility] Temperature Oral (F) 97.7 F 06/27/2017 [facility] Heart Rate 77 06/27/2017 [facility] Height 172.72 cm 06/25/2017 [facility] BMI Calculated 29.73 06/25/2017 [facility] Weight 88.693 06/25/2017 [facility] Systolic (mm Hg) 169 02/12/2017 [facility] Diastolic (mm Hg) 70 02/12/2017 [facility] Respitory Rate 30 02/12/2017 [facility] Respitory Rate 17 02/12/2017 [facility] Systolic (mm Hg) 169 02/12/2017 [facility] Diastolic (mm Hg) 77 02/12/2017 [facility] Respitory Rate 18 02/12/2017 [facility] Systolic (mm Hg) 151 02/12/2017 [facility] Diastolic (mm Hg) 67 02/12/2017 [facility] BMI Calculated 29.25 02/07/2017 [facility] Height 172.72 cm 02/07/2017 [facility] Weight 87.273 02/07/2017 [facility] Systolic (mm Hg) 153 01/03/2017 [facility] Diastolic (mm Hg) 67 01/03/2017 [facility] Respitory Rate 18 01/03/2017 [facility] Heart Rate 85 01/03/2017 [facility] Temperature Oral (F) 97.7 F 01/03/2017 [facility] Heart Rate 89 01/03/2017 [facility] Respitory Rate 18 01/03/2017 [facility] Temperature Oral (F) 97.6 F 01/03/2017 [facility] Systolic (mm Hg) 138 01/03/2017 [facility] Diastolic (mm Hg) 66 01/03/2017 [facility] Systolic (mm Hg) 141 01/03/2017 [facility] Diastolic (mm Hg) 62 01/03/2017 [facility] Heart Rate 82 01/03/2017 [facility] Respitory Rate 18 01/03/2017 [facility] Temperature Oral (F) 97.9 F 01/03/2017 [facility] BMI Calculated 29.71 12/31/2016 [facility] Height 172.72 cm 12/31/2016 [facility] Weight 88.636 12/31/2016 [facility] BMI Calculated 28.19 12/30/2016 [facility] Weight 84.091 12/30/2016 [facility] Height 172.72 cm 12/30/2016 [facility] Systolic (mm Hg) 168 09/18/2016 [facility] Diastolic (mm Hg) 82 09/18/2016 [facility] Heart Rate 71 09/18/2016 [facility] Temperature Oral (F) 98.7 F 09/18/2016 [facility] Temperature Oral (F) 97.7 F 09/18/2016 [facility] Rate 79 09/18/2016 [facility] Respitory Rate 17 09/18/2016 [facility] Systolic (mm Hg) 168 09/18/2016 [facility] Diastolic (mm Hg) 71 09/18/2016 [facility] Respitory Rate 18 09/18/2016 [facility] Temperature Oral (F) 98.2 F 09/18/2016 [facility] Systolic (mm Hg) 149 09/18/2016 [facility] Diastolic (mm Hg) 69 09/18/2016 [facility] Respitory Rate 16 09/18/2016 [facility] Weight 81.818 09/18/2016 [facility] Height 170.18 cm 09/18/2016 [facility] BMI Calculated 28.25 09/18/2016 [facility] Weight 81.818 09/17/2016 [facility] BMI Calculated 27.43 09/17/2016 [facility] Heart Rate 90 09/17/2016 [facility] Height 172.72 cm 09/17/2016 [facility] Systolic (mm Hg) 158 02/14/2016 [facility] Diastolic (mm Hg) 68 02/14/2016 [facility] Respitory Rate 13 02/14/2016 [facility] Systolic (mm Hg) 160 02/14/2016 [facility] Diastolic (mm Hg) 56 02/14/2016 [facility] Respitory Rate 19 02/14/2016 [facility] Weight 86.364 02/14/2016 [facility] BMI Calculated 28.95 02/14/2016 [facility] Height 172.72 cm 02/14/2016 [facility] Temperature Oral (F) 98.1 F 02/14/2016 [facility] Systolic (mm Hg) 163 02/14/2016 [facility] Diastolic (mm Hg) 26 02/14/2016 [facility] Respitory Rate 17 02/14/2016 [facility] Heart Rate 68 02/14/2016 [facility] Systolic (mm Hg) 145 02/13/2016 [facility] Diastolic (mm Hg) 80 02/13/2016 [facility] Heart Rate 88 02/13/2016 [facility] Respitory Rate 18 02/13/2016 [facility] Temperature Oral (F) 98 F 02/13/2016 [facility] Systolic (mm Hg) 149 02/13/2016 [facility] Diastolic (mm Hg) 56 02/13/2016 [facility] Respitory Rate 16 02/13/2016 [facility] Respitory Rate 16 02/12/2016 [facility] Heart Rate 83 02/12/2016 [facility] Systolic (mm Hg) 170 02/12/2016 [facility] Diastolic (mm Hg) 61 02/12/2016 [facility] BMI Calculated 28.95 02/12/2016 [facility] Weight 86.364 02/12/2016 [facility] Height 172.72 cm 02/12/2016 [facility] Temperature Oral (F) 98.2 F 02/12/2016 [facility] Heart Rate 90 02/12/2016 [facility] Encounters Location Location Details Encounter Type Encounter Number Reason For Visit Attending Provider ADM Date DC Date Status Source [facility] Outpatient [id number] Reid Eduardo 07/17/2015 07/18/2015 [facility] [id number] Terence Hopper 02/12/2016 02/13/2016 [facility] [id number] Paulino Haas 02/14/2016 02/14/2016 [facility] Observation [id number] Blanca Alexander 09/17/2016 09/18/2016 [facility] Outpatient [id number] Cody Lyons 12/26/2016 12/27/2016 [facility] Inpatient [id number] Jeff Plascencia Jr 12/30/2016 01/04/2017 [facility] Outpatient [id number] MAXIMINO MALHOTRA 01/21/2017 [facility] Bed[facility] Outpatient [id number] Maximino Malhotra 02/12/2017 02/12/2017 [facility] Outpatient [id number] BLAKE DE SANTIAGO 05/19/2017 Active [facility] Inpatient [id number] Jennifer Neal 06/25/2017 06/27/2017 [facility] Outpatient [id number] BLAKE DE SANTIAGO 08/18/2017 Active [facility] TM Phone Message [id number] 09/15/2017 09/17/2017 [facility] TM Phone Message [id number] 10/07/2017 10/09/2017 [facility] Outpatient [id number] MAXIMINO MALHOTRA 10/14/2017 Active [facility] Outpatient [id number] Maximino Malhotra 10/14/2017 10/15/2017 [facility] Bedded Outpatient [id number] Maximino Malhotra 10/22/2017 10/22/2017 [facility]surgery [facility] Ambulatory Pre-Reg [id number] Kevyn Clark 10/23/2017 10/24/2017 [facility] Inpatient [id number] Anupam Meraz 10/23/2017 10/30/2017 [facility] Inpatient [id number] Jeff Plascencia Jr 11/07/2017 11/15/2017 [facility] Phone Message [id number] 01/20/2018 01/22/2018 [facility] [id number] LETY BARRIOS 01/23/2018 Active [facility] Ambulatory Pre-Reg [id number] Kevyn Clark 01/23/2018 01/23/2018 [facility] TM Phone Message [id number] 01/28/2018 01/30/2018 [facility] Phone Message [id number] 01/28/2018 01/30/2018 [facility] Outpatient [id number] BLAKE DE SANTIAGO 02/11/2018 Active [facility] Outpatient [id number] LETY BARRIOS 02/11/2018 Active [facility] Ambulatory Pre-Reg [id number] Blake Corley 02/11/2018 02/11/2018 [facility] Procedures Procedure Code Date Perfomer Comments Source Stereotactic radiosurgery [id number] 02/12/2017 [facility] Stereotactic radiosurgery [id number] 02/12/2017 [facility] Stereotactic radiosurgery [id number] 02/12/2017 [facility] Appendectomy [id number] [facility] Cholecystectomy [id number] [facility] Appendectomy [id number] [facility] Cholecystectomy [id number] [facility] Appendectomy [id number] [facility] Cholecystectomy [id number] [facility] Gamma-knife surgery [id number] [facility] Lumpectomy of breast [id number] [facility] Gamma-knife surgery [id number] [facility] Lumpectomy of breast [id number] [facility] Gamma-knife surgery [id number] [facility] Lumpectomy of breast [id number] [facility]
--- OUTSIDE RECORDS SUMMARY | 2018-07-28 12:13 | XMS REPORT | Summary of Care ---
Author Author [facility] Organization [facility] Address Unknown Phone Unavailable Encounter ADRIAN Lerner(LINDSAY) [id number] Date(s): 09/17/16 - 09/18/16 [facility] [address] [place] [address]- Discharge Disposition: Home or Self Care Attending Physician: Blanca Alexander MD Admitting Physician: Blanca Alexander MD Vital Signs 1 2 3 Most recent to oldest [Reference Range]: 170.18 cm (09/17/16 9:50 PM) 172.72 cm (09/17/16 5:10 PM) Height 98.7 DegF (09/18/16 11:14 AM) 97.7 DegF (09/18/16 7:17 AM) 98.2 DegF (09/18/16 3:22 AM) Temperature Oral [96.4-99.1 DegF] 168/82 mmHg *HI* (09/18/16 11:14 AM) 168/71 mmHg *HI* (09/18/16 7:17 AM) 149/69 mmHg *HI* (09/18/16 3:22 AM) Blood Pressure [90-140/60-90 mmHg] 17 BRMIN (09/18/16 7:17 AM) 18 BRMIN (09/18/16 6:25 AM) 16 BRMIN (09/18/16 3:22 AM) Respiratory Rate [14-20 BRMIN] 71 bpm (09/18/16 11:14 AM) 79 bpm (09/18/16 7:17 AM) 90 bpm (09/17/16 5:10 PM) Peripheral Pulse Rate [60-100 bpm] 81.818 kg (09/17/16 9:50 PM) 81.818 kg (09/17/16 5:10 PM) Weight 28.25 m2 (09/17/16 9:50 PM) 27.43 m2 (09/17/16 5:10 PM) Body Mass Index Problem List Condition [...] Status nka Active Medications acetaminophen 325 mg, 1 tab, Route: PO, Drug form: TAB, Q4H, Dosing Weight 81.818, kg, PRN Levy n Score 4-6, Start date: 09/17/16 21:41:00 AERIAL SURVEY TECHNICIAN, Duration: 30 day, Stop date: 02/26 21:40:00 AERIAL SURVEY TECHNICIAN Notes: Do not exceed 4 gm/day. (Same as: Tylenol) Start Date: 09/17/16 Stop Date: 09/18/16 Status: Discontinued Advair Diskus 250 mcg-50 mcg inhalation powder 1 puff, Route: INHALATION, Drug Form: AERO, Dosing Weight 81.818, kg, BID, Start date: 09/18/16 17:00:00 AERIAL SURVEY TECHNICIAN, Duration: 30 day, Stop date: 10/18/16 9:00:00 AERIAL SURVEY TECHNICIAN Start Date: 09/18/16 Stop Date: 09/18/16 Status: Deleted Advair Diskus 250 mcg-50 mcg inhalation powder 1 puff, INHALATION, BID, 0 Refill(s) Start Date: 09/17/16 Status: Ordered aspirin 324 mg, Route: PO, ONCE, Dosing Weight 81.818, kg, Priority: STAT, Start date: 11/18/15 17:34:00 AERIAL SURVEY TECHNICIAN, Stop date: 09/17/16 17:34:00 AERIAL SURVEY TECHNICIAN Start Date: 09/17/16 Stop Date: 09/17/16 Status: Completed Aspirin Enteric Coated 81 mg, 1 tab, Route: PO, Drug form: ECTAB, Bedtime, Dosing Weight 81.818, kg, St art date: 09/18/16 17:00:00 AERIAL SURVEY TECHNICIAN, Duration: 30 day, Stop date: 10/17/16 21:00:00 AERIAL SURVEY TECHNICIAN Notes: Do not crush or chew.(Same As: Ecotrin) Start Date: 09/18/16 Stop Date: 09/18/16 Status: Canceled Aspirin Enteric Coated 81 mg oral delayed release tablet 81 mg=1 tab, PO, Bedtime, 0 Refill(s) Start Date: 09/17/16 Status: Ordered atorvastatin 40 mg oral tablet 40 mg=1 tab, PO, Bedtime, # 30 tab, 0 Refill(s), Pharmacy: [id number] Start Date: 09/18/16 Status: Ordered atorvastatin 40 mg oral tablet 40 mg=1 tab, PO, Bedtime, # 30 tab, 0 Refill(s), Pharmacy: [facility] [id number] Start Date: 09/18/16 Stop Date: 09/18/16 Status: Discontinued Avapro 150 mg, 1 tab, Route: PO, Drug form: TAB, Daily, Dosing Weight 81.818, kg, Start date: 09/19/16 9:00:00 AERIAL SURVEY TECHNICIAN, Duration: 30 day, Stop date: 10/18/16 9:00:00 AERIAL SURVEY TECHNICIAN Notes: (Same as:Avapro) Start Date: 09/19/16 Stop Date: 09/18/16 Status: Canceled Avapro 150 mg oral tablet 150 mg=1 tab, PO, Daily, 0 Refill(s) Start Date: 09/17/16 Status: Ordered budesonide-formoterol 160 mcg-4.5 mcg/inh inhalation aerosol with adapter 2 inhalation, Route: INHALATION, Drug Form: AERO/A, BID, Start date: 09/18/16 21 :00:00 AERIAL SURVEY TECHNICIAN, Duration: 30 day, Stop date: 10/18/16 9:00:00 AERIAL SURVEY TECHNICIAN Notes: (Same as: Symbicort)WASTE: Aerosol - Return to Pharmacy Start Date: 09/18/16 Stop Date: 09/18/16 Status: Canceled Dextrose 50% Syringe 12.5 gm, 25 mL, Route: IVP, Drug Form: INJ, Dosing Weight 81.818, kg, PRN, PRN B lood Glucose Results, Start date: 09/17/16 21:42:00 AERIAL SURVEY TECHNICIAN, Duration: 30 day, Stop date: 10/17/16 21:41:00 AERIAL SURVEY TECHNICIAN Start Date: 09/17/16 Stop Date: 09/18/16 Status: Discontinued Dextrose 50% Syringe 25 gm, 50 mL, Route: IVP, Drug Form: INJ, Dosing Weight 81.818, kg, PRN, PRN Blo od Glucose Results, Start date: 09/17/16 21:42:00 AERIAL SURVEY TECHNICIAN, Duration: 30 day, Stop da te: 10/17/16 21:41:00 AERIAL SURVEY TECHNICIAN Start Date: 09/17/16 Stop Date: 09/18/16 Status: Discontinued diltiazem 360 mg, 2 cap, Route: PO, Drug form: ERCAP, Bedtime, Dosing Weight 81.818, kg, S tart date: 09/18/16 21:00:00 AERIAL SURVEY TECHNICIAN, Duration: 30 day, Stop date: 10/17/16 21:00:00 AERIAL SURVEY TECHNICIAN Notes: (Same as:Cardizem CD) Before meals. DO NOT CRUSH. Start Date: 09/18/16 Stop Date: 09/18/16 Status: Canceled diltiazem 360 mg/24 hours oral capsule, extended release 360 mg=1 cap, PO, Bedtime, 0 Refill(s) Start Date: 09/17/16 Status: Ordered docusate 100 mg, 1 cap, Route: PO, Drug form: CAP, BID, Dosing Weight 81.818, kg, PRN Con stipation, Start date: 09/17/16 21:41:00 AERIAL SURVEY TECHNICIAN, Duration: 30 day, Stop date: 10/17 21:40:00 AERIAL SURVEY TECHNICIAN Notes: (Same as: Colace) (Do Not Crush) Start Date: 09/17/16 Stop Date: 09/18/16 Status: Discontinued enoxaparin 40 mg, 0.4 mL, Route: SUB-Q, Drug form: INJ, [id number], Dosing Weight 81.818, kg, Start date: 09/18/16 11:00:00 AERIAL SURVEY TECHNICIAN, Duration: 30 day, Stop date: 10/17/16 11:00: 00 AERIAL SURVEY TECHNICIAN Notes: (Same as: Lovenox) Start Date: 09/18/16 Stop Date: 09/18/16 Status: Discontinued Evista 60 mg, 1 tab, Route: PO, Drug form: TAB, Daily, Dosing Weight 81.818, kg, Start date: 09/19/16 9:00:00 AERIAL SURVEY TECHNICIAN, Duration: 30 day, Stop date: 10/18/16 9:00:00 AERIAL SURVEY TECHNICIAN Notes: (Same as:Evista) "Do Not Crush" Start Date: 09/19/16 Stop Date: 09/18/16 Status: Canceled Evista 60 mg oral tablet 60 mg=1 tab, PO, Daily, 0 Refill(s) Start Date: 09/17/16 Status: Ordered furosemide 40 mg oral tablet 40 mg=1 tab, PO, Daily, 0 Refill(s) Start Date: 09/17/16 Stop Date: 09/18/16 Status: Discontinued gabapentin 100 mg, 1 cap, Route: PO, Drug form: CAP, BID, Dosing Weight 81.818, kg, Start d ate: 09/18/16 21:00:00 AERIAL SURVEY TECHNICIAN, Duration: 30 day, Stop date: 10/18/16 9:00:00 AERIAL SURVEY TECHNICIAN Notes: (Same as: Neurontin) Start Date: 09/18/16 Stop Date: 09/18/16 Status: Canceled gabapentin 100 mg, PO, BID, 0 Refill(s) Start Date: 09/17/16 Status: Ordered glucagon 1 mg, Route: IM, Drug form: PDR/INJ, PRN, Dosing Weight 81.818, kg, PRN Blood Gl ucose Results, Start date: 09/17/16 21:42:00 AERIAL SURVEY TECHNICIAN, Duration: 30 day, Stop date: 0 10/17/16 21:41:00 AERIAL SURVEY TECHNICIAN Start Date: 09/17/16 Stop Date: 09/18/16 Status: Discontinued insulin aspart 4 unit, 0.04 mL, Route: SUB-Q, Drug form: SOLN, TID-Before Meals, Dosing Weight 81.818, kg, PRN Blood Glucose Results, Start date: 09/17/16 21:42:00 AERIAL SURVEY TECHNICIAN, Durati on: 30 day, Stop date: 10/17/16 21:41:00 AERIAL SURVEY TECHNICIAN Notes: Roll in palms of hands gently; Do not shake vigorously. (Same as: NovoLO G)"single patient use only"WASTE: F/P - Black; E - Municipal Trash Bin Stable f or 28 days at room temperature.Expires in days from Date Start Date: 09/17/16 Stop Date: 09/18/16 Status: Discontinued insulin aspart 5 unit, 0.05 mL, Route: SUB-Q, Drug form: SOLN, TID-Before Meals, Dosing Weight 81.818, kg, PRN Blood Glucose Results, Start date: 09/17/16 21:42:00 AERIAL SURVEY TECHNICIAN, Durati on: 30 day, Stop date: 10/17/16 21:41:00 AERIAL SURVEY TECHNICIAN Notes: Roll in palms of hands gently; Do not shake vigorously. (Same as: Yimi Cottrell)"single patient use only"WASTE: F/P - Black; E - Municipal Trash Bin Stable f or 28 days at room temperature.Expires in days from Date Start Date: 09/17/16 Stop Date: 09/18/16 Status: Discontinued insulin aspart 3 unit, 0.03 mL, Route: SUB-Q, Drug form: SOLN, TID-Before Meals, Dosing Weight 81.818, kg, PRN Blood Glucose Results, Start date: 09/17/16 21:42:00 AERIAL SURVEY TECHNICIAN, Durati on: 30 day, Stop date: 10/17/16 21:41:00 AERIAL SURVEY TECHNICIAN Notes: Roll in palms of hands gently; Do not shake vigorously. (Same as: Yimi Cottrell)"single patient use only"WASTE: F/P - Black; E - Municipal Trash Bin Stable f or 28 days at room temperature.Expires in days from Date Start Date: 09/17/16 Stop Date: 09/18/16 Status: Discontinued insulin aspart 1 unit, 0.01 mL, Route: SUB-Q, Drug form: SOLN, TID-Before Meals, Dosing Weight 81.818, kg, PRN Blood Glucose Results, Start date: 09/17/16 21:42:00 AERIAL SURVEY TECHNICIAN, Durati on: 30 day, Stop date: 10/17/16 21:41:00 AERIAL SURVEY TECHNICIAN Notes: Roll in palms of hands gently; Do not shake vigorously. (Same as: Yimi Cottrell)"single patient use only"WASTE: F/P - Black; E - Municipal Trash Bin Stable f or 28 days at room temperature.Expires in days from Date Start Date: 09/17/16 Stop Date: 09/18/16 Status: Discontinued insulin aspart 2 unit, 0.02 mL, Route: SUB-Q, Drug form: SOLN, TID-Before Meals, Dosing Weight 81.818, kg, PRN Blood Glucose Results, Start date: 09/17/16 21:42:00 AERIAL SURVEY TECHNICIAN, Durati on: 30 day, Stop date: 10/17/16 21:41:00 AERIAL SURVEY TECHNICIAN Notes: Roll in palms of hands gently; Do not shake vigorously. (Same as: NovoLO G)"single patient use only"WASTE: F/P - Black; E - Municipal Trash Bin Stable f or 28 days at room temperature.Expires in days from Date Start Date: 09/17/16 Stop Date: 09/18/16 Status: Discontinued Levaquin 750 mg oral tablet 750 mg=1 tab, PO, Q24H, X 7 day, # 7 tab, 0 Refill(s), Pharmacy: [facility] [id number] Start Date: 09/18/16 Stop Date: 09/25/16 Status: Ordered Levaquin 750 mg oral tablet 750 mg=1 tab, PO, Q24H, X 7 day, # 7 tab, 0 Refill(s), [id number] Start Date: 09/18/16 Stop Date: 09/18/16 Status: Discontinued metFORMIN 500 mg oral tablet, extended release 1,000 mg, 2 tab, Route: PO, Drug form: ERTAB, Daily, Dosing Weight 81.818, kg, S tart date: 09/19/16 9:00:00 AERIAL SURVEY TECHNICIAN, Duration: 30 day, Stop date: 10/18/16 9:00:[address] Notes: (Same as: Glucophage XR)"Do Not Crush" Start Date: 09/19/16 Stop Date: 09/18/16 Status: Canceled metFORMIN 500 mg oral tablet, extended release 500 mg=1 tab, PO, Bedtime, 0 Refill(s) Start Date: 09/17/16 Stop Date: 09/18/16 Status: Discontinued metFORMIN 500 mg oral tablet, extended release 1,000 mg=2 tab, PO, Daily, 0 Refill(s) Start Date: 09/17/16 Status: Ordered montelukast 10 mg, 1 tab, Route: PO, Drug form: TAB, Bedtime, Dosing Weight 81.818, kg, Star t date: 09/18/16 21:00:00 AERIAL SURVEY TECHNICIAN, Duration: 30 day, Stop date: 10/17/16 21:00:00 CS T Notes: (Same as:Singulair) Start Date: 09/18/16 Stop Date: 09/18/16 Status: Canceled montelukast 10 mg oral tablet 10 mg=1 tab, PO, Bedtime, 0 Refill(s) Start Date: 09/17/16 Status: Ordered morphine Sulfate 2 mg, 1 mL, Route: IVP, Drug form: INJ, Q4H, Dosing Weight 81.818, kg, PRN Pain Score 7-10, Start date: 09/17/16 21:41:00 AERIAL SURVEY TECHNICIAN, Duration: 30 day, Stop date: 02/26 21:40:00 AERIAL SURVEY TECHNICIAN Notes: (Same as:MORPhine Sulfate) Start Date: 09/17/16 Stop Date: 09/18/16 Status: Discontinued Nitrostat 0.4 mg sublingual tablet 0.4 mg, 1 tab, Route: SL, Drug form: TAB, Q5Min, Dosing Weight 81.818, kg, PRN C hest Pain, Priority: STAT, Start date: 09/17/16 20:13:00 AERIAL SURVEY TECHNICIAN, Duration: 3 doses or times, Stop date: Limited # of times Notes: (Same as:Nitroquick, Nitrostat)"Do Not Crush" Sublingual tablet Start Date: 09/17/16 Stop Date: 09/18/16 Status: Discontinued omeprazole 40 mg, Route: PO, Drug form: DRC, Daily, Dosing Weight 81.818, kg, Start date: 1 11/20/15 9:00:00 AERIAL SURVEY TECHNICIAN, Duration: 30 day, Stop date: 10/18/16 9:00:00 AERIAL SURVEY TECHNICIAN Start Date: 09/19/16 Stop Date: 09/18/16 Status: Deleted omeprazole 40 mg oral delayed release capsule 40 mg=1 cap, PO, Daily, 0 Refill(s) Start Date: 09/17/16 Status: Ordered ondansetron 4 mg, 2 mL, Route: IVP, Drug form: INJ, Q6H, Dosing Weight 81.818, kg, PRN Nause a & Vomiting, Start date: 09/17/16 21:41:00 AERIAL SURVEY TECHNICIAN, Duration: 30 day, Stop date: 10/17/16 21:40:00 AERIAL SURVEY TECHNICIAN Notes: (Same as: Darcy) MEDICATION WASTE Product Size: 4 mgProduct Was zulema: ___ mg Start Date: 09/17/16 Stop Date: 09/18/16 Status: Discontinued potassium chloride 40 mEq, 2 tab, Route: PO, Drug form: ERTAB, ONCE, Dosing Weight 81.818, kg, Prio rity: STAT, Start date: 09/17/16 21:25:00 AERIAL SURVEY TECHNICIAN, Stop date: 09/17/16 21:25:00 AERIAL SURVEY TECHNICIAN Notes: (Same as: K-Dur 20)"Do Not Crush" With food and full glass of water Start Date: 09/17/16 Stop Date: 09/17/16 Status: Completed pravastatin 20 mg, 1 tab, Route: PO, Drug form: TAB, Bedtime, Dosing Weight 81.818, kg, Star t date: 09/18/16 21:00:00 AERIAL SURVEY TECHNICIAN, Duration: 30 day, Stop date: 10/17/16 21:00:00 CS T Notes: (Same as: Pravachol) Start Date: 09/18/16 Stop Date: 09/18/16 Status: Canceled pravastatin 20 mg oral tablet 20 mg=1 tab, PO, Bedtime, 0 Refill(s) Start Date: 09/17/16 Stop Date: 09/18/16 Status: Discontinued Protonix 40 mg, 1 tab, Route: PO, Drug form: ECTAB, Before Dinner, Start date: 09/18/16 1 6:30:00 AERIAL SURVEY TECHNICIAN, Duration: 30 day, Stop date: 10/17/16 16:30:00 AERIAL SURVEY TECHNICIAN Notes: Tablet should not be chewed or crushed.(Same as: Protonix) Start Date: 09/18/16 Stop Date: 09/18/16 Status: Canceled Saline Flush 0.9% 10 mL, Route: IVP, Drug Form: INJ, Dosing Weight 81.818, kg, PRN, PRN Line Flush , Start date: 09/17/16 17:34:00 AERIAL SURVEY TECHNICIAN, Duration: 30 day, Stop date: 10/17/16 17:33 :00 AERIAL SURVEY TECHNICIAN Notes: (Same as: BD Posiflush) Start Date: 09/17/16 Stop Date: 09/17/16 Status: Discontinued ZyrTEC 10 mg, 2 tab, Route: PO, Drug form: TAB, Daily, Dosing Weight 81.818, kg, Start date: 09/19/16 9:00:00 AERIAL SURVEY TECHNICIAN, Duration: 30 day, Stop date: 10/18/16 9:00:00 AERIAL SURVEY TECHNICIAN Notes: (Same As: Zyrtec) Start Date: 09/19/16 Stop Date: 09/18/16 Status: Canceled ZyrTEC 10 mg oral tablet 10 mg=1 tab, PO, Daily, 0 Refill(s) Start Date: 09/17/16 Status: Ordered Results ELECTROLYTES 1 2 3 Most recent to oldest [Reference Range]: 138 mEq/L (09/17/16 5:41 PM) Sodium Lvl [135-145 mEq/L] 3.3 mEq/L *LOW* (09/17/16 5:41 PM) Potassium Lvl [3.5-5.1 mEq/L] 96 mEq/L (09/17/16 5:41 PM) Chloride Lvl [95-109 mEq/L] 30 mEq/L (09/17/16 5:41 PM) CO2 [24-32 mEq/L] 15.3 mEq/L (09/17/16 5:41 PM) AGAP [10.0-20.0 mEq/L] CHEM PANEL 1 2 3 Most recent to oldest [Reference Range]: 1.10 mg/dL (09/17/16 5:41 PM) Creatinine Lvl [0.50-1.40 mg/dL] 48 mL/min/1.73m2 1 *NA* (09/17/16 5:41 PM) eGFR 20 mg/dL (09/17/16 5:41 PM) BUN [7-22 mg/dL] 18 (09/17/16 5:41 PM) B/C Ratio [6-25] 98 mg/dL (09/17/16 5:41 PM) Glucose Lvl [70-99 mg/dL] 7.9 g/dL (09/17/16 5:41 PM) Total Protein [6.4-8.4 g/dL] 3.0 g/dL *LOW* (09/17/16 5:41 PM) Albumin Lvl [3.5-5.0 g/dL] 4.9 g/dL *HI* (09/17/16 5:41 PM) Globulin [2.7-4.2 g/dL] 0.6 *LOW* (09/17/16 5:41 PM) A/G Ratio [0.7-1.6] 9.3 mg/dL (09/17/16 5:41 PM) Calcium Lvl [8.5-10.5 mg/dL] 14 unit/L (09/17/16 5:41 PM) ALT [0-65 unit/L] 12 unit/L (09/17/16 5:41 PM) AST [0-37 unit/L] 74 unit/L (09/17/16 5:41 PM) Alk Phos [39-136 unit/L] 0.2 mg/dL (09/17/16 5:41 PM) Bili Total [0.2-1.3 mg/dL] 1Result Comment: The eGFR is calculated using [...] be mul tiplied by the estimated BMI. CARDIAC ENZYMES 1 2 3 Most recent to oldest [Reference Range]: 35 unit/L (09/17/16 5:41 PM) Total CK [12-191 unit/L] 0.6 ng/mL (09/17/16 5:41 PM) CK MB [0.5-3.6 ng/mL] 1.7 (09/17/16 5:41 PM) CK MB Index [0.0-2.5] <0.02 ng/mL (09/18/16 10:59 AM) <0.02 ng/mL (09/18/16 3:31 AM) <0.02 ng/mL (09/17/16 11:36 PM) Troponin-I [0.00-0.40 ng/mL] 73 pg/mL (09/17/16 5:41 PM) BNP [<=100 pg/mL] LIPIDS 1 2 3 Most recent to oldest [Reference Range]: 2.11 *LOW* (09/18/16 11:16 AM) CHD Risk [3.90-5.80] 148 mg/dL (09/18/16 11:16 AM) Chol [<=199 mg/dL] 81 mg/dL (09/18/16 11:16 AM) Trig [<=149 mg/dL] 70 mg/dL (09/18/16 11:16 AM) HDL [>=61 mg/dL] 62 mg/dL (09/18/16 11:16 AM) LDL (Calculated) [<=99 mg/dL] 16 *NA* (09/18/16 11:16 AM) VLDL SPECIAL CHEMISTRY 1 2 3 Most recent to oldest [Reference Range]: 6.3 % *HI* (09/18/16 11:16 AM) Hgb A1C [<=5.6 %] URINE AND STOOL 1 2 3 Most recent to oldest [Reference Range]: Clear (09/17/16 6:02 PM) UA Turbidity [Clear] Ltyellow *NA* (09/17/16 6:02 PM) UA Color 6.0 (09/17/16 6:02 PM) UA pH [5.0-8.0] 1.006 (09/17/16 6:02 PM) UA Spec Grav [<=1.030] Negative mg/dL *NA* (09/17/16 6:02 PM) UA Glucose [Negative mg/dL] Negative (09/17/16 6:02 PM) UA Blood [Negative] Negative mg/dL *NA* (09/17/16 6:02 PM) UA Ketones [Negative mg/dL] Negative mg/dL (09/17/16 6:02 PM) UA Protein [Negative mg/dL] <=1.0 mg/dL *NA* (09/17/16 6:02 PM) UA Urobilinogen [0.1-1.0 mg/dL] Negative *NA* (09/17/16 6:02 PM) UA Bili [Negative] Small *ABN* (09/17/16 6:02 PM) UA Leuk Est [Negative] Negative (09/17/16 6:02 PM) UA Nitrite [Negative] 14 /HPF *HI* (09/17/16 6:02 PM) UA WBC [0-5 /HPF] 2 /HPF (09/17/16 6:02 PM) UA RBC [0-2 /HPF] Occasional /LPF *NA* (09/17/16 6:02 PM) UA Sq Epi [Few /LPF] HEMATOLOGY 1 2 3 Most recent to oldest [Reference Range]: 12.5 K/CMM *HI* (09/17/16 5:41 PM) WBC [3.7-10.4 K/CMM] 3.98 M/CMM *LOW* (09/17/16 5:41 PM) RBC [4.20-5.40 M/CMM] 10.7 g/dL *LOW* (09/17/16 5:41 PM) Hgb [12.0-16.0 g/dL] 33.9 % *LOW* (09/17/16 5:41 PM) Hct [36.0-48.0 %] 85.1 fL (09/17/16 5:41 PM) MCV [80.0-98.0 fL] 26.9 pg *LOW* (09/17/16 5:41 PM) MCH [27.0-31.0 pg] 31.6 g/dL *LOW* (09/17/16 5:41 PM) MCHC [32.0-36.0 g/dL] 17.9 % *HI* (09/17/16 5:41 PM) RDW [11.5-14.5 %] 358 K/CMM (09/17/16 5:41 PM) Platelet [133-450 K/CMM] 8.4 fL (09/17/16 5:41 PM) MPV [7.4-10.4 fL] 65.7 % (09/17/16 5:41 PM) Segs [45.0-75.0 %] 25.2 % (09/17/16 5:41 PM) Lymphocytes [20.0-40.0 %] 7.3 % (09/17/16 5:41 PM) Monocytes [2.0-12.0 %] 1.2 % (09/17/16 5:41 PM) Eosinophils [0.0-4.0 %] 0.6 % (09/17/16 5:41 PM) Basophils [0.0-1.0 %] 8.2 K/CMM *HI* (09/17/16 5:41 PM) Segs-Bands # [1.5-8.1 K/CMM] 3.2 K/CMM (09/17/16 5:41 PM) Lymphocytes # [1.0-5.5 K/CMM] 0.9 K/CMM *HI* (09/17/16 5:41 PM) Monocytes # [0.0-0.8 K/CMM] 0.1 K/CMM (09/17/16 5:41 PM) Eosinophils # [0.0-0.5 K/CMM] 0.1 K/CMM (09/17/16 5:41 PM) Basophils # [0.0-0.2 K/CMM] Immunizations No data available for this section Procedures Procedure Date Related Diagnosis Body Site Appendectomy Cholecystectomy Social History Social History Type Response Substance Abuse Use: None. Alcohol Never Smoking Status Former smoker; Type: Cigarettes; Exposure to Tobacco Smoke None; Cigarette Smoking Last 365 Days No; Reg Smoking Cessation Counseling No Assessment and Plan No data available for this section
--- OUTSIDE RECORDS SUMMARY | 2018-07-28 12:13 | XMS REPORT | Summary of Care ---
Author Author [facility] Organization [facility] Address Unknown Phone Unavailable Encounter ADRIAN Lerner(LINDSAY) [id number] Date(s): 12/30/16 - 01/03/17 [facility] [address] [place] [address]- Discharge Disposition: Home or Self Care Attending Physician: Jeff Lovelace MD Admitting Physician: Jeff Lovelace MD Vital Signs 1 2 3 Most recent to oldest [Reference Range]: 172.72 cm (12/30/16 8:58 PM) 172.72 cm (12/30/16 11:17 AM) Height 97.7 DegF (01/03/17 3:20 PM) 97.6 DegF (01/03/17 11:30 AM) 97.9 DegF (01/03/17 8:49 AM) Temperature Oral [96.4-99.1 DegF] 153/67 mmHg *HI* (01/03/17 3:20 PM) 138/66 mmHg (01/03/17 11:30 AM) 141/62 mmHg *HI* (01/03/17 8:49 AM) Blood Pressure [90-140/60-90 mmHg] 18 BRMIN (01/03/17 3:20 PM) 18 BRMIN (01/03/17 11:30 AM) 18 BRMIN (01/03/17 8:49 AM) Respiratory Rate [14-20 BRMIN] 85 bpm (01/03/17 3:20 PM) 89 bpm (01/03/17 11:30 AM) 82 bpm (01/03/17 8:49 AM) Peripheral Pulse Rate [60-100 bpm] 88.636 kg (12/30/16 8:58 PM) 84.091 kg (12/30/16 11:17 AM) Weight 29.71 m2 (12/30/16 8:58 PM) 28.19 m2 (12/30/16 11:17 AM) Body Mass Index Problem List Condition Effective [...] Reaction Severity Status nka Active Medications acetaminophen 650 mg, 2 tab, Route: PO, Drug form: TAB, Q4H, Dosing Weight 88.636, kg, PRN Levy n 1-3/Temp > 100.4 F, Start date: 12/30/16 21:46:00 CDT, Duration: 30 day, Stop date: 01/29/17 21:45:00 CDT Notes: Do not exceed 4 gm/day. (Same as: Tylenol) Start Date: 12/30/16 Stop Date: 01/03/17 Status: Discontinued acetaminophen-hydrocodone 325 mg-5 mg oral tablet 1 tab, Route: PO, Drug Form: TAB, Dosing Weight 88.636, kg, Q4H, PRN Pain Score 4-6, Start date: 12/31/16 10:04:00 CDT, Stop date: 01/30/17 10:03:00 CDT Notes: (Same as: [place] 325/5) Do not exceed 4gm/day of acetaminophen. Start Date: 12/31/16 Stop Date: 01/03/17 Status: Discontinued Advair Diskus 250 mcg-50 mcg inhalation powder 1 puff, Route: INHALATION, Drug Form: AERO, Dosing Weight 88.636, kg, BID, Start date: 12/31/16 9:00:00 CDT, Duration: 30 day, Stop date: 01/29/17 17:00:00 CDT Start Date: 12/31/16 Stop Date: 12/30/16 Status: Deleted albuterol-ipratropium 2.5-0.5 mg inhalation solution 9 mL, Route: NEB, Drug Form: SOLN, Dosing Weight 84.091, kg, QID, STAT, Start da te: 12/30/16 14:55:00 CDT, Duration: 30 day, Stop date: 01/29/17 13:00:00 CDT Start Date: 12/30/16 Stop Date: 12/30/16 Status: Discontinued albuterol-ipratropium 2.5-0.5 mg inhalation solution 6 mL, Route: NEB, Drug Form: SOLN, Dosing Weight 84.091, kg, ONCE, Start date: 0 12/30/16 14:56:00 CDT, Stop date: 12/30/16 14:56:00 CDT Notes: (Same as: Ducharisb) Start Date: 12/30/16 Stop Date: 12/30/16 Status: Completed Aspirin Enteric Coated 81 mg, 1 tab, Route: PO, Drug form: ECTAB, Bedtime, Dosing Weight 88.636, kg, St art date: 12/30/16 22:00:00 CDT, Duration: 30 day, Stop date: 01/29/17 21:00:00 CDT Notes: Do not crush or chew.(Same As: Ecotrin) Start Date: 12/30/16 Stop Date: 01/03/17 Status: Discontinued atorvastatin 40 mg, Route: PO, Drug form: TAB, Bedtime, Dosing Weight 88.636, kg, Start date: 12/31/16 21:00:00 CDT, Duration: 30 day, Stop date: 01/29/17 21:00:00 CDT Start Date: 12/31/16 Stop Date: 12/31/16 Status: Canceled atorvastatin 40 mg oral tablet 40 mg=1 tab, PO, Bedtime, # 30 tab, 0 Refill(s), Pharmacy: [id number] Start Date: 01/03/17 Status: Ordered Avapro 150 mg, 1 tab, Route: PO, Drug form: TAB, Daily, Dosing Weight 88.636, kg, Start date: 12/31/16 9:00:00 CDT, Duration: 30 day, Stop date: 01/29/17 9:00:00 CDT Notes: (Same as:Avapro) Start Date: 12/31/16 Stop Date: 01/03/17 Status: Discontinued azithromycin + sodium chloride 0.9% INJ 250 mL 500 mg, Route: IVPB, ONCE, Dosing Weight 84.091, kg, Priority: STAT, Start date: 12/30/16 19:21:00 CDT, Stop date: 12/30/16 19:21:00 CDT Notes: (Same As: Zithromax IV) Start Date: 12/30/16 Stop Date: 12/30/16 Status: Completed budesonide-formoterol 160 mcg-4.5 mcg/inh inhalation aerosol with adapter 2 inhalation, Route: INHALATION, Drug Form: AERO/A, BID, Start date: 12/31/16 9: 00:00 CDT, Duration: 30 day, Stop date: 01/29/17 17:00:00 CDT Notes: (Same as: Symbicort)WASTE: Aerosol - Return to Pharmacy Start Date: 12/31/16 Stop Date: 01/03/17 Status: Discontinued carBAMazepine 200 mg, 1 tab, Route: PO, Drug form: ERTAB, BID, Dosing Weight 88.636, kg, Start date: 01/01/17 21:00:00 CDT, Duration: 30 day, Stop date: 01/31/17 9:00:00 CDT Notes: Do not crush or chew. (Same As: Tegretol XR) Start Date: 01/01/17 Stop Date: 01/03/17 Status: Discontinued carBAMazepine 200 mg oral tablet, extended release 200 mg=1 tab, PO, BID, # 60 tab, 0 Refill(s), Pharmacy: [id number] Start Date: 01/03/17 Status: Ordered cefTRIAXone + sodium chloride 0.9% INJ 100 mL 1 gm, Route: IVPB, ONCE, Dosing Weight 84.091, kg, Priority: STAT, Start date: 0 12/30/16 19:21:00 CDT, Stop date: 12/30/16 19:21:00 CDT Notes: (Same As: Rocephin).Use with 100 mL NS and infuse over 30 min MEDICA TION WASTE Product Size: 1000 mgProduct Wasted: ___ mg Start Date: 12/30/16 Stop Date: 12/30/16 Status: Completed diltiazem 360 mg, 2 cap, Route: PO, Drug form: ERCAP, Bedtime, Dosing Weight 88.636, kg, S tart date: 12/30/16 22:00:00 CDT, Duration: 30 day, Stop date: 01/29/17 21:00:00 CDT Notes: (Same as:Cardizem CD) Before meals. DO NOT CRUSH. Start Date: 12/30/16 Stop Date: 01/03/17 Status: Discontinued docusate 100 mg, 1 cap, Route: PO, Drug form: CAP, BID, Dosing Weight 88.636, kg, PRN Con stipation, Start date: 12/30/16 21:46:00 CDT, Duration: 30 day, Stop date: 01/29 21:45:00 CDT Notes: (Same as: Colace) (Do Not Crush) Start Date: 12/30/16 Stop Date: 01/03/17 Status: Discontinued DuoNeb inhalation solution 3 mL, Route: NEB, Drug Form: SOLN, Dosing Weight 84.091, kg, RQ4H, Start date: 0 12/30/16 19:00:00 CDT, Duration: 30 day, Stop date: 01/29/17 15:00:00 CDT Notes: (Same as: Duoneb) Start Date: 12/30/16 Stop Date: 01/03/17 Status: Discontinued DuoNeb inhalation solution 3 ml, Route: NEB, Drug Form: SOLN, Dosing Weight 84.091, kg, Q4H, PRN Respirator y Protocol, Start date: 12/30/16 18:40:00 CDT, Duration: 30 day, Stop date: 01/11 06/29 18:39:00 CDT Notes: (Same as: Duoneb) Start Date: 12/30/16 Stop Date: 12/30/16 Status: Deleted enoxaparin 40 mg, 0.4 mL, Route: SUB-Q, Drug form: INJ, [id number], Dosing Weight 88.636, kg, Start date: 12/30/16 22:00:00 CDT, Duration: 30 day, Stop date: 01/28/17 22:00: 00 CDT Notes: (Same as: Lovenox) Start Date: 12/30/16 Stop Date: 01/03/17 Status: Discontinued Evista 60 mg, 1 tab, Route: PO, Drug form: TAB, Daily, Dosing Weight 88.636, kg, Start date: 12/31/16 9:00:00 CDT, Duration: 30 day, Stop date: 01/29/17 9:00:00 CDT Notes: (Same as:Evista) "Do Not Crush" Start Date: 12/31/16 Stop Date: 01/03/17 Status: Discontinued furosemide 40 mg, 1 tab, Route: PO, Drug form: TAB, BID Diuretic, Dosing Weight 88.636, kg, Start date: 12/31/16 8:00:00 CDT, Duration: 30 day, Stop date: 01/29/17 16:00:00 CDT Notes: (Same as: Lasix) May cause GI upset. Give with food or milk. Start Date: 12/31/16 Stop Date: 12/31/16 Status: Discontinued furosemide 40 mg, PO, BID, 0 Refill(s) Start Date: 12/30/16 Status: Ordered gabapentin 100 mg, 1 cap, Route: PO, Drug form: CAP, BID, Dosing Weight 88.636, kg, Start d ate: 12/30/16 22:00:00 CDT, Duration: 30 day, Stop date: 01/29/17 17:00:00 CDT Notes: (Same as: Neurontin) Start Date: 12/30/16 Stop Date: 12/31/16 Status: Discontinued hydrALAZINE 10 mg, 0.5 mL, Route: IVP, Drug form: INJ, Q4H, Dosing Weight 88.636, kg, PRN El evated BP, Priority: NOW, Start date: 12/30/16 22:55:00 CDT, Duration: 30 day, S top date: 01/29/17 22:54:00 CDT, systolic>170 dyastolic>100 Notes: (Same as: Apresoline)Push over 5 minutes Start Date: 12/30/16 Stop Date: 01/03/17 Status: Discontinued Lasix 40 mg, 4 mL, Route: IVP, Drug form: INJ, BID Diuretic, Dosing Weight 88.636, kg, Start date: 12/31/16 16:00:00 CDT, Duration: 30 day, Stop date: 01/30/17 8:00:00 CDT Notes: (Same as: Lasix) MEDICATION WASTE Product Size: 40 mgProduct Was zulema: ___ mg Start Date: 12/31/16 Stop Date: 01/02/17 Status: Discontinued Lasix 40 mg oral tablet 40 mg, 1 tab, Route: PO, Drug form: TAB, Daily, Dosing Weight 88.636, kg, Priori ty: Routine, Start date: 01/03/17 9:00:00 CDT, Duration: 30 day, Stop date: 01/12 11/29 9:00:00 CDT Notes: (Same as: Lasix) May cause GI upset. Give with food or milk. Start Date: 01/03/17 Stop Date: 01/03/17 Status: Discontinued Lyrica 75 mg, 1 cap, Route: PO, Drug form: CAP, Q12H, Dosing Weight 88.636, kg, Start d ate: 12/31/16 21:00:00 CDT, Duration: 30 day, Stop date: 01/30/17 9:00:00 CDT Notes: (Same as: Lyrica) Start Date: 12/31/16 Stop Date: 01/03/17 Status: Discontinued metFORMIN 500 mg oral tablet, extended release 500 mg, 1 tab, Route: PO, Drug form: ERTAB, TID-Meals, Dosing Weight 88.636, kg, Start date: 12/31/16 8:00:00 CDT, Duration: 30 day, Stop date: 01/29/17 17:00:00 CDT Notes: (Same as: Glucophage XR)"Do Not Crush" Start Date: 12/31/16 Stop Date: 01/03/17 Status: Discontinued methylPREDNISolone SODium SUCCinate 100 mg, 1.6 mL, Route: IVP, Drug form: INJ, ONCE, Dosing Weight 84.091, kg, Prio rity: STAT, Start date: 12/30/16 17:59:00 CDT, Stop date: 12/30/16 17:59:00 CDT Notes: (Same as:Solu-MEDROL, A-Methapred) Start Date: 12/30/16 Stop Date: 12/30/16 Status: Completed montelukast 10 mg, 1 tab, Route: PO, Drug form: TAB, Bedtime, Dosing Weight 88.636, kg, Star t date: 12/30/16 22:00:00 CDT, Duration: 30 day, Stop date: 01/29/17 21:00:00 CD T Notes: (Same as:Singulair) Start Date: 12/30/16 Stop Date: 01/03/17 Status: Discontinued [place] 5/325 oral tablet 1 tab, Route: PO, Dosing Weight 84.091, kg, ONCE, Start date: 12/30/16 19:33:00 CDT, Stop date: 12/30/16 19:33:00 CDT Start Date: 12/30/16 Stop Date: 12/30/16 Status: Completed [place] 5/325 oral tablet 1 tab, Route: PO, Drug Form: TAB, Dosing Weight 84.091, kg, ONCE, STAT, Start da te: 12/30/16 15:06:00 CDT, Stop date: 12/30/16 15:06:00 CDT Notes: (Same as: [place] 325/5) Do not exceed 4gm/day of acetaminophen. Start Date: 12/30/16 Stop Date: 12/30/16 Status: Completed nystatin 500,000 unit, 5 mL, Route: S&SWALLOW, Drug form: SUSP, TID, Dosing Weight 88.636, kg, Start date: 01/03/17 17:00:00 CDT, Duration: 30 day, Stop date: 02/02/17 13:00:00 CDT Notes: (Same as:Mycostatin) Shake well. Start Date: 01/03/17 Stop Date: 01/03/17 Status: Discontinued omeprazole 40 mg, Route: PO, Drug form: DRC, Daily, Dosing Weight 88.636, kg, Start date: 0 12/31/16 9:00:00 CDT, Duration: 30 day, Stop date: 01/29/17 9:00:00 CDT Start Date: 12/31/16 Stop Date: 12/30/16 Status: Deleted pravastatin 20 mg, 1 tab, Route: PO, Drug form: TAB, Bedtime, Dosing Weight 88.636, kg, Star t date: 12/31/16 21:00:00 CDT, Duration: 30 day, Stop date: 01/29/17 21:00:00 CD T Notes: (Same as: Pravachol) Start Date: 12/31/16 Stop Date: 01/03/17 Status: Discontinued pravastatin 20 mg oral tablet 20 mg=1 tab, PO, Bedtime, # 30 tab, 0 Refill(s) Start Date: 12/30/16 Stop Date: 01/03/17 Status: Discontinued predniSONE 20 mg, 1 tab, Route: PO, Drug form: TAB, Daily, Dosing Weight 88.636, kg, Start date: 01/01/17 9:00:00 CDT, Duration: 30 day, Stop date: 01/30/17 9:00:00 CDT Notes: Take with food. Start Date: 01/01/17 Stop Date: 12/31/16 Status: Canceled predniSONE 10 mg oral tablet 10 mg=1 tab, PO, Daily, X 14 day, # 14 tab, 0 Refill(s), Pharmacy: [facility] [id number] Start Date: 01/03/17 Stop Date: 01/17/17 Status: Ordered predniSONE 20 mg oral tablet 20 mg=1 tab, PO, Daily, X 14 day, # 14 tab, 0 Refill(s), Pharmacy: [facility] [id number] Start Date: 01/03/17 Stop Date: 01/17/17 Status: Ordered pregabalin 75 mg oral capsule 75 mg=1 cap, PO, Q12H, # 60 cap, 0 Refill(s) Start Date: 01/03/17 Status: Ordered Protonix 40 mg, 1 tab, Route: PO, Drug form: ECTAB, Before Dinner, Start date: 12/31/16 1 6:30:00 CDT, Duration: 30 day, Stop date: 01/29/17 16:30:00 CDT Notes: Tablet should not be chewed or crushed.(Same as: Protonix) Start Date: 12/31/16 Stop Date: 01/03/17 Status: Discontinued Solu-MEDROL 40 mg, 1 mL, Route: IV, Drug form: INJ, Q8H, Dosing Weight 88.636, kg, Start alex e: 12/31/16 16:00:00 CDT, Duration: 2 doses or times, Stop date: 01/01/17 0:00:0 0 CDT Notes: (Same as:Solu-MEDROL, A-Methapred) Start Date: 12/31/16 Stop Date: 01/01/17 Status: Completed Solu-MEDROL 40 mg, 1 mL, Route: IVP, Drug form: INJ, Daily, Dosing Weight 88.636, kg, Priori ty: NOW, Start date: 01/01/17 15:56:00 CDT, Duration: 30 day, Stop date: 7 9:00:00 CDT Notes: (Same as:Solu-MEDROL, A-Methapred) Start Date: 01/01/17 Stop Date: 01/03/17 Status: Discontinued terazosin 2 mg, 1 cap, Route: PO, Drug form: CAP, BID, Dosing Weight 88.636, kg, Start alex e: 12/30/16 22:00:00 CDT, Duration: 30 day, Stop date: 01/29/17 17:00:00 CDT Notes: (Same As: Hytrin) Start Date: 12/30/16 Stop Date: 01/03/17 Status: Discontinued terazosin 2 mg, PO, BID, 0 Refill(s) Start Date: 12/30/16 Status: Ordered Zofran 4 mg, 1 tab, Route: PO, Drug form: TAB, Q4H, Dosing Weight 88.636, kg, PRN Nause a & Vomiting, Start date: 12/30/16 22:57:00 CDT, Duration: 30 day, Stop date: 01/29/17 22:56:00 CDT, nausea and vomiting Notes: (Same as: Zofran) Start Date: 12/30/16 Stop Date: 01/03/17 Status: Discontinued Zofran ODT 4 mg, 1 tab, Route: PO, Drug form: TABDIS, ONCE, Dosing Weight 84.091, kg, Prior ity: STAT, Start date: 12/30/16 15:06:00 CDT, Stop date: 12/30/16 15:06:00 CDT Notes: (Same as: Zofran ODT) Start Date: 12/30/16 Stop Date: 12/30/16 Status: Completed ZyrTEC 10 mg, 2 tab, Route: PO, Drug form: TAB, Daily, Dosing Weight 88.636, kg, Start date: 12/31/16 9:00:00 CDT, Stop date: 01/29/17 9:00:00 CDT Notes: (Same As: Zyrtec) Start Date: 12/31/16 Stop Date: 01/03/17 Status: Discontinued Results ELECTROLYTES 1 2 3 Most recent to oldest [Reference Range]: 138 mEq/L (01/03/17 8:56 AM) 136 mEq/L (01/02/17 12:26 PM) 140 mEq/L (12/30/16 3:19 PM) Sodium Lvl [135-145 mEq/L] 4.7 mEq/L (01/03/17 8:56 AM) 4.6 mEq/L (01/02/17 12:26 PM) 3.7 mEq/L (12/30/16 3:19 PM) Potassium Lvl [3.5-5.1 mEq/L] 97 mEq/L (01/03/17 8:56 AM) 93 mEq/L *LOW* (01/02/17 12:26 PM) 99 mEq/L (12/30/16 3:19 PM) Chloride Lvl [95-109 mEq/L] 33 mEq/L *HI* (01/03/17 8:56 AM) 30 mEq/L (01/02/17 12:26 PM) 34 mEq/L *HI* (12/30/16 3:19 PM) CO2 [24-32 mEq/L] 12.7 mEq/L (01/03/17 8:56 AM) 17.6 mEq/L (01/02/17 12:26 PM) 10.7 mEq/L (12/30/16 3:19 PM) AGAP [10.0-20.0 mEq/L] CHEM PANEL 1 2 3 Most recent to oldest [Reference Range]: 1.40 mg/dL (01/03/17 8:56 AM) 1.80 mg/dL *HI* (01/02/17 12:26 PM) 1.10 mg/dL (12/30/16 3:19 PM) Creatinine Lvl [0.50-1.40 mg/dL] 36 mL/min/1.73m2 1 *NA* (01/03/17 8:56 AM) 26 mL/min/1.73m2 2 *NA* (01/02/17 12:26 PM) 48 mL/min/1.73m2 3 *NA* (12/30/16 3:19 PM) eGFR 36 mg/dL *HI* (01/03/17 8:56 AM) 44 mg/dL *HI* (01/02/17 12:26 PM) 19 mg/dL (12/30/16 3:19 PM) BUN [7-22 mg/dL] 17 (12/30/16 3:19 PM) B/C Ratio [6-25] 134 mg/dL *HI* (01/03/17 8:56 AM) 211 mg/dL *HI* (01/02/17 12:26 PM) 89 mg/dL (12/30/16 3:19 PM) Glucose Lvl [70-99 mg/dL] 7.6 g/dL (12/30/16 3:19 PM) Total Protein [6.4-8.4 g/dL] 2.8 g/dL *LOW* (12/30/16 3:19 PM) Albumin Lvl [3.5-5.0 g/dL] 4.8 g/dL *HI* (12/30/16 3:19 PM) Globulin [2.7-4.2 g/dL] 0.6 *LOW* (12/30/16 3:19 PM) A/G Ratio [0.7-1.6] 9.3 mg/dL (01/03/17 8:56 AM) 9.1 mg/dL (01/02/17 12:26 PM) 9.2 mg/dL (12/30/16 3:19 PM) Calcium Lvl [8.5-10.5 mg/dL] 13 unit/L (12/30/16 3:19 PM) ALT [0-65 unit/L] 11 unit/L (12/30/16 3:19 PM) AST [0-37 unit/L] 87 unit/L (12/30/16 3:19 PM) Alk Phos [39-136 unit/L] 0.4 mg/dL (12/30/16 3:19 PM) Bili Total [0.2-1.3 mg/dL] 1Result Comment: [...] be mul tiplied by the estimated BMI. 2Result Comment: The eGFR is calculated using the [...] be mul tiplied by the estimated BMI. 3Result Comment: The eGFR is calculated using the [...] 3 Most recent to oldest [Reference Range]: 117 pg/mL *HI* (01/01/17 6:11 AM) BNP [<=100 pg/mL] IMMUNOLOGY 1 2 3 Most recent to oldest [Reference Range]: Positive *ABN* (01/01/17 6:11 AM) DEVIN [Negative] 1:40 *ABN* (01/01/17 6:11 AM) DEVIN Titer [Negative] Pattern appears Mixed Speckled and Nucleolar *NA* (01/01/17 6:11 AM) DEVIN Interp Negative (01/01/17 6:11 AM) C-ANCA [Negative] Negative (01/01/17 6:11 AM) P-ANCA [Negative] 420.0 IU/mL *HI* (01/01/17 6:11 AM) IgE Lvl [10.0-100.0 IU/mL] HEMATOLOGY 1 2 3 Most recent to oldest [Reference Range]: 12.9 K/CMM *HI* (12/30/16 3:19 PM) WBC [3.7-10.4 K/CMM] 3.60 M/CMM *LOW* (12/30/16 3:19 PM) RBC [4.20-5.40 M/CMM] 9.8 g/dL *LOW* (12/30/16 3:19 PM) Hgb [12.0-16.0 g/dL] 31.2 % *LOW* (12/30/16 3:19 PM) Hct [36.0-48.0 %] 86.6 fL (12/30/16 3:19 PM) MCV [80.0-98.0 fL] 27.2 pg (12/30/16 3:19 PM) MCH [27.0-31.0 pg] 31.3 g/dL *LOW* (12/30/16 3:19 PM) MCHC [32.0-36.0 g/dL] 19.3 % *HI* (12/30/16 3:19 PM) RDW [11.5-14.5 %] 384 K/CMM (12/30/16 3:19 PM) Platelet [133-450 K/CMM] 8.2 fL (12/30/16 3:19 PM) MPV [7.4-10.4 fL] 61.6 % (12/30/16 3:19 PM) Segs [45.0-75.0 %] 29.5 % (12/30/16 3:19 PM) Lymphocytes [20.0-40.0 %] 7.7 % (12/30/16 3:19 PM) Monocytes [2.0-12.0 %] 0.9 % (12/30/16 3:19 PM) Eosinophils [0.0-4.0 %] 0.3 % (12/30/16 3:19 PM) Basophils [0.0-1.0 %] 7.9 K/CMM (12/30/16 3:19 PM) Segs-Bands # [1.5-8.1 K/CMM] 3.8 K/CMM (12/30/16 3:19 PM) Lymphocytes # [1.0-5.5 K/CMM] 1.0 K/CMM *HI* (12/30/16 3:19 PM) Monocytes # [0.0-0.8 K/CMM] 0.1 K/CMM (12/30/16 3:19 PM) Eosinophils # [0.0-0.5 K/CMM] Normal (12/30/16 3:19 PM) RBC Morph Normal (12/30/16 3:19 PM) Plt Morph 62 mm/hr *HI* (01/03/17 4:28 PM) >100 mm/hr *ABN* (12/30/16 3:19 PM) Sed Rate [0-20 mm/hr] 13.1 seconds (12/30/16 3:19 PM) PT [12.0-14.7 seconds] 0.97 (12/30/16 3:19 PM) INR [0.85-1.17] Immunizations No data available for this section Procedures Procedure Date Related Diagnosis Body Site Appendectomy Cholecystectomy Social History Social History Type Response Substance Abuse Use: None. Alcohol Never Smoking Status Former smoker; Type: Cigarettes; Exposure to Tobacco Smoke None; Cigarette Smoking Last 365 Days No; Reg Smoking Cessation Counseling No Assessment and Plan Extracted from: Title: Clinical Document Author: Reid Clark MD Date: 01/03/17 Pulmonary/Critical Care Medicine progess note Reid Clark MD SUBJECTIVE: seen and examined breathing better headache resolved OBJECTIVE: VitalsTmp(F)Tmp(C)[id number] 01/03 15:2097.736.91sbpl852/67---[id number]------ 01/03 14:55 96 2.0L/m--- 01/03 11:[id number]/66---[id number]------ 01/03 08:4997.936.26ntsv061/62---[id number]------ 01/03 07:21 1894 21%--- 24 Hr Tmax: 98.3F (36.83c) at 01/02 19:33Vital Signs are the last 5 in the past 48 hours. 24 Hr Tmin: 97.6F (36.44c) at 01/03 11:30Weights are the last 5 in 60 days, plus initial. DateWt(kg)Wt(lb)Ht(cm)Ht(in)MethodBMIBSA 12/30 (initial) 84.09 185.00Estimated 28.22.01 12/20162.72 68.00Stated 24 Hr Point of Care Glucoses 01/03 1137Glucose [id number] H 01/03 0612Glucose TTM664 H 01/02 2348Glucose REP445 H Most Recent Scores: 01/03/17Pain Intensity NRS (0-10)0 01/03/17[place] Fall Score11 01/03/17Braden Score21 01/03/17Glasgow Coma Score15 Lines, Tubes, and Drains: 12/30/2016 15:15 Peripheral Lines: Antecubital Right 20 gauge Over the needle catheter (no surgical procedures documented) Labs (Last four charted values) WBC H 12.9(DEC 30) Hgb L 9.8(DEC 30) Hct L 31.2(DEC 30) Plt 384(DEC 30) Na 138(JAN 03)136(JAN 02)140(DEC 30) K 4.7(JAN 03)4.6(JAN 02)3.7(DEC 30) CO2 H 33(JAN 03)30(JAN 02)H 34(DEC 30) Cl 97(JAN 03)L 93(JAN 02)99(DEC 30) Cr 1.40(JAN 03)H 1.80(JAN 02)1.10(DEC 30) BUN H 36(JAN 03)H 44(JAN 02)19(DEC 30) Glucose Random H 134(JAN 03)H 211(JAN 02)89(DEC 30) Ca 9.3(JAN 03)9.1(JAN 02)9.2(DEC 30) PT 13.1(DEC 30) INR 0.97(DEC 30) RADIOLOGY: ASSESSMENT & EXAM: HEENT:normocephalic,atraumatic Skin:no rash Chest: symmetrical expansion, no wheezing,no rales, no crackles Heart: Regular rhythm, no murmurs Abdomen: Soft, nontender, bowel sounds present Ext: no edema [employer]: alert and oriented, no focal neurological defecits DIAGNOSES & PROBLEMS: 1. Most likely acute bronchitis with wheezing, possibly asthmatic bronchitis. 2. History of trigeminal neuralgia with a possible flare up 3. Postnasal drip 4. Chronic rhinitis, hypertension, diabetes mellitus, osteoporosis. PLAN & TREATMENT: doing better will dc on prednisone taper Trigeminal neuralgia pain resolved ok to dc Scheduled Meds (18): 12/30/16 albuterol-ipratropium (DuoNeb inhalation solution) 3 mL NEB RQ4H 12/30/16 aspirin (Aspirin Enteric Coated) 81 mg PO Bedtime 12/31/16 budesonide-formoterol (budesonide-formoterol 160 mcg-4.5 mcg/inh inhalation aerosol with adapter) 2 inhalation INHALATION BID 01/01/17 carBAMazepine 200 mg PO BID 12/31/16 cetirizine (ZyrTEC) 10 mg PO Daily 12/30/16 diltiazem 360 mg PO Bedtime 12/30/16 enoxaparin 40 mg SUB-Q [id number] 01/03/17 furosemide (Lasix 40 mg oral tablet) 40 mg PO Daily 12/31/16 irbesartan (Avapro) 150 mg PO Daily 12/31/16 metFORMIN (metFORMIN 500 mg oral tablet, extended release) 500 mg PO TID-Meals 01/01/17 methylPREDNISolone (Solu-MEDROL) 40 mg IVP Daily 12/30/16 montelukast 10 mg PO Bedtime 01/03/17 nystatin 500,000 unit S&SWALLOW TID 12/31/16 pantoprazole (Protonix) 40 mg PO Before Dinner 12/31/16 pravastatin 20 mg PO Bedtime 12/31/16 pregabalin (Lyrica) 75 mg PO Q12H 12/31/16 raloxifene (Evista) 60 mg PO Daily 12/30/16 terazosin 2 mg PO BID Unscheduled Meds: None
--- OUTSIDE RECORDS SUMMARY | 2018-07-28 12:13 | XMS REPORT | Summary of Care ---
Author Author [facility] Organization [facility] Address Unknown Phone Unavailable Encounter ADRIAN Lerner(LINDSAY) [id number] Date(s): 02/14/16 - 02/14/16 [facility] [address] [place] [address]- [phone] Discharge Diagnosis: Rib fracture Discharge Disposition: Home Attending Physician: Paulino Haas MD Vital Signs 1 2 3 Most recent to oldest [Reference Range]: 172.72 cm (02/14/16 11:17 AM) Height 98.1 DegF (02/14/16 11:17 AM) Temperature Oral [96.4-99.1 DegF] 158/68 mmHg *HI* (02/14/16 1:45 PM) 160/56 mmHg *HI* (02/14/16 12:01 PM) 163/26 mmHg *HI* (02/14/16 11:17 AM) Blood Pressure [90-140/60-90 mmHg] 13 BRMIN *LOW* (02/14/16 1:45 PM) 19 BRMIN (02/14/16 12:01 PM) 17 BRMIN (02/14/16 11:17 AM) Respiratory Rate [14-20 BRMIN] 68 bpm (02/14/16 11:17 AM) Peripheral Pulse Rate [60-100 bpm] 86.364 kg (02/14/16 11:17 AM) Weight 28.95 m2 (02/14/16 11:17 AM) Body Mass Index Problem List Condition Effective Dates Status Health Status Informant Asthma1 Active COPD(Confirmed) Resolved Diabetes(Confirmed) Resolved Hypercholesterolemia Active 2 Hypertension(Confirm Active ed) Infection of skin3 01/08/12 Active Migraine4 Active Neuropathy(Confirmed Active ) 1Data migrated from [employer] on 03/11/15. 2Data migrated from [employer] on 03/11/15. 3Data migrated from [employer] on 03/11/15. 4Data migrated from [employer] on 03/11/15. Allergies, Adverse Reactions, Alerts Substance Reaction Severity Status nka Active Medications acetaminophen-hydrocodone 325 mg-10 mg oral tablet 1 tab, Route: PO, Drug Form: TAB, Dosing Weight 86.364, kg, ONCE, STAT, Start da te: 02/14/16 12:01:00 CDT, Stop date: 02/14/16 12:01:00 CDT Notes: Do not exceed 4gm/day of acetaminophen. (Same as: [place] 325/10) Start Date: 02/14/16 Stop Date: 02/14/16 Status: Completed [place] 7.5/325 oral tablet 1 tab, PO, Q6H, PRN Pain, X 15 day, # 24 tab, 0 Refill(s) Start Date: 02/14/16 Stop Date: 02/29/16 Status: Ordered ondansetron 4 mg, 1 tab, Route: PO, Drug form: TABDIS, ONCE, Dosing Weight 86.364, kg, Prior ity: STAT, Start date: 02/14/16 12:01:00 CDT, Stop date: 02/14/16 12:01:00 CDT Notes: (Same as: Zofran ODT) Start Date: 02/14/16 Stop Date: 02/14/16 Status: Completed Zofran ODT 4 mg oral tablet, disintegrating 4 mg=1 tab, PO, Q8H, PRN Nausea and Vomiting, Dissolve tab under tongue, # 10 ta b, 0 Refill(s) Start Date: 02/14/16 Stop Date: 02/21/16 Status: Ordered Results No data available for [...]
--- OUTSIDE RECORDS SUMMARY | 2018-07-28 12:13 | XMS REPORT | Summary of Care ---
Author Author [facility] Organization [facility] Address Unknown Phone Unavailable Encounter HQ Yann(LINDSAY) [phone] Date(s): 12/26/16 - 12/26/16 [facility] [address] [place] [address]- [phone] Discharge Disposition: Home or Self Care Attending Physician: Cody Lyons MD Admitting Physician: Cody Lyons MD Vital Signs No data available for [...]
--- OUTSIDE RECORDS SUMMARY | 2018-07-28 12:14 | XMS REPORT | Summary of Care ---
Author Author [facility] Organization [facility] Address Unknown Phone Unavailable Encounter HQ Yann(FIN) [id number] Date(s): 10/23/17 - 10/29/17 [facility] [address] [place] [address]- [phone] Encounter Diagnosis Bronchiectasis with acute lower respiratory infection (Final) - 11/08/17 Chronic kidney disease, stage 4 (severe) (Final) - Pneumonia, unspecified organism (Final) - Acute kidney failure, unspecified (Final) - Type 2 diabetes mellitus with diabetic chronic kidney disease (Final) - Anemia, unspecified (Final) - Dehydration (Final) - Fracture of one rib, unspecified side, initial encounter for closed fracture (Final) - Hypertensive chronic kidney disease with stage 1 through stage 4 chronic kidney disease, or unspecified chronic kidney disease (Final) - Hyperlipidemia, unspecified (Final) - Acute bronchitis, unspecified (Final) - Encounter for immunization (Final) - Discharge Disposition: Home or Self Care Attending Physician: Anupam Meraz MD Admitting Physician: Anupam Meraz MD Vital Signs 1 2 3 Most recent to oldest [Reference Range]: 172.72 cm (10/23/17 12:57 PM) Height 97.4 DegF (10/29/17 4:00 PM) 97.6 DegF (10/29/17 12:14 PM) 97.7 DegF (10/29/17 7:31 AM) Temperature Oral [96.4-99.1 DegF] 177/68 mmHg *HI* (10/29/17 4:00 PM) 152/66 mmHg *HI* (10/29/17 12:14 PM) 167/67 mmHg *HI* (10/29/17 7:31 AM) Blood Pressure [90-140/60-90 mmHg] 16 BRMIN (10/29/17 7:31 AM) 16 BRMIN (10/29/17 7:29 AM) 18 BRMIN (10/29/17 4:00 AM) Respiratory Rate [14-20 BRMIN] 75 bpm (10/29/17 4:00 PM) 75 bpm (10/29/17 12:14 PM) 67 bpm (10/29/17 7:31 AM) Peripheral Pulse Rate [60-100 bpm] 89.545 kg (10/26/17 12:22 PM) 89.545 kg (10/23/17 12:57 PM) Weight 30.02 m2 (10/23/17 12:57 PM) Body Mass Index Problem List Condition Effective Dates Status Health Status Informant Asthma1 Active Congestive heart Resolved failure(Confirmed) COPD(Confirmed) Resolved Diabetes(Confirmed) Resolved Hx of Resolved osteoporosis(Confirm ed) Hypercholesterolemia Active 2 Hypertension(Confirm Active ed) Infection of skin3 01/08/12 Active Migraine4 Active Neuropathy(Confirmed Active ) Gamma knife Resolved radiosurgery(Confirm ed)5 Simple Active obesity(Confirmed) Trigeminal Resolved neuralgia(Confirmed) 1Data migrated from [employer] on 03/11/15. 2Data migrated from [employer] on 03/11/15. 3Data migrated from [employer] on 03/11/15. 4Data migrated from [employer] on 03/11/15. 5performed by Dr. Maximino Malhotra Allergies, Adverse Reactions, Alerts Substance Reaction Severity Status codeine Active Levaquin Levaquin Active Medications acetaminophen 650 mg, 2 tab, Route: PO, Drug form: TAB, Q6H, Dosing Weight 89.545, kg, PRN Levy n 1-3/Temp > 100.4 F, Start date: 10/23/17 16:22:00 REVENUE ACCOUNTING MANAGER, Duration: 30 day, Stop date: 11/22/17 16:21:00 REVENUE ACCOUNTING MANAGER Notes: Do not exceed 4 gm/day. (Same as: Tylenol) Start Date: 10/23/17 Stop Date: 10/29/17 Status: Discontinued acetaminophen-hydrocodone 325 mg-5 mg oral tablet 1 tab, Route: PO, Drug Form: TAB, Dosing Weight 89.545, kg, Q6H, PRN Pain Score 4-6, Start date: 10/23/17 16:22:00 REVENUE ACCOUNTING MANAGER, Duration: 30 day, Stop date: 11/22/17 16 :21:00 REVENUE ACCOUNTING MANAGER Notes: (Same as: [place] 325/5) Do not exceed 4gm/day of acetaminophen. Start Date: 10/23/17 Stop Date: 10/29/17 Status: Discontinued Advair Diskus 250 mcg-50 mcg inhalation powder 1 puff, Route: INHALATION, Drug Form: AERO, Dosing Weight 89.545, kg, BID, Start date: 10/24/17 9:00:00 REVENUE ACCOUNTING MANAGER, Duration: 30 day, Stop date: 11/22/17 17:00:00 REVENUE ACCOUNTING MANAGER Start Date: 10/24/17 Stop Date: 10/23/17 Status: Deleted Aspirin Enteric Coated 81 mg, 1 tab, Route: PO, Drug form: ECTAB, Bedtime, Dosing Weight 89.545, kg, St art date: 10/23/17 21:00:00 REVENUE ACCOUNTING MANAGER, Duration: 30 day, Stop date: 11/21/17 21:00:00 REVENUE ACCOUNTING MANAGER Notes: Do not crush or chew.(Same As: Ecotrin) Start Date: 10/23/17 Stop Date: 10/29/17 Status: Discontinued atorvastatin 40 mg, 1 tab, Route: PO, Drug form: TAB, Bedtime, Dosing Weight 89.545, kg, Star t date: 10/23/17 21:00:00 REVENUE ACCOUNTING MANAGER, Duration: 30 day, Stop date: 11/21/17 21:00:00 CS T Notes: (Same as: Lipitor) Start Date: 10/23/17 Stop Date: 10/29/17 Status: Discontinued Avapro 150 mg, 1 tab, Route: PO, Drug form: TAB, Daily, Dosing Weight 89.545, kg, Start date: 10/24/17 9:00:00 REVENUE ACCOUNTING MANAGER, Duration: 30 day, Stop date: 11/22/17 9:00:00 REVENUE ACCOUNTING MANAGER Notes: (Same as:Avapro) Start Date: 10/24/17 Stop Date: 10/28/17 Status: Discontinued azithromycin 250 mg, PO, Daily, 0 Refill(s) Start Date: 10/22/17 Stop Date: 10/29/17 Status: Discontinued benzonatate 100 mg oral capsule 100 mg=1 cap, PO, TID, PRN Cough, # 30 cap, 0 Refill(s) Start Date: 10/29/17 Status: Ordered budesonide-formoterol 160 mcg-4.5 mcg/inh inhalation aerosol with adapter 2 inhalation, Route: INHALATION, Drug Form: AERO/A, RBID, Start date: 10/23/17 2 0:00:00 REVENUE ACCOUNTING MANAGER, Duration: 30 day, Stop date: 11/22/17 8:00:00 REVENUE ACCOUNTING MANAGER Notes: (Same as: Symbicort)WASTE: Aerosol - Return to Pharmacy Start Date: 10/23/17 Stop Date: 10/29/17 Status: Discontinued cefepime + Sodium Chloride 0.9% IV 100 mL 1 gm, Route: IVPB, [id number], Dosing Weight 89.545, kg, (CrCl 30 - 49 ml/min), Sta rt date: 10/24/17 16:00:00 REVENUE ACCOUNTING MANAGER, Stop date: 11/02/17 16:00:00 REVENUE ACCOUNTING MANAGER, ABX Indication : Pneumonia Notes: (Same As: Maxipime) MEDICATION WASTE Product Size: 1000 mgProduc t Wasted: ___ mg Start Date: 10/24/17 Stop Date: 10/29/17 Status: Discontinued cefepime + sterile water 10 mL 1 gm, Route: IVP, ONCE, Dosing Weight 89.545, kg, Priority: STAT, Start date: 15:00:00 REVENUE ACCOUNTING MANAGER, Stop date: 10/23/17 15:00:00 REVENUE ACCOUNTING MANAGER, ABX Indication: Pneumonia Notes: (Same As: Maxipime) MEDICATION WASTE Product Size: 1000 mgProduc t Wasted: ___ mg Start Date: 10/23/17 Stop Date: 10/23/17 Status: Completed Dextrose 50% Syringe 25 gm, 50 mL, Route: IVP, Drug Form: INJ, Dosing Weight 89.545, kg, PRN, PRN Blo od Glucose Results, Start date: 10/23/17 21:22:00 REVENUE ACCOUNTING MANAGER, Duration: 30 day, Stop da te: 11/22/17 21:21:00 REVENUE ACCOUNTING MANAGER Start Date: 10/23/17 Stop Date: 10/29/17 Status: Discontinued Dextrose 50% Syringe 12.5 gm, 25 mL, Route: IVP, Drug Form: INJ, Dosing Weight 89.545, kg, PRN, PRN B lood Glucose Results, Start date: 10/23/17 21:22:00 REVENUE ACCOUNTING MANAGER, Duration: 30 day, Stop date: 11/22/17 21:21:00 REVENUE ACCOUNTING MANAGER Start Date: 10/23/17 Stop Date: 10/29/17 Status: Discontinued diltiazem 360 mg, 2 cap, Route: PO, Drug form: ERCAP, Bedtime, Dosing Weight 89.545, kg, S tart date: 10/23/17 21:00:00 REVENUE ACCOUNTING MANAGER, Duration: 30 day, Stop date: 11/21/17 21:00:00 REVENUE ACCOUNTING MANAGER Notes: (Same as:Cardizem CD) Before meals. DO NOT CRUSH. Start Date: 10/23/17 Stop Date: 10/29/17 Status: Discontinued docusate 100 mg, 1 cap, Route: PO, Drug form: CAP, BID, Dosing Weight 89.545, kg, PRN as needed for constipation, Start date: 10/23/17 16:22:00 REVENUE ACCOUNTING MANAGER, Duration: 30 day, St op date: 11/22/17 16:21:00 REVENUE ACCOUNTING MANAGER Notes: (Same as: Colace) (Do Not Crush) Start Date: 10/23/17 Stop Date: 10/29/17 Status: Discontinued DuoNeb inhalation solution 3 ml, Route: NEB, Drug Form: SOLN, Dosing Weight 89.545, kg, PRN, PRN Respirator y Protocol, STAT, Start date: 10/23/17 13:02:00 REVENUE ACCOUNTING MANAGER, Duration: 30 day, Stop date : 11/22/17 13:01:00 REVENUE ACCOUNTING MANAGER Notes: (Same as: Duoneb) Start Date: 10/23/17 Stop Date: 10/23/17 Status: Voided With Results DuoNeb inhalation solution 3 ml, Route: NEB, Drug Form: SOLN, Dosing Weight 89.545, kg, PRN, PRN Respirator y Protocol, Start date: 10/23/17 19:27:00 REVENUE ACCOUNTING MANAGER, Duration: 30 day, Stop date: 11/13 19:26:00 REVENUE ACCOUNTING MANAGER Notes: (Same as: Duoneb) Start Date: 10/23/17 Stop Date: 10/29/17 Status: Discontinued gabapentin 300 mg oral capsule 300 mg, 1 cap, Route: PO, Drug form: CAP, Daily, Dosing Weight 89.545, kg, (CrCl < 15 ml/min), Start date: 10/29/17 9:00:00 REVENUE ACCOUNTING MANAGER, Duration: 30 day, Stop date: 11/27/17 9:00:00 REVENUE ACCOUNTING MANAGER Notes: (Same as: Neurontin) Start Date: 10/29/17 Stop Date: 10/29/17 Status: Discontinued gabapentin 300 mg oral capsule 300 mg, 1 cap, Route: PO, Drug form: CAP, Daily, Dosing Weight 89.545, kg, Start date: 10/24/17 9:00:00 REVENUE ACCOUNTING MANAGER, Duration: 30 day, Stop date: 11/22/17 9:00:00 REVENUE ACCOUNTING MANAGER Notes: (Same as: Neurontin) Start Date: 10/24/17 Stop Date: 10/26/17 Status: Discontinued gabapentin 300 mg oral capsule 300 mg, 1 cap, Route: PO, Drug form: CAP, BID, Dosing Weight 89.545, kg, Start d ate: 10/26/17 17:00:00 REVENUE ACCOUNTING MANAGER, Duration: 30 day, Stop date: 11/25/17 9:00:00 REVENUE ACCOUNTING MANAGER Notes: (Same as: Neurontin) Start Date: 10/26/17 Stop Date: 10/28/17 Status: Discontinued gabapentin 600 mg oral tablet 600 mg, 2 cap, Route: PO, Drug form: CAP, ONCE, Dosing Weight 89.545, kg, Start date: 10/29/17 13:29:00 REVENUE ACCOUNTING MANAGER, Stop date: 10/29/17 13:29:00 REVENUE ACCOUNTING MANAGER Notes: (Same as: Neurontin) Start Date: 10/29/17 Stop Date: 10/29/17 Status: Completed glucagon 1 mg, Route: IM, Drug form: PDR/INJ, PRN, Dosing Weight 89.545, kg, PRN Blood Gl ucose Results, Start date: 10/23/17 21:22:00 REVENUE ACCOUNTING MANAGER, Duration: 30 day, Stop date: 0 11/22/17 21:21:00 REVENUE ACCOUNTING MANAGER Start Date: 10/23/17 Stop Date: 10/29/17 Status: Discontinued guaiFENesin 600 mg oral tablet, extended release 600 mg=1 tab, PO, Q12H, PRN Congestion, # 20 tab, 0 Refill(s), Pharmacy: [id number] Start Date: 10/29/17 Status: Ordered hydrALAZINE 100 mg, 2 tab, Route: PO, Drug form: TAB, Q12H, Dosing Weight 89.545, kg, Start date: 10/28/17 21:00:00 REVENUE ACCOUNTING MANAGER, Duration: 30 day, Stop date: 11/27/17 9:00:00 REVENUE ACCOUNTING MANAGER Notes: (Same as: Apresoline) May interfere w/enteral feedings Take With Food Start Date: 10/28/17 Stop Date: 10/29/17 Status: Discontinued hydrALAZINE 10 mg, 0.5 mL, Route: IVP, Drug form: INJ, Q4H, Dosing Weight 89.545, kg, PRN Hy pertension, Start date: 10/23/17 19:31:00 REVENUE ACCOUNTING MANAGER, Duration: 30 day, Stop date: 11/13 19:30:00 REVENUE ACCOUNTING MANAGER Notes: (Same as: Apresoline)Push over 5 minutes Start Date: 10/23/17 Stop Date: 10/29/17 Status: Discontinued insulin lispro 3 unit, 0.03 mL, Route: SUB-Q, Drug form: SOLN, Bedtime, Dosing Weight 89.545, k g, PRN Blood Glucose Results, Start date: 10/23/17 21:22:00 REVENUE ACCOUNTING MANAGER, Duration: 30 da y, Stop date: 11/22/17 21:21:00 REVENUE ACCOUNTING MANAGER Notes: Roll in palms of hands gently; Do not shake `vigorously. (Same as: Aroldo sumner )"Single Patient Use Only "WASTE: F/P - Black; E - Municipal Trash Bin Stabl e for 28 days at room temperature.Expires in days from Date Start Date: 10/23/17 Stop Date: 10/29/17 Status: Discontinued insulin lispro 2 unit, 0.02 mL, Route: SUB-Q, Drug form: SOLN, Bedtime, Dosing Weight 89.545, k g, PRN Blood Glucose Results, Start date: 10/23/17 21:22:00 REVENUE ACCOUNTING MANAGER, Duration: 30 da y, Stop date: 11/22/17 21:21:00 REVENUE ACCOUNTING MANAGER Notes: Roll in palms of hands gently; Do not shake `vigorously. (Same as: Aroldo og )"Single Patient Use Only "WASTE: F/P - Black; E - Municipal Trash Bin Stabl e for 28 days at room temperature.Expires in days from Date Start Date: 10/23/17 Stop Date: 10/29/17 Status: Discontinued insulin lispro 1 unit, 0.01 mL, Route: SUB-Q, Drug form: SOLN, Bedtime, Dosing Weight 89.545, k g, PRN Blood Glucose Results, Start date: 10/23/17 21:22:00 REVENUE ACCOUNTING MANAGER, Duration: 30 da y, Stop date: 11/22/17 21:21:00 REVENUE ACCOUNTING MANAGER Notes: Roll in palms of hands gently; Do not shake `vigorously. (Same as: Aroldo sumner )"Single Patient Use Only "WASTE: F/P - Black; E - Municipal Trash Bin Stabl e for 28 days at room temperature.Expires in days from Date Start Date: 10/23/17 Stop Date: 10/29/17 Status: Discontinued insulin lispro 4 unit, 0.04 mL, Route: SUB-Q, Drug form: SOLN, Bedtime, Dosing Weight 89.545, k g, PRN Blood Glucose Results, Start date: 10/23/17 21:22:00 REVENUE ACCOUNTING MANAGER, Duration: 30 da y, Stop date: 11/22/17 21:21:00 REVENUE ACCOUNTING MANAGER Notes: Roll in palms of hands gently; Do not shake `vigorously. (Same as: Aroldo og )"Single Patient Use Only "WASTE: F/P - Black; E - Municipal Trash Bin Stabl e for 28 days at room temperature.Expires in days from Date Start Date: 10/23/17 Stop Date: 10/29/17 Status: Discontinued insulin lispro 8 unit, 0.08 mL, Route: SUB-Q, Drug form: SOLN, TID-Before Meals, Dosing Weight 89.545, kg, PRN Blood Glucose Results, Start date: 10/23/17 21:22:00 REVENUE ACCOUNTING MANAGER, Durati on: 30 day, Stop date: 11/22/17 21:21:00 REVENUE ACCOUNTING MANAGER Notes: Roll in palms of hands gently; Do not shake `vigorously. (Same as: Humal og )"Single Patient Use Only "WASTE: F/P - Black; E - Municipal Trash Bin Stabl e for 28 days at room temperature.Expires in days from Date Start Date: 10/23/17 Stop Date: 10/29/17 Status: Discontinued insulin lispro 10 unit, 0.1 mL, Route: SUB-Q, Drug form: SOLN, TID-Before Meals, Dosing Weight 89.545, kg, PRN Blood Glucose Results, Start date: 10/23/17 21:22:00 REVENUE ACCOUNTING MANAGER, Durati on: 30 , Stop date: 11/22/17 21:21:00 REVENUE ACCOUNTING MANAGER Notes: Roll in palms of hands gently; Do not shake `vigorously. (Same as: Humal )"Single Patient Use Only "WASTE: F/P - Black; E - Municipal Trash Bin Stabl e for 28 days at room temperature.Expires in days from Date Start Date: 10/23/17 Stop Date: 10/29/17 Status: Discontinued insulin lispro 6 unit, 0.06 mL, Route: SUB-Q, Drug form: SOLN, TID-Before Meals, Dosing Weight 89.545, kg, PRN Blood Glucose Results, Start date: 10/23/17 21:22:00 REVENUE ACCOUNTING MANAGER, Durati on: 30 , Stop date: 11/22/17 21:21:00 REVENUE ACCOUNTING MANAGER Notes: Roll in palms of hands gently; Do not shake `vigorously. (Same as: Humal )"Single Patient Use Only "WASTE: F/P - Black; E - Municipal Trash Bin Stabl e for 28 days at room temperature.Expires in days from Date Start Date: 10/23/17 Stop Date: 10/29/17 Status: Discontinued insulin lispro 4 unit, 0.04 mL, Route: SUB-Q, Drug form: SOLN, TID-Before Meals, Dosing Weight 89.545, kg, PRN Blood Glucose Results, Start date: 10/23/17 21:22:00 REVENUE ACCOUNTING MANAGER, Durati on: 30 day, Stop date: 11/22/17 21:21:00 REVENUE ACCOUNTING MANAGER Notes: Roll in palms of hands gently; Do not shake `vigorously. (Same as: Royalal og )"Single Patient Use Only "WASTE: F/P - Black; E - Municipal Trash Bin Stabl e for 28 days at room temperature.Expires in days from Date Start Date: 10/23/17 Stop Date: 10/29/17 Status: Discontinued insulin lispro 2 unit, 0.02 mL, Route: SUB-Q, Drug form: SOLN, TID-Before Meals, Dosing Weight 89.545, kg, PRN Blood Glucose Results, Start date: 10/23/17 21:22:00 REVENUE ACCOUNTING MANAGER, Durati on: 30 day, Stop date: 11/22/17 21:21:00 REVENUE ACCOUNTING MANAGER Notes: Roll in palms of hands gently; Do not shake `vigorously. (Same as: Aroldo og )"Single Patient Use Only "WASTE: F/P - Black; E - Municipal Trash Bin Stabl e for 28 days at room temperature.Expires in days from Date Start Date: 10/23/17 Stop Date: 10/29/17 Status: Discontinued lactulose 10 g/15 mL oral syrup 30 gm, 45 ml, Route: PO, Drug form: SYRP, ONCE, Dosing Weight 89.545, kg, Start date: 10/29/17 13:16:00 REVENUE ACCOUNTING MANAGER, Stop date: 10/29/17 13:16:00 REVENUE ACCOUNTING MANAGER Notes: (Same as:Chronulac) Start Date: 10/29/17 Stop Date: 10/29/17 Status: Completed Lasix 40 mg, 4 mL, Route: IVP, Drug form: INJ, ONCE, Dosing Weight 89.545, kg, Start d ate: 10/29/17 13:16:00 REVENUE ACCOUNTING MANAGER, Stop date: 10/29/17 13:16:00 REVENUE ACCOUNTING MANAGER Notes: (Same as: Lasix) MEDICATION WASTE Product Size: 40 mgProduct Was zulema: ___ mg Start Date: 10/29/17 Stop Date: 10/29/17 Status: Completed Levaquin 500 mg oral tablet 500 mg=1 tab, PO, Q24H, X 10 day, # 10 tab, 0 Refill(s) Start Date: 10/29/17 Stop Date: 11/08/17 Status: Completed Lovenox 40 mg, 0.4 mL, Route: SUB-Q, Drug form: INJ, [id number], Dosing Weight 89.545, kg, Start date: 10/23/17 20:03:00 REVENUE ACCOUNTING MANAGER, Stop date: 11/22/17 21:00:00 REVENUE ACCOUNTING MANAGER Notes: (Same as: Lovenox) Start Date: 10/23/17 Stop Date: 10/29/17 Status: Discontinued melatonin 3 mg, 1 tab, Route: PO, Drug form: TAB, Bedtime, Dosing Weight 89.545, kg, PRN S leep, Start date: 10/23/17 19:27:00 REVENUE ACCOUNTING MANAGER, Duration: 30 day, Stop date: 11/22/17 1 9:26:00 REVENUE ACCOUNTING MANAGER Notes: (Same as: Melatonin) Start Date: 10/23/17 Stop Date: 10/29/17 Status: Discontinued methylPREDNISolone SODium SUCCinate 125 mg, 2 mL, Route: IVP, Drug form: INJ, ONCE, Dosing Weight 89.545, kg, Priori ty: STAT, Start date: 10/23/17 15:01:00 REVENUE ACCOUNTING MANAGER, Stop date: 10/23/17 15:01:00 REVENUE ACCOUNTING MANAGER Notes: (Same as:Solu-MEDROL, A-Methapred) Start Date: 10/23/17 Stop Date: 10/23/17 Status: Completed montelukast 10 mg, 1 tab, Route: PO, Drug form: TAB, Bedtime, Dosing Weight 89.545, kg, Star t date: 10/23/17 21:00:00 REVENUE ACCOUNTING MANAGER, Duration: 30 day, Stop date: 11/21/17 21:00:00 CS T Notes: (Same as:Singulair) Start Date: 10/23/17 Stop Date: 10/29/17 Status: Discontinued morphine Sulfate 2 mg, 1 mL, Route: IVP, Drug form: SOLN, Q4H, Dosing Weight 89.545, kg, PRN Pain Score 7-10, Start date: 10/23/17 16:22:00 REVENUE ACCOUNTING MANAGER, Duration: 30 day, Stop date: 07/30 16:21:00 REVENUE ACCOUNTING MANAGER Start Date: 10/23/17 Stop Date: 10/29/17 Status: Discontinued Mucinex 600 mg, 1 tab, Route: PO, Drug form: ERTAB, Q12H, Dosing Weight 89.545, kg, PRN Congestion, Start date: 10/25/17 13:30:00 REVENUE ACCOUNTING MANAGER, Duration: 30 day, Stop date: 11/13 11/30 13:29:00 REVENUE ACCOUNTING MANAGER Notes: (Same as: Guaifenesin LA, Humibid LA, Mucinex)"Do Not Crush" Take medica tion with plenty of water. Start Date: 10/25/17 Stop Date: 10/25/17 Status: Discontinued Mucinex 600 mg, 1 tab, Route: PO, Drug form: ERTAB, Q12H, Dosing Weight 89.545, kg, PRN Congestion, Start date: 10/23/17 19:27:00 REVENUE ACCOUNTING MANAGER, Duration: 30 day, Stop date: 11/13 19:26:00 REVENUE ACCOUNTING MANAGER Notes: (Same as: Guaifenesin LA, Humibid LA, Mucinex)"Do Not Crush" Take medica tion with plenty of water. Start Date: 10/23/17 Stop Date: 10/29/17 Status: Discontinued Mucinex DM Max Strength 1 tab, Route: PO, Drug Form: ERTAB, Dosing Weight 89.545, kg, BID, NOW, Start da te: 10/26/17 12:21:00 REVENUE ACCOUNTING MANAGER, Duration: 30 day, Stop date: 11/24/17 21:00:00 REVENUE ACCOUNTING MANAGER Notes: (Same as: Guaifenex DM)"Do Not Crush" Start Date: 10/26/17 Stop Date: 10/29/17 Status: Discontinued [place] 5/325 oral tablet 1 tab, Route: PO, Drug Form: TAB, Dosing Weight 89.545, kg, ONCE, STAT, Start da te: 10/23/17 15:01:00 REVENUE ACCOUNTING MANAGER, Stop date: 10/23/17 15:01:00 REVENUE ACCOUNTING MANAGER Notes: (Same as: [place] 325/5) Do not exceed 4gm/day of acetaminophen. Start Date: 10/23/17 Stop Date: 10/23/17 Status: Completed [place] 7.5/325 oral tablet 1 tab, PO, PRN, 0 Refill(s) Start Date: 10/22/17 Stop Date: 11/14/17 Status: Discontinued NS 1,000 mL 1,000 mL, Rate: 75 ml/hr, Infuse over: 13.3 hr, Route: IV, Dosing Weight 89.545 kg, Total Volume: 1,000, Start date: 10/23/17 15:02:00 REVENUE ACCOUNTING MANAGER, Duration: 30 day, St op date: 11/22/17 15:01:00 REVENUE ACCOUNTING MANAGER, 2.09, m2 Start Date: 10/23/17 Stop Date: 10/22/17 Status: Discontinued NS 1,000 mL 1,000 mL, Rate: 75 ml/hr, Infuse over: 13.3 hr, Route: IV, Dosing Weight 89.545 kg, Total Volume: 1,000, Start date: 10/23/17 19:27:00 REVENUE ACCOUNTING MANAGER, Duration: 30 day, St op date: 11/22/17 19:26:00 REVENUE ACCOUNTING MANAGER, 2.09, m2 Start Date: 10/23/17 Stop Date: 10/26/17 Status: Discontinued omeprazole 40 mg, Route: PO, Drug form: DRC, Daily, Dosing Weight 89.545, kg, Start date: 0 10/24/17 9:00:00 REVENUE ACCOUNTING MANAGER, Duration: 30 day, Stop date: 11/22/17 9:00:00 REVENUE ACCOUNTING MANAGER Start Date: 10/24/17 Stop Date: 10/23/17 Status: Deleted ondansetron 4 mg, 2 mL, Route: IVP, Drug form: INJ, Q6H, Dosing Weight 89.545, kg, PRN Nause a & Vomiting, Start date: 10/23/17 16:22:00 REVENUE ACCOUNTING MANAGER, Duration: 30 day, Stop date: 11/22/17 16:21:00 REVENUE ACCOUNTING MANAGER Notes: (Same as: Darcy) MEDICATION WASTE Product Size: 4 mgProduct Was zulema: ___ mg Start Date: 10/23/17 Stop Date: 10/29/17 Status: Discontinued pneumococcal 13-valent vaccine 0.5 mL, Route: IM, Drug Form: INJ, Daily, Start date: 10/26/17 9:00:00 REVENUE ACCOUNTING MANAGER, Dura tion: 1 doses or times, Stop date: 10/26/17 9:00:00 REVENUE ACCOUNTING MANAGER Notes: Shake well prior to use (Same as: Prevnar 13) Start Date: 10/26/17 Stop Date: 10/26/17 Status: Completed pneumococcal 23-valent vaccine 0.5 mL, Route: IM, Drug Form: INJ, Daily, Start date: 10/27/17 9:00:00 REVENUE ACCOUNTING MANAGER, Dura tion: 1 doses or times, Stop date: 10/27/17 9:00:00 REVENUE ACCOUNTING MANAGER Notes: (Same as: Pneumovax 23) Refrigerate Start Date: 10/27/17 Stop Date: 10/27/17 Status: Deleted Pneumovax 23 0.5 mL, Route: IM, Drug Form: INJ, Daily, Start date: 10/27/17 11:30:00 REVENUE ACCOUNTING MANAGER, Dur ation: 1 doses or times, Stop date: 10/27/17 11:30:00 REVENUE ACCOUNTING MANAGER Notes: (Same as: Pneumovax 23) Refrigerate Start Date: 10/27/17 Stop Date: 10/27/17 Status: Completed predniSONE 10 mg oral tablet See Special Instructions, PO, Daily, 12 day Days 1-4 - 20 mg 2 tab day Days 5- 8 - 10 mg 1 tab day Days 9-12 - 5 mg 1/2 tab day, X 12 day, # 14 tab, 0 Refill( s) Start Date: 10/29/17 Stop Date: 11/10/17 Status: Completed predniSONE 50 mg oral tablet 50 mg=1 tab, PO, Daily, 0 Refill(s) Start Date: 10/22/17 Stop Date: 10/29/17 Status: Discontinued Protonix 40 mg, 1 tab, Route: PO, Drug form: ECTAB, Before Breakfast, Start date: 8 7:30:00 REVENUE ACCOUNTING MANAGER, Duration: 30 day, Stop date: 11/22/17 7:30:00 REVENUE ACCOUNTING MANAGER Notes: Tablet should not be chewed or crushed.(Same as: Protonix) Start Date: 10/24/17 Stop Date: 10/28/17 Status: Discontinued Robitussin Cough & Congestion 10 mL, Route: PO, Drug Form: SYRP, Dosing Weight 89.545, kg, Q6H, PRN as needed for cough, Start date: 10/25/17 13:30:00 REVENUE ACCOUNTING MANAGER, Duration: 30 day, Stop date: 11/24 13:29:00 REVENUE ACCOUNTING MANAGER Notes: (dextromethorphan-guaifenesin 10-100mg/5ml 10 ml oral SOLN ud) (Same as: Robitussin DM) Start Date: 10/25/17 Stop Date: 10/26/17 Status: Discontinued Robitussin-AC oral syrup 10 ml, Route: PO, Drug Form: LIQ, Dosing Weight 89.545, kg, Q6H, PRN Cough/Conge stion, Start date: 10/23/17 19:27:00 REVENUE ACCOUNTING MANAGER, Duration: 30 day, Stop date: 11/22/17 19:26:00 REVENUE ACCOUNTING MANAGER Notes: (Same As: Robitussin AC) Start Date: 10/23/17 Stop Date: 10/25/17 Status: Discontinued Saline Flush 0.9% 10 mL, Route: IVP, Drug Form: INJ, Dosing Weight 89.545, kg, PRN, PRN Line Flush , Start date: 10/23/17 12:59:00 REVENUE ACCOUNTING MANAGER, Duration: 30 day, Stop date: 11/22/17 12:58 :00 REVENUE ACCOUNTING MANAGER Notes: (Same as: BD Posiflush) Start Date: 10/23/17 Stop Date: 10/29/17 Status: Discontinued Solu-MEDROL 40 mg, 1 mL, Route: IVP, Drug form: INJ, Q8H, Dosing Weight 89.545, kg, Start da te: 10/24/17 0:00:00 REVENUE ACCOUNTING MANAGER, Duration: 30 day, Stop date: 11/22/17 16:00:00 REVENUE ACCOUNTING MANAGER Notes: (Same as:Solu-MEDROL, A-Methapred) Start Date: 10/24/17 Stop Date: 10/24/17 Status: Discontinued Solu-MEDROL 40 mg, 1 mL, Route: IVP, Drug form: INJ, Q12H, Dosing Weight 89.545, kg, Start d ate: 10/24/17 21:00:00 REVENUE ACCOUNTING MANAGER, Duration: 30 day, Stop date: 11/23/17 9:00:00 REVENUE ACCOUNTING MANAGER Notes: (Same as:Solu-MEDROL, A-Methapred) Start Date: 10/24/17 Stop Date: 10/29/17 Status: Discontinued Tessalon Perles 100 mg, 1 cap, Route: PO, Drug form: CAP, TID, Dosing Weight 89.545, kg, PRN Cou gh, Start date: 10/23/17 19:27:00 REVENUE ACCOUNTING MANAGER, Duration: 30 day, Stop date: 11/22/17 19: 26:00 REVENUE ACCOUNTING MANAGER Notes: (Same As: Tessalon Perles)"Do Not Crush" Start Date: 10/23/17 Stop Date: 10/29/17 Status: Discontinued tramadol 50 mg, PO, Q4-6H, PRN Pain, # 20 tab, 0 Refill(s) Start Date: 10/22/17 Stop Date: 11/14/17 Status: Discontinued Zofran 4 mg, 2 mL, Route: IVP, Drug form: INJ, ONCE, Dosing Weight 89.545, kg, Priority : STAT, Start date: 10/23/17 15:01:00 REVENUE ACCOUNTING MANAGER, Stop date: 10/23/17 15:01:00 REVENUE ACCOUNTING MANAGER Notes: (Same as: Zofran) MEDICATION WASTE Product Size: 4 mgProduct Was zulema: ___ mg Start Date: 10/23/17 Stop Date: 10/23/17 Status: Completed Zofran 4 mg oral tablet 4 mg=1 tab, PO, PRN, 0 Refill(s) Start Date: 10/22/17 Status: Ordered ZyrTEC 10 mg, 2 tab, Route: PO, Drug form: TAB, Daily, Dosing Weight 89.545, kg, Start date: 10/24/17 9:00:00 REVENUE ACCOUNTING MANAGER, Duration: 30 day, Stop date: 11/22/17 9:00:00 REVENUE ACCOUNTING MANAGER Notes: (Same As: Zyrtec) Start Date: 10/24/17 Stop Date: 10/29/17 Status: Discontinued Results ELECTROLYTES 1 2 3 Most recent to oldest [Reference Range]: 142 mEq/L (10/29/17 4:27 AM) 139 mEq/L (10/28/17 1:05 PM) 142 mEq/L (10/27/17 5:54 AM) Sodium Lvl [135-145 mEq/L] 4.4 mEq/L (10/29/17 5:04 PM) 5.2 mEq/L *HI* (10/29/17 4:27 AM) 4.3 mEq/L (10/28/17 1:05 PM) Potassium Lvl [3.5-5.1 mEq/L] 109 mEq/L (10/29/17 4:27 AM) 97 mEq/L (10/28/17 1:05 PM) 109 mEq/L (10/27/17 5:54 AM) Chloride Lvl [95-109 mEq/L] 28 mEq/L (10/29/17 4:27 AM) 27 mEq/L (10/28/17 1:05 PM) 27 mEq/L (10/27/17 5:54 AM) CO2 [24-32 mEq/L] 10.2 mEq/L (10/29/17 4:27 AM) 19.3 mEq/L (10/28/17 1:05 PM) 11.3 mEq/L (10/27/17 5:54 AM) AGAP [10.0-20.0 mEq/L] CHEM PANEL 1 2 3 Most recent to oldest [Reference Range]: 1.38 mg/dL (10/29/17 4:27 AM) 4.86 mg/dL *HI* (10/28/17 1:05 PM) 1.68 mg/dL *HI* (10/27/17 5:54 AM) Creatinine Lvl [0.50-1.40 mg/dL] 36 mL/min/1.73m2 1 *NA* (10/29/17 4:27 AM) 8 mL/min/1.73m2 2 *NA* (10/28/17 1:05 PM) 28 mL/min/1.73m2 3 *NA* (10/27/17 5:54 AM) eGFR 35 mg/dL *HI* (10/29/17 4:27 AM) 31 mg/dL *HI* (10/28/17 1:05 PM) 41 mg/dL *HI* (10/27/17 5:54 AM) BUN [7-22 mg/dL] 23 (10/26/17 7:35 AM) 18 (10/24/17 6:25 AM) 17 (10/23/17 12:59 PM) B/C Ratio [6-25] 187 mg/dL *HI* (10/29/17 4:27 AM) 80 mg/dL (10/28/17 1:05 PM) 155 mg/dL *HI* (10/27/17 5:54 AM) Glucose Lvl [70-99 mg/dL] 7.3 g/dL (10/26/17 7:35 AM) 7.6 g/dL (10/24/17 6:25 AM) 8.3 g/dL (10/23/17 12:59 PM) Total Protein [6.4-8.4 g/dL] 2.7 g/dL *LOW* (10/26/17 7:35 AM) 2.8 g/dL *LOW* (10/24/17 6:25 AM) 3.2 g/dL *LOW* (10/23/17 12:59 PM) Albumin Lvl [3.5-5.0 g/dL] 4.6 g/dL *HI* (10/26/17 7:35 AM) 4.8 g/dL *HI* (10/24/17 6:25 AM) 5.1 g/dL *HI* (10/23/17 12:59 PM) Globulin [2.7-4.2 g/dL] 0.6 *LOW* (10/26/17 7:35 AM) 0.6 *LOW* (10/24/17 6:25 AM) 0.6 *LOW* (10/23/17 12:59 PM) A/G Ratio [0.7-1.6] 9.2 mg/dL (10/29/17 4:27 AM) 9.1 mg/dL (10/28/17 1:05 PM) 8.6 mg/dL (10/27/17 5:54 AM) Calcium Lvl [8.5-10.5 mg/dL] 2.3 mg/dL (10/24/17 6:25 AM) Magnesium Lvl [1.8-2.4 mg/dL] 18 unit/L (10/26/17 7:35 AM) 16 unit/L (10/24/17 6:25 AM) 20 unit/L (10/23/17 12:59 PM) ALT [0-65 unit/L] 32 unit/L (10/26/17 7:35 AM) 20 unit/L (10/24/17 6:25 AM) 22 unit/L (10/23/17 12:59 PM) AST [0-37 unit/L] 60 unit/L (10/26/17 7:35 AM) 65 unit/L (10/24/17 6:25 AM) 74 unit/L (10/23/17 12:59 PM) Alk Phos [39-136 unit/L] 0.6 mg/dL (10/26/17 7:35 AM) 0.4 mg/dL (10/24/17 6:25 AM) 0.1 mg/dL *LOW* (10/23/17 12:59 PM) Bili Total [0.2-1.3 mg/dL] 1.0 mMol/L (10/23/17 3:33 PM) Lactic Acid Lvl [0.5-2.2 mMol/L] 1Result Comment: The eGFR is calculated using [...] 3 Most recent to oldest [Reference Range]: 199 unit/L *HI* (10/23/17 12:59 PM) Total CK [12-191 unit/L] <0.5 ng/mL (10/23/17 12:59 PM) CK MB [0.5-3.6 ng/mL] <0.3 (10/23/17 12:59 PM) CK MB Index [0.0-2.5] <0.02 ng/mL (10/23/17 12:59 PM) Troponin-I [0.00-0.40 ng/mL] SPECIAL CHEMISTRY 1 2 3 Most recent to oldest [Reference Range]: 6.7 % *HI* (10/23/17 9:35 PM) Hgb A1C [<=5.6 %] URINE CHEM 1 2 3 Most recent to oldest [Reference Range]: None Seen (10/29/17 6:31 AM) U Eos [None Seen] URINE AND STOOL 1 2 3 Most recent to oldest [Reference Range]: Clear (10/23/17 12:59 PM) UA Turbidity [Clear] Ltyellow *NA* (10/23/17 12:59 PM) UA Color 6.0 (10/23/17 12:59 PM) UA pH [5.0-8.0] 1.009 (10/23/17 12:59 PM) UA Spec Grav [<=1.030] Negative mg/dL *NA* (10/23/17 12:59 PM) UA Glucose [Negative mg/dL] Negative (10/23/17 12:59 PM) UA Blood [Negative] Negative mg/dL *NA* (10/23/17 12:59 PM) UA Ketones [Negative mg/dL] Negative mg/dL (10/23/17 12:59 PM) UA Protein [Negative mg/dL] <=1.0 mg/dL *NA* (10/23/17 12:59 PM) UA Urobilinogen [0.1-1.0 mg/dL] Negative *NA* (10/23/17 12:59 PM) UA Bili [Negative] Trace *ABN* (10/23/17 12:59 PM) UA Leuk Est [Negative] Negative (10/23/17 12:59 PM) UA Nitrite [Negative] 5 /HPF (10/23/17 12:59 PM) UA WBC [0-5 /HPF] Occasional /HPF *NA* (10/23/17 12:59 PM) UA Bacteria [None Seen /HPF] Occasional /LPF *NA* (10/23/17 12:59 PM) UA Sq Epi [Few /LPF] HEMATOLOGY 1 2 3 Most recent to oldest [Reference Range]: 12.4 K/CMM *HI* (10/29/17 4:27 AM) 10.8 K/CMM *HI* (10/27/17 5:54 AM) 12.1 K/CMM *HI* (10/26/17 7:35 AM) WBC [3.7-10.4 K/CMM] 2.99 M/CMM *LOW* (10/29/17 4:27 AM) 2.91 M/CMM *LOW* (10/27/17 5:54 AM) 2.90 M/CMM *LOW* (10/26/17 7:35 AM) RBC [4.20-5.40 M/CMM] 8.4 g/dL *LOW* (10/29/17 4:27 AM) 8.2 g/dL *LOW* (10/27/17 5:54 AM) 8.3 g/dL *LOW* (10/26/17 7:35 AM) Hgb [12.0-16.0 g/dL] 26.5 % *LOW* (10/29/17 4:27 AM) 26.1 % *LOW* (10/27/17 5:54 AM) 25.8 % *LOW* (10/26/17 7:35 AM) Hct [36.0-48.0 %] 88.6 fL (10/29/17 4:27 AM) 89.6 fL (10/27/17 5:54 AM) 89.2 fL (10/26/17 7:35 AM) MCV [80.0-98.0 fL] 28.1 pg (10/29/17 4:27 AM) 28.3 pg (10/27/17 5:54 AM) 28.6 pg (10/26/17 7:35 AM) MCH [27.0-31.0 pg] 31.8 g/dL *LOW* (10/29/17 4:27 AM) 31.6 g/dL *LOW* (10/27/17 5:54 AM) 32.0 g/dL (10/26/17 7:35 AM) MCHC [32.0-36.0 g/dL] 18.5 % *HI* (10/29/17 4:27 AM) 18.9 % *HI* (10/27/17 5:54 AM) 18.2 % *HI* (10/26/17 7:35 AM) RDW [11.5-14.5 %] 7.6 fL (10/29/17 4:27 AM) 8.4 fL (10/27/17 5:54 AM) 7.9 fL (10/26/17 7:35 AM) MPV [7.4-10.4 fL] 261 K/CMM (10/29/17 4:27 AM) 256 K/CMM (10/27/17 5:54 AM) 251 K/CMM (10/26/17 7:35 AM) Platelet [133-450 K/CMM] 86.2 % *HI* (10/29/17 4:27 AM) 75.0 % (10/26/17 7:35 AM) 92.9 % *HI* (10/24/17 6:25 AM) Segs [45.0-75.0 %] 6.0 % (10/26/17 7:35 AM) Bands [0.0-11.0 %] 8.3 % *LOW* (10/29/17 4:27 AM) 11.0 % *LOW* (10/26/17 7:35 AM) 5.1 % *LOW* (10/24/17 6:25 AM) Lymphocytes [20.0-40.0 %] 5.4 % (10/29/17 4:27 AM) 6.0 % (10/26/17 7:35 AM) 1.9 % *LOW* (10/24/17 6:25 AM) Monocytes [2.0-12.0 %] 0.3 % (10/23/17 12:59 PM) Eosinophils [0.0-4.0 %] 0.1 % (10/29/17 4:27 AM) 0.1 % (10/24/17 6:25 AM) 0.4 % (10/23/17 12:59 PM) Basophils [0.0-1.0 %] 1.0 % (10/26/17 7:35 AM) Metamyelocytes [0.0-1.0 %] 1.0 % *HI* (10/26/17 7:35 AM) Myelocytes [<=0.0 %] 10.7 K/CMM *HI* (10/29/17 4:27 AM) 9.8 K/CMM *HI* (10/26/17 7:35 AM) 10.6 K/CMM *HI* (10/24/17 6:25 AM) Segs-Bands # [1.5-8.1 K/CMM] 1.0 K/CMM (10/29/17 4:27 AM) 1.3 K/CMM (10/26/17 7:35 AM) 0.6 K/CMM *LOW* (10/24/17 6:25 AM) Lymphocytes # [1.0-5.5 K/CMM] 0.7 K/CMM (10/29/17 4:27 AM) 0.7 K/CMM (10/26/17 7:35 AM) 0.2 K/CMM (10/24/17 6:25 AM) Monocytes # [0.0-0.8 K/CMM] 0.1 K/CMM (10/23/17 12:59 PM) Basophils # [0.0-0.2 K/CMM] See Note (10/26/17 7:35 AM) RBC Morph 1+ (10/26/17 7:35 AM) Hypochrom [None Seen] Normal (10/26/17 7:35 AM) Plt Morph VIRAL - SEROLOGY 1 2 3 Most recent to oldest [Reference Range]: Negative (10/23/17 3:33 PM) Influ A [Negative] Negative (10/23/17 3:33 PM) Influ B [Negative] Immunizations Given and Recorded Vaccine Date Status Refusal Reason pneumococcal 23-valent vaccine 10/27/17 Given Not Given Vaccine Date Status Refusal Reason pneumococcal 13-valent vaccine 10/26/17 Not Given Patient Refuses Procedures Procedure Date Related Diagnosis Body Site Status Stereotactic radiosurgery 02/12/17 Completed Appendectomy Completed Cholecystectomy Completed Gamma-knife surgery Completed Lumpectomy of breast Completed Social History Social History Type Response Substance Abuse Use: None. Alcohol Never Smoking Status Former smoker; Type: Cigarettes; Exposure to Tobacco Smoke None; Cigarette Smoking Last 365 Days No; Reg Smoking Cessation Counseling No entered on: 11/07/17 Assessment and Plan Extracted from: Title: Discharge Summary * Author: Anupam Meraz MD Date: 10/29/17 Discharge Information Disposition to home Condition stable Medications: See med reconciliation form Diet: Heart healthy Discharge Plan Follow-up with PCP in 1 week, fixed income analyst in 2 weeks In evaluating worsening symptoms patient was to come back to the ED for further evaluation Discharge summary to greater than 35 minutes Extracted from: Title: Clinical Document Author: Ruddy Romero MD Date: 10/29/17 Progress Note - Dr. Romero [facility] Attending: Anupam Meraz MDPhone: Service: Internal Medicine Code status: None Specified=FULL CODE Reason for Admission: ACUTE BRONCHITIS WITH COPD, CLOSED FRACTURE OF SIX RIBS Working DRG: Chronic obstructive pulmonary disease w CC Isolation: None Documented Consulting Physicians: Ruddy Romero MDOffice: Service: Pulmonary, Medicine Reid Clark MDOffice: Service: Pulmonary, Medicine Allergies (1) ActiveReaction codeineNone documented Subjective: Patient seems to be doing okay denies chest pain nausea vomiting she is being evaluated for discharge today she seems to be improving overall Objective: HEENT atraumatic normal cephalic Neck is supple Chest is clear Heart sounds normal Abdomen is soft Extremities no cyanosis clubbing or edema VitalsTmp(F)[id number] 10/29 12:1497.208791/66--97 3.0L/m 10/29 07:3197.218577/501564 2.0L/m 10/29 07:29 1696 2.0L/m 10/29 04:0097.767168/738582--- 10/29 00:0097.231930/473837--- 24 Hr Tmax: 98.1F (36.72c) at 10/28 20:00Vital Signs are the last 5 in the past 48 hours. Labs (Last four charted values) WBC H 12.4(OCT 29)H 10.8(OCT 27)H 12.1(OCT 26)H 11.4(OCT 24) Hgb L 8.4(OCT 29)L 8.2(OCT 27)L 8.3(OCT 26)L 8.7(OCT 24) Hct L 26.5(OCT 29)L 26.1(OCT 27)L 25.8(OCT 26)L 27.3(OCT 24) Plt 261(OCT 29)256(OCT 27)251(OCT 26)243(OCT 24) Na 142(OCT 29)139(OCT 28)142(OCT 15)143(OCT 26) K H 5.2(OCT 29)4.3(OCT 28)H 5.3(OCT 27)4.4(OCT 26) CO2 28(OCT 29)27(OCT 28)27(OCT 27)27(OCT 26) Cl 109(OCT 29)97(OCT 28)109(OCT 27)108(OCT 26) Cr 1.38(OCT 29)H 4.86(OCT 28)H 1.68(OCT 27)H 1.82(OCT 26) BUN H 35(OCT 29)H 31(OCT 28)H 41(OCT 27)H 41(OCT 26) Glucose Random H 187(OCT 29)80(OCT 28)H 155(OCT 27)H 202(OCT 26) Mg 2.3(OCT 24) Ca 9.2(OCT 29)9.1(OCT 28)8.6(OCT 27)L 8.3(OCT 26) Troponin <0.02(OCT 23) CK MB <0.5(OCT 23) Total CK H 199(OCT 23)I&ORecordInOutBal 10/1723hr Tot 436 0 436 10/1623hr Tot 210 0 210 COPD Diabetes Hx of osteoporosis Trigeminal neuralgia Congestive heart failure Gamma knife radiosurgery Medications (38) Active Scheduled Meds (12): 10/23/17 aspirin (Aspirin Enteric Coated) 81 mg PO Bedtime 10/23/17 atorvastatin 40 mg PO Bedtime 10/23/17 budesonide-formoterol (budesonide-formoterol 160 mcg-4.5 mcg/inh inhalation aerosol with adapter) 2 inhalation INHALATION RBID 10/24/17 cefepime + Sodium Chloride 0.9% IV 100 mL 1 gm IVPB [id number] 25 ml/hr 10/24/17 cetirizine (ZyrTEC) 10 mg PO Daily 10/26/17 dextromethorphan-guaiFENesin (Mucinex DM Max Strength) 1 tab PO BID 10/23/17 diltiazem 360 mg PO Bedtime 10/23/17 enoxaparin (Lovenox) 40 mg SUB-Q [id number] 10/29/17 gabapentin (gabapentin 300 mg oral capsule) 300 mg PO Daily 10/28/17 hydrALAZINE 100 mg PO Q12H 10/24/17 methylPREDNISolone (Solu-MEDROL) 40 mg IVP Q12H 10/23/17 montelukast 10 mg PO Bedtime Unscheduled Meds: None PRN Meds (23): 10/23/17 Dextrose 50% in Water IV (Dextrose 50% Syringe) 12.5 gm IVP PRN 10/23/17 Dextrose 50% in Water IV (Dextrose 50% Syringe) 25 gm IVP PRN 10/23/17 acetaminophen-hydrocodone (acetaminophen-hydrocodone 325 mg-5 mg oral tablet) 1 tab PO Q6H 10/23/17 acetaminophen 650 mg PO Q6H 10/23/17 albuterol-ipratropium (DuoNeb inhalation solution) 3 ml NEB PRN 10/23/17 benzonatate (Tessalon Perles) 100 mg PO TID 10/23/17 docusate 100 mg PO BID 10/23/17 glucagon 1 mg IM PRN 10/23/17 guaiFENesin (Mucinex) 600 mg PO Q12H 10/23/17 hydrALAZINE 10 mg IVP Q4H 10/23/17 insulin lispro 2 unit SUB-Q TID-Before Meals 10/23/17 insulin lispro 4 unit SUB-Q TID-Before Meals 10/23/17 insulin lispro 6 unit SUB-Q TID-Before Meals 10/23/17 insulin lispro 8 unit SUB-Q TID-Before Meals 10/23/17 insulin lispro 10 unit SUB-Q TID-Before Meals 10/23/17 insulin lispro 1 unit SUB-Q Bedtime 10/23/17 insulin lispro 2 unit SUB-Q Bedtime 10/23/17 insulin lispro 3 unit SUB-Q Bedtime 10/23/17 insulin lispro 4 unit SUB-Q Bedtime 10/23/17 melatonin 3 mg PO Bedtime 10/23/17 morphine Sulfate 2 mg IVP Q4H 10/23/17 ondansetron 4 mg IVP Q6H 10/23/17 sodium chloride (Saline Flush 0.9%) 10 mL IVP PRN One Time Meds (3): 10/29/17 (Completed) furosemide (Lasix) 40 mg IVP ONCE 10/29/17 (Ordered) gabapentin (gabapentin 600 mg oral tablet) 600 mg PO ONCE 10/29/17 (Completed) lactulose (lactulose 10 g/15 mL oral syrup) 30 gm PO ONCE Continuous Infusions: None Assessment & Plan: Acute bronchitis and bronchiectasis COPD Diabetes mellitus Deconditioned state Weakness Recent gamma knife treatment Renal insufficiency. Patient is improving and from my standpoint okay to discharge on oral medications and follow-up in the outpatient I discussed plan of care with the patient Extracted from: Title: General Admission H&P * Author: Anupam Meraz MD Date: 10/23/17 Impression and Plan 1. Generalized weakness likely due recent illness PT/OT, IV fluids 2. Acute exacerbation of COPD pulmonary consulted, IV antibiotics steroids neb treatments Mucinex and Robitussin with codeine, blood and urine cultures collected 3. Hypertension stable, continue same home medications, as needed hydralazine 4. Type 2 diabetes insulin sliding scale, Accu-Cheks, A1c 5. Left rib fracture pain control, vitamin D and calcium 6. Prophylaxis Lovenox 7. Fluid electrolytes nutrients low-dose IV fluids, heart healthy diet 8. Disposition inpatient, pulmonary consulted
--- OUTSIDE RECORDS SUMMARY | 2018-07-28 12:14 | XMS REPORT | Summary of Care ---
Author Author KEISHA Neurosurgery [facility] Organization [facility] Neurosurgery [facility] Address Unknown Phone Unavailable Encounter HQ Stanr_ness(FIN) [id number] Date(s): 01/20/18 - 01/21/18 [facility] Neurosurgery [facility] [address], [address] [place], [place] [address] [phone] Vital Signs No data available for this [...] Status codeine Active Levaquin Levaquin Active Medications No data available for this section Results No data available for this section Immunizations Given and Recorded Vaccine Date Status [...] No entered on: 11/07/17 Assessment and Plan No data available for this section
--- OUTSIDE RECORDS SUMMARY | 2018-07-28 12:14 | XMS REPORT | Summary of Care ---
Author Author KEISHA [facility]surgery [facility] Organization [facility] Neurosurgery [facility] Address Unknown Phone Unavailable Encounter HQ Carlos_ness(FIN) [phone] Date(s): 09/15/17 - 09/16/17 [facility] Neurosurgery [facility] [address], [address] [place] [phone] Vital Signs No data available for this section Problem List Condition Effective Dates Status Health Status Informant Asthma1 Active COPD(Confirmed) Resolved Diabetes(Confirmed) Resolved Hx of Resolved osteoporosis(Confirm ed) Hypercholesterolemia Active 2 Hypertension(Confirm Active ed) Infection of skin3 01/08/12 Active Migraine4 Active Neuropathy(Confirmed Active ) Simple Active obesity(Confirmed) Trigeminal Resolved neuralgia(Confirmed) 1Data [...] Procedures Procedure Date Related Diagnosis Body Site Stereotactic radiosurgery 02/12/17 Appendectomy Cholecystectomy Social History Social History Type [...]
--- OUTSIDE RECORDS SUMMARY | 2018-07-28 12:14 | XMS REPORT | Summary of Care ---
Author Author UTThi Neurosurgery [facility] Organization [facility] Neurosurgery [facility] Address Unknown Phone Unavailable Encounter HQ Stanr_ness(FIN) [phone] Date(s): 10/23/17 - 10/23/17 [facility] Neurosurgery [facility] [address], [address] [place], [place] [address] [phone] Discharge Disposition: Home or Self Care Attending Physician: Maximino Malhotra MD Referring Physician: Kevyn Clark MD Vital Signs No data available [...]
--- OUTSIDE RECORDS SUMMARY | 2018-07-28 12:14 | XMS REPORT | Summary of Care ---
Author Author MOThi [facility] [place] [facility] Neurosurgery [facility] Address Unknown Phone Unavailable Encounter HQ Carlos_ness(FIN) [phone] Date(s): 02/11/18 - 02/11/18 [facility] [address], [address] [place], [place] [address] [phone] Attending Physician: Liliana Corley Referring Physician: Kevyn Clark MD Vital Signs [...]
--- OUTSIDE RECORDS SUMMARY | 2018-07-28 12:14 | XMS REPORT | Summary of Care ---
Author Author NMThi Neurosurgery [facility] Organization [facility] Neurosurgery [facility] Address Unknown Phone Unavailable Encounter HQ Stanr_ness(FIN) [phone] Date(s): 01/23/18 - 01/23/18 [facility] Neurosurgery [facility] [address], [address] [place], [place] [address] [phone] Attending Physician: India Treviño NP Referring Physician: Kevyn Clark MD Vital Signs [...]
--- OUTSIDE RECORDS SUMMARY | 2018-07-28 12:14 | XMS REPORT | Summary of Care ---
Author Author [facility] Organization [facility] Address Unknown Phone Unavailable Encounter ADRIAN Lerner(LINDSAY) [id number] Date(s): 06/24/17 - 06/27/17 [facility] [address] [place] [address]- [phone] Final: Acute on chronic diastolic (congestive) heart failure Discharge Disposition: Home or Self Care Attending Physician: Jennifer Neal MD Admitting Physician: Jennifer Neal MD Vital Signs 1 2 3 Most recent to oldest [Reference Range]: 172.72 cm (06/24/17 9:47 PM) Height 89.205 kg (06/27/17 6:12 AM) 89.631 kg (06/25/17 5:06 AM) Current Weight 98.1 DegF (06/27/17 12:09 PM) 97.4 DegF (06/27/17 7:35 AM) 97.7 DegF (06/27/17 4:06 AM) Temperature Oral [96.4-99.1 DegF] 145/73 mmHg *HI* (06/27/17 12:09 PM) 137/63 mmHg (06/27/17 7:35 AM) 142/63 mmHg *HI* (06/27/17 4:06 AM) Blood Pressure [90-140/60-90 mmHg] 24 BRMIN *HI* (06/27/17 12:09 PM) 24 BRMIN *HI* (06/27/17 8:05 AM) 24 BRMIN *HI* (06/27/17 7:35 AM) Respiratory Rate [14-20 BRMIN] 70 bpm (06/27/17 12:09 PM) 63 bpm (06/27/17 7:35 AM) 77 bpm (06/27/17 4:06 AM) Peripheral Pulse Rate [60-100 bpm] 88.693 kg (06/24/17 9:47 PM) Weight 29.73 m2 (06/24/17 9:47 PM) Body Mass Index Problem List Condition [...] Substance Reaction Severity Status nka Active Medications *Rn pls update HWA in adhoc* *Rn pls update HWA in adhoc*, Reminder, Drug form: MISC, Route: MISC, Q30Min, 21:00:00 CDT, Stop date: 06/24/17 23:59:00 CDT Start Date: 06/24/17 Stop Date: 06/24/17 Status: Deleted Advair Diskus 250 mcg-50 mcg inhalation powder 1 puff, Route: INHALATION, Drug Form: AERO, Dosing Weight 87.273, kg, BID, Start date: 06/25/17 9:00:00 CDT, Duration: 30 day, Stop date: 07/24/17 17:00:00 CDT Start Date: 06/25/17 Stop Date: 06/24/17 Status: Deleted aspirin 81 mg tablet, enteric coated 81 mg, 1 tab, Route: PO, Drug form: ECTAB, Daily, Dosing Weight 87.273, kg, Star t date: 06/24/17 22:18:00 CDT, Duration: 30 day, Stop date: 07/24/17 9:00:00 CDT Notes: Do not crush or chew.(Same As: Ecotrin) Start Date: 06/24/17 Stop Date: 06/27/17 Status: Discontinued atorvastatin 40 mg, 1 tab, Route: PO, Drug form: TAB, Bedtime, Dosing Weight 87.273, kg, Star t date: 06/24/17 21:00:00 CDT, Duration: 30 day, Stop date: 07/23/17 21:00:00 CD T Notes: (Same as: Lipitor) Start Date: 06/24/17 Stop Date: 06/27/17 Status: Discontinued Avapro 150 mg, 1 tab, Route: PO, Drug form: TAB, Daily, Dosing Weight 87.273, kg, Start date: 06/25/17 9:00:00 CDT, Duration: 30 day, Stop date: 07/24/17 9:00:00 CDT Notes: (Same as:Avapro) Start Date: 06/25/17 Stop Date: 06/27/17 Status: Discontinued budesonide-formoterol 160 mcg-4.5 mcg/inh inhalation aerosol with adapter 2 inhalation, Route: INHALATION, Drug Form: AERO/A, RBID, Start date: 06/25/17 8 :00:00 CDT, Duration: 30 day, Stop date: 07/24/17 20:00:00 CDT Notes: (Same as: Symbicort)WASTE: Aerosol - Return to Pharmacy Start Date: 06/25/17 Stop Date: 06/27/17 Status: Discontinued bumetanide 1 mg oral tablet 1 mg=1 tab, PO, BID, # 60 tab, 3 Refill(s), [id number] Start Date: 06/27/17 Stop Date: 06/27/17 Status: Completed bumetanide 1 mg oral tablet 1 mg=1 tab, PO, TID, # 90 tab, 3 Refill(s), [id number] Start Date: 06/27/17 Status: Ordered bumetanide 10 mg + sodium chloride 0.9% INJ 60 mL 60 mL, Rate: Infuse as directed, Dosing Weight 87.273, kg, Route: IV, Total Volu me: 100 mL, Start Date: 06/24/17 14:14:00 CDT, Duration: 30 day, Stop date: 07/13 11/29 14:13:00 CDT, Replace Every: 20 hr Notes: (Same As: Bumex) Start Date: 06/24/17 Stop Date: 06/26/17 Status: Discontinued Bumex 1 mg, 1 tab, Route: PO, Drug form: TAB, BID, Dosing Weight 88.693, kg, Start alex e: 06/26/17 17:00:00 CDT, Duration: 30 day, Stop date: 07/26/17 9:00:00 CDT Notes: (Same As: Bumex) Start Date: 06/26/17 Stop Date: 06/27/17 Status: Discontinued diltiazem 360 mg, 2 cap, Route: PO, Drug form: ERCAP, Bedtime, Dosing Weight 87.273, kg, S tart date: 06/24/17 21:00:00 CDT, Duration: 30 day, Stop date: 07/23/17 21:00:00 CDT Notes: (Same as:Cardizem CD) Before meals. DO NOT CRUSH. Start Date: 06/24/17 Stop Date: 06/27/17 Status: Discontinued DuoNeb inhalation solution 3 mL, Route: NEB, Drug Form: SOLN, Dosing Weight 88.693, kg, RQ4H, Start date: 0 06/25/17 15:41:00 CDT, Duration: 30 day, Stop date: 07/25/17 15:00:00 CDT Notes: (Same as: Duoneb) Start Date: 06/25/17 Stop Date: 06/27/17 Status: Discontinued enoxaparin 40 mg, 0.4 mL, Route: SUB-Q, Drug form: INJ, [id number], Dosing Weight 88.693, kg, Start date: 06/25/17 13:00:00 CDT, Duration: 30 day, Stop date: 07/24/17 13:00: 00 CDT Notes: (Same as: Lovenox) Start Date: 06/25/17 Stop Date: 06/27/17 Status: Discontinued Evista 60 mg, 1 tab, Route: PO, Drug form: TAB, Daily, Dosing Weight 87.273, kg, Start date: 06/25/17 9:00:00 CDT, Duration: 30 day, Stop date: 07/24/17 9:00:00 CDT Notes: (Same as:Evista) "Do Not Crush" Start Date: 06/25/17 Stop Date: 06/27/17 Status: Discontinued gabapentin 300 mg oral capsule 300 mg=1 cap, PO, Daily, # 30 cap, 3 Refill(s), Pharmacy: [id number] Start Date: 06/27/17 Status: Ordered gabapentin 300 mg oral capsule 300 mg, 1 cap, Route: PO, Drug form: CAP, Daily, Dosing Weight 87.273, kg, (CrCl < 15 ml/min), Start date: 06/25/17 9:00:00 CDT, Duration: 30 day, Stop date: 07/24/17 9:00:00 CDT Notes: (Same as: Neurontin) Start Date: 06/25/17 Stop Date: 06/27/17 Status: Discontinued metFORMIN 500 mg oral tablet, extended release 500 mg, 1 tab, Route: PO, Drug form: ERTAB, TID, Dosing Weight 87.273, kg, Start date: 06/25/17 9:00:00 CDT, Duration: 30 day, Stop date: 07/24/17 17:00:00 CDT Notes: (Same as: Glucophage XR)"Do Not Crush" Start Date: 06/25/17 Stop Date: 06/27/17 Status: Discontinued nitroglycerin SL Tab 0.4 mg, 1 tab, Route: SL, Drug form: TAB, Q5Min, Dosing Weight 87.273, kg, PRN C hest Pain, Start date: 06/24/17 14:13:00 CDT, Duration: 3 doses or times, Stop d ate: Limited # of times Notes: (Same as:Nitroquick, Nitrostat)"Do Not Crush" Sublingual tablet Start Date: 06/24/17 Stop Date: 06/27/17 Status: Discontinued omeprazole 40 mg, Route: PO, Drug form: DRC, Daily, Dosing Weight 87.273, kg, Start date: 0 06/25/17 9:00:00 CDT, Duration: 30 day, Stop date: 07/24/17 9:00:00 CDT Start Date: 06/25/17 Stop Date: 06/24/17 Status: Deleted potassium chloride 10 mEq oral tablet, extended release 40 mEq, 2 tab, Route: PO, Drug form: ERTAB, ONCE, Dosing Weight 88.693, kg, Prio rity: NOW, Start date: 06/27/17 11:43:00 CDT, Stop date: 06/27/17 11:43:00 CDT Notes: (Same as: K-Dur 20)"Do Not Crush" With food and full glass of water Start Date: 06/27/17 Stop Date: 06/27/17 Status: Completed potassium chloride 20 mEq oral tablet, extended release 40 mEq=2 tab, PO, BID, # 60 tab, 3 Refill(s), Pharmacy: [id number] Start Date: 06/27/17 Status: Ordered predniSONE 40 mg, 2 tab, Route: PO, Drug form: TAB, Daily, Dosing Weight 88.693, kg, Start date: 06/25/17 15:41:00 CDT, Duration: 30 day, Stop date: 07/25/17 9:00:00 CDT Notes: Take with food. Start Date: 06/25/17 Stop Date: 06/27/17 Status: Discontinued predniSONE 10 mg oral tablet 10 mg=1 tab, PO, Daily, X 7 day, # 7 tab, 0 Refill(s), Pharmacy: [facility] [id number] Start Date: 06/27/17 Stop Date: 07/04/17 Status: Ordered predniSONE 20 mg oral tablet 20 mg=1 tab, PO, Daily, X 7 day, # 7 tab, 0 Refill(s), Pharmacy: [facility] [id number] Start Date: 06/27/17 Stop Date: 07/04/17 Status: Ordered predniSONE 20 mg oral tablet 40 mg=2 tab, PO, Daily, 0 Refill(s) Start Date: 06/27/17 Stop Date: 06/27/17 Status: Discontinued Protonix 40 mg, 1 tab, Route: PO, Drug form: ECTAB, Before Breakfast, Start date: 7 7:30:00 CDT, Duration: 30 day, Stop date: 07/24/17 7:30:00 CDT Notes: Tablet should not be chewed or crushed.(Same as: Protonix) Start Date: 06/25/17 Stop Date: 06/27/17 Status: Discontinued Proventil HFA 90 mcg/inh inhalation aerosol with adapter 2 puff, Route: INHALATION, Drug Form: AERO/A, Dosing Weight 87.273, kg, RQID, St art date: 06/24/17 22:19:00 CDT, Duration: 30 day, Stop date: 07/24/17 19:00:00 CDT Notes: Same as: Ventolin HFAWASTE: Aerosol - Return to Pharmacy Start Date: 06/24/17 Stop Date: 06/25/17 Status: Discontinued Saline Flush 0.9% 10 ml, Route: IVP, Drug Form: INJ, Dosing Weight 87.273, kg, PRN, PRN Line Flush , Start date: 06/24/17 14:13:00 CDT, Duration: 30 day, Stop date: 07/24/17 14:12 :00 CDT Notes: (Same as: BD Posiflush) Start Date: 06/24/17 Stop Date: 06/27/17 Status: Discontinued Saline Flush 0.9% 10 ml, Route: IVP, Drug Form: INJ, Dosing Weight 87.273, kg, Q12H, Start date: 0 06/24/17 21:00:00 CDT, Duration: 30 day, Stop date: 07/24/17 9:00:00 CDT Notes: (Same as: BD Posiflush) Start Date: 06/24/17 Stop Date: 06/27/17 Status: Discontinued Results ELECTROLYTES 1 2 3 Most recent to oldest [Reference Range]: 141 mEq/L (06/27/17 5:13 AM) 139 mEq/L (06/26/17 7:21 AM) 143 mEq/L (06/25/17 4:44 AM) Sodium Lvl [135-145 mEq/L] 3.3 mEq/L *LOW* (06/27/17 5:13 AM) 3.9 mEq/L (06/26/17 7:21 AM) 4.1 mEq/L (06/25/17 4:44 AM) Potassium Lvl [3.5-5.1 mEq/L] 100 mEq/L (06/27/17 5:13 AM) 99 mEq/L (06/26/17 7:21 AM) 102 mEq/L (06/25/17 4:44 AM) Chloride Lvl [95-109 mEq/L] 33 mEq/L *HI* (06/27/17 5:13 AM) 33 mEq/L *HI* (06/26/17 7:21 AM) 30 mEq/L (06/25/17 4:44 AM) CO2 [24-32 mEq/L] 11.3 mEq/L (06/27/17 5:13 AM) 10.9 mEq/L (06/26/17 7:21 AM) 15.1 mEq/L (06/25/17 4:44 AM) AGAP [10.0-20.0 mEq/L] CHEM PANEL 1 2 3 Most recent to oldest [Reference Range]: 1.60 mg/dL *HI* (06/27/17:13 AM) 1.70 mg/dL *HI* (06/26/17 7:21 AM) 1.40 mg/dL (06/25/17 4:44 AM) Creatinine Lvl [0.50-1.40 mg/dL] 30 mL/min/1.73m2 1 *NA* (06/27/17:13 AM) 28 mL/min/1.73m2 2 *NA* (06/26/17 7:21 AM) 36 mL/min/1.73m2 3 *NA* (06/25/17 4:44 AM) eGFR 37 mg/dL *HI* (06/27/17 5:13 AM) 34 mg/dL *HI* (06/26/17 7:21 AM) 27 mg/dL *HI* (06/25/17 4:44 AM) BUN [7-22 mg/dL] 130 mg/dL *HI* (06/27/17 5:13 AM) 175 mg/dL *HI* (06/26/17 7:21 AM) 102 mg/dL *HI* (06/25/17 4:44 AM) Glucose Lvl [70-99 mg/dL] 9.2 mg/dL (06/27/17 5:13 AM) 9.1 mg/dL (06/26/17 7:21 AM) 9.0 mg/dL (06/25/17 4:44 AM) Calcium Lvl [8.5-10.5 mg/dL] 1.9 mg/dL (06/24/17 9:00 PM) Magnesium Lvl [1.8-2.4 mg/dL] 1Result Comment: The eGFR is calculated [...] 3 Most recent to oldest [Reference Range]: 64 unit/L (06/24/17 9:00 PM) Total CK [12-191 unit/L] <0.02 ng/mL (06/24/17 9:00 PM) Troponin-I [0.00-0.40 ng/mL] 21 pg/mL (06/24/17 9:00 PM) BNP [<=100 pg/mL] LIPIDS 1 2 3 Most recent to oldest [Reference Range]: 1.93 *LOW* (06/25/17 4:44 AM) CHD Risk [3.90-5.80] 139 mg/dL (06/25/17 4:44 AM) Chol [<=199 mg/dL] 86 mg/dL (06/25/17 4:44 AM) Trig [<=149 mg/dL] 72 mg/dL (06/25/17 4:44 AM) HDL [>=61 mg/dL] 50 mg/dL (06/25/17 4:44 AM) LDL (Calculated) [<=99 mg/dL] 17 *NA* (06/25/17 4:44 AM) VLDL HEMATOLOGY 1 2 3 Most recent to oldest [Reference Range]: 10.7 K/CMM *HI* (06/27/17 5:13 AM) 7.0 K/CMM (06/26/17 7:21 AM) 8.5 K/CMM (06/25/17 4:44 AM) WBC [3.7-10.4 K/CMM] 3.30 M/CMM *LOW* (06/27/17 5:13 AM) 3.29 M/CMM *LOW* (06/26/17 7:21 AM) 3.36 M/CMM *LOW* (06/25/17 4:44 AM) RBC [4.20-5.40 M/CMM] 9.0 g/dL *LOW* (06/27/17 5:13 AM) 9.1 g/dL *LOW* (06/26/17 7:21 AM) 9.2 g/dL *LOW* (06/25/17 4:44 AM) Hgb [12.0-16.0 g/dL] 28.2 % *LOW* (06/27/17 5:13 AM) 28.2 % *LOW* (06/26/17 7:21 AM) 29.0 % *LOW* (06/25/17 4:44 AM) Hct [36.0-48.0 %] 85.4 fL (06/27/17 5:13 AM) 85.7 fL (06/26/17 7:21 AM) 86.5 fL (06/25/17 4:44 AM) MCV [80.0-98.0 fL] 27.3 pg (06/27/17 5:13 AM) 27.7 pg (06/26/17 7:21 AM) 27.5 pg (06/25/17 4:44 AM) MCH [27.0-31.0 pg] 32.0 g/dL (06/27/17 5:13 AM) 32.3 g/dL (06/26/17 7:21 AM) 31.8 g/dL *LOW* (06/25/17 4:44 AM) MCHC [32.0-36.0 g/dL] 18.0 % *HI* (06/27/17 5:13 AM) 17.5 % *HI* (06/26/17 7:21 AM) 17.5 % *HI* (06/25/17 4:44 AM) RDW [11.5-14.5 %] 279 K/CMM (06/27/17 5:13 AM) 285 K/CMM (06/26/17 7:21 AM) 290 K/CMM (06/25/17 4:44 AM) Platelet [133-450 K/CMM] 8.7 fL (06/27/17 5:13 AM) 8.9 fL (06/26/17 7:21 AM) 8.7 fL (06/25/17 4:44 AM) MPV [7.4-10.4 fL] 70.2 % (06/27/17 5:13 AM) 83.5 % *HI* (06/26/17 7:21 AM) 49.4 % (06/25/17 4:44 AM) Segs [45.0-75.0 %] 19.9 % *LOW* (06/27/17 5:13 AM) 12.3 % *LOW* (06/26/17 7:21 AM) 35.2 % (06/25/17 4:44 AM) Lymphocytes [20.0-40.0 %] 9.4 % (06/27/17 5:13 AM) 4.0 % (06/26/17 7:21 AM) 12.0 % (06/25/17 4:44 AM) Monocytes [2.0-12.0 %] 0.3 % (06/27/17 5:13 AM) 2.9 % (06/25/17 4:44 AM) 1.9 % (06/24/17 9:00 PM) Eosinophils [0.0-4.0 %] 0.2 % (06/27/17 5:13 AM) 0.2 % (06/26/17 7:21 AM) 0.5 % (06/25/17 4:44 AM) Basophils [0.0-1.0 %] 7.5 K/CMM (06/27/17 5:13 AM) 5.8 K/CMM (06/26/17 7:21 AM) 4.2 K/CMM (06/25/17 4:44 AM) Segs-Bands # [1.5-8.1 K/CMM] 2.1 K/CMM (06/27/17 5:13 AM) 0.9 K/CMM *LOW* (06/26/17 7:21 AM) 3.0 K/CMM (06/25/17 4:44 AM) Lymphocytes # [1.0-5.5 K/CMM] 1.0 K/CMM *HI* (06/27/17 5:13 AM) 0.3 K/CMM (06/26/17 7:21 AM) 1.0 K/CMM *HI* (06/25/17 4:44 AM) Monocytes # [0.0-0.8 K/CMM] 0.2 K/CMM (06/25/17 4:44 AM) 0.2 K/CMM (06/24/17 9:00 PM) Eosinophils # [0.0-0.5 K/CMM] 0.1 K/CMM (06/24/17 9:00 PM) Basophils # [0.0-0.2 K/CMM] Normal (06/26/17 7:21 AM) RBC Morph Normal (06/26/17 7:21 AM) Plt Morph Immunizations No data available for this section Procedures Procedure Date Related Diagnosis Body Site Appendectomy Cholecystectomy Social History Social History Type Response Substance Abuse Use: None. Alcohol Never Smoking Status Former smoker; Type: Cigarettes; Exposure to Tobacco Smoke None; Cigarette Smoking Last 365 Days No; Reg Smoking Cessation Counseling No Assessment and Plan Extracted from: Title: Clinical Document Author: Reid Clark MD Date: 06/27/17 Pulmonary/Critical Care Medicine progess note Reid Clark MD SUBJECTIVE: Seen and examined. Patient is feeling better. Shortness of breath is less. Cough and congestion less. Leg edema less OBJECTIVE: VitalsTmp(F)Tmp(C)[id number] 06/27 12:[id number]/73---[id number]------ 06/27 08:05 2496 3.0L/m--- 06/27 07:3597.436.38prra145/63---[id number]------ 06/27 04:0697.736.42uasq375/63---77--97------ 06/27 00:2297.736.80iqeg653/67---[id number]------ 24 Hr Tmax: 98.4F (36.89c) at 06/26 12:21Vital Signs are the last 5 in the past 48 hours. 24 Hr Tmin: 97.4F (36.33c) at 06/27 07:35Weights are the last 5 in 60 days, plus initial. DateWt(kg)Wt(lb)Ht(cm)Ht(in)MethodBMIBSA 06/27 89.20 196.25Measured 06/25 89.63 197.19Measured 06/24 (initial) 88.69 195.12Measured 29.72.06 72.72 68.00Stated (no point of care glucose results charted in last 24 hours) Most Recent Scores: 06/27/17[place] Fall Score8 06/27/17Pain Intensity NRS (0-10)0 06/27/17Glasgow Coma Score15 06/27/17Braden Score21 (all previously charted lines have been discontinued) (no surgical procedures documented) Labs (Last four charted values) WBC H 10.7(SEP 15)7.0(SEP 14)8.5(SEP 13)8.3(JUN 12) Hgb L 9.0(JUN 15)L 9.1(SEP 14)L 9.2(SEP 13)L 9.6(SEP 12) Hct L 28.2(JUN 15)L 28.2(SEP 14)L 29.0(JUN 13)L 29.8(JUN 12) Plt 279(SEP 15)285(SEP 14)290(SEP 13)308(JUN 12) Na 141(SEP 15)139(SEP 14)143(SEP 13)138(JUN 12) K L 3.3(JUN 15)3.9(JUN 14)4.1(JUN 13)3.5(JUN 12) CO2 H 33(JUN 15)H 33(JUN 14)30(JUN 13)H 34(JUN 12) Cl 100(JUN 15)99(JUN 14)102(JUN 13)98(JUN 12) Cr H 1.60(JUN 15)H 1.70(JUN 14)1.40(JUN 13)H 1.60(JUN 12) BUN H 37(JUN 15)H 34(JUN 14)H 27(JUN 13)H 29(JUN 12) Glucose Random H 130(JUN 15)H 175(JUN 14)H 102(JUN 13)H 282(JUN 12) Mg 1.9(JUN 12) Ca 9.2(JUN 15)9.1(JUN 14)9.0(JUN 13)8.9(JUN 12) Troponin <0.02(JUN 12) Total CK 64(JUN 12) RADIOLOGY: ASSESSMENT & EXAM: HEENT:normocephalic,atraumatic Skin:no rash Chest: symmetrical expansion, no wheezing, basilar rales, no crackles Heart: Regular rhythm, no murmurs Abdomen: Soft, nontender, bowel sounds present Ext: no edema UTILITY LOCATOR: alert and oriented, no focal neurological defecits DIAGNOSES & PROBLEMS: Asthma DHF exacerbation Post nasal drip Trigeminal Neuralgia HTN DM Osteoporosis CKD ? 2 PLAN & TREATMENT: From pulmonary standpoint patient doing better. We will switch her to p.o. prednisone. Volume status also appears better. Discussed with Dr. Neal. She can be discharged home. She will follow-up with me as outpatient as scheduled. Scheduled Meds (14): 06/25/17 albuterol-ipratropium (DuoNeb inhalation solution) 3 mL NEB RQ4H 06/24/17 aspirin (aspirin 81 mg tablet, enteric coated) 81 mg PO Daily 06/24/17 atorvastatin 40 mg PO Bedtime 06/25/17 budesonide-formoterol (budesonide-formoterol 160 mcg-4.5 mcg/inh inhalation aerosol with adapter) 2 inhalation INHALATION RBID 06/26/17 bumetanide (Bumex) 1 mg PO BID 06/24/17 diltiazem 360 mg PO Bedtime 06/25/17 enoxaparin 40 mg SUB-Q [id number] 06/25/17 gabapentin (gabapentin 300 mg oral capsule) 300 mg PO Daily 06/25/17 irbesartan (Avapro) 150 mg PO Daily 06/25/17 metFORMIN (metFORMIN 500 mg oral tablet, extended release) 500 mg PO TID 06/25/17 pantoprazole (Protonix) 40 mg PO Before Breakfast 06/25/17 predniSONE 40 mg PO Daily 06/25/17 raloxifene (Evista) 60 mg PO Daily 06/24/17 sodium chloride (Saline Flush 0.9%) 10 ml IVP Q12H Unscheduled Meds: None Extracted from: Title: Clinical Document Author: Jennifer Neal Date: 06/27/17 MD Admitting diagnosis: Acute on chronic diastolic CHF Shortness of breath Chronic grade 1 diastolic heart failure Normal MPI in 2016 COPD exacerbation Trigeminal neuralgia htn dm hld Discharge diagnosis: Acute on chronic diastolic CHF COPD exacerbation Chronic grade 1 diastolic heart failure Normal MPI in 2016 Trigeminal neuralgia htn dm hld Diet: AHA Medication list: Please review med recs Physical activity: Avoid strenuous physical efforts until follow-up Follow up: In 2-3 in our office Procedures performed: none Hospitalization course: Patient presented to the office with worsening of shortness of breath and signs of volume overload.She was admitted directly to the hospital and was changed on her diuretic regimen from Lasix to Bumex IV with significant symptomatic improvement. Pulmonary and critical care was consulted and started her oral steroids since she was wheezing and was deemed to have a asthma exacerbation. She got significant respiratory improvement. She should follow-up with me in 2-3 weeks in follow-up with pulmonary and critical care at the same time. Diet is low carbohydrates and low-sodium diet. Full list of medications. Review reconciliation Extracted from: Title: Clinical Document Author: Jennifer Neal Date: 06/24/17 Reason for Appointment 1. 3 month follow up History of Present Illness CV Risk Assessment: She was seen last time in the office on March this year and was complaining of some ankle edema and weight gain. In spite of that her BNP was within normal range and therefore ankle edema was deemed to be related to venous insufficiency plus use of calcium channel renata. We kept the same dose of Lasix and oriented her to start using compressive stockings. Review of laboratory data showed creatinine of 1.5 and BNP of 35. Her EKG today shows normal sinus rhythm without ST or T-wave abnormalities. Patient complaining of dyspnea while at rest. Her ankle edema is at least 2+ despite the use of compressive stockings. She has signs of volume overload on physical examination and she cannot lie flat without significant shortness of breath. There is JVD on physical examination as well. She is distressed since her daughter is leaving with her since she lost her house during hurricane [place]. Echocardiogram: Ejection Fraction Date: 09/30/2016, results(%) 60, Type of procedure: Left ventricular Ejection fraction by 2D echo. Current Medications Taking Potassium Chloride Yaritza ER 20MEQ Tablet Extended Release TAKE ONE TABLET BY MOUTH TWICE DAILY WITH FOOD Furosemide 40 MG Tablet 1 tablet Orally three times a day (tid) Atorvastatin Calcium 20 MG Tablet 1 tablet Orally Once a day Diltiazem HCl CD 360 MG Capsule Extended Release 24 Hour 1 capsule Orally Once a day Gabapentin 300 MG Capsule 1 capsule Orally four times a day Aspirin 81 MG Tablet Chewable 1 tablet Orally Once a day Proventil HFA 108 (90 Base) MCG/ACT Aerosol Solution 2 puffs as needed Inhalation Advair Diskus 250-50 MCG/DOSE Miscellaneous 1 puff Inhalation Twice a day Avapro 150 MG Tablet 1 tablet Orally Once a day Evista 60 MG Tablet 1 tablet Orally Once a day Metformin HCl 500 MG Tablet 1 tablet with meals Orally Three times a day Omeprazole 40 MG Capsule Delayed Release 1 capsule Orally Twice a day ZyrTEC 10 MG Tablet 1 tablet Orally Once a day Multivitamin Tablet Chewable Orally Vitamin C 500 MG Tablet Chewable 1 tablet Orally Once a day Co Q 10 200 MG Capsule 1 capsule with a meal Orally Once a day Vitamin D3 5000 UNIT Tablet 1 tablet Orally Once a day Medication List reviewed and reconciled with the patient Past Medical History Hyperlipidemia Hypertension Diabetes, type II Trigeminal neuralgia s/p surgery COPD Normal dobutamine MPI in Sep 2016 Normal EF with impaired relaxation in Sep 2016 HFpEF 10/02/2016 NST 02/25/2017 EKG Surgical History Appendectomy breast lump Gallbladder Family History Mother: , diagnosed with Unspecified essential hypertension Father: , diagnosed with Diabetes mellitus without mention of complication, type II or unspecified type, not stated as uncontrolled, Unspecified essential hypertension, Unspecified heart disease Social History Smoking. Are you a: former smoker Quit 30 years ago. no Alcohol. Allergies Atorvastatin Calcium: diarrhea Hospitalization/Major Diagnostic Procedure surgery Review of Systems General/Constitutional: Fatigue no. Weakness no. Weight gain no. Headaches no. Allergy/Immunology: Colds no. Cough no. HEENT/Neck: Dizziness no. Change in vision no. Respiratory: Chest congestion no. Cough no. Pain with breathing no. Shortness of breath yes. Swelling of the legs yes. Wheezing no. Cardiovascular: Chest pain no. Claudication no. Dyspnea on exertion with minimal activity. Palpitations no. Gastrointestinal: Abdominal pain no. Change in bowel habits no. Constipation no. Diarrhea no. Nausea no. Hematology: Easy bleeding no. Easy bruising no. Musculoskeletal: Back pain no. Myalgias no. Vital Signs Ht 68, Wt 200, BMI 30.41, BP 132/62, HR 84. Physical Examination GENERAL: General Appearance: alert and oriented, appears stated age. Speech: fluent. HEENT: EOM: intact. Head: normocephalic, atraumatic, + JVD. NECK: Carotid bruit: none. Jugular venous distension: none. HEART: Rate: regular. Rhythm: regular. Murmurs: none. Gallop: no . Heart sounds: normal S1S2. CHEST: Breath sounds: Bibasilar rales. Expansion: normal . Rales: none. Wheezes: none. ABDOMEN: Bowel sounds: normal. General: normal. Tenderness: absent . EXTREMITIES: Edema: 2+ despite compressive stockings. MENTAL STATUS EXAM: Alert and Oriented: To person, place and time. BACK: General: non-tender. Assessments 1. Chronic diastolic (congestive) heart failure - I50.32 (Primary) 2. Mixed hyperlipidemia - E78.2 3. Essential (primary) hypertension - I10 4. Chronic kidney disease, stage 3 (moderate) - N18.3 Treatment 1. Chronic diastolic (congestive) heart failure Continue Potassium Chloride Yaritza ER Tablet Extended Release, 20MEQ, TAKE ONE TABLET BY MOUTH TWICE DAILY WITH FOOD Continue Diltiazem HCl CD Capsule Extended Release 24 Hour, 360 MG, 1 capsule, Orally, Once a day 2. Mixed hyperlipidemia Continue Atorvastatin Calcium Tablet, 20 MG, 1 tablet, Orally, Once a day 3. Others Notes: HFrEF NYHA IV ??? normal BNP Stable CKD Volume overloaded on exam Will admit for IV diuretics and intensive treatment Consult her electrical experimental mechanic Dr. Clark.
--- OUTSIDE RECORDS SUMMARY | 2018-07-28 12:14 | XMS REPORT | Summary of Care ---
Author Author KEISHA Neurosurgery [facility] Organization [facility] Neurosurgery [facility] Address Unknown Phone Unavailable Encounter HQ Emanintr_ness(FIN) [id number] Date(s): 10/07/17 - 10/08/17 [facility] Neurosurgery [facility] [address], [address] [place] [phone] Vital Signs No [...]
--- OUTSIDE RECORDS SUMMARY | 2018-07-28 12:14 | XMS REPORT | Summary of Care ---
Author Author [facility] Organization [facility] Neurosurgery [facility] Address Unknown Phone Unavailable Encounter HQ Emanintr_ness(FIN) [id number] Date(s): 01/28/18 - 01/29/18 [facility] Neurosurgery [facility] [address], [address] [place], [place] [address] [phone] Vital Signs No [...]
--- OUTSIDE RECORDS SUMMARY | 2018-07-28 12:14 | XMS REPORT | Summary of Care ---
Author Author KEISHA [facility] Organization [facility] Neurosurgery [facility] Address Unknown Phone Unavailable Encounter HQ Stanr_ness(FIN) [id number] Date(s): 01/28/18 - 01/29/18 [facility] Neurosurgery [facility] [address], [address] [place], [place] [address] [email or web address]] [phone] Vital Signs No [...]
--- OUTSIDE RECORDS SUMMARY | 2018-07-28 12:14 | XMS REPORT | Summary of Care ---
Author Author [facility] Organization [facility] Neurosurgery [facility] Address Unknown Phone Unavailable Encounter HQ Yann(FIN) [id number] Date(s): 10/14/17 - 10/14/17 [facility] Neurosurgery [facility] [address], [address] [place], [place] [address] [phone] Discharge Disposition: Home or Self Care Attending Physician: Maximino Malhotra MD Referring Physician: Kevyn Clark MD Vital Signs Most recent to 1 oldest [Reference Range]: Height 160.02 cm (10/14/17 5:28 PM) Temperature Oral 97 DegF [96.4-99.1 DegF] (10/14/17 5:28 PM) Blood Pressure 140/61 mmHg [90-140/60-90 mmHg] (10/14/17 5:28 PM) Peripheral Pulse 70 bpm Rate [60-100 bpm] (10/14/17 5:28 PM) Weight 89.545 kg (10/14/17 5:28 PM) Body Mass Index 34.97 m2 (10/14/17 5:28 PM) Problem List Condition Effective Dates Status Health [...]
--- OUTSIDE RECORDS SUMMARY | 2018-07-28 12:14 | XMS REPORT | Summary of Care ---
Author Author [facility] Organization [facility] Address Unknown Phone Unavailable Encounter ADRIAN Lerner(LINDSAY) [id number] Date(s): 10/22/17 - 10/22/17 [facility] [address] [place] [address] [phone] Encounter Diagnosis Trigeminal neuralgia (Final) - Discharge Disposition: Home or Self Care Attending Physician: Maximino Malhotra MD Admitting Physician: Maximino Malhotra MD Referring Physician: Maximino Malhotra MD Vital Signs 1 2 3 Most recent to oldest [Reference Range]: 172.72 cm (10/22/17 5:44 AM) 160.02 cm (10/16/17 3:06 PM) Height 137/63 mmHg (10/22/17 12:15 PM) 134/58 mmHg (10/22/17 12:00 PM) 125/58 mmHg (10/22/17 11:45 AM) Blood Pressure [90-140/60-90 mmHg] 20 BRMIN (10/22/17 12:15 PM) 19 BRMIN (10/22/17 12:00 PM) 18 BRMIN (10/22/17 11:45 AM) Respiratory Rate [14-20 BRMIN] 89.545 kg (10/22/17 5:44 AM) 89.545 kg (10/16/17 3:06 PM) Weight 30.02 m2 (10/22/17 5:44 AM) 34.97 m2 (10/16/17 3:06 PM) Body Mass Index Problem List Condition [...] Pain Score 1-3, Start date: 10/22/17 11:46:00 SENIOR EDUCATION SPECIALIST, Duration: 30 day, Stop date: 11/21/17 1 1:45:00 SENIOR EDUCATION SPECIALIST Start Date: 10/22/17 Stop Date: 10/22/17 Status: Discontinued acetaminophen-hydrocodone 325 mg-5 mg oral tablet 1 tab, Route: PO, Drug Form: TAB, Dosing Weight 89.545, kg, Q4H, PRN Pain Score 4-6, Start date: 10/22/17 11:46:00 SENIOR EDUCATION SPECIALIST, Duration: 30 day, Stop date: 11/21/17 11 :45:00 SENIOR EDUCATION SPECIALIST Start Date: 10/22/17 Stop Date: 10/22/17 Status: Discontinued acetaminophen-hydrocodone 325 mg-5 mg oral tablet 2 tab, Route: PO, Drug Form: TAB, Dosing Weight 89.545, kg, Q4H, PRN Pain Score 7-10, Start date: 10/22/17 11:46:00 SENIOR EDUCATION SPECIALIST, Duration: 30 day, Stop date: 11/21/17 1 1:45:00 SENIOR EDUCATION SPECIALIST Start Date: 10/22/17 Stop Date: 10/22/17 Status: Discontinued bupivacaine 0.25%-epinephrine 1:200,000 injectable solution 30 mL, Route: MISC, Dosing Weight 89.545, kg, ONCALL, Start date: 10/22/17 6:00: 00 SENIOR EDUCATION SPECIALIST, Duration: 30 day, Stop date: 11/21/17 5:59:00 SENIOR EDUCATION SPECIALIST Start Date: 10/22/17 Stop Date: 10/22/17 Status: Completed dexamethasone 6 mg, Route: IVP, Drug form: INJ, ONCE, Dosing Weight 89.545, kg, Start date: 5:55:00 SENIOR EDUCATION SPECIALIST, Stop date: 10/22/17 5:55:00 SENIOR EDUCATION SPECIALIST Start Date: 10/22/17 Stop Date: 10/22/17 Status: Completed famotidine 20 mg, Route: IVP, Drug form: INJ, ONCE, Dosing Weight 89.545, kg, Start date: 0 10/22/17 5:55:00 SENIOR EDUCATION SPECIALIST, Stop date: 10/22/17 5:55:00 SENIOR EDUCATION SPECIALIST Start Date: 10/22/17 Stop Date: 10/22/17 Status: Completed fentaNYL 25 microgram, Route: IVP, Q1H, Dosing Weight 89.545, kg, PRN Pain Score 6-10, Pr iority: Routine, Start date: 10/22/17 5:55:00 SENIOR EDUCATION SPECIALIST, Duration: 1 doses or times, S top date: Limited # of times Start Date: 10/22/17 Stop Date: 10/22/17 Status: Discontinued fentaNYL 50 microgram, Route: IVP, ONCALL, Dosing Weight 89.545, kg, Priority: Routine, S tart date: 10/22/17 6:00:00 SENIOR EDUCATION SPECIALIST, Duration: 1 doses or times Start Date: 10/22/17 Stop Date: 10/22/17 Status: Completed ondansetron 4 mg, Route: IVP, Drug form: INJ, Q6H, Dosing Weight 89.545, kg, PRN Nausea & Vomiting, Start date: 10/22/17 5:55:00 SENIOR EDUCATION SPECIALIST, Duration: 30 day, Stop date: 5:54:00 SENIOR EDUCATION SPECIALIST Start Date: 10/22/17 Stop Date: 10/22/17 Status: Discontinued Polysporin topical ointment 1 appl, Route: TOP, ONCALL, Drug form: OINT, Priority: Routine, Start date: 10/13 6:00:00 SENIOR EDUCATION SPECIALIST, Duration: 1 doses or times Start Date: 10/22/17 Stop Date: 10/22/17 Status: Completed promethazine 25 mg, Route: IVPB, Q6H, Dosing Weight 89.545, kg, PRN Nausea & Vomiting, Start date: 10/22/17 5:55:00 SENIOR EDUCATION SPECIALIST, Duration: 30 day, Stop date: 11/21/17 5:54:00 SENIOR EDUCATION SPECIALIST Start Date: 10/22/17 Stop Date: 10/22/17 Status: Discontinued Sodium Chloride 0.9% IV 1000 mL 1,000 mL, Rate: 50 ml/hr, Infuse over: 20 hr, Route: IV, Dosing Weight 89.545 kg , Total Volume: 1,000, Priority: Routine, Start date: 10/22/17 11:46:00 SENIOR EDUCATION SPECIALIST, Dur ation: 30 day, Stop date: 11/21/17 11:45:00 SENIOR EDUCATION SPECIALIST, 2.09, m2 Start Date: 10/22/17 Stop Date: 10/22/17 Status: Discontinued Sodium Chloride 0.9% IV 1000 mL 1,000 mL, Rate: 50 ml/hr, Infuse over: 20 hr, Route: IV, Dosing Weight 89.545 kg , Total Volume: 1,000, Priority: Routine, Start date: 10/22/17 5:55:00 SENIOR EDUCATION SPECIALIST, Dura tion: 30 day, Stop date: 11/21/17 5:54:00 SENIOR EDUCATION SPECIALIST, 2.09, m2 Start Date: 10/22/17 Stop Date: 10/22/17 Status: Discontinued Results CHEM PANEL Most recent to 1 oldest [Reference Range]: eGFR 17 mL/min/1.73m2 1 *NA* (10/22/17 5:58 AM) POC Creatinine 2.6 mg/dL [0.5-1.4 mg/dL] *HI* (10/22/17 5:58 AM) 1Result Comment: The eGFR is calculated [...] Reg Smoking Cessation Counseling No entered on: 10/23/17 Assessment and Plan No data available for this section
--- OUTSIDE RECORDS SUMMARY | 2018-07-28 12:14 | XMS REPORT | Summary of Care ---
Author Author [facility] Organization [facility] Address Unknown Phone Unavailable Encounter ADRIAN Lerner(LINDSAY) [id number] Date(s): 10/22/17 - 10/22/17 [facility] [address] [place] [address] Encounter Diagnosis Trigeminal neuralgia (Final) - 10/31/17 Discharge Disposition: Home or Self Care Attending [...] codeine Active Levaquin Levaquin Active Medications acetaminophen 325 mg, Route: PO, Drug form: TAB, Q4H, Dosing Weight 89.545, kg, PRN Pain Score 1-3, Start date: 10/22/17 11:46:00 CRACKING AND [employer]ANNING MACHINE OPERATOR, Duration: 30 day, Stop date: 11/21/17 1 1:45:00 CRACKING AND FANNING MACHINE OPERATOR Start Date: 10/22/17 Stop Date: 10/22/17 Status: Discontinued acetaminophen-hydrocodone 325 mg-5 mg oral tablet 1 tab, Route: PO, Drug Form: TAB, Dosing Weight 89.545, kg, Q4H, PRN Pain Score 4-6, Start date: 10/22/17 11:46:00 CRACKING AND FANNING MACHINE OPERATOR, Duration: 30 day, Stop date: 11/21/17 11 :45:00 CRACKING AND FANNING MACHINE OPERATOR Start Date: 10/22/17 Stop Date: 10/22/17 Status: Discontinued acetaminophen-hydrocodone 325 mg-5 mg oral tablet 2 tab, Route: PO, Drug Form: TAB, Dosing Weight 89.545, kg, Q4H, PRN Pain Score 7-10, Start date: 10/22/17 11:46:00 CRACKING AND FANNING MACHINE OPERATOR, Duration: 30 day, Stop date: 11/21/17 1 1:45:00 CRACKING AND FANNING MACHINE OPERATOR Start Date: 10/22/17 Stop Date: 10/22/17 Status: Discontinued bupivacaine 0.25%-epinephrine 1:200,000 injectable solution 30 mL, Route: MISC, Dosing Weight 89.545, kg, ONCALL, Start date: 10/22/17 6:00: 00 CRACKING AND FANNING MACHINE OPERATOR, Duration: 30 day, Stop date: 11/21/17 5:59:00 CRACKING AND FANNING MACHINE OPERATOR Start Date: 10/22/17 Stop Date: 10/22/17 Status: Completed dexamethasone 6 mg, Route: IVP, Drug form: INJ, ONCE, Dosing Weight 89.545, kg, Start date: 5:55:00 CRACKING AND FANNING MACHINE OPERATOR, Stop date: 10/22/17 5:55:00 CRACKING AND FANNING MACHINE OPERATOR Start Date: 10/22/17 Stop Date: 10/22/17 Status: Completed famotidine 20 mg, Route: IVP, Drug form: INJ, ONCE, Dosing Weight 89.545, kg, Start date: 0 10/22/17 5:55:00 CRACKING AND FANNING MACHINE OPERATOR, Stop date: 10/22/17 5:55:00 CRACKING AND FANNING MACHINE OPERATOR Start Date: 10/22/17 Stop Date: 10/22/17 Status: Completed fentaNYL 25 microgram, Route: IVP, Q1H, Dosing Weight 89.545, kg, PRN Pain Score 6-10, Pr iority: Routine, Start date: 10/22/17 5:55:00 CRACKING AND FANNING MACHINE OPERATOR, Duration: 1 doses or times, S top date: Limited # of times Start Date: 10/22/17 Stop Date: 10/22/17 Status: Discontinued fentaNYL 50 microgram, Route: IVP, ONCALL, Dosing Weight 89.545, kg, Priority: Routine, S tart date: 10/22/17 6:00:00 CRACKING AND FANNING MACHINE OPERATOR, Duration: 1 doses or times Start Date: 10/22/17 Stop Date: 10/22/17 Status: Completed ondansetron 4 mg, Route: IVP, Drug form: INJ, Q6H, Dosing Weight 89.545, kg, PRN Nausea & Vomiting, Start date: 10/22/17 5:55:00 CRACKING AND FANNING MACHINE OPERATOR, Duration: 30 day, Stop date: 5:54:00 CRACKING AND FANNING MACHINE OPERATOR Start Date: 10/22/17 Stop Date: 10/22/17 Status: Discontinued Polysporin topical ointment 1 appl, Route: TOP, ONCALL, Drug form: OINT, Priority: Routine, Start date: 10/13 6:00:00 CRACKING AND FANNING MACHINE OPERATOR, Duration: 1 doses or times Start Date: 10/22/17 Stop Date: 10/22/17 Status: Completed promethazine 25 mg, Route: IVPB, Q6H, Dosing Weight 89.545, kg, PRN Nausea & Vomiting, Start date: 10/22/17 5:55:00 CRACKING AND FANNING MACHINE OPERATOR, Duration: 30 day, Stop date: 11/21/17 5:54:00 CRACKING AND FANNING MACHINE OPERATOR Start Date: 10/22/17 Stop Date: 10/22/17 Status: Discontinued Sodium Chloride 0.9% IV 1000 mL 1,000 mL, Rate: 50 ml/hr, Infuse over: 20 hr, Route: IV, Dosing Weight 89.545 kg , Total Volume: 1,000, Priority: Routine, Start date: 10/22/17 11:46:00 CRACKING AND FANNING MACHINE OPERATOR, Dur ation: 30 day, Stop date: 11/21/17 11:45:00 CRACKING AND FANNING MACHINE OPERATOR, 2.09, m2 Start Date: 10/22/17 Stop Date: 10/22/17 Status: Discontinued Sodium Chloride 0.9% IV 1000 mL 1,000 mL, Rate: 50 ml/hr, Infuse over: 20 hr, Route: IV, Dosing Weight 89.545 kg , Total Volume: 1,000, Priority: Routine, Start date: 10/22/17 5:55:00 CRACKING AND FANNING MACHINE OPERATOR, Dura tion: 30 day, Stop date: 11/21/17 5:54:00 CRACKING AND FANNING MACHINE OPERATOR, 2.09, m2 Start Date: 10/22/17 Stop Date: [...] mul tiplied by the estimated BMI. Immunizations Given and Recorded Vaccine Date Status [...]
--- OUTSIDE RECORDS SUMMARY | 2018-07-28 12:15 | XMS REPORT | Summary of Care ---
Author Author [facility] Neurosurgery [facility] Organization [facility] Neurosurgery [facility] Address Unknown Phone Unavailable Encounter HQ Yann(FIN) [id number] Date(s): 02/11/18 - 02/11/18 [facility] Neurosurgery [facility] [address] [facility], [address] [place], [place] [address] [phone] Attending Physician: Liliana Corley Referring Physician: Kevyn [...]
--- OUTSIDE RECORDS SUMMARY | 2018-07-28 12:15 | XMS REPORT | Summary of Care ---
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) - Type 2 diabetes mellitus with foot ulcer (Final) - Anemia, unspecified (Final) - Contusion of left foot, initial encounter (Final) - Hypo-osmolality and hyponatremia (Final) - Chronic obstructive pulmonary disease with (acute) exacerbation (Final) - Unspecified fall, initial encounter (Final) - Hyperkalemia (Final) - Dehydration (Final) - Age-related osteoporosis without current pathological fracture (Final) - Trigeminal neuralgia (Final) - Heart failure, unspecified (Final) - Chronic kidney disease, stage 3 (moderate) (Final) - Elevated white blood cell count, unspecified (Final) - Non-pressure chronic ulcer of other part of left foot with unspecified severity (Final) - terminal gauger (current) use of oral hypoglycemic drugs (Final) - Personal history of nicotine dependence (Final) - Discharge Disposition: Alf Facility Attending Physician: Jeff Lovelace MD Admitting Physician: Jeff Lovelace MD Vital Signs 1 2 3 Most recent to oldest [Reference Range]: 172.72 cm (11/07/17 2:17 PM) Height 98.6 DegF (11/14/17 3:29 PM) 98.0 DegF (11/14/17 11:09 AM) 99.2 DegF *HI* (11/14/17 7:32 AM) Temperature Oral [96.4-99.1 DegF] 161/72 mmHg *HI* (11/14/17 3:29 PM) 133/70 mmHg (11/14/17 11:09 AM) 148/68 mmHg *HI* (11/14/17 7:32 AM) Blood Pressure [90-140/60-90 mmHg] 18 BRMIN (11/14/17 3:29 PM) 18 BRMIN (11/14/17 11:09 AM) 18 BRMIN (11/14/17 7:32 AM) Respiratory Rate [14-20 BRMIN] 75 bpm (11/14/17 3:29 PM) 67 bpm (11/14/17 11:09 AM) 77 bpm (11/14/17 7:32 AM) Peripheral Pulse Rate [60-100 bpm] 84.545 kg (11/08/17 12:17 AM) 81.818 kg (11/07/17 2:17 PM) Weight 27.43 m2 (11/07/17 2:17 PM) Body Mass Index Problem List Condition [...] Status codeine Active Levaquin Levaquin Active Medications Advair Diskus 250 mcg-50 mcg inhalation powder 1 puff, Route: INHALATION, Drug Form: AERO, Dosing Weight 84.545, kg, BID, Start date: 11/08/17 17:00:00 MULTI LINE CLAIMS ADJUSTER, Duration: 30 day, Stop date: 12/08/17 9:00:00 MULTI LINE CLAIMS ADJUSTER Start Date: 11/08/17 Stop Date: 11/08/17 Status: Deleted albuterol 0.083% inhalation solution NEB, PRN, PRN Respiratory Protocol, 0 Refill(s) Start Date: 11/14/17 Status: Ordered albuterol 0.083% inhalation solution 2.49 mg, 3 mL, Route: NEB, Drug form: SOLN, PRN, Dosing Weight 81.818, kg, PRN R espiratory Protocol, Start date: 11/07/17 19:36:00 MULTI LINE CLAIMS ADJUSTER, Duration: 30 day, Stop d ate: 12/07/17 19:35:00 MULTI LINE CLAIMS ADJUSTER Notes: SEE RT DOCUMENTATION (Same as: Proventil) Start Date: 11/07/17 Stop Date: 11/14/17 Status: Discontinued aspirin 81 mg tablet, enteric coated 81 mg=1 tab, PO, Bedtime, 0 Refill(s) Start Date: 11/14/17 Status: Ordered Aspirin Enteric Coated 81 mg, 1 tab, Route: PO, Drug form: ECTAB, Bedtime, Dosing Weight 84.545, kg, St art date: 11/08/17 21:00:00 MULTI LINE CLAIMS ADJUSTER, Duration: 30 day, Stop date: 12/07/17 21:00:00 MULTI LINE CLAIMS ADJUSTER Notes: Do not crush or chew.(Same As: Ecotrin) Start Date: 11/08/17 Stop Date: 11/14/17 Status: Discontinued atorvastatin 40 mg, 1 tab, Route: PO, Drug form: TAB, Bedtime, Dosing Weight 84.545, kg, Star t date: 11/08/17 21:00:00 MULTI LINE CLAIMS ADJUSTER, Duration: 30 day, Stop date: 12/07/17 21:00:00 CS T Notes: (Same as: Lipitor) Start Date: 11/08/17 Stop Date: 11/14/17 Status: Discontinued Avapro 150 mg oral tablet 150 mg=1 tab, PO, Daily, # 30 tab, 0 Refill(s) Start Date: 11/13/17 Stop Date: 11/14/17 Status: Discontinued azithromycin + Sodium Chloride 0.9% IV 250 mL 500 mg, Route: IVPB, [id number], Dosing Weight 84.545, kg, Start date: 11/10/17 23: 00:00 MULTI LINE CLAIMS ADJUSTER, Duration: 30 day, Stop date: 12/09/17 23:00:00 MULTI LINE CLAIMS ADJUSTER, ABX Indication: N on-PNA Respiratory Tract Infection Notes: (Same As: Zithromax IV) Start Date: 11/10/17 Stop Date: 11/14/17 Status: Discontinued benzonatate 100 mg, 1 cap, Route: PO, Drug form: CAP, TID, Dosing Weight 84.545, kg, PRN Cou gh, Start date: 11/08/17 9:46:00 MULTI LINE CLAIMS ADJUSTER, Duration: 30 day, Stop date: 12/08/17 9:45 :00 MULTI LINE CLAIMS ADJUSTER Notes: (Same As: Sameer Machado)"Do Not Crush" Start Date: 11/08/17 Stop Date: 11/14/17 Status: Discontinued budesonide-formoterol 2 puff, Route: INHALER, Drug Form: AERO/A, RBID, Start date: 11/08/17 10:37:[address], Duration: 30 day, Stop date: 12/08/17 8:00:00 MULTI LINE CLAIMS ADJUSTER Notes: (Same as: Symbicort)WASTE: Aerosol - Return to Pharmacy Start Date: 11/08/17 Stop Date: 11/14/17 Status: Discontinued calcium chloride + Sodium Chloride 0.9% IV 100 mL 1,000 mg, 10 mL, Route: IVPB, Drug form: INJ, ONCE, Dosing Weight 81.818, kg, Pr iority: STAT, Start date: 11/07/17 18:09:00 MULTI LINE CLAIMS ADJUSTER, Stop date: 11/07/17 18:09:00 CS T Notes: WASTE: F/P - Sink; E - Municipal Trash Bin Start Date: 11/07/17 Stop Date: 11/07/17 Status: Completed cefTRIAXone + sterile water 10 mL 1 gm, Route: IVPB, [id number], Dosing Weight 84.545, kg, Start date: 11/10/17 23:00 :00 MULTI LINE CLAIMS ADJUSTER, Duration: 30 day, Stop date: 12/09/17 23:00:00 MULTI LINE CLAIMS ADJUSTER, ABX Indication: Non -PNA Respiratory Tract Infection Notes: (Same As: Rocephin).Use with 100 mL NS and infuse over 30 min MEDICA TION WASTE Product Size: 1000 mgProduct Wasted: ___ mg Start Date: 11/10/17 Stop Date: 11/14/17 Status: Discontinued Colace 50 mg oral capsule 50 mg, 5 mL, Route: PO, Drug form: LIQ, BID, Dosing Weight 84.545, kg, PRN as ne eded for constipation, Start date: 11/13/17 9:40:00 MULTI LINE CLAIMS ADJUSTER, Duration: 30 day, Stop date: 12/13/17 9:39:00 MULTI LINE CLAIMS ADJUSTER Notes: (Same as: Colace) Start Date: 11/13/17 Stop Date: 11/14/17 Status: Discontinued d50 syringe 25 gm, 50 mL, Route: IVP, Drug Form: INJ, Dosing Weight 81.818, kg, ONCE, STAT, Start date: 11/07/17 18:09:00 MULTI LINE CLAIMS ADJUSTER, Stop date: 11/07/17 18:09:00 MULTI LINE CLAIMS ADJUSTER, 25 ml=12.5 gm Start Date: 11/07/17 Stop Date: 11/07/17 Status: Completed Dextrose 50% Syringe 25 gm, 50 mL, Route: IVP, Drug Form: INJ, Dosing Weight 84.545, kg, PRN, PRN Blo od Glucose Results, Start date: 11/08/17 0:47:00 MULTI LINE CLAIMS ADJUSTER, Duration: 30 day, Stop alex e: 12/08/17 0:46:00 MULTI LINE CLAIMS ADJUSTER Start Date: 11/08/17 Stop Date: 11/14/17 Status: Discontinued Dextrose 50% Syringe 12.5 gm, 25 mL, Route: IVP, Drug Form: INJ, Dosing Weight 84.545, kg, PRN, PRN B lood Glucose Results, Start date: 11/08/17 0:47:00 MULTI LINE CLAIMS ADJUSTER, Duration: 30 day, Stop d ate: 12/08/17 0:46:00 MULTI LINE CLAIMS ADJUSTER Start Date: 11/08/17 Stop Date: 11/14/17 Status: Discontinued Dextrose 50% Syringe 12.5 gm, 25 mL, Route: IVP, Drug Form: INJ, Dosing Weight 81.818, kg, PRN, PRN B lood Glucose Results, Start date: 11/07/17 22:28:00 MULTI LINE CLAIMS ADJUSTER, Duration: 30 day, Stop date: 12/07/17 22:27:00 MULTI LINE CLAIMS ADJUSTER Start Date: 11/07/17 Stop Date: 11/14/17 Status: Discontinued Dextrose 50% Syringe 25 gm, 50 mL, Route: IVP, Drug Form: INJ, Dosing Weight 81.818, kg, PRN, PRN Blo od Glucose Results, Start date: 11/07/17 22:28:00 MULTI LINE CLAIMS ADJUSTER, Duration: 30 day, Stop da te: 12/07/17 22:27:00 MULTI LINE CLAIMS ADJUSTER Start Date: 11/07/17 Stop Date: 11/14/17 Status: Discontinued diltiazem 360 mg, 1 tab, Route: PO, Drug form: ERTAB, Bedtime, Dosing Weight 84.545, kg, S tart date: 11/08/17 21:00:00 MULTI LINE CLAIMS ADJUSTER, Duration: 30 day, Stop date: 12/07/17 21:00:00 MULTI LINE CLAIMS ADJUSTER Notes: Same as Cardizem LA (Do Not Crush) Start Date: 11/08/17 Stop Date: 11/14/17 Status: Discontinued DuoNeb inhalation solution 3 ml, Route: NEB, Drug Form: SOLN, Dosing Weight 81.818, kg, PRN, PRN Respirator y Protocol, Start date: 11/07/17 19:35:00 MULTI LINE CLAIMS ADJUSTER, Duration: 30 day, Stop date: 11/14 02/27 19:34:00 MULTI LINE CLAIMS ADJUSTER Start Date: 11/07/17 Stop Date: 11/07/17 Status: Discontinued DuoNeb inhalation solution 3 ml, Route: NEB, Drug Form: SOLN, Dosing Weight 81.818, kg, PRN, PRN Respirator y Protocol, Start date: 11/07/17 16:28:00 MULTI LINE CLAIMS ADJUSTER, Duration: 30 day, Stop date: 11/14 02/27 16:27:00 MULTI LINE CLAIMS ADJUSTER Notes: (Same as: Duoneb) Start Date: 11/07/17 Stop Date: 11/07/17 Status: Discontinued DuoNeb inhalation solution 3 ml, Route: NEB, Drug Form: SOLN, Dosing Weight 81.818, kg, RQ4H, PRN Respirato ry Protocol, Start date: 11/07/17 22:23:00 MULTI LINE CLAIMS ADJUSTER, Duration: 30 day, Stop date: 22:22:00 MULTI LINE CLAIMS ADJUSTER Notes: (Same as: Duoneb) Start Date: 11/07/17 Stop Date: 11/14/17 Status: Discontinued gabapentin 200 mg, 2 cap, Route: PO, Drug form: CAP, Q12H, Dosing Weight 84.545, kg, Start date: 11/11/17 9:00:00 MULTI LINE CLAIMS ADJUSTER, Stop date: 12/10/17 9:00:00 MULTI LINE CLAIMS ADJUSTER Notes: (Same as: Neurontin) Start Date: 11/11/17 Stop Date: 11/14/17 Status: Discontinued gabapentin 300 mg oral capsule 300 mg, 1 cap, Route: PO, Drug form: CAP, Daily, Dosing Weight 84.545, kg, Start date: 11/08/17 11:00:00 MULTI LINE CLAIMS ADJUSTER, Duration: 30 day, Stop date: 12/08/17 9:00:00 MULTI LINE CLAIMS ADJUSTER Notes: (Same as: Neurontin) Start Date: 11/08/17 Stop Date: 11/10/17 Status: Discontinued glucagon 1 mg, Route: IM, Drug form: PDR/INJ, PRN, Dosing Weight 84.545, kg, PRN Blood Gl ucose Results, Start date: 11/08/17 0:47:00 MULTI LINE CLAIMS ADJUSTER, Duration: 30 day, Stop date: 0:46:00 MULTI LINE CLAIMS ADJUSTER Start Date: 11/08/17 Stop Date: 11/14/17 Status: Discontinued glucagon 1 mg, Route: IM, Drug form: PDR/INJ, PRN, Dosing Weight 81.818, kg, PRN Blood Gl ucose Results, Start date: 11/07/17 22:28:00 MULTI LINE CLAIMS ADJUSTER, Duration: 30 day, Stop date: 0 12/07/17 22:27:00 MULTI LINE CLAIMS ADJUSTER Start Date: 11/07/17 Stop Date: 11/14/17 Status: Discontinued guaiFENesin 600 mg, 1 tab, Route: PO, Drug form: ERTAB, Q12H, Dosing Weight 84.545, kg, PRN Congestion, Start date: 11/08/17 9:46:00 MULTI LINE CLAIMS ADJUSTER, Duration: 30 day, Stop date: 12/08 9:45:00 MULTI LINE CLAIMS ADJUSTER Notes: (Same as: Guaifenesin LA, Humibid LA, Mucinex)"Do Not Crush" Take medica tion with plenty of water. Start Date: 11/08/17 Stop Date: 11/14/17 Status: Discontinued insulin glargine 10 unit, 0.1 mL, Route: SUB-Q, Drug form: SOLN, Bedtime, Start date: 11/08/17 21 :00:00 MULTI LINE CLAIMS ADJUSTER, Duration: 30 day, Stop date: 12/07/17 21:00:00 MULTI LINE CLAIMS ADJUSTER Notes: (Same as: Raine)Do not hold insulin without contacting prescriberWASTE: F/P - Black; E - Municipal Trash Bin "single patient use only" Start Date: 11/08/17 Stop Date: 11/14/17 Status: Discontinued insulin lispro 2 unit, 0.02 mL, Route: SUB-Q, Drug form: SOLN, Bedtime, Dosing Weight 84.545, k g, PRN Blood Glucose Results, Start date: 11/08/17 0:47:00 MULTI LINE CLAIMS ADJUSTER, Duration: 30 day , Stop date: 12/08/17 0:46:00 MULTI LINE CLAIMS ADJUSTER Notes: Roll in palms of hands gently; Do not shake `vigorously. (Same as: Aroldo sumner )"Single Patient Use Only "WASTE: F/P - Black; E - Municipal Trash Bin Stabl e for 28 days at room temperature.Expires in days from Date Start Date: 11/08/17 Stop Date: 11/14/17 Status: Discontinued insulin lispro 1 unit, 0.01 mL, Route: SUB-Q, Drug form: SOLN, Bedtime, Dosing Weight 84.545, k g, PRN Blood Glucose Results, Start date: 11/08/17 0:47:00 MULTI LINE CLAIMS ADJUSTER, Duration: 30 day , Stop date: 12/08/17 0:46:00 MULTI LINE CLAIMS ADJUSTER Notes: Roll in palms of hands gently; Do not shake `vigorously. (Same as: Aroldo sumner )"Single Patient Use Only "WASTE: F/P - Black; E - Municipal Trash Bin Stabl e for 28 days at room temperature.Expires in days from Date Start Date: 11/08/17 Stop Date: 11/14/17 Status: Discontinued insulin lispro 4 unit, 0.04 mL, Route: SUB-Q, Drug form: SOLN, Bedtime, Dosing Weight 84.545, k g, PRN Blood Glucose Results, Start date: 11/08/17 0:47:00 MULTI LINE CLAIMS ADJUSTER, Duration: 30 day , Stop date: 12/08/17 0:46:00 MULTI LINE CLAIMS ADJUSTER Notes: Roll in palms of hands gently; Do not shake `vigorously. (Same as: Humal og )"Single Patient Use Only "WASTE: F/P - Black; E - Municipal Trash Bin Stabl e for 28 days at room temperature.Expires in days from Date Start Date: 11/08/17 Stop Date: 11/14/17 Status: Discontinued insulin lispro 3 unit, 0.03 mL, Route: SUB-Q, Drug form: SOLN, Bedtime, Dosing Weight 84.545, k g, PRN Blood Glucose Results, Start date: 11/08/17 0:47:00 MULTI LINE CLAIMS ADJUSTER, Duration: 30 day , Stop date: 12/08/17 0:46:00 MULTI LINE CLAIMS ADJUSTER Notes: Roll in palms of hands gently; Do not shake `vigorously. (Same as: Humal og )"Single Patient Use Only "WASTE: F/P - Black; E - Municipal Trash Bin Stabl e for 28 days at room temperature.Expires in days from Date Start Date: 11/08/17 Stop Date: 11/14/17 Status: Discontinued insulin lispro 4 unit, 0.04 mL, Route: SUB-Q, Drug form: SOLN, TID-Before Meals, Dosing Weight 81.818, kg, PRN Blood Glucose Results, Start date: 11/07/17 22:28:00 MULTI LINE CLAIMS ADJUSTER, Durati on: 30 day, Stop date: 12/07/17 22:27:00 MULTI LINE CLAIMS ADJUSTER Notes: Roll in palms of hands gently; Do not shake `vigorously. (Same as: Humal og )"Single Patient Use Only "WASTE: F/P - Black; E - Municipal Trash Bin Stabl e for 28 days at room temperature.Expires in days from Date Start Date: 11/07/17 Stop Date: 11/14/17 Status: Discontinued insulin lispro 5 unit, 0.05 mL, Route: SUB-Q, Drug form: SOLN, TID-Before Meals, Dosing Weight 81.818, kg, PRN Blood Glucose Results, Start date: 11/07/17 22:28:00 MULTI LINE CLAIMS ADJUSTER, Durati on: 30 day, Stop date: 12/07/17 22:27:00 MULTI LINE CLAIMS ADJUSTER Notes: Roll in palms of hands gently; Do not shake `vigorously. (Same as: Humal og )"Single Patient Use Only "WASTE: F/P - Black; E - Municipal Trash Bin Stabl e for 28 days at room temperature.Expires in days from Date Start Date: 11/07/17 Stop Date: 11/14/17 Status: Discontinued insulin lispro 3 unit, 0.03 mL, Route: SUB-Q, Drug form: SOLN, TID-Before Meals, Dosing Weight 81.818, kg, PRN Blood Glucose Results, Start date: 11/07/17 22:28:00 MULTI LINE CLAIMS ADJUSTER, Durati on: 30 day, Stop date: 12/07/17 22:27:00 MULTI LINE CLAIMS ADJUSTER Notes: Roll in palms of hands gently; Do not shake `vigorously. (Same as: Humal og )"Single Patient Use Only "WASTE: F/P - Black; E - Municipal Trash Bin Stabl e for 28 days at room temperature.Expires in days from Date Start Date: 11/07/17 Stop Date: 11/14/17 Status: Discontinued insulin lispro 1 unit, 0.01 mL, Route: SUB-Q, Drug form: SOLN, TID-Before Meals, Dosing Weight 81.818, kg, PRN Blood Glucose Results, Start date: 11/07/17 22:28:00 MULTI LINE CLAIMS ADJUSTER, Durati on: 30 day, Stop date: 12/07/17 22:27:00 MULTI LINE CLAIMS ADJUSTER Notes: Roll in palms of hands gently; Do not shake `vigorously. (Same as: Humal og )"Single Patient Use Only "WASTE: F/P - Black; E - Municipal Trash Bin Stabl e for 28 days at room temperature.Expires in days from Date Start Date: 11/07/17 Stop Date: 11/14/17 Status: Discontinued insulin lispro 2 unit, 0.02 mL, Route: SUB-Q, Drug form: SOLN, TID-Before Meals, Dosing Weight 81.818, kg, PRN Blood Glucose Results, Start date: 11/07/17 22:28:00 MULTI LINE CLAIMS ADJUSTER, Durati on: 30 day, Stop date: 12/07/17 22:27:00 MULTI LINE CLAIMS ADJUSTER Notes: Roll in palms of hands gently; Do not shake `vigorously. (Same as: Humal og )"Single Patient Use Only "WASTE: F/P - Black; E - Municipal Trash Bin Stabl e for 28 days at room temperature.Expires in days from Date Start Date: 11/07/17 Stop Date: 11/14/17 Status: Discontinued Insulin regular 4 unit, 0.04 mL, Route: IVP, Drug form: INJ, ONCE, Dosing Weight 81.818, kg, Meeta ority: STAT, Start date: 11/07/17 18:09:00 MULTI LINE CLAIMS ADJUSTER, Stop date: 11/07/17 18:09:00 MULTI LINE CLAIMS ADJUSTER Notes: (Same as: Humulin R and NovoLIN R)WASTE: F/P - Black; E - Municipal Trash Bin (Do not shake) Start Date: 11/07/17 Stop Date: 11/07/17 Status: Completed Kayexalate 60 gm, 240 mL, Route: PO, Drug form: SUSP, ONCE, Dosing Weight 81.818, kg, Prior ity: STAT, Start date: 11/07/17 18:09:00 MULTI LINE CLAIMS ADJUSTER, Stop date: 11/07/17 18:09:00 MULTI LINE CLAIMS ADJUSTER Notes: (sodium polystyrene sulfonate 15 gm/60 ml STEPHANIE) Shake well before use. (Same as: Kayexalate, SPS) Start Date: 11/07/17 Stop Date: 11/07/17 Status: Completed Levemir 10 unit, Route: SUB-Q, Bedtime, Dosing Weight 84.545, kg, Start date: 11/08/17 2 1:00:00 MULTI LINE CLAIMS ADJUSTER, Duration: 30 day, Stop date: 12/07/17 21:00:00 MULTI LINE CLAIMS ADJUSTER Start Date: 11/08/17 Stop Date: 11/08/17 Status: Deleted Lidoderm 5% topical film (patch) 1 patch, Route: TOP, Daily, Drug form: FILM, Start date: 11/11/17 9:00:00 MULTI LINE CLAIMS ADJUSTER, D uration: 30 day, Stop date: 12/10/17 9:00:00 MULTI LINE CLAIMS ADJUSTER, Remove after 12 hours Notes: Apply only once for up to 12 hours in s35-isds period (12 hours on and 12 hours off).(Same as: Lidoderm)"Remove old patch before application of new patch" Start Date: 11/11/17 Stop Date: 11/14/17 Status: Discontinued Lovenox 30 mg, 0.3 mL, Route: SUB-Q, Drug form: INJ, [id number], Dosing Weight 84.545, kg, For CrCl <30mL/min, Start date: 11/08/17 10:00:00 MULTI LINE CLAIMS ADJUSTER, Duration: 30 day, Stop date: 12/07/17 10:00:00 MULTI LINE CLAIMS ADJUSTER Notes: (Same as: Lovenox) Start Date: 11/08/17 Stop Date: 11/14/17 Status: Discontinued methylPREDNISolone SODium SUCCinate 125 mg, 2 mL, Route: IVP, Drug form: INJ, ONCE, Dosing Weight 81.818, kg, Priori ty: STAT, Start date: 11/07/17 16:28:00 MULTI LINE CLAIMS ADJUSTER, Stop date: 11/07/17 16:28:00 MULTI LINE CLAIMS ADJUSTER Notes: (Same as:Solu-MEDROL, A-Methapred) Start Date: 11/07/17 Stop Date: 11/07/17 Status: Completed Colwell 10/325 oral tablet 1 tab, Route: PO, Drug Form: TAB, Dosing Weight 84.545, kg, Q4H, PRN Pain Score 6-10, Start date: 11/11/17 10:38:00 MULTI LINE CLAIMS ADJUSTER, Duration: 30 day, Stop date: 12/11/17 1 0:37:00 MULTI LINE CLAIMS ADJUSTER Notes: Do not exceed 4gm/day of acetaminophen. (Same as: Colwell 325/10) Start Date: 11/11/17 Stop Date: 11/12/17 Status: Discontinued Colwell 5/325 oral tablet 1 tab, Route: PO, Drug Form: TAB, Dosing Weight 84.545, kg, Q4H, PRN Pain Score 1-3, Start date: 11/12/17 8:29:00 MULTI LINE CLAIMS ADJUSTER, Stop date: 12/12/17 8:28:00 MULTI LINE CLAIMS ADJUSTER, Pain Sco re 3-10 Notes: (Same as: Colwell 325/5) Do not exceed 4gm/day of acetaminophen. Start Date: 11/12/17 Stop Date: 11/14/17 Status: Discontinued Colwell 5/325 oral tablet 1 tab, Route: PO, Drug Form: TAB, Dosing Weight 84.545, kg, Q4H, PRN Pain Score 1-3, Start date: 11/10/17 16:39:00 MULTI LINE CLAIMS ADJUSTER, Duration: 30 day, Stop date: 12/10/17 16 :38:00 MULTI LINE CLAIMS ADJUSTER Notes: (Same as: Colwell 325/5) Do not exceed 4gm/day of acetaminophen. Start Date: 11/10/17 Stop Date: 11/11/17 Status: Discontinued Colwell 5/325 oral tablet 1 tab, PO, Q4H, PRN Pain Score 1-3 | Pain Score 3-10, 0 Refill(s) Start Date: 11/14/17 Status: Ordered normal saline 0.9% IV 1,000 mL 1,000 mL, Rate: 50 ml/hr, Infuse over: 20 hr, Route: IV, Dosing Weight 84.545 kg , Total Volume: 1,000, Start date: 11/07/17 19:23:00 MULTI LINE CLAIMS ADJUSTER, Stop date: 12/07/17 19 :22:00 MULTI LINE CLAIMS ADJUSTER, 2.03, m2 Start Date: 11/07/17 Stop Date: 11/11/17 Status: Discontinued omeprazole 40 mg, Route: PO, Drug form: DRC, Daily, Dosing Weight 84.545, kg, Start date: 0 11/09/17 9:00:00 MULTI LINE CLAIMS ADJUSTER, Duration: 30 day, Stop date: 12/08/17 9:00:00 MULTI LINE CLAIMS ADJUSTER Start Date: 11/09/17 Stop Date: 11/08/17 Status: Deleted Protonix 40 mg, 1 tab, Route: PO, Drug form: ECTAB, Before Dinner, Start date: 11/08/17 1 6:30:00 MULTI LINE CLAIMS ADJUSTER, Duration: 30 day, Stop date: 12/07/17 16:30:00 MULTI LINE CLAIMS ADJUSTER Notes: Tablet should not be chewed or crushed.(Same as: Protonix) Start Date: 11/08/17 Stop Date: 11/14/17 Status: Discontinued remove patch 1 patch, Route: TOP, Bedtime, Drug form: ERFILM, Start date: 11/11/17 21:00:[address], Duration: 30 day, Stop date: 12/10/17 21:00:00 MULTI LINE CLAIMS ADJUSTER Notes: Remove patch 12 hours after application each day. Start Date: 11/11/17 Stop Date: 11/14/17 Status: Discontinued Saline Flush 0.9% 10 mL, Route: IVP, Drug Form: INJ, Dosing Weight 81.818, kg, PRN, PRN Line Flush , Start date: 11/07/17 14:37:00 MULTI LINE CLAIMS ADJUSTER, Duration: 30 day, Stop date: 12/07/17 14:36 :00 MULTI LINE CLAIMS ADJUSTER Notes: (Same as: BD Posiflush) Start Date: 11/07/17 Stop Date: 11/14/17 Status: Discontinued sodium bicarbonate 50 mEq, 50 mL, Route: INJ, Drug form: INJ, ONCE, Dosing Weight 81.818, kg, Prior ity: STAT, Start date: 11/07/17 18:09:00 MULTI LINE CLAIMS ADJUSTER, Stop date: 11/07/17 18:09:00 MULTI LINE CLAIMS ADJUSTER Notes: (sodium bicarb 8.4% (1 mEq/ml) 50 ml syringe) Start Date: 11/07/17 Stop Date: 11/07/17 Status: Completed Zofran 4 mg, Route: PO, Drug form: TAB, Q8H, Dosing Weight 84.545, kg, PRN Nausea, Star t date: 11/12/17 8:31:00 MULTI LINE CLAIMS ADJUSTER, Duration: 30 day, Stop date: 12/12/17 8:30:00 MULTI LINE CLAIMS ADJUSTER Start Date: 11/12/17 Stop Date: 11/12/17 Status: Discontinued Zofran 4 mg, 2 mL, Route: IVP, Drug form: INJ, ONCE, Dosing Weight 81.818, kg, Priority : STAT, Start date: 11/07/17 17:55:00 MULTI LINE CLAIMS ADJUSTER, Stop date: 11/07/17 17:55:00 MULTI LINE CLAIMS ADJUSTER Notes: (Same as: Zofran) MEDICATION WASTE Product Size: 4 mgProduct Was zulema: ___ mg Start Date: 11/07/17 Stop Date: 11/07/17 Status: Completed Zofran 4 mg, 2 mL, Route: IVP, Drug form: INJ, Q8H, Dosing Weight 84.545, kg, PRN Nause a, Start date: 11/11/17 8:27:00 MULTI LINE CLAIMS ADJUSTER, Duration: 30 day, Stop date: 12/11/17 8:26: 00 MULTI LINE CLAIMS ADJUSTER Notes: (Same as: Zofran) MEDICATION WASTE Product Size: 4 mgProduct Was zulema: ___ mg Start Date: 11/11/17 Stop Date: 11/12/17 Status: Discontinued Zofran 4 mg, 2 mL, Route: IV, Drug form: INJ, Q4H, Dosing Weight 84.545, kg, PRN as nee ded for nausea/vomiting, Start date: 11/12/17 9:42:00 MULTI LINE CLAIMS ADJUSTER, Duration: 30 day, Sto p date: 12/12/17 9:41:00 MULTI LINE CLAIMS ADJUSTER Notes: (Same as: Zofran) MEDICATION WASTE Product Size: 4 mgProduct Was zulema: ___ mg Start Date: 11/12/17 Stop Date: 11/14/17 Status: Discontinued ZyrTEC 10 mg, 2 tab, Route: PO, Drug form: TAB, Daily, Dosing Weight 84.545, kg, Start date: 11/08/17 11:00:00 MULTI LINE CLAIMS ADJUSTER, Duration: 30 day, Stop date: 12/08/17 9:00:00 MULTI LINE CLAIMS ADJUSTER Notes: (Same As: Zyrtec) Start Date: 11/08/17 Stop Date: 11/14/17 Status: Discontinued Results ELECTROLYTES 1 2 3 Most recent to oldest [Reference Range]: 142 mEq/L (11/12/17 4:33 AM) 143 mEq/L (11/11/17 5:25 AM) 144 mEq/L (11/10/17 5:32 AM) Sodium Lvl [135-145 mEq/L] 4.5 mEq/L (11/12/17 4:33 AM) 3.9 mEq/L (11/11/17 5:25 AM) 4.1 mEq/L (11/10/17 5:32 AM) Potassium Lvl [3.5-5.1 mEq/L] 108 mEq/L (11/12/17 4:33 AM) 108 mEq/L (11/11/17 5:25 AM) 106 mEq/L (11/10/17 5:32 AM) Chloride Lvl [95-109 mEq/L] 30 mEq/L (11/12/17 4:33 AM) 29 mEq/L (11/11/17 5:25 AM) 32 mEq/L (11/10/17 5:32 AM) CO2 [24-32 mEq/L] 8.5 mEq/L *LOW* (11/12/17 4:33 AM) 9.9 mEq/L *LOW* (11/11/17 5:25 AM) 10.1 mEq/L (11/10/17 5:32 AM) AGAP [10.0-20.0 mEq/L] CHEM PANEL 1 2 3 Most recent to oldest [Reference Range]: 1.42 mg/dL *HI* (11/12/17 4:33 AM) 1.62 mg/dL *HI* (11/11/17 5:25 AM) 2.72 mg/dL *HI* (11/10/17 5:32 AM) Creatinine Lvl [0.50-1.40 mg/dL] 35 mL/min/1.73m2 1 *NA* (11/12/17 4:33 AM) 30 mL/min/1.73m2 2 *NA* (11/11/17 5:25 AM) 16 mL/min/1.73m2 3 *NA* (11/10/17 5:32 AM) eGFR 22 mg/dL (11/12/17 4:33 AM) 31 mg/dL *HI* (11/11/17 5:25 AM) 58 mg/dL *HI* (11/10/17 5:32 AM) BUN [7-22 mg/dL] 16 (11/07/17 3:28 PM) B/C Ratio [6-25] 95 mg/dL (11/12/17 4:33 AM) 75 mg/dL (11/11/17 5:25 AM) 86 mg/dL (11/10/17 5:32 AM) Glucose Lvl [70-99 mg/dL] 7.5 g/dL (11/07/17 3:28 PM) Total Protein [6.4-8.4 g/dL] 2.2 g/dL *LOW* (11/07/17 3:28 PM) Albumin Lvl [3.5-5.0 g/dL] 5.3 g/dL *HI* (11/07/17 3:28 PM) Globulin [2.7-4.2 g/dL] 0.4 *LOW* (11/07/17 3:28 PM) A/G Ratio [0.7-1.6] 9.0 mg/dL (11/12/17 4:33 AM) 8.2 mg/dL *LOW* (11/11/17 5:25 AM) 8.7 mg/dL (11/10/17 5:32 AM) Calcium Lvl [8.5-10.5 mg/dL] 5.2 mg/dL *HI* (11/09/17 3:38 AM) Phosphorus [2.5-4.5 mg/dL] 2.1 mg/dL (11/09/17 3:38 AM) Magnesium Lvl [1.8-2.4 mg/dL] 23 unit/L (11/07/17 3:28 PM) ALT [0-65 unit/L] 20 unit/L (11/07/17 3:28 PM) AST [0-37 unit/L] 65 unit/L (11/07/17 3:28 PM) Alk Phos [39-136 unit/L] 0.1 mg/dL *LOW* (11/07/17 3:28 PM) Bili Total [0.2-1.3 mg/dL] 1Result Comment: [...] 3 Most recent to oldest [Reference Range]: 76 unit/L (11/07/17 3:28 PM) Total CK [12-191 unit/L] <0.5 ng/mL (11/07/17 3:28 PM) CK MB [0.5-3.6 ng/mL] <0.7 (11/07/17 3:28 PM) CK MB Index [0.0-2.5] <0.02 ng/mL (11/07/17 3:28 PM) Troponin-I [0.00-0.40 ng/mL] 34 pg/mL (11/07/17 3:28 PM) BNP [<=100 pg/mL] URINE CHEM 1 2 3 Most recent to oldest [Reference Range]: 88.60 mg/dL *NA* (11/08/17 4:50 PM) U Creatinine 25 mEq/L *NA* (11/08/17 4:50 PM) U Sodium None Seen (11/08/17 4:50 PM) U Eos [None Seen] URINE AND STOOL 1 2 3 Most recent to oldest [Reference Range]: Clear (11/08/17 4:50 PM) UA Turbidity [Clear] Ltyellow *NA* (11/08/17 4:50 PM) UA Color 5.0 (11/08/17 4:50 PM) UA pH [5.0-8.0] 1.014 (11/08/17 4:50 PM) UA Spec Grav [<=1.030] 50 mg/dL *ABN* (11/08/17 4:50 PM) UA Glucose [Negative mg/dL] Small *ABN* (11/08/17 4:50 PM) UA Blood [Negative] Negative mg/dL *NA* (11/08/17 4:50 PM) UA Ketones [Negative mg/dL] 30 mg/dL *ABN* (11/08/17 4:50 PM) UA Protein [Negative mg/dL] <=1.0 mg/dL *NA* (11/08/17 4:50 PM) UA Urobilinogen [0.1-1.0 mg/dL] Negative *NA* (11/08/17 4:50 PM) UA Bili [Negative] Negative (11/08/17 4:50 PM) UA Leuk Est [Negative] Negative (11/08/17 4:50 PM) UA Nitrite [Negative] 2 /HPF (11/08/17 4:50 PM) UA WBC [0-5 /HPF] 3 /HPF *HI* (11/08/17 4:50 PM) UA RBC [0-2 /HPF] Occasional /HPF *NA* (11/08/17 4:50 PM) UA Bacteria [None Seen /HPF] None Seen *NA* (11/08/17 4:50 PM) UA Sq Epi 3 /LPF *HI* (11/08/17 4:50 PM) UA Hyal Cast [0-2 /LPF] Few /LPF *NA* (11/08/17 4:50 PM) UA Mucus [None Seen /LPF] HEMATOLOGY 1 2 3 Most recent to oldest [Reference Range]: 11.2 K/CMM *HI* (11/11/17 5:25 AM) 11.5 K/CMM *HI* (11/10/17 5:32 AM) 12.5 K/CMM *HI* (11/09/17 3:38 AM) WBC [3.7-10.4 K/CMM] 2.62 M/CMM *LOW* (11/11/17 5:25 AM) 2.63 M/CMM *LOW* (11/10/17 5:32 AM) 2.73 M/CMM *LOW* (11/09/17 3:38 AM) RBC [4.20-5.40 M/CMM] 7.6 g/dL *LOW* (11/11/17 5:25 AM) 7.7 g/dL *LOW* (11/10/17 5:32 AM) 7.9 g/dL *LOW* (11/09/17 3:38 AM) Hgb [12.0-16.0 g/dL] 23.3 % *LOW* (11/11/17 5:25 AM) 23.4 % *LOW* (11/10/17 5:32 AM) 24.4 % *LOW* (11/09/17 3:38 AM) Hct [36.0-48.0 %] 89.0 fL (11/11/17 5:25 AM) 89.0 fL (11/10/17 5:32 AM) 89.2 fL (11/09/17 3:38 AM) MCV [80.0-98.0 fL] 28.8 pg (11/11/17 5:25 AM) 29.1 pg (11/10/17 5:32 AM) 28.9 pg (11/09/17 3:38 AM) MCH [27.0-31.0 pg] 32.4 g/dL (11/11/17 5:25 AM) 32.7 g/dL (11/10/17 5:32 AM) 32.3 g/dL (11/09/17 3:38 AM) MCHC [32.0-36.0 g/dL] 17.7 % *HI* (11/11/17 5:25 AM) 17.9 % *HI* (11/10/17 5:32 AM) 17.8 % *HI* (11/09/17 3:38 AM) RDW [11.5-14.5 %] 8.1 fL (11/11/17 5:25 AM) 8.2 fL (11/10/17 5:32 AM) 8.6 fL (11/09/17 3:38 AM) MPV [7.4-10.4 fL] 177 K/CMM (11/11/17 5:25 AM) 192 K/CMM (11/10/17 5:32 AM) 194 K/CMM (11/09/17 3:38 AM) Platelet [133-450 K/CMM] 77.0 % *HI* (11/11/17 5:25 AM) 75.0 % (11/10/17 5:32 AM) 83.7 % *HI* (11/09/17 3:38 AM) Segs [45.0-75.0 %] 16.3 % *LOW* (11/11/17 5:25 AM) 17.0 % *LOW* (11/10/17 5:32 AM) 8.7 % *LOW* (11/09/17 3:38 AM) Lymphocytes [20.0-40.0 %] 5.8 % (11/11/17 5:25 AM) 7.3 % (11/10/17 5:32 AM) 7.4 % (11/09/17 3:38 AM) Monocytes [2.0-12.0 %] 0.7 % (11/11/17 5:25 AM) 0.3 % (11/10/17 5:32 AM) 0.1 % (11/07/17 3:28 PM) Eosinophils [0.0-4.0 %] 0.2 % (11/11/17 5:25 AM) 0.4 % (11/10/17 5:32 AM) 0.2 % (11/09/17 3:38 AM) Basophils [0.0-1.0 %] 8.6 K/CMM *HI* (11/11/17 5:25 AM) 8.6 K/CMM *HI* (11/10/17 5:32 AM) 10.4 K/CMM *HI* (11/09/17 3:38 AM) Segs-Bands # [1.5-8.1 K/CMM] 1.8 K/CMM (11/11/17 5:25 AM) 1.9 K/CMM (11/10/17 5:32 AM) 1.1 K/CMM (11/09/17 3:38 AM) Lymphocytes # [1.0-5.5 K/CMM] 0.6 K/CMM (11/11/17 5:25 AM) 0.8 K/CMM (11/10/17 5:32 AM) 0.9 K/CMM *HI* (11/09/17 3:38 AM) Monocytes # [0.0-0.8 K/CMM] 0.1 K/CMM (11/11/17 5:25 AM) Eosinophils # [0.0-0.5 K/CMM] 0.1 K/CMM (11/07/17 3:28 PM) Basophils # [0.0-0.2 K/CMM] See Note (11/07/17 3:28 PM) RBC Morph 1+ (11/07/17 3:28 PM) Hypochrom [None Seen] Normal (11/07/17 3:28 PM) Plt Morph 14.3 seconds (11/07/17 3:28 PM) PT [12.0-14.7 seconds] 1.11 (11/07/17 3:28 PM) INR [0.85-1.17] 30.6 seconds (11/07/17 3:28 PM) PTT [22.9-35.8 seconds] VIRAL - SEROLOGY 1 2 3 Most recent to oldest [Reference Range]: Negative (11/07/17 3:28 PM) Influ A [Negative] Negative (11/07/17 3:28 PM) Influ B [Negative] Immunizations Given and [...] 11/07/17 Assessment and Plan Extracted from: Title: Date of service November 14 Author: Torito Eastman Jeff Silva Date: 12/09/172017 Final diagnoses 1. Acute kidney failure . Unspecified. 2. 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 3. Heart failure, unspecified.. 4. General weakness. 5. Severe dehydration. 6. 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 7. Leukocytosis unspecified. 8. 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 And the pulmonary consultation was requested. Hospital course. 82-year-old lady admitted under my service on November 07, 2017 and discharged on November 14, 2017. Basically the patient was admitted to the hospital with general weakness. The patient noted to have acute renal failure and creatinine was 6.58. The patient's kidney function did improve after placing on IV fluids and came down to 1.42. The patient was treated for COPD exacerbation and pulmonary consultation was requested. The patient did have hyponatremia which did resolve. The patient was seen by renal, pulmonary and the pain management. The patient was discharged in stable condition. Diet: Diabetic diet. Activity level: As tolerated. Medications: Per reconciliation list. Condition at the time of the discharge stable. Disposition: Follow-up with patient's primary care physician and his specialist as advised. Time spent coordinating patient discharge greater than 30 minutes Extracted from: Title: Clinical Document Author: Faisal Ahumada Date: 11/14/17 [facility] Daily Progress Note Reason for Followup: COPD Assessment/ Plan: 1. Acute renal failure 2. COPD with exacerbation 3. Bronchiectasis 4. Type 2 diabetes 5. Hyponatremia, resolved She is going to assisted facility I discussed with primary attending and attending as well as patient and she can stop antibiotics has had an of days. Okay to discharge She will follow up with my colleague Dr. Romero in office Subjective: Patient seen and examined events noted denies any complains Review of Systems CONSTITUTIONAL: no fever. chills. dizziness. weakness. EYES: No pain, erythema, or discharge, blurring of vision. EAR, NOSE AND THROAT: No sore throat, URI symptoms, epistaxis,tinnitus. CARDIOVASCULAR: No chest pain. No palpitations. + lower extremity edema. RESPIRATORY: No shortness of breath, cough, pain with respiration, or pleuritic chest pain. No hemoptysis. No dyspnea. No paroxysmal nocturnal dyspnea. GASTROINTESTINAL: Normal appetite. No dysphagia, nausea, vomiting, diarrhea. No pain. No bleeding. GENITOURINARY: No frequency, urgency, nocturia, hematuria or dysuria. MUSCULOSKELETAL: No arthralgias or myalgias. INTEGUMENTARY: No swelling, bruising, contusions,abrasions, lymphangitis. NEUROLOGIC: No headache, neck pain, numbness or tingling of the extremities. or weakness. General Examination Gen: Alert No apparent distress. elderly obese female NAD HEENT: PERRL NECK: No JVD, No Carotid Bruit. Respiratory: No respiratory distress, No evidence of accesory muscle use. Clear to ausculation bilaterally in all zones. No rales or crackles or Wheezes Cardiovascular. S1S2 + No Murmers Regular Rate rythm Abdominal: Soft Non tender. NO organomegaly Extremities: No pedal edema, no cyanosis no clubbing Neurology: Alert No focal deficits Skin: No rash VitalsTmp(F)[id number] 11/14 15:[id number]--- 11/14 11:[id number]------ 11/14 07:[id number]--- 11/14 07:10 1895 2.0L/m 11/14 03:[id number]--- 24 Hr Tmax: 99.2F (37.33c) at 11/14 07:32Vital Signs are the last 5 in the past 48 hours. (all previously charted lines have been discontinued) I&ORecordInOutBal 11/223hr Tot 2 200 -198 11/123hr Tot [id number] Radiology Labs Labs (Last four charted values) WBC H 11.2(NOV 11)H 11.5(NOV 10)H 12.5(NOV 09)H 11.7(NOV 08) Hgb L 7.6(NOV 11)L 7.7(NOV 10)L 7.9(NOV 09)L 8.1(NOV 08) Hct L 23.3(NOV 11)L 23.4(NOV 10)L 24.4(NOV 09)L 25.0(NOV 08) Plt 177(NOV 11)192(NOV 10)194(NOV 09)195(NOV 08) Na 142(NOV 12)143(NOV 11)144(NOV 10)142(NOV 09) K 4.5(NOV 12)3.9(NOV 11)4.1(NOV 10)3.6(NOV 09) CO2 30(NOV 12)29(NOV 11)32(NOV 10)H 34(NOV 09) Cl 108(NOV 12)108(NOV 11)106(NOV 10)101(NOV 09) Cr H 1.42(NOV 12)H 1.62(NOV 11)H 2.72(NOV 10)H 4.14(NOV 09) BUN 22(NOV 12)H 31(NOV 11)H 58(NOV 10)H 88(NOV 09) Glucose Random 95(NOV 12)75(NOV 11)86(NOV 10)H 171(NOV 09) Mg 2.1(NOV 09) Phos H 5.2(NOV 09) Ca 9.0(NOV 12)L 8.2(NOV 11)8.7(NOV 10)8.8(NOV 09) PT 14.3(NOV 07) INR 1.11(NOV 07) PTT 30.6(NOV 07) Troponin <0.02(NOV 07) CK MB <0.5(NOV 07) Total CK 76(NOV 07) No qualifying data available Faisal Ahumada MD [facility] Extracted from: Title: Clinical Document Author: Torito Eastman Jeff Silva Date: 11/07/17 History of present illness 82-year-old lady who presented to the emergency department with a chief complaint of having shortness of breath over the course of last few days. Basically complaining of cough along with nasal congestion and general weakness. The patient denies chest pain no fever no abdominal pain. Reportedly has had episodes of nausea and vomiting and one episode of diarrhea. The patient was recently discharged from the hospital on October 29, 2017 at which times she was diagnosed as having pneumonia and was discharged home with Levaquin. She stated that she did have an allergic reaction consequently did not take a full course of treatment. The patient did have a chest x-ray done which was normal. Initial diagnostic study revealed sodium 131, potassium 5.7, chloride 90, CO2 27, BUN 104, creatinine 6.58, and according to the information gathered at the time of the discharge from the hospital on October 29, 2017 creatinine was 1.38 and during that hospitalization a day prior to discharge reportedly creatinine was 4.86. This is a new change quite significant and I spoke with the emergency room physician Dr. Yost and then nephrology consultation is being requested. Past medical history: The patient noted to have a history of hypertension, neuropathy, COPD, diabetes mellitus and congestive heart failure. Multiple medical problems including osteoporosis, trigeminal neuralgia and gamma knife radiosurgery. History of migraine headache. Surgical history: Stereotactic radiosurgery ([id number]) on 02/12/2017 at 81 Years. Cholecystectomy. Appendectomy. Lumpectomy of breast. Gamma-knife surge, Reviewed as documented in chart. Family history High blood pressure Father Type 2 diabetes mellitus Father Heart attack Father Social history: Former smoker, no alcohol abuse. Allergies: Allergic to Levaquin. Medications taken at time of admission: List of medications review. Constitutional symptoms: Weakness (generalized), no fever, no chills. Skin symptoms: No jaundice, no rash. Eye symptoms: Vision unchanged, No pain, ENMT symptoms: Nasal congestion, No sore throat, Respiratory symptoms: Shortness of breath, cough. Cardiovascular symptoms: No chest pain, no diaphoresis. No palpitations. Gastrointestinal symptoms: Nausea, vomiting, diarrhea (x 1 episode), no abdominal pain, no constipation. No hematemesis no melena. Genitourinary symptoms: No dysuria, no hematuria. No frequency. Musculoskeletal symptoms: No back pain, no Muscle pain. Neurologic symptoms: No headache, no dizziness. No convulsive disorders. No focal weakness. Additional review of systems information: All other systems reviewed and otherwise negativ Physical examination revealed the patient was alert oriented to person time place the patient was in no distress vital signs blood pressure on arrival to the hospital 110/54, respirations 18, pulse 70 afebrile. HEENT: No gross abnormalities noted. Neck: Supple no JVD Lungs: Diffuse rhonchi in both lung tate. Quite audible. Heart: Regular rate and rhythm no murmurs no gallops Abdomen: Soft nontender, no organomegaly, bowel sounds present. Extremities: No cyanosis, clubbing or edema Neuro: No focal weakness. Patient alert oriented 3 Musculoskeletal: No significant deformity or swelling of joints. Psychiatrist: Normal mood Assessment: 1. Dyspnea on the patient with elevation of kidney function and with a history of COPD and CHF. The patient's chest x-ray revealed no acute findings. 2. Acute renal failure most likely dehydration which appears multifactorial. The patient had been discharged on Bumex 1 million p.o. 3 times a day and has been placed on Bactrim. We will monitor kidney function closely. 3. Left rib fracture, recent. 4. Recent gamma knife procedure 5. Diabetes mellitus type 2 with diabetic chronic kidney disease. Plan of care: The patient did have cardiac enzymes which were reported as being negative. Request pulmonary consultation and renal consultation. Treat hyperkalemia. The patient is noted to have a normal BNP and there appears to be no CHF. Further recommendation depending basically alcohol. DVT prophylaxis
== END | disposition home or self-care (01) ==
LOC: OR 05:30
PROVIDERS: ATTEND Internal Medicine Gastroenterology
DX: D50.9 Iron deficiency anemia, unspecified (principal); D12.4 Benign neoplasm of descending colon; K31.7 Polyp of stomach and duodenum; K44.9 Diaphragmatic hernia without obstruction or gangrene; K21.9 Gastro-esophageal reflux disease without esophagitis; K57.92 Diverticulitis of intestine, part unspecified, without perforation or abscess without bleeding; Z71.3 Dietary counseling and surveillance; E66.3 Overweight; J44.9 Chronic obstructive pulmonary disease, unspecified; E11.9 Type 2 diabetes mellitus without complications; M54.9 Dorsalgia, unspecified; G50.0 Trigeminal neuralgia; M54.2 Cervicalgia; G47.33 Obstructive sleep apnea (adult) (pediatric); I11.0 Hypertensive heart disease with heart failure; I50.9 Heart failure, unspecified; Z01.810 Encounter for preprocedural cardiovascular examination; Z01.812 Encounter for preprocedural laboratory examination; Z79.4 Long term (current) use of insulin; Z79.82 Long term (current) use of aspirin; Z68.28 Body mass index [BMI] 28.0-28.9, adult; Z87.891 Personal history of nicotine dependence
CPT/HCPCS: 36415 ×2; 43239; 45380; 45381; 82948; 85025; 88305; 88312; 93005; J2250; J2405